=== PATIENT | female | born 1970 | race Caucasian/White ===

== ENCOUNTER 2019-10-09 01:30 | Observation (INO) | payer BC, SELFPAY ==
[2019-10-09] VITALS (13 sets, daily range): BP systolic 126–184; BP diastolic 58–106; PULSE 57–84; RESP 14–22; TEMP 36.3–36.9; O2SAT 93–99; BMI 40.0; BMI 38.0
--- NOTE | 2019-10-09 01:48 | RAD_ITS ---
STUDY: X-RAY CHEST REASON FOR EXAM: Female, 48 years old. Left-sided chest pain and shortness of breath TECHNIQUE: Single AP portable view of the chest. COMPARISON: None. FINDINGS: The lungs are clear and expanded. There is no demonstrated pleural abnormality. Normal size heart. Normal mediastinum and andres. Normal visualized pulmonary arteries. Normal visualized aortic arch and descending thoracic aorta. Normal visualized thoracic spine. Normal visualized ribs, clavicles, and shoulders. There is no demonstrated abnormality of the visualized soft tissue structures of the upper abdomen. RAD/Chest 1 View (Portable) IMPRESSION: Normal x-ray examination of the chest. Electronically Signed: Bryant Bowman MD at 2:13 EST Tel , Service support ,
--- NOTE | 2019-10-09 01:48 | EKG12_ITS ---
Test Reason : CP Blood Pressure : / mmHG Vent. Rate : 069 BPM Atrial Rate : 069 BPM P-R Int : 160 ms QRS Dur : 072 ms QT Int : 434 ms P-R-T Axes : 048 048 066 degrees QTc Int : 465 ms Normal sinus rhythm Normal ECG Confirmed by MICHAEL KEVIN, ARLEEN ([id number]), metropolitan editor VIVIENNE MACKEY ([id number]) on 10/10/2019 2:08:55 PM Referred By: Arleen Dickinson Confirmed By:ARLEEN RODRIGUEZ MD
[2019-10-09 01:55] LABS: Absolute Lymphocyte Count 2.53 X10^3/uL (0.83-4.51); Absolute Neutrophil Count 5.9 X10^3/uL (2.0-7.7); Basophil# 0.05 X10^3/uL; Basophil% 0.5 % (0-1); Eosinophil# 0.29 X10^3/uL; Eosinophils% 3.1 % (0-5); Hematocrit 34.3 % (37-47); Hemoglobin 11.6 g/dL (12.0-15.0); Lymphocyte # 2.53 X10^3/ul (4.0); Lymphocyte % 27.2 % (19-41); Mean Corp Hgb Conc 33.8 g/dL (32-36); Mean Corpuscular Hgb 29.8 pg (27.0-32.0); Mean Corpuscular Volume 88.2 fL (81-99); Mean Platelet Vol. 9.1 fl (6.2-12.0); Monocyte# 0.42 X10^3/uL; Monocyte% 4.5 % (0-10); NRBC Flagged by Analyzer 0 % (0-5); Neutrophil # 5.94 X10^3/uL (2.7-7.7); Neutrophil % 64.1 % (47-70); Platelet Count 227 K/mm3 (150-450); RBC Distribution Width CV 12.2 % (11.6-14.6); Red Blood Count 3.89 M/mm3 (4.2-5.4); White Blood Count 9.3 K/mm3 (4.4-11.0)
[2019-10-09 02:06] LABS: D-Dimer Quantitative (DVT/PE) 0.32 FEU/ug/m (0.27-0.49)
[2019-10-09] MEDS: Mag Hydrox/Al Hydrox/Simeth 30 ML UDC PO (02:18)
--- NOTE | 2019-10-09 02:26 | ED.VISSUMM ---
- ER Visit Summary Date of Service: 10/09/19 Chief Complaint: Chest pain History of Present Illness: The patient is a 48 F who notes a history of hypertension, high cholesterol, and smoking he tells me that at 2330 hrs. tonight she was sleeping was awoken out of her sleep with a left breast chest pressure shortness of breath. She noted some discomfort in the back as well. States for the past couple days she has just felt off. States that she has had some shooting pains in her chest and back and her shoulder. She quit smoking in July but restarted in August. Physical Examination: Afebrile noted hypertension otherwise vital signs are stable Gen: Well-nourished well-developed obese Head: Normocephalic atraumatic Eyes: Perrl EOMI ENT: TMs clear no rhinorrhea moist mucous membranes Neck: Supple no lymphadenopathy no JVD nontender CVS: Regular rate rhythm no murmurs normal S1-S2 Respiratory: No distress clear to auscultation bilaterally chest nontender Abdomen: Soft nontender nondistended normal bowel sounds no masses Back: Nontender Extremity: Nontender no edema Skin: Normal color no rash Neuro: alert orientated ?3 CN II-XII intact normal strength sensation reflexes gait cerebellar Psych: Normal affect normal mood Test Results: EKG demonstrates a normal sinus rhythm rate of 69 d-dimer 0.32. CBC with a hemoglobin 11.6. Initial troponin is negative. This represents about a 3-hour troponin. D-dimer 0.32. Emergency Department Course and Treatment: GI cocktail she states that maybe it did something that is difficult for her to tell me. 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 As far as the chest pressure that is better but she is not sure if there was a GI cocktail that made it better or not. Her REGINA score is 1. Heart score places her is her in a moderate risk. We will plan on observation with cycling troponin and further care. Impression: 1. Chest pain This note was generated with [employer] dictation software. It may contain incorrect words, spelling, and punctuation that were not noted in review of the chart prior to signing ED Disposition - Plan for ED Patient: Referrals: Kim Oliov MD [Primary Care Provider] -
[2019-10-09 02:59] LABS: Anion Gap 6 (5-15); BUN 14 mg/dL (7-18); BUN/Creat Ratio 10.1 RATIO (10-20); Calcium,Total 8.7 mg/dL (8.5-10.1); Chloride 110 mmol/L (98-107); Creatinine, Serum 1.38 mg/dL (0.55-1.02); EST Glomerular Filtration Rate 43 mL/min (>60); Est Glom Filt Rate - Afr Amer 52 mL/min (>60); Estimated Creatinine Clearance 42.58 ml/min; Glucose 117 mg/dL (74-106); Potassium 3.7 mmol/L (3.5-5.1); Sodium Level 143 mmol/L (136-145)
--- NOTE | 2019-10-09 03:25 | PCM.HP.STD ---
Problem List (1) Hypertension Status: Chronic (2) Hyperlipidemia Status: Chronic (3) Obesity Status: Chronic (4) Smoking Status: Chronic (5) Chest pain Status: Acute History of Present Illness Date of Admission: 10/09/19 Chief Complaint: chest pain The patient is a 48 year old female patient with a past medical history of hypertension, hyperlipidemia, obesity and recently restarted smoker who presents the emergency room for chest pain. The chest pain began at 1130 this evening and awoke her from sleep, she describes the pain is emanating from the deep beneath her left breast radiating into the left upper extremity and is a sharp pain in nature. The most part the character of the pain has diminished since arrival and treatment in the emergency room. Patient last had a stress test 6 years ago that was done chemically and was negative. Initial troponin level is less than 0.015. Other laboratory studies are unremarkable. The patient will be admitted to the progressive care unit for further work-up of her potential cardiac disease. Past Medical History Past Medical History (Chronic Problems): Chronic Problems Hypertension (Chronic) Hyperlipidemia (Chronic) Obesity (Chronic) Smoking (Chronic) Allergies butorphanol tartrate [From Stadol] Allergy (Verified 10/09/19 01:33) Shortness of breath ondansetron HCl [From Zofran (as hydrochloride)] Allergy (Verified 10/09/19 01:33) Other PALPITATIONS Home Medications: Ambulatory Orders Medication Instructions Recorded Lisinopril [Zestril] 20 mg PO DAILY 10/15/15 Pantoprazole Sodium [Protonix] 40 mg PO DAILY 10/15/15 busPIRone [Buspar] 15 mg PO BID 10/15/15 Atorvastatin Calcium [Lipitor] 20 mg PO QHS 10/09/19 Citalopram [Celexa] 40 mg PO DAILY 10/09/19 traZODone [Desyrel] 150 mg PO QHS 10/09/19 Smoking Status: Current every day smoker Tobacco Use: Cigarettes - *Family History Maternal History Items: No pertinent history Review of Systems Constitutional: Denies: Chills, Fever, Weight Change HEENT: Denies: Head Aches, Sinus Congestion, Sinus Drainage Cardiovascular: Reports: Chest Pain. Denies: Palpitations Respiratory: Denies: Cough, Shortness of breath at rest, Sputum production Gastrointestinal: Denies: Abdominal Pain, Nausea, Vomiting Genitourinary: Denies: Dysuria Musculoskeletal: Denies: Joint Pain, Joint Tenderness Skin: Denies: Rash, Wounds Neurological: Denies: Numbness, Tingling, Focal weakness Psychiatric: Denies: Anxiety, Depression, Homicidal Ideations, Suicidal Ideations Hematologic/ Lymphatic: Denies: Easy Bruising, Easy Bleeding VTE Information - Inpt Only VTE Present on Admission: No VTE Mechan Device Prophylaxis: None VTE Pharm Prophylaxis ordered?: Yes Patient Problems: Active and Suspected Problems Chest pain (Acute) - Physical Exam Vitals/I&O's: Vital Signs Temp Pulse Resp BP Pulse Ox 97.7 F L 63 19 H 154/78 H 97 10/09/19 01:30 10/09/19 02:52 10/09/19 02:52 10/09/19 02:52 10/09/19 02:52 Oxygen Delivery Method Room Air Weight: 233 lb 7.512 oz Body Mass Index (BMI) 40.0 General: Alert, Oriented x3, Cooperative HEENT: Atraumatic, Normocephalic Neck: Supple Lungs: Clear to auscultation, Normal air movement Cardiovascular: Regular rate, Normal S1, Normal S2, No murmurs Abdomen: Bowel Sounds Present, Soft, Non Tender, Obese Extremities: No edema Skin: No rashes Musculoskeletal: No Tenderness to Palpation of Joints or Extremities Neurological: Neuro grossly intact Psych/Mental Status: Normal Affect, Appropriate Laboratory Results 10/09/19 01:42: WBC 9.3, RBC 3.89 L, Hgb 11.6 L, Hct 34.3 L, MCV 88.2, MCH 29.8, MCHC 33.8, RDW Std Deviation 39.0, RDW Coeff of Erica 12.2, Plt Count 227, MPV 9.1, Immature Gran % (Auto) 0.600, Neut % (Auto) 64.1, Lymph % (Auto) 27.2, [place] % (Auto) 4.5, Eos % (Auto) 3.1, Baso % (Auto) 0.5, Absolute Neuts (auto) 5.9, Absolute Lymphs (auto) 2.53, Nucleated RBC % 0 10/09/19 01:42: D-Dimer Quant (PE/DVT) 0.32 10/09/19 01:42: Sodium 143, Potassium 3.7, Chloride 110 H, Carbon Dioxide 27.0, Anion Gap 6, BUN 14, Creatinine 1.38 H, Estim Creat Clear Calc 42.58, Est GFR (MDRD) Af Amer 52 L, Est GFR (MDRD) Non-Af 43 L, BUN/Creatinine Ratio 10.1, Glucose 117 H, Calcium 8.7, Troponin I < 0.015 Assessment/Plan All Active Problems Chest pain (Acute) Chronic conditions 1. hypertension 2. Obesity 3. Hyperlipidemia 4. Smoking Plan 1. Chest pain rule out myocardial infarction?admit to observation to the progressive care unit for stress test, cycle cardiac enzymes, oxygen,nitroglycerin as needed and aspirin per routine protocol 2. Smoking?patient refused nicotine patch 3. Hypertension?continue routine home medication 4. Hyperlipidemia?repeat fasting lipid panel in the morning 5. DVT prophylaxis?low molecular weight heparin Code Visit OBSV E&M: 97381 Initial observation care L2
[2019-10-09] MEDS: Aspirin 81 MG TAB.CHEW 243 MG PO (03:58)
[2019-10-09] MEDS: Lisinopril 20 MG Tablet PO ×2 (05:05→15:51)
[2019-10-09 05:41] LABS: Absolute Lymphocyte Count 2.06 X10^3/uL (0.83-4.51); Absolute Neutrophil Count 5.6 X10^3/uL (2.0-7.7); Basophil# 0.03 X10^3/uL; Basophil% 0.4 % (0-1); Eosinophil# 0.29 X10^3/uL; Eosinophils% 3.4 % (0-5); Hematocrit 31.8 % (37-47); Hemoglobin 10.4 g/dL (12.0-15.0); Lymphocyte # 2.06 X10^3/ul (4.0); Lymphocyte % 24.3 % (19-41); Mean Corp Hgb Conc 32.7 g/dL (32-36); Mean Corpuscular Hgb 29.1 pg (27.0-32.0); Mean Corpuscular Volume 89.1 fL (81-99); Mean Platelet Vol. 9.4 fl (6.2-12.0); Monocyte# 0.36 X10^3/uL; Monocyte% 4.2 % (0-10); NRBC Flagged by Analyzer 0 % (0-5); Neutrophil # 5.62 X10^3/uL (2.7-7.7); Neutrophil % 66.2 % (47-70); Platelet Count 222 K/mm3 (150-450); RBC Distribution Width CV 12.2 % (11.6-14.6); RBC Distribution Width SD 39.2 fl (35.1-43.9); Red Blood Count 3.57 M/mm3 (4.2-5.4); White Blood Count 8.5 K/mm3 (4.4-11.0)
[2019-10-09 07:12] LABS: Anion Gap 8 (5-15); BUN 17 mg/dL (7-18); BUN/Creat Ratio 14.3 RATIO (10-20); Calcium,Total 8.3 mg/dL (8.5-10.1); Chloride 107 mmol/L (98-107); Cholesterol 163 mg/dL (200); Creatinine, Serum 1.19 mg/dL (0.55-1.02); EST Glomerular Filtration Rate 51 mL/min (>60); Est Glom Filt Rate - Afr Amer 62 mL/min (>60); Estimated Creatinine Clearance 51.46 ml/min; Glucose 98 mg/dL (74-106); High Density Lipoprotein 42 mg/dL; Potassium 3.9 mmol/L (3.5-5.1); Sodium Level 141 mmol/L (136-145); Triglycerides 285 mg/dL; Very Low Density Lipoprotein 57 mg/dL (5-40)
--- NOTE | 2019-10-09 11:21 | NURSING ---
Pt taken to stress lab by PCA. Radha
--- NOTE | 2019-10-09 13:26 | NURSING ---
Pt returned from stress test by EMILY Triplett.
[2019-10-09] MEDS: hydrALAZINE 20 MG/ML Vial 10 MG IV (13:55)
--- NOTE | 2019-10-09 14:09 | STRESSREP_ITS ---
Stress Test Report Date: 06-08-19 Procedure: Pharmacologic stress nuclear imaging study Indications: Chest pain Consent: Per the patient Procedure: The patient underwent pharmacologic (Regadenoson) evaluation with a peak heart rate of 94 beats per minute (54 %predicted maximal heart rate) and a peak blood pressure of 172/94 mmHg. The baseline ECG demonstrated normal sinus rhythm. The peak pharmacologic ECG demonstrated no obvious ECG changes. There were no cardiac dysrhythmias pretest, during pharmacologic infusion, or recovery. The patient noted of chronic chest discomfort. The examination was discontinued secondary to completion of protocol. Impression: 1. Pharmacologic (Regadenoson) evaluation 2. Peak pharmacologic ECG with no obvious ECG changes. 3. There were no cardiac dysrhythmias pretest, during pharmacologic infusion, or recovery. 4. Nuclear images pending Myocardial perfusion imaging study: Technique: The patient was injected with 14.3 millicuries of technetium 99m Cardiolite and subsequently rest SPECT Cardiolite nuclear imaging was obtained in the horizontal long, vertical long, and short axis views. The patient underwent pharmacologic (Regadenoson) evaluation with a peak heart rate of 94 beats per minute (54 % percent predicted maximal heart rate) and a peak blood pressure of 172/94 mmHg. The patient was injected with 45.0 millicuries of technetium 99m Cardiolite and subsequently stress SPECT Cardiolite nuclear imaging was obtained in the horizontal long, vertical long, and short axis views. A gated Cardiolite study at peak stress was obtained. Interpretation: Rest and stress SPECT Cardiolite nuclear imaging status post realignment, normalization, and attenuation correction demonstrate a small area of subtle diminished tracer uptake near the apical segments without significant change between rest and stress. There is end systolic thickening and brightening. The gated Cardiolite study demonstrates myocardial thickening and inward wall motion. The reported LVEF is 64 %. Impression: 1. Rest and stress SPECT Cardiolite nuclear imaging demonstrate myocardial perfusion changes appearing compatible with physiologic apical thinning with no myocardial perfusion changes considered diagnostic for associated stress-induced myocardial ischemia. 2. The gated Cardiolite study reports an LVEF of 64 %. This note was generated with [employer] software. It may contain incorrect words, spelling, and punctuation that were not noted in checking the note before signing.
--- NOTE | 2019-10-09 14:34 | DCINST_ITS ---
- Discharge Diagnoses Current Active Problems: Current Active and Chronic Problems Hypertension (Chronic) Hyperlipidemia (Chronic) Obesity (Chronic) Smoking (Chronic) Chest pain (Acute) You will use the following diet at home:: No restrictions Instructions: CHEST PAIN, NonCardiac Allergies/Adverse Reactions: Allergies butorphanol tartrate [From Stadol] Allergy (Verified 10/09/19 01:33) Shortness of breath Medications to take at Discharge Lisinopril [Zestril] 20 mg PO DAILY 10/15/15 Pantoprazole Sodium [Protonix] 40 mg PO DAILY 10/15/15 busPIRone [Buspar] 15 mg PO BID 10/15/15 Atorvastatin Calcium [Lipitor] 20 mg PO QHS 10/09/19 Citalopram [Celexa] 40 mg PO DAILY 10/09/19 Ropinirole HCl [Requip] 0.25 mg PO QHS 10/09/19 traZODone [Desyrel] 150 mg PO QHS 10/09/19 Primary Care Physician: Kim Olivo MD [Primary Care Provider] - Please follow up with your Primary Care Physician in: in 1 week Test Results: Test results from this visit will be discussed in further detail at your follow- up appointment, if applicable. Proposed Discharge Date: 10/09/19
--- NOTE | 2019-10-09 14:35 | NURSING ---
Pt c/o Sob and right side chest pain sudden onset. Crushing, 9/10 over right side. Pain reproducible with palpation of right 4th intercostal. BP 183/81, Pulse 75. 2L N/C O2 placed on patient for comfort. SpO2 99%. EKG obtained by [facility], shows NSR. Dr. Ambrosio notified.
--- NOTE | 2019-10-09 14:36 | DS.PCM_ITS ---
Discharge Date and Diagnosis - Problem List Patient Problems: Active and Suspected Problems Chest pain (Acute) Date of Admission: 10/09/19 - Primary Discharge Diagnosis Active and Suspected Problems Chest pain (Acute) - Secondary Discharge Diagnosis Chronic Problems Hypertension (Chronic) Hyperlipidemia (Chronic) Obesity (Chronic) Smoking (Chronic) Hospital Course and Treatment Imaging Results: 10/09/19 05:55 Nuclear Stress Test - Chemical [NM] Routine Summary of Care Provided: The patient is a 48 year old F [] Patient Problems: Active and Suspected Problems Chest pain (Acute) - Physical Exam Vitals/I&O's: Vital Signs Temp Pulse Resp BP Pulse Ox 98.0 F 67 16 175/69 H 96 10/09/19 13:31 10/09/19 13:55 10/09/19 13:31 10/09/19 13:31 10/09/19 13:31 Oxygen Delivery Method Room Air Weight: 103.6 kg Body Mass Index (BMI) 38.0 Laboratory Results 10/09/19 01:42: WBC 9.3, RBC 3.89 L, Hgb 11.6 L, Hct 34.3 L, MCV 88.2, MCH 29.8, MCHC 33.8, RDW Std Deviation 39.0, RDW Coeff of Erica 12.2, Plt Count 227, MPV 9.1, Immature Gran % (Auto) 0.600, Neut % (Auto) 64.1, Lymph % (Auto) 27.2, [place] % (Auto) 4.5, Eos % (Auto) 3.1, Baso % (Auto) 0.5, Absolute Neuts (auto) 5.9, Absolute Lymphs (auto) 2.53, Nucleated RBC % 0 10/09/19 01:42: D-Dimer Quant (PE/DVT) 0.32 10/09/19 01:42: Sodium 143, Potassium 3.7, Chloride 110 H, Carbon Dioxide 27.0, Anion Gap 6, BUN 14, Creatinine 1.38 H, Estim Creat Clear Calc 42.58, Est GFR (MDRD) Af Amer 52 L, Est GFR (MDRD) Non-Af 43 L, BUN/Creatinine Ratio 10.1, Glucose 117 H, Calcium 8.7, Troponin I < 0.015 10/09/19 04:56: WBC 8.5, RBC 3.57 L, Hgb 10.4 L, Hct 31.8 L, MCV 89.1, MCH 29.1, MCHC 32.7, RDW Std Deviation 39.2, RDW Coeff of Erica 12.2, Plt Count 222, MPV 9.4, Immature Gran % (Auto) 1.500 H, Neut % (Auto) 66.2, Lymph % (Auto) 24.3, [place] % (Auto) 4.2, Eos % (Auto) 3.4, Baso % (Auto) 0.4, Absolute Neuts (auto) 5.6, Absolute Lymphs (auto) 2.06, Nucleated RBC % 0 10/09/19 04:56: Sodium 141, Potassium 3.9, Chloride 107, Carbon Dioxide 26.0, Anion Gap 8, BUN 17, Creatinine 1.19 H, Estim Creat Clear Calc 51.46, Est GFR (MDRD) Af Amer 62, Est GFR (MDRD) Non-Af 51 L, BUN/Creatinine Ratio 14.3, Glucose 98, Calcium 8.3 L, Triglycerides 285 H, Cholesterol 163, LDL Cholesterol 64, VLDL Cholesterol 57 H, HDL Cholesterol 42 10/09/19 04:56: Troponin I < 0.015 10/09/19 07:45: Troponin I < 0.015 Current Medications Aspirin (Ecotrin) 325 mg PO DAILY@0800 [facility] Atorvastatin Calcium (Lipitor) 20 mg PO QHS [facility] Buspirone HCl (Buspar) 15 mg PO BID [facility] Citalopram Hydrobromide (Celexa) 40 mg PO DAILY [facility] Enoxaparin Sodium (Lovenox) 40 mg SC DAILY@1000 [facility] Sodium Chloride () 250 mls @ 15 mls/hr IV .[id number] PRN PRN Reason: Saline Flush Lisinopril (Zestril) 20 mg PO DAILY [facility] Last Admin: 10/09/19 05:05 Dose: 20 mg Documented by: Nitroglycerin (Nitrostat) 0.4 mg SUBLINGUAL Q5M PRN PRN Reason: CARDIAC/CHEST PAIN Pantoprazole Sodium (Protonix) 40 mg PO DAILY [facility] Pramipexole Dihydrochloride (Mirapex) 0.125 mg PO QHS [facility] Sodium Chloride () 10 - 40 ml IV UD PRN PRN Reason: SALINE FLUSH Trazodone HCl (Desyrel) 150 mg PO QHS [facility] Medications: Medications to take at Discharge Lisinopril [Zestril] 20 mg PO DAILY 10/15/15 Pantoprazole Sodium [Protonix] 40 mg PO DAILY 10/15/15 busPIRone [Buspar] 15 mg PO BID 10/15/15 Atorvastatin Calcium [Lipitor] 20 mg PO QHS 10/09/19 Citalopram [Celexa] 40 mg PO DAILY 10/09/19 Ropinirole HCl [Requip] 0.25 mg PO QHS 10/09/19 traZODone [Desyrel] 150 mg PO QHS 10/09/19 Primary Care Physician: Kim Olivo MD [Primary Care Provider] - Please follow up with your Primary Care Physician in: in 1 week Patient Instructions: CHEST PAIN, NonCardiac Medical Necessity - Tobacco Use Smoking Status: Current every day smoker Tobacco Use: Cigarettes
--- NOTE | 2019-10-09 14:42 | CT_ITS ---
STUDY: CTA CHEST REASON FOR EXAM: Female, 48 years old. Chest pain. Shortness of breath. RADIATION DOSAGE (If Supplied By Facility): CTDIvol = ( 12.66 ) mGy, DLP = ( 529.46 ) mGycm TECHNIQUE: The examination was performed with the intravenous administration of IV Isovue 370 100. Post-processing of the angiographic images was performed, with multiplanar reformation and 3D reconstruction. Individualized dose optimization techniques were used for this CT. COMPARISON: None. FINDINGS: Normal enhancement of the main pulmonary artery and right and left pulmonary arteries. Normal enhancement of the bilateral peripheral pulmonary arteries. There is no demonstrated pulmonary embolism. Normal thoracic aorta and visualized great vessels. There is no demonstrated aortic dissection. Normal heart and pericardium. Normal mediastinum. Normal hilar regions. Normal visualized trachea and bronchi. The lungs are well expanded. Minimal increased markings at the left lung base suggests resolving atelectasis and/or scarring. Normal pleura. Normal chest wall structures. There are degenerative changes of thoracic spine. Normal visualized upper abdomen. CT/CTA Chest W/WO Contrast IMPRESSION: Normal CTA chest examination, without a demonstrated pulmonary embolism or arterial dissection. Electronically Signed: David Gates, at 15:40 EST , Service support ,
--- NOTE | 2019-10-09 15:30 | PCM.DC ---
- Discharge Diagnoses Current Active Problems: Current Active and Chronic Problems Hypertension (Chronic) Hyperlipidemia (Chronic) Obesity (Chronic) Smoking (Chronic) Chest pain (Acute) Discharge Activity: Return to Normal Activity Instructions: CHEST PAIN, NonCardiac Allergies/Adverse Reactions: Allergies butorphanol tartrate [From Stadol] Allergy (Verified 10/09/19 01:33) Shortness of breath Medications to take at Discharge Lisinopril [Zestril] 20 mg PO DAILY 10/15/15 Pantoprazole Sodium [Protonix] 40 mg PO DAILY 10/15/15 busPIRone [Buspar] 15 mg PO BID 10/15/15 Amlodipine [Norvasc] 10 mg PO DAILY #60 tab 10/09/19 Atorvastatin Calcium [Lipitor] 20 mg PO QHS 10/09/19 Citalopram [Celexa] 40 mg PO DAILY 10/09/19 Lisinopril [Zestril] 20 mg PO BID #120 tab 10/09/19 Ropinirole HCl [Requip] 0.25 mg PO QHS 10/09/19 traZODone [Desyrel] 150 mg PO QHS 10/09/19 The following prescriptions were given: Amlodipine [Norvasc] 10 mg PO DAILY #60 tab Transmission Status: Received by [id number] Lisinopril [Zestril] 20 mg PO BID #120 tab Transmission Status: Received by [facility] Primary Care Physician: Kim Olivo MD [Primary Care Provider] - Please follow up with your Primary Care Physician in: in 1 week Test Results: Test results from this visit will be discussed in further detail at your follow-up appointment, if applicable. Proposed Discharge Date: 10/10/19
--- NOTE | 2019-10-09 15:37 | PCM.PN.BLA ---
Progress Note Patient is a 48-year-old lady admitted with chest pain. Placed on a monitored bed MT has been ruled out with serial cardiac enzymes. Underwent a nuclear stress test which is negative for stress-induced ischemia Patient did complain of significant chest discomfort as well as diaphoresis following the procedure CTA of the chest subsequently ordered to rule out PE Patient also has markedly elevated blood pressure with systolic greater than 180. Patient is on lisinopril dose was doubled. Was also started on amlodipine 10 mg p.o. daily as well as IV hydralazine. Plan will be to monitor patient overnight for her blood pressure to stabilize prior to discharge. STROKE Vital Signs/Narrative: Vital Signs Temp Pulse Resp BP Pulse Ox 10/09/19 15:00 77 10/09/19 13:55 67 10/09/19 13:31 98.0 F 67 16 175/69 H 96
[2019-10-09] MEDS: amLODIPine 10 MG Tablet PO (15:51)
[2019-10-09] MEDS: Pantoprazole Sodium 40 MG Tablet PO (15:53)
[2019-10-09] MEDS: Citalopram 40 MG TABLET PO (15:54)
[2019-10-09] MEDS: busPIRone 15 MG TABLET PO ×2 (15:54→20:53)
[2019-10-09] MEDS: Enoxaparin 40 MG/0.4 ML Syringe SC (15:54)
--- NOTE | 2019-10-09 16:17 | PCM.PN.HOSP ---
Patient Problems: Active and Suspected Problems Chest pain (Acute) Vitals/I&O's: Vital Signs Temp Pulse Resp BP Pulse Ox 98.0 F 77 16 175/69 H 96 10/09/19 13:31 10/09/19 15:00 10/09/19 13:31 10/09/19 13:31 10/09/19 13:31 Oxygen Flow Rate (L/min) 2 Oxygen Delivery Method Nasal Cannula Weight: 103.6 kg Body Mass Index (BMI) 38.0 Laboratory Results 10/09/19 01:42: WBC 9.3, RBC 3.89 L, Hgb 11.6 L, Hct 34.3 L, MCV 88.2, MCH 29.8, MCHC 33.8, RDW Std Deviation 39.0, RDW Coeff of Erica 12.2, Plt Count 227, MPV 9.1, Immature Gran % (Auto) 0.600, Neut % (Auto) 64.1, Lymph % (Auto) 27.2, [place] % (Auto) 4.5, Eos % (Auto) 3.1, Baso % (Auto) 0.5, Absolute Neuts (auto) 5.9, Absolute Lymphs (auto) 2.53, Nucleated RBC % 0 10/09/19 01:42: D-Dimer Quant (PE/DVT) 0.32 10/09/19 01:42: Sodium 143, Potassium 3.7, Chloride 110 H, Carbon Dioxide 27.0, Anion Gap 6, BUN 14, Creatinine 1.38 H, Estim Creat Clear Calc 42.58, Est GFR (MDRD) Af Amer 52 L, Est GFR (MDRD) Non-Af 43 L, BUN/Creatinine Ratio 10.1, Glucose 117 H, Calcium 8.7, Troponin I < 0.015 10/09/19 04:56: WBC 8.5, RBC 3.57 L, Hgb 10.4 L, Hct 31.8 L, MCV 89.1, MCH 29.1, MCHC 32.7, RDW Std Deviation 39.2, RDW Coeff of Erica 12.2, Plt Count 222, MPV 9.4, Immature Gran % (Auto) 1.500 H, Neut % (Auto) 66.2, Lymph % (Auto) 24.3, Prairie % (Auto) 4.2, Eos % (Auto) 3.4, Baso % (Auto) 0.4, Absolute Neuts (auto) 5.6, Absolute Lymphs (auto) 2.06, Nucleated RBC % 0 10/09/19 04:56: Sodium 141, Potassium 3.9, Chloride 107, Carbon Dioxide 26.0, Anion Gap 8, BUN 17, Creatinine 1.19 H, Estim Creat Clear Calc 51.46, Est GFR (MDRD) Af Amer 62, Est GFR (MDRD) Non-Af 51 L, BUN/Creatinine Ratio 14.3, Glucose 98, Calcium 8.3 L, Triglycerides 285 H, Cholesterol 163, LDL Cholesterol 64, VLDL Cholesterol 57 H, HDL Cholesterol 42 10/09/19 04:56: Troponin I < 0.015 10/09/19 07:45: Troponin I < 0.015 Current Medications Amlodipine Besylate (Norvasc) 10 mg PO DAILY [facility] Aspirin (Ecotrin) 325 mg PO DAILY@0800 [facility] Atorvastatin Calcium (Lipitor) 20 mg PO QHS [facility] Buspirone HCl (Buspar) 15 mg PO BID [facility] Last Admin: 10/09/19 15:54 Dose: 15 mg Documented by: Citalopram Hydrobromide (Celexa) 40 mg PO DAILY [facility] Last Admin: 10/09/19 15:54 Dose: 40 mg Documented by: Enoxaparin Sodium (Lovenox) 40 mg SC DAILY@1000 [facility] Last Admin: 10/09/19 15:54 Dose: 40 mg Documented by: Hydralazine HCl (Apresoline Iv) 10 mg IV Q4H PRN PRN PRN Reason: for SBP > 150 Sodium Chloride () 250 mls @ 15 mls/hr IV .[id number] PRN PRN Reason: Saline Flush Lisinopril (Zestril) 20 mg PO BID [facility] Last Admin: 10/09/19 15:51 Dose: 20 mg Documented by: Nitroglycerin (Nitrostat) 0.4 mg SUBLINGUAL Q5M PRN PRN Reason: CARDIAC/CHEST PAIN Pantoprazole Sodium (Protonix) 40 mg PO DAILY [facility] Last Admin: 10/09/19 15:53 Dose: 40 mg Documented by: Pramipexole Dihydrochloride (Mirapex) 0.125 mg PO QHS [facility] Sodium Chloride () 10 - 40 ml IV UD PRN PRN Reason: SALINE FLUSH Trazodone HCl (Desyrel) 150 mg PO QHS [facility] STROKE Vital Signs/Narrative: Vital Signs Temp Pulse Resp BP Pulse Ox 10/09/19 15:00 77 10/09/19 13:55 67 10/09/19 13:31 98.0 F 67 16 175/69 H 96 Medical Necessity - Tobacco Use Smoking Status: Current every day smoker Tobacco Use: Cigarettes Assessment/Plan All Active Problems Chest pain (Acute)
[2019-10-09] MEDS: Atorvastatin Calcium 20 MG Tablet PO (20:52)
[2019-10-09] MEDS: traZODone 50 MG Tablet 150 MG PO (20:53)
[2019-10-09] MEDS: Pramipexole Di-HCl 0.125 MG Tablet PO (20:53)
[2019-10-09] MEDS: MELATONIN 3 MG TABLET PO (20:56)
[2019-10-09] MEDS: Acetaminophen 325 MG Tablet 650 MG PO (20:56)
[2019-10-10 02:30] VITALS: BP 113/49; PULSE 70; RESP 16; TEMP 36.8; O2SAT 93
[2019-10-10 03:00] VITALS: PULSE 60
[2019-10-10 07:02] VITALS: PULSE 67
--- NOTE | 2019-10-10 08:24 | PCM.DC.SUM ---
Discharge Date and Diagnosis - Problem List Patient Problems: Active and Suspected Problems Chest pain (Acute) Date of Admission: 10/09/19 Date of Discharge: 10/10/19 - Primary Discharge Diagnosis Active and Suspected Problems Chest pain (Acute) - Secondary Discharge Diagnosis Chronic Problems Hypertension (Chronic) Hyperlipidemia (Chronic) Obesity (Chronic) Smoking (Chronic) Hospital Course and Treatment Imaging Results: Clinical Impression(s) from Imaging Studies Chest X-Ray 10/09/19 01:48 IMPRESSION: Normal x-ray examination of the chest. Electronically Signed: Brynat Bowman MD at 2:13 EST Tel , Service support , Chest CTA 10/09/19 14:42 IMPRESSION: Normal CTA chest examination, without a demonstrated pulmonary embolism or arterial dissection. Electronically Signed: David Kody, at 15:40 EST , Service support , Summary of Care Provided: Patient is a 48-year-old lady admitted with chest pain. Placed on a monitored bed NM has been ruled out with serial cardiac enzymes. Underwent a nuclear stress test which is negative for stress-induced ischemia 1. Atypical chest pain. Placed on a monitored bed NM has been ruled out with serial cardiac enzymes. Underwent a nuclear stress test which is negative for stress-induced ischemia Patient did complain of significant chest discomfort as well as diaphoresis following the procedure CTA of the chest subsequently ordered to rule out PE 2. Accelerated hypertension patient also has markedly elevated blood pressure with systolic greater than 180. Patient is on lisinopril dose was doubled. Was also started on amlodipine 10 mg p.o. daily as well as IV hydralazine. 3. Morbid obesity with BMI of 38.0 weight loss advised Patient Problems: Active and Suspected Problems Chest pain (Acute) Objective: GENERAL: cooperative HEENT: Atraumatic; EYES; Anicteric, Normal Conjunctiva NECK; supple, normal thyroid, RESPIRATORY: Diminished to auscultation CARDIOVASCULAR: Regular S1 S2, GI: soft, normoactive bowel sounds, NEURO: Awake; no lateralizing signs. SKIN: No Rash PSYCH; Flat affect - Physical Exam Vitals/I&O's: Vital Signs Temp Pulse Resp BP Pulse Ox 98.2 F 67 16 113/49 L 93 10/10/19 02:30 10/10/19 07:02 10/10/19 02:30 10/10/19 02:30 10/10/19 02:30 Oxygen Flow Rate (L/min) 2 Oxygen Delivery Method Room Air Weight: 103.6 kg Body Mass Index (BMI) 38.0 Intake and Output for Last 24 Hours 10/08/19 10/09/19 10/10/19 23:59 23:59 23:59 Intake Total 350 / 350 Balance 350 / 350 Current Medications Acetaminophen (Tylenol) 650 mg PO Q6H PRN PRN PRN Reason: Non-cardiac pain Last Admin: 10/09/19 20:56 Dose: 650 mg Documented by: Amlodipine Besylate (Norvasc) 10 mg PO DAILY [facility] Aspirin (Ecotrin) 325 mg PO DAILY@0800 [facility] Atorvastatin Calcium (Lipitor) 20 mg PO QHS [facility] Last Admin: 10/09/19 20:52 Dose: 20 mg Documented by: Buspirone HCl (Buspar) 15 mg PO BID [facility] Last Admin: 10/09/19 20:53 Dose: 15 mg Documented by: Citalopram Hydrobromide (Celexa) 40 mg PO DAILY [facility] Last Admin: 10/09/19 15:54 Dose: 40 mg Documented by: Enoxaparin Sodium (Lovenox) 40 mg SC DAILY@1000 [facility] Last Admin: 10/09/19 15:54 Dose: 40 mg Documented by: Hydralazine HCl (Apresoline Iv) 10 mg IV Q4H PRN PRN PRN Reason: for SBP > 150 Lisinopril (Zestril) 20 mg PO BID [facility] Last Admin: 10/09/19 15:51 Dose: 20 mg Documented by: Melatonin (Melatonin) 3 mg PO QHS [facility] Last Admin: 10/09/19 20:56 Dose: 3 mg Documented by: Nitroglycerin (Nitrostat) 0.4 mg SUBLINGUAL Q5M PRN PRN Reason: CARDIAC/CHEST PAIN Pantoprazole Sodium (Protonix) 40 mg PO DAILY [facility] Last Admin: 10/09/19 15:53 Dose: 40 mg Documented by: Pramipexole Dihydrochloride (Mirapex) 0.125 mg PO QHS [facility] Last Admin: 10/09/19 20:53 Dose: 0.125 mg Documented by: Trazodone HCl (Desyrel) 150 mg PO QHS [facility] Last Admin: 10/09/19 20:53 Dose: 150 mg Documented by: Discharge Diet: Low fat/ Low Cholesterol Discharge Activity: Return to Normal Activity Home Medications: Medications to take at Discharge Lisinopril [Zestril] 20 mg PO DAILY 10/15/15 Pantoprazole Sodium [Protonix] 40 mg PO DAILY 10/15/15 busPIRone [Buspar] 15 mg PO BID 10/15/15 Amlodipine [Norvasc] 10 mg PO DAILY #60 tab 10/09/19 Atorvastatin Calcium [Lipitor] 20 mg PO QHS 10/09/19 Citalopram [Celexa] 40 mg PO DAILY 10/09/19 Lisinopril [Zestril] 20 mg PO BID #120 tab 10/09/19 Ropinirole HCl [Requip] 0.25 mg PO QHS 10/09/19 traZODone [Desyrel] 150 mg PO QHS 10/09/19 Following Prescrptions Were Given to Patient: Amlodipine [Norvasc] 10 mg PO DAILY #60 tab Transmission Status: Received by [facility] Lisinopril [Zestril] 20 mg PO BID #120 tab Transmission Status: Received by [id number] Primary Care Physician: Kim Olivo MD [Primary Care Provider] - Please follow up with your Primary Care Physician in: in 1 week Patient Instructions: CHEST PAIN, NonCardiac Disposition: Home Minutes spent on discharge:: 25 Patient Condition:: Stable Medical Necessity - Tobacco Use Smoking Status: Current every day smoker Tobacco Use: Cigarettes Meaningful Use Info Meaningful Use Diagnoses (Choose all that apply): None applicable Code Visit OBSV E&M: 97454 Observation care discharge
[2019-10-10 08:30] VITALS: BP 137/62; PULSE 63; RESP 16; TEMP 36.9; O2SAT 94
[2019-10-10] MEDS: Aspirin E.C. 325 MG Tablet PO (08:30)
[2019-10-10] MEDS: Citalopram 40 MG TABLET PO (08:30)
[2019-10-10] MEDS: busPIRone 15 MG TABLET PO (08:30)
[2019-10-10] MEDS: amLODIPine 10 MG Tablet PO (08:30)
[2019-10-10] MEDS: Lisinopril 20 MG Tablet PO (08:30)
[2019-10-10] MEDS: Pantoprazole Sodium 40 MG Tablet PO (08:30)
== END 2019-10-10 08:23 | disposition home or self-care (01) ==
LOC: ED 02:10 → PCU 03:45
PROVIDERS: Admitting Provider Family Medicine; Emergency Provider Emergency Medicine; Family Provider Internal Medicine; PCP Internal Medicine; Referring Provider Family Medicine; Visit Provider Internal Medicine
DX: R07.89 Other chest pain (principal); I10 Essential (primary) hypertension; F17.210 Nicotine dependence, cigarettes, uncomplicated; E78.5 Hyperlipidemia, unspecified; E66.01 Morbid (severe) obesity due to excess calories; Z79.899 Other long term (current) drug therapy; Z71.3 Dietary counseling and surveillance; Z68.41 Body mass index [BMI] 40.0-44.9, adult; K21.9 Gastro-esophageal reflux disease without esophagitis; F32.9 Major depressive disorder, single episode, unspecified
CPT/HCPCS: 36415; 71045; 71275; 78452; 80048; 80061; 84484; 85025; 85379; 93005; 93017; 96372; 96374; 99218; 99285; A9500; Q9967; A4216; G0378; J2785

== ENCOUNTER 2019-10-11 11:33 | Emergency (ER) | payer BC, SELFPAY ==
[2019-10-09 04:19] VITALS: BMI 38.0
[2019-10-11 11:35] VITALS: BP 161/85; PULSE 81; RESP 18; TEMP 36.2; O2SAT 100; BMI 37.7
--- NOTE | 2019-10-11 12:11 | ED.VISSUMM ---
- ER Visit Summary Date of Service: 10/11/19 Chief Complaint: Chronic hypertension and anxiety. History of Present Illness: The patient is a 48 F admission for hypertension. Patient also has a history of anxiety and depression. She recently was in the hospital discharge he readjusted her blood pressure meds to lisinopril twice a day and Norvasc. She states her blood pressure is elevated again. She had extensive work-up when she was in the hospital including a cardiac work-up that was negative and a CTA of her chest. Physical Examination: Middle-aged female no acute distress vital signs are stable afebrile. Currently her blood pressure is 161/85. Her pulse ox 9% on room air. HEENT exam unremarkable. Neck nontender no lymphadenopathy. Lungs clear to auscultation bilaterally. Heart regular rhythm no murmur. Rate about 80. Abdomen soft obese and nontender. Normal bowel sounds no peritoneal signs. Moving all 4 extremities. Calves nontender. Neurologically she is awake and alert with no focal motor deficits NIH is 0. Test Results: She and her are basically demanding a TSH. I told him as happy to get bad but that I did not not feel that was secondary to a problem. Decided that she was going to follow-up with her primary care physician and is not going to have the lab draw. Emergency Department Course and Treatment: Splane to both patient and her her pressure was only 161/85. She needs a log blood pressures follow-up with her primary care physician and they can regulate her meds as needed if needed. Treatment Plan: Continue her current medications. Follow-up with primary care physician. Disposition: Discharge Impression: Acute on chronic hypertension Anxiety This note was generated with [email or web address] dictation software. It may contain incorrect words, spelling, and punctuation that were not noted in review of the chart prior to signing ED Disposition - Plan for ED Patient: Disposition: Home or Assisted Living Instructions: HYPERTENSION, Established, Out of Control, Panic Attack Referrals: Kim Olivo MD [Primary Care Provider] - 1 Week Additional Instructions: Continue your current blood pressure and anxiety medications. Log your blood pressures twice daily when you are calm and relaxed in the morning in the evening. Follow-up with Dr. Kingston over these readings and you on her can decide if you need your medications adjusted or changed.
--- NOTE | 2019-10-11 12:14 | ED.DEP ---
ED Disposition - Plan for ED Patient: Disposition: Home or Assisted Living Instructions: HYPERTENSION, Established, Out of Control, Panic Attack Referrals: Kim Olivo MD [Primary Care Provider] - 1 Week Additional Instructions: Continue your current blood pressure and anxiety medications. Log your blood pressures twice daily when you are calm and relaxed in the morning in the evening. Follow-up with Dr. Kingston over these readings and you on her can decide if you need your medications adjusted or changed.
[2019-10-11] MEDS: LORazepam 1 MG Tablet PO (12:43)
[2019-10-11 12:46] VITALS: BP 133/71; PULSE 71; RESP 16; O2SAT 95
== END 2019-10-11 12:47 | disposition home or self-care (01) ==
PROVIDERS: Emergency Provider Emergency Medicine; Family Provider Internal Medicine; PCP Internal Medicine
DX: I10 Essential (primary) hypertension (principal); F41.9 Anxiety disorder, unspecified; Z79.899 Other long term (current) drug therapy; F32.9 Major depressive disorder, single episode, unspecified
CPT/HCPCS: 99283

== ENCOUNTER 2021-03-06 11:11 | Emergency (ER) | payer BC, SELFPAY ==
[2021-03-06 11:12] VITALS: BP 129/93; PULSE 69; RESP 18; TEMP 36.7; O2SAT 96; BMI 33.3
[2021-03-06] MEDS: MethylPREDNISolone 125 MG/2 ML Vial IV (11:26)
[2021-03-06] MEDS: DiphenhydrAMINE 50 MG/ML Syringe IV (11:26)
[2021-03-06] MEDS: 0.9% Normal Saline 1,000 ML 1000 ML IV (11:26)
--- NOTE | 2021-03-06 11:28 | ED.DCSUM_ITS ---
History of Present Illness Chief Complaint: Allergic Reaction Informant: Patient Onset: Today Context: Gradual Onset Timing: Continuous Current Severity: Moderate Maximum Severity: Moderate Narrative: Patient is a 50-year-old female medical history significant for hypertension who presents to the emergency department with allergic reaction. Patient had her second dose of the Covid vaccination today. She states about an hour later, she noticed that both of her arms were itchy. She states that she also noticed that her eyes were very puffy. She states she felt like her throat was itchy. She denies trouble breathing. She denies any cough. She has no history of anaphylaxis. She is otherwise been in her normal state of health. Prior similar symptoms: No Recent Illness/Hospitalization: No Past Medical History - Allergies and Home Meds Allergies/Adverse Reactions: Allergies butorphanol tartrate [From Stadol] Allergy (Verified 03/06/21 11:14) Shortness of breath Primary Care Physician: Kim Olivo MD [Primary Care Provider] - Prior records reviewed: Yes Past Medical History: - - Depression, anxiety, hypertension Surgical History: noncontributory Smoking Status: Current every day smoker - Family History Maternal Family History: Reports: No pertinent history Review of Systems General: Denies: Chills, Fever, Sweats Eyes: Denies: Visual changes - bilaterally, Diplopia ENT: Denies: Rhinorrhea, Sore throat Cardiovascular: Denies: Chest pain, Palpitations Respiratory: Denies: Dyspnea, Cough, Dyspnea on exertion Gastrointestinal: Denies: Abdominal pain, Nausea, Vomiting, Diarrhea, Melena, Hematochezia Genitourinary: Denies: Dysuria, Hematuria, Frequency Musculoskeletal: Denies: Back pain, Extremity Pain Skin: Reports: Rash. Denies: Wounds Neurological: Denies: Headache, Weakness, Numbness Physical Exam Vital Signs/Narrative: Vital Signs Temp Pulse Resp BP Pulse Ox 03/06/21 11:12 98.0 F 69 18 129/93 H 96 Inital Vital Signs reviewed: Yes General: Well nourished, Well developed, No Acute Distress Head: Normocephalic, Atraumatic Eyes: Perrl, EOMI ENT: Moist mucous membranes, No rhinorrhea Neck: Supple, Nontender Cardiovascular: Regular rate, Regular rhythm, No murmurs Respiratory: No distress, CTA bilaterally, Chest nontender Abdomen: Soft, Nontender, Nondistended, Normal bowel sounds Back: Nontender, Normal Inspection Extremities: Nontender, No edema Skin: Normal color, - - Urticaria on bilateral arms and anterior chest Neurological: Alert, Oriented x3, Cranial nerves II-XII grossly intact, Normal Strength, Normal Sensation Psychological: Normal affect, Normal Mood Diagnostic/Tx/Re-eval - Medical Decision Making Patient presents with allergic reaction to drug injection. She has no paulette oedema. There is no bronchospasm. She has no abdominal pain. Vitals were unremarkable. She has no evidence of anaphylaxis. IV was established. Patient was given Solu-Medrol, Pepcid, and Benadryl. She was observed. She did have improvement of her symptoms. Patient did not require epi. At this point, I do for the patient is safe for discharge. I will keep her on a prednisone burst. Impression 1. Allergic reaction to injection ED Disposition - Plan for ED Patient: Instructions: ED ADVERSE DRUG REACTION Allergic Prescriptions: Prednisone [Deltasone] 40 mg PO DAILY #10 tablet Prescription Printed Referrals: Kim Olivo MD [Primary Care Provider] -
[2021-03-06] MEDS: Famotidine 200 MG/20 ML MDV 20 MG in 0.9% Normal Saline (Pres. free 8 ML 300 MG IV (11:43)
[2021-03-06 13:02] VITALS: BP 138/57; PULSE 71; RESP 15; O2SAT 96
== END 2021-03-06 13:03 | disposition home or self-care (01) ==
LOC: ED 11:54
PROVIDERS: Emergency Provider Emergency Medicine; PCP Internal Medicine
DX: T78.49XA Other allergy, initial encounter (principal); L50.0 Allergic urticaria; I10 Essential (primary) hypertension; F32.9 Major depressive disorder, single episode, unspecified; F41.9 Anxiety disorder, unspecified; F17.200 Nicotine dependence, unspecified, uncomplicated; Z79.899 Other long term (current) drug therapy
CPT/HCPCS: 96361; 96374; 96375; 99284; J7030; A4216; J3490

== ENCOUNTER 2021-03-20 13:55 | Outpatient (RCR) | payer BC, SELFPAY | END 2021-03-20 23:59 | LOC: EMPH 13:55 | PROVIDERS: PCP Internal Medicine; Referring Provider Family Medicine Geriatric Medicine; Visit Provider Family Medicine Geriatric Medicine | DX: Z03.818 Encounter for observation for suspected exposure to other biological agents ruled out (principal) | CPT/HCPCS: 87426 ==

== ENCOUNTER 2021-04-23 10:43 | Emergency (ER) | payer BC, SELFPAY ==
[2021-04-23 10:44] VITALS: BP 112/64; PULSE 63; RESP 14; TEMP 36.1; O2SAT 97; BMI 34.3
--- NOTE | 2021-04-23 11:01 | EKG12_ITS ---
Test Reason : CP Blood Pressure : / mmHG Vent. Rate : 060 BPM Atrial Rate : 060 BPM P-R Int : 154 ms QRS Dur : 088 ms QT Int : 430 ms P-R-T Axes : 028 026 065 degrees QTc Int : 430 ms Normal sinus rhythm Normal ECG Confirmed by MICHAEL KEVIN, ARLEEN ([id number]), pictures editor CATIE SAINI ([id number]) on 04/27/2021 9:47:23 AM Referred By: FINESSE/MARIA ELENA Confirmed By:ARLEEN RODRIGUEZ MD
--- NOTE | 2021-04-23 11:12 | EX.ED.DYSGE1 ---
HPI History of Present Illness Chief Complaint: Chest Pain Informant: patient Narrative Narrative: 50-year-old female presents to the emergency room for the evaluation of chest pain. She tells me that for about a week now she has had intermittent chest pressure and shortness of breath. She notes pain in her neck to touch along the left side and the SCM distribution. She notes intermittent pains in her shoulders. She notes headache diarrhea. She notes chills. No significant cough. PFSH PFSH Medical History Hyperlipidemia Hypertension Obesity Smoking Home Medications buspirone 15 mg PO BID 10/15/15 [History Last Taken 10/08/19] lisinopril 20 mg PO DAILY 10/15/15 [History Last Taken 10/08/19] pantoprazole 40 mg PO DAILY 10/15/15 [History Last Taken 10/08/19] atorvastatin 20 mg PO QHS 10/09/19 [History Last Taken 10/08/19] citalopram 40 mg PO DAILY 10/09/19 [History Last Taken 10/08/19] ropinirole 0.25 mg PO QHS 10/09/19 [History Last Taken 10/08/19] trazodone 150 mg PO QHS 10/09/19 [History Last Taken 10/08/19] amlodipine 5 mg PO DAILY 03/06/21 [History Last Taken Unknown] Allergy/AdvReac Type Severity Reaction Status Date / Time butorphanol tartrate Allergy Shortness Verified 04/23/21 10:46 [From Stadol] of breath Social History (Updated 04/23/21 @ 11:[address] Bony Davidson, DO) Smoking Status: Current every day smoker tobacco type: cigarettes substance use type: does not use ROS ROS ED Constitutional Constitutional ED: Reports chills; Denies weight loss Eyes Eyes: Denies change in vision or diplopia ENT ENT ED: Reports sore throat; Denies ear pain or rhinorrhea Cardiovascular Cardiovascular: Reports chest pain; Denies orthopnea, palpitations or racing heartbeat Respiratory/Chest Respiratory/Chest: Reports dyspnea; Denies cough or orthopnea Gastrointestinal Gastrointestinal: Reports diarrhea; Denies abdominal pain, nausea or vomiting Genitourinary Genitourinary ED: Denies dysuria, hematuria or urinary frequency Musculoskeletal Musculoskeletal: Reports neck pain; Denies arthralgias or myalgias Integumentary Denies abscess or rash Neurologic Neurologic: Reports headache(s); Denies weakness Psychiatric Psychiatric: Denies anxiety, depression, suicidal ideation or suicidal thoughts Endocrine Endocrinology: Denies polydipsia, polyphagia or polyuria Allergic/Immunologic Allergic/Immunologic ED: Denies mouth swelling, tongue swelling or urticaria EXAM Physical Exam Const Vital Signs: 04/23/21 10:44 04/23/21 11:28 04/23/21 12:19 Temperature 96.9 F L Temperature Source Temporal Pulse Rate 63 59 L Respiratory Rate 14 11 L Respiratory Effort Normal Non-Labored Blood Pressure 112/64 116/69 Blood Pressure Mean 80 84 Pulse Ox 97 98 Oxygen Delivery Method Room Air Room Air Positive well nourished and well developed General Appearance ED: well developed HEENT Reports normocephalic, head/scalp atraumatic and moist mucous membranes Eyes PERRL and EOMs intact bilaterally Neck no lymphadenopathy, supple and no JVD Resp normal respiratory effort and clear to auscultation bilaterally Cardio regular rate, regular rhythm and no murmurs GI normal to inspection, nondistended, normoactive bowel sounds and non-tender Palpation: soft Back/Spine no CVA tenderness and normal ROM Extremity normal to inspection General Extremety ED: Negative for edema General Extremity: Negative for edema Neuro oriented x3 and CN's II-XII intact bilaterally Sensorium / Orientation: alert Motor Exam: strength 5/5 throughout Psych mental status grossly normal Mood & Affect: Negative for depressed or tearful Skin no rashes or lesions noted and no wounds MDM MDM MDM Narrative Medical decision making narrative: My interpretation of the plain film of the chest is no acute process. EKG is a normal sinus rhythm. Troponin is negative. Basic blood work is otherwise negative. Covid test is negative. Patient's heart score is 3. At this point I believe the patient can be discharged home with instructions to follow-up with primary care. We talked about getting a outpatient stress test ordered. Return if worsening or concerns Lab Data Labs: Laboratory Results - last 24 hr 04/23/21 04/23/21 04/23/21 11:25 11:25 11:25 WBC 7.1 RBC 4.22 Hgb 11.8 L Hct 34.8 L MCV 82.5 MCH 28.0 MCHC 33.9 RDW Std Deviation 36.5 RDW Coeff of Erica 12.2 Plt Count 238 MPV 9.9 Immature Gran % (Auto) 0.300 Neut % (Auto) 58.5 Lymph % (Auto) 34.0 Banks % (Auto) 3.9 Eos % (Auto) 2.7 Baso % (Auto) 0.6 Absolute Neuts (auto) 4.2 Absolute Lymphs (auto) 2.41 Nucleated RBC % 0 Sodium 138 Potassium 3.9 Chloride 103 Carbon Dioxide 25.0 Anion Gap 10 BUN 19 H Creatinine 1.13 H Estim Creat Clear Calc 50.86 Est GFR (MDRD) Af Amer 65 Est GFR (MDRD) Non-Af 54 L BUN/Creatinine Ratio 16.8 Glucose 100 Calcium 8.7 Total Bilirubin 0.50 AST 20 ALT 22 Alkaline Phosphatase 85 Troponin I < 0.015 B-Natriuretic Peptide 13.1 Total Protein 7.4 Albumin 3.9 Globulin 3.5 Albumin/Globulin Ratio 1.1 Radiography Diagnostic Testing: Radiology Impression Chest X-Ray 04/23/21 11:34 IMPRESSION: Normal x-ray examination of the chest. Electronically Signed: David Gates MD at 12:08 EDT , Service support , EKG Initial EKG: Attestation: I personally reviewed and interpreted this EKG as follows: Comments: EKG demonstrates a normal sinus rhythm at a rate of 60 bpm. No concerning features of ACS or ectopy noted. Discharge Plan Triage Chief Complaint: Chest Pain ED Provider: Bony Davidson Dx/Rx/DC Orders Clinical Impression: Chest pain Instructions: ED Chest Pain, Uncertain Cause Prescriptions: No Action buspirone 5 MG tablet 15 mg PO BID RF: 0 lisinopril 20 MG tablet 20 mg PO DAILY RF: 0 pantoprazole 40 MG tablet 40 mg PO DAILY RF: 0 atorvastatin 20 MG tablet 20 mg PO QHS RF: 0 citalopram 40 MG tablet 40 mg PO DAILY RF: 0 trazodone 100 MG tablet 150 mg PO QHS RF: 0 ropinirole 0.25 MG tablet 0.25 mg PO QHS RF: 0 amlodipine 10 MG tablet 5 mg PO DAILY RF: 0 Primary Care Provider: Kim Olivo Referrals: Kim Olivo MD [Primary Care Provider] - As soon as possible (Please discuss outpatient stress testing with your doctor.) Activity Restrictions/Additional Instructions: If symptoms worsen please return to emergency Disposition Disposition: Home, self care
--- NOTE | 2021-04-23 11:34 | RAD_ITS ---
STUDY: X-RAY CHEST REASON FOR EXAM: Female, 50 years old. Dyspnea TECHNIQUE: Single AP portable view of the chest. COMPARISON: Comparison is made with prior study dated 10/09/2019. FINDINGS: EKG electrodes are seen. The lungs are clear and expanded. There is no demonstrated pleural abnormality. Normal size heart. Normal mediastinum and andres. Normal visualized pulmonary arteries. There is atherosclerotic tortuosity of the aortic arch and descending thoracic aorta. Normal visualized thoracic spine. Normal visualized ribs, clavicles, and shoulders. There is no demonstrated abnormality of the visualized soft tissue structures of the upper abdomen. RAD/Chest 1 View (Portable) IMPRESSION: Normal x-ray examination of the chest. Electronically Signed: David Gates MD at 12:08 EDT , Service support ,
[2021-04-23 11:54] LABS: Absolute Lymphocyte Count 2.41 X10^3/uL (0.83-4.51); Absolute Neutrophil Count 4.2 X10^3/uL (2.0-7.7); Basophil# 0.04 X10^3/uL; Basophil% 0.6 % (0-1); Eosinophil# 0.19 X10^3/uL; Eosinophils% 2.7 % (0-5); Hematocrit 34.8 % (37-47); Hemoglobin 11.8 g/dL (12.0-15.0); Lymphocyte # 2.41 X10^3/ul (0.83-4.51); Mean Corp Hgb Conc 33.9 g/dL (32-36); Mean Corpuscular Volume 82.5 fL (81-99); Mean Platelet Vol. 9.9 fl (6.2-12.0); Monocyte# 0.28 X10^3/uL; Monocyte% 3.9 % (0-10); NRBC Flagged by Analyzer 0 % (0-5); Neutrophil # 4.15 X10^3/uL (2.7-7.7); Neutrophil % 58.5 % (47-70); Platelet Count 238 K/mm3 (150-450); RBC Distribution Width CV 12.2 % (11.6-14.6); RBC Distribution Width SD 36.5 fl (35.1-43.9); Red Blood Count 4.22 M/mm3 (4.2-5.4); White Blood Count 7.1 K/mm3 (4.4-11.0)
[2021-04-23 11:56] LABS: ALB/GLOB Ratio 1.1 RATIO (0.9-2.4); AST(SGOT) 20 U/L (15-37); Alanine Aminotransfer ALT/SGPT 22 U/L (13-56); Albumin, Serum 3.9 g/dL (3.2-5.0); Alkaline Phosphatase 85 U/L (45-117); Anion Gap 10 (5-15); BUN 19 mg/dL (7-18); BUN/Creat Ratio 16.8 RATIO (10-20); Calcium,Total 8.7 mg/dL (8.5-10.1); Chloride 103 mmol/L (98-107); Creatinine, Serum 1.13 mg/dL (0.55-1.02); EST Glomerular Filtration Rate 54 mL/min (>60); Est Glom Filt Rate - Afr Amer 65 mL/min (>60); Estimated Creatinine Clearance 50.86 ml/min; Globulin 3.5 g/dL (2.2-4.2); Glucose 100 mg/dL (74-106); Potassium 3.9 mmol/L (3.5-5.1); Protein, Total 7.4 g/dL (6.4-8.2); Sodium Level 138 mmol/L (136-145)
[2021-04-23] MEDS: Ondansetron 4 MG/2 ML Vial IV (12:18)
[2021-04-23 12:19] VITALS: BP 116/69; PULSE 59; RESP 11; O2SAT 98
[2021-04-23 12:24] LABS: BNP,B-Type NATRIURETIC PEPTIDE 13.1 pg/mL (0-100)
[2021-04-23 12:40] VITALS: BP 111/62; PULSE 81; RESP 20; O2SAT 99
--- NOTE | 2021-04-23 12:41 | ED.RN ---
THIS NURSE REVIEWED D/C INSTRUCTIONS WITH PT AND . BOTH VERBALIZED UNDERSTANDING OF INSTRUCTIONS. IV D/C. IV CATHETER INTACT. PT TOLERATED WELL. PT DENIES FURTHER NEEDS OR QUESTIONS AT THIS TIME
== END 2021-04-23 12:43 | disposition home or self-care (01) ==
PROVIDERS: Emergency Provider Emergency Medicine; PCP Internal Medicine
DX: R07.9 Chest pain, unspecified (principal); E78.5 Hyperlipidemia, unspecified; E66.9 Obesity, unspecified; I10 Essential (primary) hypertension; F17.210 Nicotine dependence, cigarettes, uncomplicated; Z79.899 Other long term (current) drug therapy
CPT/HCPCS: 71045; 80053; 83880; 84484; 85025; 87426; 93005; 96374; 99284; A4216; J2405

== ENCOUNTER 2021-06-01 09:00 | Outpatient (RCR) | payer BC, SELFPAY ==
--- NOTE | 2021-06-01 09:01 | BH.SGPN.GN ---
Behaviors/Verbalizations/Mental Status: []Client alert and oriented, casual dress, hygiene tended to. Eye contact fair. Motor activity appropriate. Speech within normal limits. Affect constricted, mood depressed and anxious. Thoughts linear, logical, no signs of hallucinations or delusions. Client Response/Progress/Benefit: []Pt responded well to session AEB pt openly sharing thoughts and listening attentively to others. Pt stated she is seeking therapy due to depression, anxiety and PTSD. Pt reported she feels like she has no control over her life. Pt shared she no longer enjoys anything, difficulty sleeping, and racing thoughts. Pt reported she has been struggling more in the last month after finding out her younger son attempted suicide. Pt shared she has years of trauma that she has never dealt with properly. Pt reported difficulty getting out of her house. Pt identified feeling hopeful that she is getting help. Pt seemed to benefit from support from peers. pt to continue IOP to increase healthy coping, improve daily functioning and prevent decompensation. Narrative Note: []
--- NOTE | 2021-06-01 10:15 | BH.SGPN.GN ---
Behaviors/Verbalizations/Mental Status: []Eye contact is good. Motor activity is appropriate. Appearance is casual. Speech is Appropriate. Mood is anxious and dysthymic. Affect is constricted. Thoughts are linear and logical. No evidence of psychosis. Client Response/Progress/Benefit: []Pt was an active participant in group discussion and activity. Attentive during psychoeducation on factors that build resiliency. Worked with peers to define resilience and shared ?it takes resilience and strength every day.? Along with peers also identified what could impact resilience which included: family, internal coping skills, beliefs, hope, and personality type. Pt reports her family makes her resilient. Pt benefited by increasing awareness on the role of resilience in mental health and factors that can help build resiliency. First day of IOP tx. Will continue in IOP to prevent decompensation, increase healthy coping, and stabilize mood. Narrative Note: []
--- NOTE | 2021-06-01 11:20 | BH.SGPN.GN ---
Behaviors/Verbalizations/Mental Status: []Client alert and oriented, casually dressed and groomed. Eye contact good. Motor activity appropriate. Speech within normal limits. Affect congruent, mood depressed and anxious. Thoughts linear, logical, no signs of hallucinations or delusions. Client Response/Progress/Benefit: []Client new to IOP tx and responded well to session, engaged and providing input throughout. Client participated in the discussion of how each resiliency component can help increase personal resiliency. Reports relating to the personal examples, shared benefitting from the shared experience of the group. Client worked with group to identify ways to practice each of the resiliency traits reviewed. Client shared she would like to focus on improving resilience trait of ?maintain a hopeful outlook? as she has struggled with this since her son?s suicide attempt. Client would like to continue working on this resiliency trait by reaching out to supports and practicing use of positive self-talk statements. Appeared to benefit from reflecting on importance of each resilience trait and identifying strategies to strengthen resilience. Will continue IOP tx to improve mood stability, further reduce anxiety and depression, and improve daily functioning. Narrative Note: []
--- NOTE | 2021-06-02 09:08 | BH.SGPN.GN ---
Behaviors/Verbalizations/Mental Status: []Eye contact is good. Motor activity is appropriate. Appearance is casual. Speech is Appropriate. Mood is depressed and anxious. Affect is congruent. Thoughts are linear and logical. No evidence of psychosis. Reviewed daily check in sheet and no reports of suicidal ideations or intent. Client Response/Progress/Benefit: []Pt was active participant in group AEB providing input and supportive feedback throughout. Client did well to more actively engage in discussion which is progress is new to IOP tc. Reports her emotion for the day as ?a range of irritable, angry, and anxious?. Attributes this to her current stressors which include her son wanting to discharge from an inpatient psychiatric hospital earlier than client is comfortable with. Discussed fear he will revert back to prior unhealthy means of coping. Indicates understanding she cannot control her son?s behavior and is trying to focus on supporting him and caring for her own mental health needs. Identified seeking tx for herself as a win, as well as reaching out to supports. Benefited from group support, encouragement, and feedback. Will continue in IOP to improve coping repertoire, reduce current sx, and improve overall mood stability. Narrative Note: []
--- NOTE | 2021-06-02 10:15 | BH.SGPN.GN ---
Behaviors/Verbalizations/Mental Status: []Client alert and oriented, casually dressed and groomed. Eye contact good. Motor activity appropriate. Speech within normal limits. Affect congruent, mood euthymic. Thoughts linear, logical, no signs of hallucinations or delusions. Client Response/Progress/Benefit: []Client engaged during session AEB client contributing thoughts throughout discussion and completing worksheet. Connected with discussion on crisis and how coping with external crises by using unhealthy coping skills could result in a personal crisis. Group reflected on the importance of having awareness of personal warning signs in order to prevent reaching crisis point. Group identified potential warning signs for crisis and client completed the personal warning signs worksheet. Client identified personal crisis warning signs to include: racing thoughts, uncontrollable worries, not taking care of self and increased risk taking. Client benefited by increasing awareness of what leads to crisis and personal warning signs. Pt will continue IOP to challenge distorted thoughts, continue use of healthy coping and prevent decompensation.
--- NOTE | 2021-06-02 11:15 | BH.SGPN.GN ---
Behaviors/Verbalizations/Mental Status: []Client alert and oriented, casually dressed and groomed. Eye contact good. Motor activity appropriate. Speech within normal limits. Affect constricted. Mood dysthymic. Thoughts linear, logical, no signs of hallucinations or delusions. Client Response/Progress/Benefit: []Client responded well to session as evidenced by client listening attentively to others and providing strategies during discussion. Client identified warning signs for crisis and gained further awareness of earliest warning signs. Client created a crisis action plan to help client better manage warning signs for crisis. Client?s action plan for racing thoughts, isolation, and apathy/lack of self-care included coping skills such as: listening to music, meditation, opposite action, thought challenging, walking/exercise, journaling, and creating a daily to-do list. Client appeared to benefit from creating a crisis action plan and increasing self-awareness. Client to continue IOP tx to prevent decompensation, learn healthy coping skills, and improve daily functioning. Narrative Note: []
--- NOTE | 2021-06-02 13:47 | BH.MDN_ITS ---
Multi-Disciplinary Note - Note 30-min Individual Time Started:: 12:10 Date: 06/02/21 Purpose of session/treatment goals addressed:: The purpose of this session was to gather information on client's current stressors, symptoms, and treatment goals. Another goal was to build rapport and provide information on different area resources. Eye Contact:: Good Motor Activity:: Appropriate Appearance:: Casual Speech:: Appropriate Mood:: Dysthymic Affect:: Constricted Thoughts:: Linear, Logical, No evidence of hallucinations/delusions noted Staff Interventions:: Therapist used active listening and open-ended questions to explore client's current stressors, symptoms, history, and treatment goals. Therapist used strengths perspective to build rapport and provided information on area resources such as AA, PALs, AL-Anon, and Eloy-Anon. Client Response:: Client responded well to session, open to meeting with therapist. Client stated she is enjoying IOP so far and she feels she is getting valuable coping skills from group. Client shared she wants to learn coping skills to better manage her depression, racing thoughts, and trauma from the past year. Client's son attempted suicide a month ago and he had called client saying I just wanted to tell you I love you and goodbye. Client immediately called the police after and her son was admitted. Client states since getting this call, client has been fearful of getting future calls. Client has nightmares and is hypervigilant. Client is even more worried now that he will be getting out of the psychiatric hospital this Tuesday. Client admits that for the past year (or more) she has used drinking to cope. Client's has been as well and they both want to quit. Client shared she and her talked about going to AA meetings together. Client receptive to getting information on AL- Anon and Eloy-Anon meetings as well. Discussed how these support meetings for family members might help client set healthy boundaries with her son. Client currently endorses a depressed mood, isolation, lack of self-care, hopelessness, apathy, lack of energy, and anxiety. Client does not currently have outpatient mental health providers and was receptive to establishing these services earlier rather than later. Risks/Concerns:: Client denies any suicidal ideations, plan, or intent as of 06/02/21. Denies any thoughts of . Is actively trying to stop alcohol use, but drank last night. Open to AA meetings. Progress Toward Goals/Plan:: Client's second day of IOP tx and reporting being here is already making her feel a little bit better. Client identified her treatment goals as learning healthy coping skills, reducing irrational thinking, reducing isolation, and better managing depression. Client also wants to learn about her trauma and gain skills to help client deal with her adult son who also struggles with addiction and mental health issues. Client was given resources for local support groups. Will continue IOP tx to prevent decompensation, improve daily functioning, and learn healthy coping skills to replace drinking. Time Stopped:: 12:26
--- NOTE | 2021-06-02 13:47 | BH.MTP ---
[facility] - Patient Information Program Physician:: Dr. Christelle Petit Primary Therapist:: Nichol BABB - Psychiatric Diagnoses Psychiatric Diagnoses:: Major depressive disorder, recurrent, severe without psychosis F33.2; Generalized anxiety disorder; PTSD; Alcohol use disorder, Diagnosis Code(s):: F 33.2 - Estimated LOS Estimated LOS (in weeks):: 6 Problem/Goal #1 - Problem/Goal #1 Stated Goal:: Client will reduce depressive symptoms, improve motivation, and decrease hopelessness due to major depressive disorder. Description of Barriers: Client is currently taking medication, but has not found it helpful. Client does not have any mental health providers. Client has complex trauma and has suffered many losses in her life. Client is currently self-medicating with alcohol, but has awareness that this is a problem. Functional Impact: Client is a 50-year-old female with a history of MDD, DACIA, and PTSD. Client was referred to [facility] by a family friend who previously completed IOP. Client presents with worsening depressive and anxiety symptoms over the past year, but this past month was even worse. Client reports in the past month her son and her stepdaughter both attempted suicide. Client shared her son called her after the attempt saying, mom I just wanted to tell you I love you and goodbye. Client endorses nightmares, flashbacks, and replaying memories over and over again. Client shared she has been having panic attacks as well. Client currently endorses a depressed mood with loss of appetite (down 12 lbs in a month), lack of concentration, lack of energy and motivation, crying spells, anhedonia, poor sleep, and hopelessness. Client denies any thoughts of or SI. Client admits to drinking to cope with her mental health symptoms. Client reports drinking 2-3 rum and cokes every night and client acknowledged this is a problem. Client has not been able to complete her ADLs, is borderline agoraphobic, and is struggling at work. Goal Relevant Strengths/Supports: Client is motivated to improve her mental health and stop drinking, receptive to AA and Eloy-Anon resources, and has support from her . - Objectives Objective #1 Stated Objective: Client will learn and utilize 2-3 healthy coping strategies to better manage depressive symptoms and replace drinking to cope as shown by a reduced DSM-5 scores for depression. Interventions: Through group and individual sessions, therapist will help client identify triggers and warning signs of depression and emotional dysregulation including emotional, physical, and behavioral changes. Therapist will teach client various coping skills to manage her symptoms and give client tangible resources to use to regulate emotions. Therapist will use cognitive restructuring techniques and help client gain awareness of negative thoughts that reinforce guilt and depression. Therapist will provide psychoeducation on maintenance cycles and help client learn ways to break unhealthy maintenance cycles. Therapist will help client incorporate behavioral activation and assist client in setting SMART goals. Discharge Criteria: Client will have met this goal when he can report learning and using at least 2 coping skills to manage depressive symptoms. Additionally, client will have met this goal when his depressive symptoms have reduced on the DSM-5 scale. Target Date: 07/20/21 Review Date: 07/06/21 Status: open Objective #2 Stated Objective: Client will identify at least 2-3 negative self-talk messages used to reinforce guilt and negative self-talk and replace thoughts with positive, realistic messages. Interventions: Therapist will help client identify distorted, negative thoughts about self and replace with more realistic, affirmative messages. Therapist will use CBT to help client increase insight to the connection between thoughts, emotions, and behaviors. Therapist will encourage client to practice thought challenging. Discharge Criteria: Client will have achieved this goal when can verbalize at least 2 negative self-talk messages and effectively replace those thoughts with affirmative messages. Target Date: 07/20/21 Review Date: 07/06/21 Status: open Problem/Goal #2 - Problem/Goal #2 Stated Goal:: Client will reduce anxiety and panic symptoms while increasing ability to function on daily basis. Description of Barriers: Client is currently taking medication, but has not found it helpful. Client does not have any mental health providers. Client has complex trauma and has suffered many losses in her life. Client is currently self-medicating with alcohol, but has awareness that this is a problem. Functional Impact: Client is a 50-year-old female with a history of MDD, DACIA, and PTSD. Client was referred to [facility] by a family friend who previously completed IOP. Client presents with worsening depressive and anxiety symptoms over the past year, but this past month was even worse. Client reports in the past month her son and her stepdaughter both attempted suicide. Client shared her son called her after the attempt saying, mom I just wanted to tell you I love you and goodbye. Client endorses nightmares, flashbacks, and replaying memories over and over again. Client shared she has been having panic attacks as well. Client currently endorses a depressed mood with loss of appetite (down 12 lbs in a month), lack of concentration, lack of energy and motivation, crying spells, anhedonia, poor sleep, and hopelessness. Client denies any thoughts of or SI. Client admits to drinking to cope with her mental health symptoms. Client reports drinking 2-3 rum and cokes every night and client acknowledged this is a problem. Client has not been able to complete her ADLs, is borderline agoraphobic, and is struggling at work. Goal Relevant Strengths/Supports: Client is motivated to improve her mental health and stop drinking, receptive to AA and Eloy-Anon resources, and has support from her . - Objectives Objective #1 Stated Objective: Client will identify 2-3 anxiety/panic triggers and 2 coping skills to use when feeling anxious to manage anxiety as shown by decreasing her DSM-5 scores for anxiety. Interventions: Therapist will provide education on anxiety, avoidance behaviors, and maintenance cycles. Therapist will help client explore personal symptoms and warning signs of anxiety. Therapist will teach client coping skills to improve emotional regulation, mindfulness, and distress tolerance to help client cope with anxiety in the moment. Discharge Criteria: Client will have accomplished this goal when she can identify at least 2 triggers and report using 2 coping skills to manage anxiety. Additionally, client will have accomplished this goal when her DSM-5 scores show a reduction for anxiety. Target Date: 07/20/21 Review Date: 07/06/21 Status: open Objective #2 Stated Objective: Client will be able to explain common stress reactions and symptoms related to trauma and learn 2-3 coping skills to manage symptoms. Interventions: Therapist will provide education on trauma and explain impact trauma can have on development. Will help client explore personal symptoms and warning signs of stress and trauma. Therapist will teach client coping skills to improve emotional regulation, mindfulness, and distress tolerance. Therapist will help client get connected with additional trauma-focused services, should client agree. Discharge Criteria: Client will have met this objective when can identify common stress reactions to trauma and report using at least 2 coping skills to manage symptoms. Target Date: 07/20/21 Review Date: 07/06/21 Status: open
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
--- NOTE | 2021-06-03 10:10 | BH.SGPN.GN ---
Behaviors/Verbalizations/Mental Status: [] Client alert and oriented, neat and casually dressed and groomed. Eye contact good. Motor activity appropriate. Speech within normal limits. Affect congruent, mood anxious and depressed. Thoughts linear, logical, no signs of hallucinations or delusions. Client Response/Progress/Benefit: []Client receptive to session, actively engaged AEB listening, providing input, and taking notes throughout. Appeared to connect with topic of stress, as client expressed stress has impacted her ability to take care of her own needs or set boundaries in the past. Worked with the group on brainstorming positive and negative impacts of stress on physical and mental health. Client willing to complete stress jar activity in which participants identified current stressors impacting mental health. Shared top 3 stressors as: physical health, mental health, and worries about her son?s mental health. Expressed that apathy and shutting down have impeded her ability to effectively manage stressors and have resulted in increased avoidance, shutting down, or isolation in the past. Appeared to benefit from psychoeducation on stress and increasing awareness on own stressors and common stress responses. Recommended to continue with IOP tx to improve skill application, further reduce symptomology, and prevent decompensation. Narrative Note: []
--- NOTE | 2021-06-03 11:15 | BH.SGPN.GN ---
Behaviors/Verbalizations/Mental Status: []Client alert and oriented, casually dressed and groomed. Eye contact good. Motor activity appropriate. Speech within normal limits. Affect constricted, mood anxious and dysthymic. Thoughts linear, logical, no signs of hallucinations or delusions. Client Response/Progress/Benefit: []Client engaged in session AEB listening attentively to others and providing input throughout discussions. Client remained attentive during discussion about the 4 A's of managing stress and discussed connecting with the various benefits of each. Client reported she would like to work on the strategy of accepting that she cannot control her son's behavior and mental health. Client stated she can also adapt her perspective by looking at all the positives she has done to help her son. Client seemed to benefit from increased awareness of the impact of stress on mental health and increasing repertoire of stress management strategies. Will continue IOP tx to prevent decompensation, challenge distorted thoughts and continue use of healthy coping skills. Narrative Note: []
[2021-06-03 11:37] VITALS: BP 113/71; PULSE 64
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
--- NOTE | 2021-06-03 13:24 | BH.DR.ITP ---
Initial Treatment Plan Patient Information Visit Information: ADMISSION DATE: EXPECTED LOS: 4-6 weeks Problems/Symptoms Problem #1:: Depression Symptom:: Sadness, crying, hopelessness, guilt, biological disruption of appetite and sleep, low energy, decreased concentration Problem #2:: Anxiety Symptom:: Rumination, worry, panic attacks, avoidance, nightmares, flashbacks
--- NOTE | 2021-06-04 09:01 | BH.SGPN.GN ---
Behaviors/Verbalizations/Mental Status: []Pt eye contact good, casually dressed, motor activity appropriate, speech normal rate and tone, mood euthymic, congruent affect, thoughts linear and intact, no evidence of delusions or hallucinations. Reviewed client?s symptom tracker, no signs of suicidal ideation, plan, or intent as of today. Client Response/Progress/Benefit: []Pt responded well to session AEB pt listening attentively to peers, and openly sharing thoughts and feelings. Pt reported mental health positive as getting up everyday and coming to IOP. pt stated this is a significant win for her because prior to IOP I was on the verge of agoraphobia. Pt identified additional mental health positives as completing errands after IOP yesterday then going home and getting several chores done. Pt stated she hasn't drank alcohol in 3 days. Pt stated having group accountability has been very helpful. Pt stated stressor is alcohol cravings. Progress noted with pt reporting ability to get out of house and complete chores at home. Pt to continue IOP to continue use of healthy coping, challenge distorted thoughts and prevent decompensation. Narrative Note: []
--- NOTE | 2021-06-04 10:02 | BH.SGPN.GN ---
Behaviors/Verbalizations/Mental Status: []Eye contact is good. Motor activity is appropriate. Appearance is casual. Speech is Appropriate. Mood is anxious and depressed. Affect is congruent. Thoughts are linear and logical. No evidence of psychosis. Client Response/Progress/Benefit: [] Pt was an attentive participant and actively engaged throughout group discussion and activity. Did well to share the floor with fellow participants. Attentive during psychoeducation and taking notes. Reflected connecting with topic of personal pitfalls and how they can impede mental health treatment progress. Pt shared that ?being sick and tired? has resulted in pt wanting to make changes and begin working on sobriety. Pt and peers provided examples of personal pitfalls or setbacks that impact mental health which included; isolation, avoidance, procrastination, denial, poor self-care, and ruminating on externals. During experiential activity pt along with peers identified several pitfalls from the activity that are also associated with mental health which included; poor communication, assumptions, lack of awareness, negative self-talk, fear of failure, and personalizing. Did well to take direction and feedback from peers, as well as challenged herself to try and take on more of a leadership role during experiential activity. Benefited from group by increasing awareness of pitfalls which can impact mental health. Pt will continue in [facility] to continue to work on maintaining sobriety, further improve mood stability, and promote healthy skill application. Narrative Note: []
--- NOTE | 2021-06-04 11:00 | BH.SGPN.GN ---
Behaviors/Verbalizations/Mental Status: []Client alert and oriented, neatly dressed and groomed. Eye contact good. Motor activity appropriate. Speech within normal limits. Affect constricted, mood dysthymic. Thoughts linear, logical, no signs of hallucinations or delusions. Client Response/Progress/Benefit: []Client receptive of session, engaged throughout AEB client actively listening and contributing to discussion, as well as taking notes. Client completed worksheet identifying personal pitfalls impacting mental health progress. Client identified the following pitfalls: lack of self-care, avoidance, procrastination, shame, and apathy. Group learned different coping skills to help manage pitfalls. Client will work on overcoming procrastination by setting small goals each day. Appeared to benefit from identifying personal pitfalls and strategies to overcome these pitfalls. Will continue IOP tx to prevent decompensation, learn healthy coping skills, and improve daily functioning. Narrative Note: []
--- NOTE | 2021-06-08 09:00 | BH.SGPN.GN ---
Behaviors/Verbalizations/Mental Status: []Client alert and oriented, neatly dressed and groomed. Eye contact good. Motor activity appropriate. Speech within normal limits. Affect constricted, mood euthymic. Thoughts linear, logical, no signs of hallucinations or delusions. Reviewed client?s symptom tracker, no risk for suicidal ideation, plan, or intent as of 06/08/21 Client Response/Progress/Benefit: []Client responded well to session, attentive and connecting with peers. Client reports feeling hopeful and happy this morning. Client stated she and her are 6 days sober. Client shared there was a significant trigger this weekend and client wanted to drink, but she used healthier skills instead. Client reported she and her went to dinner and the library this weekend as a distraction. Client also used deep breathing over the weekend to cope. Client shared she and her are going to start going to AA meetings as well for extra support. Client did not have any stressors to report today. Appeared to benefit from reflecting on her wins and sobriety. Will continue IOP tx to maintain sobriety, reduce depressive symptoms, and further improve overall functioning. Narrative Note: []
--- NOTE | 2021-06-08 10:15 | BH.SGPN.GN ---
Behaviors/Verbalizations/Mental Status: [] Eye contact is good. Motor activity is appropriate. Appearance is neat and casual. Speech is Appropriate. Mood is anxious and depressed. Affect is congruent. Thoughts are linear and logical. No evidence of psychosis. Client Response/Progress/Benefit: [] Pt was an active participant in group discussion and activity. Attentive during psychoeducation on external coping skills and how coping skills can positively and negatively impact mental health. Reported ?We use unhealthy skills because we are still just trying to cope. To succeed we have to get out of our comfort zone?. Provided insight that this has helped to continue to encourage her and remember she ? might have to break it down into smaller loads?. Pt along with peers provided their thoughts and insights on the definition of coping skills. Pt worked with peers to identify barriers to using healthy coping skills which included; it?s easier, comfortable, habitual, or they don?t know other ways of coping. Worked within small group to complete challenge activity requiring use of several coping skills. Did well to provide and receive supportive feedback. Benefited from increased awareness of coping skills, benefits in using healthy coping skills, and common coping skill barriers. Will continue in IOP to improve continue to maintain sobriety, stabilize mood, and increase heathy coping. Narrative Note: []
--- NOTE | 2021-06-08 11:15 | BH.SGPN.GN ---
Behaviors/Verbalizations/Mental Status: []Client alert and oriented, casual dress, hygiene tended to. Eye contact good. Motor activity appropriate. Speech within normal limits. Affect congruent, mood anxious. Thoughts linear, logical, no signs of hallucinations or delusions. Client Response/Progress/Benefit: []Client responded well to session, actively listening and providing examples. Group discussed the different categories of coping skills which included distraction, emotional release, grounding, self-love, and thought challenging. Client participated in creating a coping skills ?menu? from the five categories of coping skills. Client's coping skill menu included: journal, walk, 5 senses, relaxing, and identifying small wins. Progress noted in client showing increased self-awareness and reporting 6 days of sobriety.. Appeared to benefit from increasing repertoire of healthy coping skills. Will continue tx to continue use of healthy coping, challenge distorted thoughts and prevent decompensation.
--- NOTE | 2021-06-09 09:05 | BH.SGPN.GN ---
Behaviors/Verbalizations/Mental Status: [] Eye contact is good. Motor activity is appropriate. Appearance is casual. Speech is Appropriate. Mood is depressed. Affect is flat. Thoughts are linear and logical. No evidence of psychosis. Reviewed daily check in sheet and no reports of suicidal ideations or intent. Client Response/Progress/Benefit: [] Pt was an active participant in group discussion. Attentive. Provided appropriate feedback to peers. Emotion for today is depressed and anxious. Daily symptom tracker notes 5/5 for depression and anxiety. Shared that she is significantly concerned for a family member who is going through severe depression and fleeting SI. This family member was recently admitted to a psych facility. She feels powerless to help and uncertain if she is doing enough. She spoke with this person for several hours last night. Group was able to empathize and provided supportive feedback which was beneficial. Despite increase in depression and anxiety herself she was proud that she did not drink alcohol to cope last night noting that she is 7 days sober. Remarked that group and IOP has been great and she is proud of her progress. Will continue in IOP to prevent decompensation, increase healthy coping skills, and improve functioning. Narrative Note: []
--- NOTE | 2021-06-09 10:16 | BH.SGPN.GN ---
Behaviors/Verbalizations/Mental Status: [] Client alert and oriented, casually dressed and groomed. Eye contact good. Motor activity appropriate. Speech within normal limits. Affect congruent, mood anxious and depressed. Thoughts linear, logical, no signs of hallucinations or delusions. Client Response/Progress/Benefit: [] Pt actively engaged in group discussion on conflict and the potential benefits of healthy approaches to conflict on mental health as well as barriers in taking a healthy approach to conflict resolution. Pt connected to fellow participants as they reflected on quote. Shared ?Fear of pain is a barrier. I care too much about what people think?. Pt attentive and engaged during psychoeducation about different conflict styles (avoidant, accommodating, cooperative, and competing). Pt identified most often uses avoiding or accommodating styles for conflict which leads to her needs not getting met, feeling taken advantage of, and allowing others to make the decisions. Seemed to benefit from increased awareness of the different conflict styles. Pt to continue IOP to continue use of healthy coping skills, continue improving mood stability, and prevent decompensation. Narrative Note: []
--- NOTE | 2021-06-09 11:15 | BH.SGPN.GN ---
Behaviors/Verbalizations/Mental Status: []Client alert and oriented, neatly dressed and groomed. Eye contact good. Motor activity appropriate. Speech within normal limits. Affect constricted, mood dysthymic. Thoughts linear, logical, no signs of hallucinations or delusions. Client Response/Progress/Benefit: []Client engaged in session AEB contributing to discussion and engaging in activity. Client did well to review current conflict style and its impact on mental health. Attentive and taking notes during discussion on strategies for more effectively managing conflict in personal life. Client identified that accommodation and avoiding are her ?default? conflict resolution types. Client wants to work on changing this by avoiding ?stonewalling? or shutting down during conflict. Client also wants to work on taking breaks from conflict if emotions get too high. Appeared to benefit from gaining strategies to help client better manage conflict. Will continue IOP tx to prevent decompensation, gain healthy coping skills, and reduce guilt. Narrative Note: []
--- NOTE | 2021-06-10 09:00 | BH.SGPN.GN ---
Behaviors/Verbalizations/Mental Status: [] Eye contact is good. Motor activity is appropriate. Appearance is casual. Speech is Appropriate. Mood is depressed and anxious. Affect is congruent. Thoughts are linear and logical. No evidence of psychosis. Reviewed daily check in sheet and no reports of suicidal ideations or intent. Client Response/Progress/Benefit: [] Pt was an attentive participant AEB actively listening, as well as willingness to process with group. Client reports emotion for the day as ?melancholy?. Noted ?I don?t have much to say?, but then went on to identify several positives and areas of progress. Progress includes: continued sobriety, practicing use of calming and relaxation skills, as well as reaching out to her supports regularly. Expressed her has been a major support in her mental health and substance use recovery. Indicates that her son?s mental health is an ongoing stressor and she has a ?sense of impending doom? regarding the situation. Did well to identify areas within her control and what she can do to help herself cope in this situation. Benefited from group support, encouragement, and feedback. Will continue in IOP to maintain gains and sobriety, further promote healthy coping behaviors, and prevent decompensation. Narrative Note: []
--- NOTE | 2021-06-10 10:15 | BH.SGPN.GN ---
Behaviors/Verbalizations/Mental Status: []Eye contact is good. Motor activity is appropriate. Appearance is neat. Speech is Appropriate. Mood is depressed. Affect is flat. Thoughts are linear and logical. No evidence of psychosis. Client Response/Progress/Benefit: []Client responded well to session, alert and attentive. Group reviewed components of healthy relationships as well as traits of unhealthy relationships. Client shared her current marriage is healthy, but she has been in marriages before ?where I saw the redflags and ignored them.? Group discussed benefits of healthy relationships for one?s mental health such as: validation, increased resilience, perspective, and improved mood. Group also discussed factors that may contribute to people being in unhealthy relationships. Client shared wanting to stay in a relationship for the sake of children can be unhealthy. Participated in the activity and appeared to benefit from gaining insight on risk factors for unhealthy relationships. Will continue to IOP tx to reduce negative thoughts, promote sobriety, and improve daily functioning. Narrative Note: []
--- NOTE | 2021-06-10 12:18 | PCM.BH.PN_ITS ---
Progress Note Progress Note: History of Present Illness/Interim History: [] The patient is a 50-year-old female with a history of depression, anxiety and PTSD who is seen in follow-up at the [facility] behavioral health IOP program. I last saw the patient 2 weeks ago. At that time we began weaning her Celexa and changing her over to Effexor XR. The patient states that she began getting headaches every day while taking the 37.5 mg of Effexor XR. For this reason she wishes to discontinue Effexor XR. The patient is stressed as her son who attempted suicide is out of the hospital now but is still depressed and suicidal at times. He post troubling remarks on Facebook and this upsets the patient. The patient has been sober from alcohol for over 1 week and plans to return and start going to soon. She is also try to walk and use her treadmill at home. 150 mg of trazodone is no longer helping her sleep enough and the patient requests to go back on Remeron which she took in the past. She says it helped her sleep and she did not gain any weight on it. Patient denies passive thoughts of , suicidal ideation, homicidal ideation, hallucinations, delusions. Current Psychiatric Medications: [] Celexa 20 mg p.o. daily (decreased 2 weeks ago); Effexor XR 37.5 mg p.o. daily (started 2 weeks ago); trazodone 150 mg p.o. nightly; Vistaril 25 mg up to twice a day; BuSpar 15 mg p.o. twice a day Mental Status Examination: [] The patient is a 50-year-old female who is seen wearing a mask due to the pandemic and appears casually dressed and groomed with good hygiene. She has no psychomotor agitation or retardation. She is cooperative during the interview and has good eye contact. Speech is normal rate and rhythm and fluent with no pressure. Mood is depressed. Affect is constricted. Thought process is goal-directed and organized. Thought content: There is no evidence of thoughts of , suicidal or homicidal ideation, hallucinations or delusions. Reality testing is intact. Judgment is intact. Insight is fair. Impulsivity is moderate. Diagnoses: [] 1. Major depressive disorder, recurrent, severe without psychosis 2. Generalized anxiety disorder 3. PTSD 4. Alcohol use disorder (sober for over 1 week), history of marijuana and nicotine use disorder. 5. Primary support and work issues Plan: [] The patient will continue the IOP program at [facility] as the structure, support, education, group therapy will hopefully prevent worsening of the patient's symptoms. She felt safe during the interview and if it anytime she does not feel safe she will let us know or go to the emergency room. The risks, options, and possible side effects and complications of the medications were again discussed with the patient and she understands and accepts these. She is again encouraged strongly to not use any alcohol or drugs. She agrees to stop the Effexor XR due to the headaches. She will continue the Celexa 20 mg p.o. daily and will discontinue it in 3 weeks if she is tolerating the new medication well. She agrees to try Remeron 15 mg p.o. nig htly as she did not gain weight on it in the past but understands that there is a risk of this. I will see the patient in follow-up in 2 weeks and at that time may increase the Remeron if needed.
--- NOTE | 2021-06-10 14:57 | BH.MDN ---
Multi-Disciplinary Note - Note 45-min Individual Time Started:: 11:43 Date: 06/10/21 Purpose of session/treatment goals addressed:: To work on goal #1 of client's tx plan. Eye Contact:: Good Motor Activity:: Appropriate Appearance:: Casual Speech:: Appropriate Mood:: Anxious, Dysthymic Affect:: Constricted Thoughts:: Linear, Logical, No evidence of hallucinations/delusions noted Staff Interventions:: Therapist used active listen and open-ended questions to explore client's current symptoms, stressors, and triggers. Therapist provided psychoeducation on depression and maintenance cycles. Therapist helped client identify personal examples of negative thought patterns and behaviors that reinforce depression. Therapist taught client A.C.E to help break depressive maintenance cycles and encouraged client to keep track of mental health wins in her journal. Therapist and client also discussed boundaries with adult children. Client Response:: Client responded well to session, open to meeting with therapist. Client met with Dr. Petit today and client's medications were adjusted. Client is one week and a day sober and she is trying to find things to keep busy in the evenings when I used to be drinking. Client shared she started repainting her dining room as a distraction. Client would also like to increase her physical activity. Client shared not having the structure of work has been a bit challenging. Client also continues to struggle with her son's mental health and worrying about his safety. Discussed boundaries, guilt, and negative thoughts client has that are triggered by her son's mental health. Client reported she knows she is doing the absolute best she can but client still worries and feels guilty that she is not doing enough. Client learned about the depressive maintenance cycle and came up with her own personal examples. This helped client gain awareness for herself and also helped client remind herself of what is in her control and out of her control for her son's depression. Client gained insight that she tends to have a lot of I'm not enough negative thoughts when depressed. Client shared she often does not feel like a good enough mother or . Client learned about A.C.E and was receptive to writing down her mental health wins each day. Client wants to keep track of her wins to help combat negative thinking and be more positive. Risks/Concerns:: Client denies any active suicidal ideations, plan, or intent as of 06/10/21. Progress Toward Goals/Plan:: Client is attending sessions consistently and is a week and a day sober. Client has been applying coping skills on a consistent basis since starting last week. Client still endorses a depressed mood, lack of energy, issues with sleep, excessive guilt, ruminations, and constant worry. Client is newly sober and plans to attend her first AA meeting with her this weekend. Client will continue IOP tx to prevent decompensation, improve mood stability, and learn healthy coping skills. Time Stopped:: 12:23
--- NOTE | 2021-06-15 08:57 | BH.SGPN.GN ---
Behaviors/Verbalizations/Mental Status: []Eye contact is good. Motor activity is appropriate. Appearance is casual. Speech is Appropriate. Mood is reported as depressed and hopeless. Affect is incongruent as client is very talkative and providing supportive feedback and making jokes with peers. Thoughts are linear and logical. No evidence of psychosis. Reviewed daily check in sheet and client reports suicidal ideations as a 5/5 with 2/5 for intent. Higher than baseline and will check-in with individual therapist to further assess risk Client Response/Progress/Benefit: []Pt was an attentive participant AEB actively listening, nodding throughout, as well as willingness to process with group. Pt reports emotion for the day as ?ashamed but hopeful? and discussed this is related to struggling with her sobriety over the weekend. Noted several stressors involving her family?s mental health and establishing/maintaining healthy boundaries with various family members. Shared trying to be supportive without taking on other?s problems and attempted to use healthy skills in managing her stressors. Noted making efforts to find healthy distractions and reach out to her when feeling overwhelmed, however felt it was not working and ultimately turned to alcohol to cope. Expressed feeling really guilting and shameful as a result, noting that she had felt as though she was starting over. Did well to work with therapist on identifying a self-compassionate approach to her relapse and pt indicated ?this is just a setback not starting over?. Progress in ability to maintain sobriety following her relapse. Pt benefited from group support, encouragement, and feedback. Will continue in IOP to continue to improve mood stability, maintain sobriety, further promote healthy coping behaviors, and prevent decompensation. Narrative Note: []
--- NOTE | 2021-06-15 10:10 | BH.SGPN.GN ---
Behaviors/Verbalizations/Mental Status: [] Eye contact is good. Motor activity is appropriate. Appearance is casual. Speech is Appropriate. Mood is depressed. Affect is flat. Thoughts are linear and logical. No evidence of psychosis. Client Response/Progress/Benefit: [] Pt participated at times during group discussions. Attentive during psychoeducation. Participated and provided insight along with peers on obstacles or potholes that hinder our ability to communicate in stressful situations. Group identified the following obstacles; impulsivity (reacting to fast to comments and situations), mental health struggles, physical health struggles (headaches, pain, poor sleep), toxic or unhealthy relationship patterns, work/responsibilities (feeling overwhelmed), lack of proper self-care on our part, and negative thinking patterns (mind-reading, catastrophizing). Pt provided insight on how emotion and mood can impact effective communication. Pt did well in her role in the experiential activity and was able to communicate effectively with peers. Benefited from increased awareness on how our emotions impact our communication. Will continue in IOP to maintain safety, increase healthy coping skills, and to prevent decompensation. Narrative Note: []
--- NOTE | 2021-06-15 11:10 | BH.SGPN.GN ---
Behaviors/Verbalizations/Mental Status: []Client alert and oriented, casually dressed and groomed. Eye contact good. Motor activity appropriate. Speech within normal limits. Affect flat, mood depressed Thoughts linear, logical, no signs of hallucinations or delusions. Client Response/Progress/Benefit: []Client engaged in session AEB client listening attentively to peers and providing input. Attentive during psychoeducation on 4 zones of regulation. Client able to identify feelings and behaviors for each zone. Client identified coping skills one can use to support self in each zone which included: opposite action, exercise, journaling, reaching out to support, and grounding skills. Client stated belief that she is in the blue zone today because client feels sad, shame, and negative today. Client stated she plans to reach out to her supports and journal her wins today to improve her mood. Benefited from increased education on zones of regulation or stages of alertness for emotions and healthy coping skills to use for each zone. Will continue IOP tx to prevent decompensation after recent relapse and promote the use of healthy coping skills. Narrative Note: []
--- NOTE | 2021-06-16 09:00 | BH.SGPN.GN ---
Behaviors/Verbalizations/Mental Status: [] Eye contact is good. Motor activity is appropriate. Appearance is casual. Speech is Appropriate. Mood is depressed. Affect is flat. Thoughts are linear and logical. No evidence of psychosis. Reviewed daily check in sheet and no reports of suicidal ideations or intent. Client Response/Progress/Benefit: [] Pt participated when prompted. Attentive. Daily symptom tracker notes 3/5 for depression and anxiety and 2/5 for irritability. Emotion for today is melancholy. Shared that she continues to struggle with guilt associated with relapse over the weekend however is feeling better than yesterday. States it was just a slip and feels that she will focus on herself and moving forward. Utilized some distractions yesterday and started to exercise. Short check-in. Progress noted per pt report. Benefited from group support and encouragement. Will continue in IOP to maintain safety, increase health coping skills, and to improve functioning. Narrative Note: []
--- NOTE | 2021-06-16 10:08 | BH.SGPN.GN ---
Behaviors/Verbalizations/Mental Status: []Client alert and oriented, casually dressed and groomed. Eye contact good. Motor activity appropriate. Speech within normal limits. Affect flat, mood dysthymic. Thoughts linear, logical, no signs of hallucinations or delusions. Client Response/Progress/Benefit: []Client responded well to session, attentive and contributing to discussion. Group discussed potential barriers to communication including: yelling, shutting down, passive-aggressive behaviors, and mind-reading. Client shared that she has used the ?cold shoulder? which then leads to client ?getting pissed? when her supports do not see she is struggling. Helped group identified positives of having effective communication skills. Attentive during psychoeducation on the four communication styles. Client chose not to share her communication style with the group but appeared to nod a lot while discussing passive and aggressive communication. Seemed to benefit from increased awareness of the different communication styles and identify personal communication style. Client to continue in IOP tx to prevent decompensation, improve daily functioning, and reduce negative thinking patterns. Narrative Note: []
--- NOTE | 2021-06-16 13:49 | BH.MDN ---
Multi-Disciplinary Note - Note 45-min Individual Time Started:: 11:25 Date: 06/16/21 Purpose of session/treatment goals addressed:: The purpose of this session was to help client identify triggers for depression and anxiety. Another goal was to discuss self-care and medications. Eye Contact:: Good Motor Activity:: Appropriate Appearance:: Neat Speech:: Appropriate Mood:: Dysthymic Affect:: Constricted Thoughts:: Linear, Logical, No evidence of hallucinations/delusions noted Staff Interventions:: Therapist listened to client's medication concerns and will inform other IOP staff. Therapist provided emotional support and gentle thought challenging as client processed current stressors. Therapist gave client homework to review and start filling out the self-care wheel. Therapist also gave client homework to start writing down her triggers for depression and anxiety. Client Response:: Client responded well to session, open to meeting with therapist. Client shared her medication is still messed up and that she feels dopey in the mornings. Client also believes her anxiety is still higher than it should be. Client will hopefully see psychiatry tomorrow and therapist provided some psychoeducation on different kinds of anxiety medications. Client reports she and her decided they want to reduce drinking and work towards sobriety, but client reports that she has been too focused on being sober which client believes is causing all or nothing thinking. Client recently had a slip and drank over the weekend which led to two days of ruminating and negative self-talk. Discussed the benefit of self-compassion and continuing to focus on replacement. Client wants to learn more about her triggers for depression and client received psychoeducation on maintenance cycles. Client gained insight on some of her triggers such as family stressors and thinking about the past. Client also gained insight to some of her common distortions and realized she often tells herself she is not enough. Client receptive to homework and will also work on identifying areas of self-care client would like to improve before returning to work. Risks/Concerns:: Client denies any active suicidal ideations, plan, or intent as of 06/16/21. Progress Toward Goals/Plan:: Client is making progress towards tx goals as client has good attendance and she reports consistent use of healthy coping skills. Client reports some issues with her medications and would like to see psychiatry this week. Client continues to work on replacing drinking as a coping skill and setting healthy boundaries with herself and others. Will continue IOP tx to promote mood stability, reduce negative thought patterns, and improve functioning. Time Stopped:: 12:10
--- NOTE | 2021-06-17 09:00 | BH.SGPN.GN ---
Behaviors/Verbalizations/Mental Status: []Client alert and oriented, neatly dressed and groomed. Eye contact good. Motor activity appropriate. Speech within normal limits. Affect congruent, mood euthymic. Thoughts linear, logical, no signs of hallucinations or delusions. Reviewed client?s symptom tracker, no risk for suicidal ideation, plan, or intent as of 06/17/21 Client Response/Progress/Benefit: []Client responded well to session, attentive and connecting with peers. Client reports feeling happy and excited this morning. Client reports she and her have planned a weekend getaway and client shared I'm actually looking forward to being out of the house again. Client has also been walking more and making dinner like she used to. Client denies any stressors today and reports a hopeful outlook. Appeared to benefit from reflecting on application of self-care and improved mood. Will continue IOP tx to reduce distorted thought patterns and increase mood stability to help client return to work. Narrative Note: []
--- NOTE | 2021-06-17 10:15 | BH.SGPN.GN ---
Behaviors/Verbalizations/Mental Status: [] Eye contact is good. Motor activity is appropriate. Appearance is casual. Speech is Appropriate. Mood is depressed. Affect is flat. Thoughts are linear and logical. No evidence of psychosis. Client Response/Progress/Benefit: [] Pt participated at times during group discission. Participated in small group activity. Attentive during psychoeducation on fixed mindset. Pt along with her peers provided insight on the aspects of a fixed mindset which included; being rigid, absolute thinking, why bother perspective, no confidence that one can succeed, and thoughts that one will never get better. Pt and peers were presented with a task which was meant to seem impossible. Pt identified common fixed mindset statements that she often uses which are why bother and I'm not strong enough. Benefited from education on fixed mindset and how it impacts mental health. Will continue in IOP to maintain safety, increase health coping skills, and prevent decompensation. Narrative Note: []
--- NOTE | 2021-06-17 11:15 | BH.SGPN.GN ---
Behaviors/Verbalizations/Mental Status: [] Client alert and oriented, casually dressed and groomed. Eye contact good. Motor activity appropriate. Speech within normal limits. Affect congruent. mood anxious and depressed. Thoughts linear, logical, no signs of hallucinations or delusions. Client Response/Progress/Benefit: [] Client engaged during activity and discussion AEB providing some input and taking notes throughout. Client did well to remain attentive as group worked on identifying characteristics and benefits of adopting a growth mindset. Did well to work with fellow participants in reframing the example fixed thoughts into growth mindset thoughts. Client worked in small group to apply skills learned to reframe own personal fixed thoughts. Reframed personal fixed thought of ?My anxiety and depressions will always control me? with growth mindset thought of ?Give yourself credit, you?ve been through tough times before. Your mental health can improve through the use of self-care and opposite action?. Noted that this would aid in improving confidence, reduce depression, and improve willingness to ask for help. Benefitted from discussing benefits of growth mindset and brainstorming strategies for prompting growth-mindset. Will continue IOP tx to continue to promote active thought challenging and skill application, maintain stability, as well as improve healthy coping repertoire. Narrative Note: []
--- NOTE | 2021-06-17 11:44 | PCM.BH.PN ---
Progress Note Progress Note: History of Present Illness/Interim History: [] The patient is a 50-year-old female who is seen in follow-up at the [facility] behavioral health IOP program. Patient is being treated for depression, anxiety and PTSD and I last saw the patient 1 week ago. At that time we continued to wean her Celexa and change her to a different antidepressant. She was unable to tolerate Effexor XR or Remeron in the past month. She had side effects on both. The Remeron was started 1 week ago but the patient says that she felt too lethargic and dopey on the Remeron so she stopped it after about 4 days. The patient states that she is still depressed and has fleeting suicidal thoughts at times. But these are very brief and she denies any active thoughts of suicide. She did relapse on alcohol 1 day last week but is still trying to stay sober off alcohol and plans to start AA soon. The patient agrees to try new medication. She denies active suicidal ideation, passive thoughts of , homicidal ideation, hallucinations or delusions. She feels she is benefiting from the IOP program and is learning valuable skills here. Current Psychiatric Medications: [] Celexa 20 mg p.o. daily (decreased 2 weeks ago and it in an attempt to wean and change to a different antidepressant); Remeron 15 mg p.o. nightly (discontinued last week after 4 days); trazodone 150 mg p.o. nightly; Vistaril 25 mg up to twice a day; BuSpar 15 mg p.o. twice a day. Mental Status Examination: [] Patient is a 50-year-old female who is seen wearing a mask due to the pandemic and is casually dressed and groomed with good hygiene. She has no psychomotor agitation or retardation. She has good eye contact and speech is normal rate and rhythm and fluent with no pressure. Mood is depressed. Affect is constricted. Thought process is goal-directed and organized. Thought content: There is evidence of rare, fleeting suicidal ideation. There is no evidence of thoughts of , active suicidal ideation, homicidal ideation, hallucinations or delusions. Judgment is intact. Insight is fair. Impulsivity is moderate. Diagnoses: [] 1. Major depressive disorder, recurrent, severe without psychosis 2. Generalized anxiety disorder 3. PTSD 4. Alcohol use disorder, history of marijuana and nicotine use disorder 5. Primary support and work issues Plan: [] The patient will continue the IOP program as the structure, support, education, group therapy will hopefully prevent worsening of the patient's symptoms. She felt safe during the interview and if it anytime she does not feel safe she will let us know or go to the emergency room. Long discussion was had about the risks, options and possible side effects and complications of possible medications and the when she is on and the patient understands and accepts these. She is again strongly encouraged to stay sober from alcohol and other drugs. She agrees to try Trental X 5 mg p.o. daily as she did well on this in the past she thinks. Prescription was sent in for #30 with 0 refills. The patient will continue the Celexa 20 mg daily and will discontinue it in 2 weeks if she is tolerating the new medication well. I will see the patient in follow-up in 1 to 2 weeks or as needed. She will continue to follow-up with outpatient providers.
== END 2021-06-20 23:59 ==
LOC: BHIOP 09:00
PROVIDERS: PCP Internal Medicine; Referring Provider Psychiatry & Neurology Psychiatry; Visit Provider Psychiatry & Neurology Psychiatry
DX: F33.2 Major depressive disorder, recurrent severe without psychotic features (principal); F41.1 Generalized anxiety disorder; F43.10 Post-traumatic stress disorder, unspecified; Z72.89 Other problems related to lifestyle; Z79.899 Other long term (current) drug therapy; F17.210 Nicotine dependence, cigarettes, uncomplicated; G25.81 Restless legs syndrome; I10 Essential (primary) hypertension; K21.9 Gastro-esophageal reflux disease without esophagitis; Z81.8 Family history of other mental and behavioral disorders; Z81.1 Family history of alcohol abuse and dependence; Z81.3 Family history of other psychoactive substance abuse and dependence; Z91.410 Personal history of adult physical and sexual abuse
CPT/HCPCS: S9480; 90832; 90834; 90853

== ENCOUNTER 2021-06-22 07:49 | Outpatient (RCR) | payer BC, SELFPAY ==
[2021-06-21 00:38] VITALS: BP 113/71; PULSE 64
--- NOTE | 2021-06-23 09:10 | BH.SGPN.GN ---
Behaviors/Verbalizations/Mental Status: [] Eye contact is good. Motor activity is appropriate. Appearance is casual. Speech is Appropriate. Mood is depressed. Affect is flat. Thoughts are linear and logical. No evidence of psychosis. Reviewed daily check in sheet and no reports of suicidal ideations or intent. Client Response/Progress/Benefit: [] Pt participated at times during the group discussions. Attentive. Daily symptom tracker notes 01/23 for depression,anxiety, and irritability. Emotion for today is content. Shared with the group that she had a positive weekend. Mental health wins include reading a book and completing several tasks. Pt reports that she loves to read however due to ruminations and depression she has not read in several months. She admits that she continues to struggle with overwhelming negative thoughts which impact her functioning however utilized skills such as journaling this weekend to help minimize the impact of negative thoughts. I need to get out of my head. Progress noted since last session per pt. Will continue in IOP to maintain safety, prevent decompensation, and to increase healthy coping skills. Narrative Note: []
--- NOTE | 2021-06-23 10:15 | BH.SGPN.GN ---
Behaviors/Verbalizations/Mental Status: []Client alert and oriented, neatly dressed and groomed. Eye contact good. Motor activity appropriate. Speech within normal limits. Affect constricted, mood calm. Thoughts linear, logical, no signs of hallucinations or delusions. Client Response/Progress/Benefit: []Pt was an active participant in group discussion and activity. Insight during activity that finding positive aspects was more difficult and connected that most people jump to negative aspects first. Pt along with peers were able to identify what could impact one's perspective which included; mood, intuitions, internal bias, stress, and mental health. Group was able to identify how a negative perspective could hinder mental health progress. Pt reported that prior to IOP, her perspective was ?very anxious? and client stated she would catastrophize ?all the time.? Pt also shared now she is challenging her perspective which has helped client be more resilient and improved functioning. Benefited from group by increasing awareness on the role of perspective in mental health wellness. Will continue in IOP to further improve mood, reduce negative thinking, and increase use of healthy coping skills. Narrative Note: []
--- NOTE | 2021-06-23 11:18 | BH.SGPN.GN ---
Behaviors/Verbalizations/Mental Status: []Client alert and oriented, casually dressed and groomed. Eye contact good. Motor activity appropriate. Speech within normal limits. Affect congruent, mood anxious and dysthymic. Thoughts linear, logical, no signs of hallucinations or delusions. Client Response/Progress/Benefit: []Pt responded well to session AEB pt remaining attentive and input to session when prompted, completing worksheet, and listening attentively to peers. Pt identified personal strengths to include: kindness, persistence, forgiveness, and ambition. Pt shared that these personal strengths could continue to assist in managing her mental health by helping to learn to apply each of these traits to how she traits to how she speaks with herself. Noted that she would be able to challenge herself to use more positive self-talk statements. Additionally, expressed that tapping into her strength of forgiveness would help her to move on from the emotional hold past experiences have had on her. Shared wanting to focus on fostering strengths of forgiveness and kindness by giving herself permission to let go of things that have been toxic to her in the past and begin focusing on what she is grateful for in the present. Identified importance of reminding herself of personal strengths and practicing using them daily in order to further promote self-compassion and improve resilience. Pt to continue IOP to maintain gains, continue to maintain improved mood stability and thought challenging, and prevent decompensation. Narrative Note: []
--- NOTE | 2021-06-25 08:13 | BH.COMM_ITS ---
Communication Note - Communication with Client Communication Note: Client had to cancel twice this week so client and ind ividual therapist were unable to meet. Client had a family emergency this week and plans to be in attendance next week.
--- NOTE | 2021-06-29 09:04 | BH.SGPN.GN ---
Behaviors/Verbalizations/Mental Status: []Client alert and oriented, casually dressed and groomed. Eye contact good. Motor activity appropriate. Speech within normal limits. Affect congruent, mood dysthymic. Thoughts linear, logical, no signs of hallucinations or delusions. Reviewed client?s symptom tracker, no risk for suicidal ideation, plan, or intent as of 06/29/21 Client Response/Progress/Benefit: []Client responded well to session, attentive, receptive of group supportive feedback and suggestions, and willing to process with group. Client reports feeling ?hopeful? this morning and expressed this is due to continuing to make strides in using resiliency skills. Discussed recently missing several days of group due to various family issues but was able to set boundaries, use assertive communication, and practice self-care to prevent these stressors from negatively impacting her own mental health. Identified several mental health wins which included: taking breaks as needed, reminding herself she cannot control and is not responsible for other?s behaviors/emotions, as well as practicing spending time out in nature. Client shared consistent skill application has aided in improving her overall ability to maintain stability throughout the continued family stress. Appeared to benefit from group support and encouragement. Will continue IOP tx to prevent decompensation, continue to improve mood stability, and continue to promote healthy change behaviors. Narrative Note: []
--- NOTE | 2021-06-29 10:10 | BH.SGPN.GN ---
Behaviors/Verbalizations/Mental Status: [] Eye contact is good. Motor activity is appropriate. Appearance is casual. Speech is Appropriate. Mood is depressed. Affect is flat. Thoughts are linear and logical. No evidence of psychosis. Client Response/Progress/Benefit: [] Pt participated at times during group discussions however was an active participant in group activity. . Attentive during psychoeducation. Provided feedback and insight. Along with group members pt provided insight on definition and benefits of self-care. Benefits that the group was able to identify included; improves relationships, decreases anger and burnout, gives one a sense of identity, improves communication, increases awareness of values/needs, can rejuvenate oneself, helps one be more engaged, improves physical health, and can improve productivity. Pt participated in activity and was able to make connect between experiential group task and self-care. Group processed the activity and identified consequences of neglecting self-care which can include; hospitalization, suicide attempts, lose supports, and poor overall functioning. Benefited from group by increasing awareness of benefits to self-care and consequences of neglecting self-care. Will continue in IOP to maintain safety, improve functioning, and increase healthy coping skills. Narrative Note: []
--- NOTE | 2021-06-29 11:10 | BH.SGPN.GN ---
Behaviors/Verbalizations/Mental Status: []Client alert and oriented, neatly dressed and groomed. Eye contact good. Motor activity appropriate. Speech within normal limits. Affect constricted, mood euthymic. Thoughts linear, logical, no signs of hallucinations or delusions. Client Response/Progress/Benefit: []Client engaged participant AEB client taking notes during discussion and listened attentively to peers. Participated in group discussion on the various areas of self-care, benefits, and types of self-care activities for each area. Client completed worksheet in which client identified current self-care practices and what self-care activities client wants to start using. Client reported wanting work on emotional self-care by using more self-compassion language with herself. Client plans to do this through journaling. Appeared to benefit from reflecting on the area of self-care client can improve and setting a small goal. Will continue IOP tx to promote mood stability and further improve emotional regulation skills that will help client return to work. Narrative Note: []
--- NOTE | 2021-06-29 13:26 | BH.MDN_ITS ---
Multi-Disciplinary Note - Note 30-min Individual Time Started:: 12:05 Date: 06/29/21 Purpose of session/treatment goals addressed:: To process current stressors and discuss return to work. Another goal was to utilize self-compassion strategies to combat negative self-talk and minimization. Eye Contact:: Fair Motor Activity:: Appropriate Appearance:: Neat Speech:: Appropriate Mood:: Euthymic, Anxious Affect:: Congruent Thoughts:: Linear, Logical, No evidence of hallucinations/delusions noted Staff Interventions:: Therapist used active listening while client shared current stressors. Therapist used self-compassion techniques to help client identify and challenge distortions and acknowledge accomplishments. Therapist explored client's work-related stressors and problem-solved solutions, helping client identify proactive steps she could take. Therapist gave client homework. Client Response:: Client responded well to session, open to meeting with therapist. Client shared even though there have been stressors recently, client believes she is coping well. Client reports she is managing her emotions well when having to interact with her sister and client is setting healthy boundaries with her stepdaughter. Client still has anxiety about her son?s mental health, but shared he is doing better at the moment. Client stated she has been trying to give herself more credit for how resilient she has been over the years. Radha escamilla shared she has also been journaling daily and noticed that her journal entries have been more positive. Client receptive to learning about dialectical thinking and using self-compassion to combat distortions. Client was given a worksheet on the three components of self-compassion and will use these while journaling. Client reports feeling somewhat anxious about returning to work, but much less anxious than before. Client agrees it would be a good idea to develop a self-care plan for when she returns to work to promote gains. Also discussed the benefits of self-advocacy at work and creating a statement of what she will tell people when she returns Risks/Concerns:: Client denies any suicidal or homicidal ideations as of 06/29/21. Progress Toward Goals/Plan:: Client continues to make progress towards tx goals AEB her 67% reduction in DSM-5 scores since intake. Client also self-reports I have more good days than bad days now. Client has been setting boundaries and reports consistently using healthy coping skills. Client will return to work in two weeks which gives client some anxiety. Client can benefit from ongoing IOP tx to reinforce healthy coping skills, establish aftercare, and promote work- related functioning. Time Stopped:: 12:40
--- NOTE | 2021-06-30 13:27 | BH.TPR ---
Treatment Plan Review Date of Admission:: 06/01/01 Date of Treatment Plan Review:: 06/30/21 Admitting Diagnoses:: Major depressive disorder, recurrent, severe without psychosis F33.2; Generalized anxiety disorder; PTSD; Alcohol use disorder Current Diagnoses:: Major depressive disorder, recurrent, severe without psychosis F33.2; Generalized anxiety disorder; PTSD; Alcohol use disorder (in early remission) Patient's Response to Treatment:: Client is responding well to IOP tx AEB her overall symptom reduction. Client?s DSM-5 scores have decreased by 67% since admission. Client?s symptoms for depression decreased by 50%, anxiety has decreased by 55%, anger by 75%, and drinking and smoking by 75%. Client is an active participant in group sessions, takes notes, and connects with peers. Client reports consistently journaling, using opposite action, setting boundaries, and being more social with her . Status of Current Problems and Symptoms: Client's mood is improving and her symptoms are reducing. However, client still endorses some symptoms of depression and anxiety related to family stressors and returning to work. Client is sober from alcohol, although she had a one-day slip a week ago. Client still needs outpatient providers and has yet to start AA. Client is working on using self-compassion and challenging distortions. Problem #1 Problem Name:: Depression, lack of motivation, and hopelessness Status of Goals:: Objective 1- complete with ongoing work encouraged. Client?s DMS-5 scores for depression decreased by 50% since admission. Client reports improved motivation and functioning at home. Client has also been able to stay sober (expect for a one-day slip) since starting IOP tx. Client consistently journals and reviews her IOP binder. Objective 2- in progress. Client has gained awareness of the different distortions that reinforce depression and is practicing using self-compassion. Team Recommendations:: Treatment team recommends client continue working on consistent self-care to help manage daily stressors as this can prevent alcohol use in the future. Client is also encouraged to attend AA or [facility] to support health coping, community, and family boundaries. Problem #2 Problem Name:: Anxiety, panic, and re-experiencing trauma events Status of Goals:: Objective 1- complete with ongoing work encouraged. Client?s DSM-5 scores for anxiety have decreased by 55% since admission. Client reports reduced panic attacks and consistent use of opposite action. Client has also been setting healthy boundaries with her family. Objective 2- complete with ongoing work encouraged. Client?s DSM-5 scores have decreased for unpleasant thoughts and images repeatedly entering her mind. Client also reports feeling less anxiety about her son?s mental health recovery. Client still becomes worried about client?s son?s ability to maintain stability, but client is ruminating about this much less. Team Recommendations:: Client encouraged to continue setting healthy boundaries with family and to advocate for herself at work. Client and therapist will create a return to work plan to help client maintain a self-care balance and manage anxiety.
--- NOTE | 2021-07-01 10:23 | BH.COMM ---
Communication Note - Communication with Client Communication Note: Did not show for IOP this morning. Call placed to patient who stated that she is leaving early to go out of town for a vacation. Pt was scheduled to see psychiatry this AM.
--- NOTE | 2021-07-07 10:34 | BH.MDN ---
Multi-Disciplinary Note - Note 60-min Individual Time Started:: 09:10 Date: 07/07/21 Purpose of session/treatment goals addressed:: The purpose of this session was to review client's progress and review strategies that will promote mood stability and gains made in [facility]. Another goal was to discuss discharge recommendations and create a return to work plan. Eye Contact:: Good Motor Activity:: Appropriate Appearance:: Casual Speech:: Appropriate Mood:: Euthymic Affect:: Congruent Thoughts:: Linear, Logical, No evidence of hallucinations/delusions noted Staff Interventions:: Therapist used open-ended questions to explore client's thoughts on personal progress. Therapist reviewed supports and coping skills with client to promote gains and prevent setbacks. Therapist discussed aftercare plan with client and used strengths-perspective to empower client on the goals client has accomplished. Therapist helped client complete a return to work plan that included coping skills, supports, self-care, and warning signs. Therapist gave client a quote collage for closure. Client Response:: Client responded well to session, open to meeting with therapist. Client stated her vacation went well and she took her IOP binder with her to review coping skills. Client plans to return to work next week and will discharge from [facility] tomorrow. Client self-reports progress as reduced depression, increased energy, reduced negative thinking, improved stress management skills, reduced drinking, and better functioning. Client shared she has been using this is a bad moment, not a bad day which has helped shift client's perspective and be more resilient. Client reports she and her drank two drinks on vacation, but other than that we drink few and far between. Client has significantly decreased her drinking from several drinks each night to rare use within the last six weeks. Client completed a return to work plan that included her coping skills, supports, warning signs, and self-care. Client's warning signs included: increased irritability, lack of energy, not wanting to get out of bed, negative attitude, isolation, and wanting to drink to cope. Client identifying coping skills such as: deep breathing, thought challenging, journaling, taking breaks, listening to music, and setting boundaries. Client plans to follow up with a therapist at [facility] and hopes to attend [facility] aftercare. Client reports feeling much stronger than when I started which has helped client cope with family stress and feel better prepared for work. Risks/Concerns:: Client denies any suicidal or homicidal ideations, plan, or intent as of 07/07/21. Progress Toward Goals/Plan:: Client will discharge from IOP tx this week as she has accomplished her tx goals and no longer meets criteria for IOP level of care. Client self-reports reduced depression, anxiety, and improved functioning. Client feels confident about returning to work and client created a return to work plan. Client will call and schedule an outpatient with Tavia Engel at [facility] and [place] [id number] for medication management. Client can benefit from one more IOP day to reinforce healthy coping skills and gain closure. Time Stopped:: 10:08
--- NOTE | 2021-07-07 15:22 | BH.IGGP_ITS ---
Aftercare Plan - Demographics Treatment End Date:: 07/08/21 Psychiatrist:: Christelle Petit Psychiatrist Office #:: [phone] [facility] Therapist:: Nichol Arroyo Therapist Phone #:: [phone] - Plan Details Progress/Aftercare Plan Details:: Mariangel has made significant strides since starting IOP as shown by her reduced symptoms, increased self-awareness, and overall improved ability to manage emotions and daily stressors. When Mariangel started IOP she was struggling with many different life stressors that were causing depression, anxiety, and irritability. Now, Mariangel is actively using healthy coping skills, being social, using positive self-talk, setting more boundaries, using the awareness she has gained to manage her emotions, and practicing self-reflection on a daily basis. Mariangel contributed to group discussions, offered emotional support to peers, and consistently followed through with her goals. In individual sessions, Mariangel was receptive to feedback, consistent with homework, and willing to push herself. Mariangel showed resilience each day she came to [facility] and was very receptive to learning. Client's DSM-5 symptoms decreased by 89% from admission. Depression decreased by 75%, anxiety decreased by 82%, and use of alcohol/smoking decreased by 88%. Mariangel plans to follow up with Tavia Engel at [email or web address] for individual counseling and will be calling [place] [id number] to establish outpatient psychiatry Strategies for Success:: 1. This is a bad MOMENT not a bad day. Continue to challenge your perspective and see the positives in yourself and in situations. 2. Challenge negative self-talk using self-compassion and affirmations. 3. Continue to journal every day. 4. Remember that it's okay to feel our emotions, but we don't have to LIVE in them. 5. Self-care!! This means boundaries, journaling, music, reaching out to supports, keeping up with counseling, and checking in with yourself. 6. Get into a routine of asking yourself what do I need right now to help regulate emotions and use healthy coping skills. 7. Review your [facility] binder. 8. Opposite action! - Appointments Appointments/Referrals to Other Services:: 1. Follow up with Tavia Engel at [email or web address] 08/03/21 at 4:00pm 2. Follow up with [facility] or [facility] for psychiatry. 3. [facility] aftercare every (or every other ) from 2-3:30pm. 4. AA meetings 5. [facility] in [place] for mental health peer support. - Medications Home Medications: Home Medications buspirone 15 mg PO BID 10/15/15 lisinopril 20 mg PO DAILY 10/15/15 pantoprazole 40 mg PO DAILY 10/15/15 atorvastatin 20 mg PO QHS 10/09/19 ropinirole 0.25 mg PO QHS 10/09/19 amlodipine 5 mg PO DAILY 03/06/21 hydroxyzine HCl [Atarax] 25 mg PO BID PRN PRN 06/03/21 mirtazapine [Remeron] 15 mg PO QHS 30 Days #30 tab 07/08/21 vortioxetine [Trintellix] 5 mg PO DAILY 30 Days #30 tab 07/08/21
--- NOTE | 2021-07-08 09:00 | BH.SGPN.GN ---
Behaviors/Verbalizations/Mental Status: []Client alert and oriented, casually dressed and groomed. Eye contact good. Motor activity appropriate. Speech within normal limits. Affect constricted, mood anxious and hopeful. Thoughts linear, logical, no signs of hallucinations or delusions. Reviewed client?s symptom tracker, no risk for suicidal ideation, plan, or intent as of 07/08/21 Client Response/Progress/Benefit: C[]Client responded well to session, reports feeling hopeful, anxious, and sad this morning as it is client's last day of IOP tx. Client reports I feel completely different than when I started and client also shared that being in IOP has helped her reframe her thinking and better cope with stressors. Client's self-reports on the daily symptom tracker that her mood and functioning have generally been better. Client stated she is anxious about leaving the support of IOP and starting work, but client recognizes she has the tools needed to be successful. Client also has aftercare setup which will further promote gains. Client has made significant progress and will discharge from IOP tx today. Narrative Note: []
--- NOTE | 2021-07-08 10:15 | BH.SGPN.GN ---
Behaviors/Verbalizations/Mental Status: []Eye contact is good. Motor activity is appropriate. Appearance is casual. Speech is Appropriate. Mood is anxious, euthymic. Affect is congruent. Thoughts are linear and logical. No evidence of psychosis. Client Response/Progress/Benefit: []Pt was an active participant in group discussion and activity. Attentive during psychoeducation on factors that build resiliency AEB providing input and taking notes throughout. Worked with peers to define resilience and shared that to her resilience means ?strength. Not letting setbacks break you?. Noting several instances in which she has had to be resilient throughout the treatment process. Pt along with peers also identified what could impact personal resilience, which included: environment, learned behaviors and learned coping skills, beliefs, habits, and past experiences. Pt shared that by cultivating resilience we can develop skills to ?better be able to deal with situations in the future?. Pt benefited by increasing awareness on the role of resilience in mental health and factors that can help build resiliency. Pt has successfully completed all tx goals and no longer meets IOP tx criteria. Will discharge to outpatient tx on this date. Narrative Note: []
--- NOTE | 2021-07-08 11:15 | BH.SGPN.GN ---
Behaviors/Verbalizations/Mental Status: []Client alert and oriented, casual dress, hygiene tended to. Eye contact good. Motor activity appropriate. Speech within normal limits. Affect congruent, mood euthymic. Thoughts linear, logical, no signs of hallucinations or delusions. Client Response/Progress/Benefit: []Client responded well to session AEB contributing to discussion. Client participated in the discussion of how each resiliency component can help increase personal resiliency. Client engaged in activity, working cooperatively with group. Client?s goal to increase resilience is to make connections. Client reported her goal is to respond to supports that have reached out to her and go to AA for additional support. Client seemed to benefit from identifying goal to improve her personal resilience. Client has made significant treatment progress and will discharge from [facility] today. Narrative Note: []
--- NOTE | 2021-07-08 12:39 | PCM.BH.PN_ITS ---
Progress Note Progress Note: History of Present Illness/Interim History: [] Patient is a 50-year-old female who is seen in follow-up at the [facility] behavioral health IOP program. I last saw the patient 3 weeks ago and at that time we started weaning the Celexa and changing her over to Trental X 5 mg p.o. daily. Patient has been taking the Trental X for 3 weeks now and has no side effects on it. She discontinued her Celexa 1 week ago and has tolerated this well. She feels that her mood is much better and much improved. She is much less depressed than she was 3 weeks ago. The patient has been engaged in has had good participation in the IOP program and she feels that she is really benefited from the program. Her last day in the program is today. The patient feels that she is doing well and denies suicidal ideation, thoughts of , homicidal ideation, hallucinations or delusions. She has been not use any alcohol since I last saw her 3 weeks ago. The patient's sleep remains good and she states that she stopped using her trazodone and stayed on the Remeron 15 mg at bedtime and wishes to stay on this. Current Psychiatric Medications: [] Celexa 20 mg daily (discontinued 1 week ago); Remeron 15 mg p.o. nightly; TrintelliX 5 mg p.o. daily (x3 weeks now); Vistaril 25 mg up to twice a day; BuSpar 15 mg p.o. twice a day; trazodone has been discontinued. Mental Status Examination: [] The patient is a 50-year-old female who is seen wearing a mask due to the pandemic and is casually dressed and groomed with good hygiene. She has no psychomotor agitation or retardation. Eye contact is good and speech is normal rate and rhythm and fluent with no pressure. Mood is minimally depressed. Affect is full and normal. Thought process is goal- directed and organized. Thought content: There is no evidence of thoughts of , suicidal ideation, homicidal ideation, hallucinations or delusions. Judgment is intact. Insight is fair to good. Impulsivity is moderate. Diagnoses: [] 1. Major depressive disorder, recurrent, severe without psychosis (resolving) 2. Generalized anxiety disorder 3. PTSD 4. Alcohol use disorder, history of marijuana and nicotine use disorder 5. Primary support and work issues Plan: [] The patient will be discharged from the IOP program as her symptoms have improved greatly. She felt safe during the interview and if it anytime she does not feel safe she will let us know or go to the emergency room. Discussion again was had about the risks, options and possible side effects and complications of the medications. She is again strongly encouraged to stay sober from alcohol and other drugs. He will continue her current medication regimen. Prescription refills were given for Remeron and Trental X, 30 days with 1 refill.
--- NOTE | 2021-07-08 14:41 | BH.DS ---
Discharge Summary - Demographics Date of Admission:: 06/01/21 Discharge Date: 07/08/21 Presenting Problems at Admission:: Client is a 50-year-old female with a history of MDD, DACIA, and PTSD. Client was referred to [facility] by a family friend who previously completed [facility]. Client presented at admission with worsening depressive and anxiety symptoms over the past year, but this past month was even worse. Client had numerous stressors the month leading up to admission including her son and her stepdaughter both attempting suicide. Client shared her son called her after the attempt saying, mom I just wanted to tell you I love you and goodbye. Client endorsed nightmares, flashbacks, and replaying memories over and over again. Client shared she had been having panic attacks as well. Client endorsed a depressed mood with loss of appetite (down 12 lbs in a month), lack of concentration, lack of energy and motivation, crying spells, anhedonia, poor sleep, and hopelessness. Client denied any thoughts of or SI. Client was self-medicating with alcohol to cope with her mental health symptoms. Client was drinking 2-3 rum and cokes every night and client acknowledged this is a problem. Client was not able to complete her ADLs, was borderline agoraphobic, and was struggling at work. Discharge Diagnoses:: Major depressive disorder, recurrent, severe without psychosis F33.2 (resolving); Generalized anxiety disorder; PTSD; Alcohol use disorder (in early remission) Reason for Discharge:: Client has met her tx goals AEB reduced DSM-5 scores and self-report of improved mood and functioning. Client no longer meets criteria for [facility] level of care. - Treatment Progress During Treatment & Response: Client made significant progress while in [facility] tx AEB her reduced DSM-5 symptoms and overall improved functioning. Client was active in both group and individual therapy sessions. Client contributed to group discussions, offered emotional support to peers, and consistently followed through with her goals. In individual sessions, Client was receptive to feedback, consistent with homework, and willing to push herself. Client?s DSM-5 scores decreased overall by 89% from admission. Depression decreased by 75%, anxiety decreased by 82%, and use of alcohol/smoking decreased by 88%. Client also reports reduced isolative behaviors, improved stress management, and increased self-care. Client will follow up with [facility] for individual counseling. Client plans to call [place] [phone] or [facility] for psychiatry. Issues Still to be Addressed:: Client can benefit from ongoing therapy to reinforce healthy coping skills learned in [facility]. Client also recommended to join AA for additional recovery support. Client can benefit from continuing to set healthy boundaries at work and with family, challenging distortions, and practicing self-reflection to identify early warning signs. Client recognizes that consistently attending therapy is crucial to maintain gains. Discharge Recommendations/Instructions:: Client is encouraged to continue outpatient counseling and will see Tavia Engel at [facility] on 08/03/21. Client is encouraged to complete the [facility] aftercare program, but first needs to talk to her boss. Client recommended to call [place] [phone] or [facility] for psychiatry. Client also highly encouraged to remain sober from all substances and join AA in the future. Discharge Handout: Complete Discharge Handout with client on aftercare options and continuity of care.
== END 2021-07-08 13:45 | disposition home or self-care (01) ==
LOC: BHIOP 07:49
PROVIDERS: PCP Internal Medicine; Referring Provider Psychiatry & Neurology Psychiatry; Visit Provider Psychiatry & Neurology Psychiatry
DX: F33.2 Major depressive disorder, recurrent severe without psychotic features (principal); F41.1 Generalized anxiety disorder; F43.10 Post-traumatic stress disorder, unspecified; Z72.89 Other problems related to lifestyle
CPT/HCPCS: S9480; 90832; 90837; 90853

== ENCOUNTER 2022-01-28 09:44 | Observation (INO) | payer BC, SELFPAY ==
[2022-01-28] VITALS (10 sets, daily range): BP systolic 106–172; BP diastolic 63–88; PULSE 52–76; RESP 14–16; TEMP 2.7–36.8; O2SAT 96–100; BMI 36.3; BMI 35.9
--- NOTE | 2022-01-28 10:06 | RAD_ITS ---
STUDY: X-RAY CHEST REASON FOR EXAM: Female, 51 years old. Chest pain TECHNIQUE: Single AP portable view of the chest. COMPARISON: Comparison is made with prior examination of 04/23/2021. FINDINGS: EKG electrodes are seen. Stable mild elevation of the right hemidiaphragm. The lungs are clear. There is no demonstrated pleural abnormality. Normal size heart. Normal mediastinum and andres. Normal visualized pulmonary arteries. Normal visualized aortic arch and descending thoracic aorta. Normal visualized thoracic spine. Normal visualized ribs, clavicles, and shoulders. There is no demonstrated abnormality of the visualized soft tissue structures of the upper abdomen. RAD/Chest 1 View (Portable) IMPRESSION: Normal x-ray examination of the chest. Electronically Signed: David Gates MD at 11:08 [facility] ,
--- NOTE | 2022-01-28 10:06 | EKG12_ITS ---
Test Reason : CP Blood Pressure : / mmHG Vent. Rate : 070 BPM Atrial Rate : 070 BPM P-R Int : 152 ms QRS Dur : 086 ms QT Int : 428 ms P-R-T Axes : 034 036 063 degrees QTc Int : 462 ms Normal sinus rhythm Normal ECG Confirmed by MARNIE KEVIN, RASHAD ([id number]), electronic news gathering editor CATIE SAINI ([id number]) on 01/29/2022 8:39:01 AM Referred By: PC Confirmed By:RASHAD DYE MD
--- NOTE | 2022-01-28 10:09 | EDS_ITS ---
HPI <BALDO King - Last Filed: 01/28/22 10:52> History of Present Illness Chief Complaint: Chest Pain Narrative Narrative: 51-year-old female with PMH of HTN, GERD, tobacco use presents with chest pain. Over the last 2 to 3 months she has had a dull aching pain in her chest and between her shoulder blades. It can radiate into her left arm and jaw. She also has pain and weakness in the left arm. The chest pain mainly occurs with increased activity such as while at work at her job at the [employer] but she has sharp pains at night while lying down as well. She feels mildly short of breath. No nausea or vomiting. She denies cardiac history. She smokes 1 PPD with a 10-year pack history. She had an appointment with her PCP yesterday who ordered a stress test but they did not have an appointment until the next 2 weeks and she had worsening symptoms today and was advised to come to the ED. Currently pain is 5/10. She denies recent fever, chills, cough, abdominal pain, or bladder or bowel changes. PFSH <BALDO King - Last Filed: 01/28/22 10:52> PFSH Medical History Alcohol use disorder Cannabis use disorder, mild, in sustained remission Generalized anxiety disorder Hyperlipidemia Hypertension Major depressive disorder, recurrent severe without psychotic features Obesity PTSD (post-traumatic stress disorder) Smoking Home Medications buspirone 15 mg PO BID 10/15/15 [History Last Taken 10/08/19] lisinopril 20 mg PO DAILY 10/15/15 [History Last Taken 10/08/19] pantoprazole 40 mg PO DAILY 10/15/15 [History Last Taken 10/08/19] atorvastatin 20 mg PO QHS 10/09/19 [History Last Taken 10/08/19] ropinirole 0.25 mg PO QHS 10/09/19 [History Last Taken 10/08/19] amlodipine 5 mg PO DAILY 03/06/21 [History Last Taken Unknown] hydroxyzine HCl [Atarax] 25 mg PO BID PRN PRN 06/03/21 [History Last Taken Unknown] mirtazapine [Remeron] 15 mg PO QHS 30 Days #30 tab 07/08/21 [Rx Last Taken Unknown] vortioxetine [Trintellix] 5 mg PO DAILY 30 Days #30 tab 07/08/21 [Rx Last Taken Unknown] Allergy/AdvReac Type Severity Reaction Status Date / Time butorphanol tartrate Allergy Shortness Verified 01/28/22 09:47 [From Stadol] of breath Social History (Updated 04/23/21 @ 11:[address] Bony Davidson, DO) Smoking Status: Current every day smoker tobacco type: cigarettes substance use type: does not use ROS <BALDO King - Last Filed: 01/28/22 10:52> ROS ED ROS Narrative Constitutional: Negative for fever, chills, malaise. Eyes: Negative for visual change. ENT: Negative for sore throat, ear pain, rhinorrhea. CVS: Positive for chest pain. Negative for palpitations, syncope. Respiratory: Positive for shortness of breath. Negative for cough, orthopnea. GI: Negative for abdominal pain, nausea, vomiting, diarrhea, constipation, melena, hematochezia. : Negative for dysuria, hematuria or frequency. Neuro: Negative for headache, motor/sensory dysfunction. Skin: Negative for rash, abscess, or wound. Musc: Negative for joint pain, swelling, trauma. Heme: Negative for easy bruising, bleeding, lymphadenopathy. EXAM <BALDO King - Last Filed: 01/28/22 10:52> Physical Exam Narrative Exam Narrative: CONST: Patient sitting in no acute distress. EYES: Normal inspection. ENT: Normal inspection, moist mucous membranes. NECK: Normal inspection. RESP: No respiratory distress, CTAB. CVS: Regular rate and rhythm, no murmur, no gallop. ABD: Soft and nontender, no guarding or rebound, nondistended, no hepatosplenomegaly. Back: Normal inspection, no midline spinal tenderness, no step-off or crepitus. SKIN: Color normal, no rash, warm, dry, intact. EXTREMITIES: Normal appearance, no pedal edema. 2+ radial and DP pulses. No calf tenderness. NEURO: Oriented x4. PSYCH: Normal affect. Const Vital Signs: 01/28/22 09:45 01/28/22 10:29 Temperature 97.3 F L Temperature Source Temporal Pulse Rate 76 Respiratory Rate 14 Respiratory Effort Normal Non-Labored Blood Pressure 172/88 H Blood Pressure Mean 116 Pulse Ox 100 Oxygen Delivery Method Room Air <Dr. Luther Costa MD - Last Filed: 01/28/22 10:49> Physical Exam Const Vital Signs: 01/28/22 09:45 01/28/22 10:29 Temperature 97.3 F L Temperature Source Temporal Pulse Rate 76 Respiratory Rate 14 Respiratory Effort Normal Non-Labored Blood Pressure 172/88 H Blood Pressure Mean 116 Pulse Ox 100 Oxygen Delivery Method Room Air <BALDO King - Last Filed: 01/28/22 10:52> Heart Score History: Highly Suspicious ECG: Normal Age: >45 - <65 years Risk Factors: >/= 3 Risk Factors or History of CAD Troponin: </= Normal Limit Score: 5 MDM <BALDO King - Last Filed: 01/28/22 10:52> MDM MDM Narrative Medical decision making narrative: Patient presents with chest pain over the last few months. She has not sounds like typical chest pain with exertion but also some chest pain at night while lying supine. Here she appears well nontoxic and slightly hypertensive in 170/80, otherwise normal vital signs. Medical exam is unremarkable. Basic labs were obtained and are normal. Troponin is 5. Delta troponin is pending. EKG is normal sinus rhythm with no acute ischemic changes and is unchanged from previous. She has a heart score 4?5. We discussed that I agree we need to get a stress test to rule out a cardiac cause but this may be noncardiac in nature. Patient was discussed with the hospitalist and she was brought in for observation. 1. Chest pain Lab Data Labs: Laboratory Results - last 24 hr 01/28/22 01/28/22 10:00 10:00 WBC 6.5 RBC 5.27 Hgb 14.7 Hct 42.3 MCV 80.3 L MCH 27.9 MCHC 34.8 RDW Std Deviation 33.3 L RDW Coeff of Erica 11.5 L Plt Count 262 MPV 9.5 Immature Gran % (Auto) 0.500 Neut % (Auto) 61.4 Lymph % (Auto) 29.3 Bourbon % (Auto) 3.4 Eos % (Auto) 4.9 Baso % (Auto) 0.5 Absolute Neuts (auto) 4.0 Absolute Lymphs (auto) 1.91 Nucleated RBC % 0 Sodium 138 Potassium 3.4 L Chloride 103 Carbon Dioxide 29.0 Anion Gap 6 BUN 9 Creatinine 1.05 H Estim Creat Clear Calc 54.12 Est GFR (MDRD) Af Amer 71 Est GFR (MDRD) Non-Af 59 L BUN/Creatinine Ratio 8.6 L Glucose 118 H Calcium 9.3 Troponin I High Sens 5 EKG Initial EKG: Attestation: I personally reviewed and interpreted this EKG as follows: Interpretation: Sinus Rhythm and No Acute Injury Pattern Comments: Normal sinus rhythm, normal intervals, no acute ischemic changes <Dr. Luther Costa MD - Last Filed: 01/28/22 10:49> MDM MDM Narrative Medical decision making narrative: Seen and evaluated independently and in conjunction with physician outpatient physical therapist assistant. Agree with notes above unless documented otherwise. My exam, regular rate and rhythm without ectopy or audible murmur. Clear to auscultation throughout. No calf tenderness. No splinting on deep inspiration. Equal strength neurologically in her upper extremities. Patient is having 2 different types of chest pain, one of them is atypical, nonpleuritic left-sided inframammary sharp pains, the other she states feels like heartburn and occasionally she feels between her shoulder blades in her back and her left shoulder. She has been having episodes of pain at rest that occur randomly, she also does get discomfort at night sometimes when she is lying supine, and other times the discomfort is exertional and does not always go away when she rests. I agree with admitting her for a stress test, given that she is having discomfort at rest and she has risk factors and heart score 4-5. I discussed with her and her that certainly there are noncardiac possibilities here in the differential, she is already on Protonix. Lab Data Attestation: I reviewed the patient's lab results. Labs: Laboratory Results - last 24 hr 01/28/22 01/28/22 10:00 10:00 WBC 6.5 RBC 5.27 Hgb 14.7 Hct 42.3 MCV 80.3 L MCH 27.9 MCHC 34.8 RDW Std Deviation 33.3 L RDW Coeff of Erica 11.5 L Plt Count 262 MPV 9.5 Immature Gran % (Auto) 0.500 Neut % (Auto) 61.4 Lymph % (Auto) 29.3 Bourbon % (Auto) 3.4 Eos % (Auto) 4.9 Baso % (Auto) 0.5 Absolute Neuts (auto) 4.0 Absolute Lymphs (auto) 1.91 Nucleated RBC % 0 Sodium 138 Potassium 3.4 L Chloride 103 Carbon Dioxide 29.0 Anion Gap 6 BUN 9 Creatinine 1.05 H Estim Creat Clear Calc 54.12 Est GFR (MDRD) Af Amer 71 Est GFR (MDRD) Non-Af 59 L BUN/Creatinine Ratio 8.6 L Glucose 118 H Calcium 9.3 Troponin I High Sens 5 Discharge Plan Dx/Rx/DC Orders Clinical Impression: Chest pain, unspecified Disposition Disposition: Acute Care Hospital [facility]
[2022-01-28 10:27] LABS: Absolute Lymphocyte Count 1.91 X10^3/uL (0.83-4.51); Basophil# 0.03 X10^3/uL; Basophil% 0.5 % (0-1); Eosinophil# 0.32 X10^3/uL; Eosinophils% 4.9 % (0-5); Hematocrit 42.3 % (37-47); Hemoglobin 14.7 g/dL (12.0-15.0); Lymphocyte # 1.91 X10^3/ul (0.83-4.51); Lymphocyte % 29.3 % (19-41); Mean Corp Hgb Conc 34.8 g/dL (32-36); Mean Corpuscular Hgb 27.9 pg (27.0-32.0); Mean Corpuscular Volume 80.3 fL (81-99); Mean Platelet Vol. 9.5 fl (6.2-12.0); Monocyte# 0.22 X10^3/uL; Monocyte% 3.4 % (0-10); NRBC Flagged by Analyzer 0 % (0-5); Neutrophil # 4.01 X10^3/uL (2.7-7.7); Neutrophil % 61.4 % (47-70); Platelet Count 262 K/mm3 (150-450); RBC Distribution Width CV 11.5 % (11.6-14.6); RBC Distribution Width SD 33.3 fl (35.1-43.9); Red Blood Count 5.27 M/mm3 (4.2-5.4); White Blood Count 6.5 K/mm3 (4.4-11.0)
[2022-01-28] MEDS: Aspirin 81 MG TAB.CHEW 324 MG PO (10:31)
[2022-01-28 10:40] LABS: Anion Gap 6 (5-15); BUN 9 mg/dL (7-18); BUN/Creat Ratio 8.6 RATIO (10-20); Calcium,Total 9.3 mg/dL (8.5-10.1); Chloride 103 mmol/L (98-107); Creatinine, Serum 1.05 mg/dL (0.55-1.02); EST Glomerular Filtration Rate 59 mL/min (>60); Est Glom Filt Rate - Afr Amer 71 mL/min (>60); Estimated Creatinine Clearance 54.12 ml/min; Glucose 118 mg/dL (74-106); Potassium 3.4 mmol/L (3.5-5.1); Sodium Level 138 mmol/L (136-145); Troponin-I HS 5 pg/mL (3.0-54.0)
[2022-01-28] MEDS: Nitroglycerin SL (ED/IMG/CATH) 0.4 MG TABLET SL (10:53)
--- NOTE | 2022-01-28 10:57 | NURSING ---
PCU OBS MICHAEL RO
--- NOTE | 2022-01-28 12:11 | EKG12_ITS ---
Test Reason : Blood Pressure : / mmHG Vent. Rate : 056 BPM Atrial Rate : 056 BPM P-R Int : 156 ms QRS Dur : 086 ms QT Int : 446 ms P-R-T Axes : 018 032 065 degrees QTc Int : 430 ms Sinus bradycardia Otherwise normal ECG When compared with ECG of 23-APR-2021 10:58, No significant change was found Confirmed by MARNIE KEVIN, RASHAD ([id number]), editor sound CATIE SAINI ([id number]) on 01/29/2022 9:22:44 AM Referred By: JAYJAY Confirmed By:RASHAD DYE MD
--- NOTE | 2022-01-28 12:21 | CM.ED ---
RN CM Assessment Introduced role of RN CM to patient and Dipesh at bedside. Patient is alert, oriented and able to participate in RN CM Assessment. Care providers, pharmacy, and demographics verified. Admit Dx: CP Re-Admit: No Barriers/Issues: None PCP: Kim Olivo Specialists: None [facility]erred [facility]acy: [facility] Insurance: [employer] Rx Benefit: Yes LNOK: Dipesh Ott LW/HPOA: None. AD information given with social worker palliative care rack card and informed can complete inpatient or outpatient. Living Arrangements: Lives with in a bungalow home. 2 steps to enter home. ADL?s: Ind w/amb and ADLs Transportation: Both patient and drive. will transport upon DC. DME: None HHC: Past during prgnancy SNF: None Goal: Home and NN DC PLAN: Home with no anticipated needs identified at this time. Ang Bartholomew RNCM
[2022-01-28 12:34] LABS: Troponin-I HS 5 pg/mL (3.0-54.0)
[2022-01-28] MEDS: Acetaminophen 325 MG Tablet 650 MG PO (13:15)
[2022-01-28] MEDS: Potassium Chloride Oral Tablet 20 MEQ 40 MEQ PO (13:15)
--- NOTE | 2022-01-28 15:08 | HP.PCM.HOS_ITS ---
HPI - General General Date of Admission: 01/28/22 HPI Narrative RAUL ROBERTSON, is a 51 F who presented to the emergency department was from hospital on 01/28/2022 with a chief complaint of chest pain. The patient reported on admission over the last 2 to 3 months she has had a dull central aching chest pain that radiated intermittently to her neck between her shoulder blades and into her left arm and jaw. She notes that this mainly occurs with exertion however she has gotten symptoms at rest as well. She states that she feels mild associated shortness of breath and feels warm but no marked diaphoresis. She is also complained of some intermittent nausea when this occurs as well. She is a family history in her father for early onset coronary disease. He is now and she did not have a close relationship with him and does not know the immediate details with regards to his heart disease. She evidently had a appointment with her primary care physician who ordered a stress test but they were unable to schedule this for the next 2 weeks and with worsening symptoms she was advised to come to the emergency department today. Her heart score is 5. Upon presentation her her vital signs were overall unremarkable. Her CBC is unremarkable. Her BMP showed mild hypokalemia with a potassium of 3.4 and a slightly elevated serum creatinine of 1.05 but this appears to be her baseline. Her initial high-sensitivity troponin was 5. A chest x-ray was performed and showed no acute abnormalities. An EKG was performed and showed normal sinus rhythm without any ST-T wave changes consistent with ischemia. She was admitted for observation to the PCU with a stress test ordered for tomorrow morning. Unfortunately she drank Coke this morning and we are unable department this today. FORMERLY [facility], [facility]–1983 Medical History (Updated 01/28/22 @ 15:[address] Kyara Peck, ) Alcohol use disorder Cannabis use disorder, mild, in sustained remission Generalized anxiety disorder HTN (hypertension) Hyperlipidemia Major depressive disorder, recurrent severe without psychotic features Obesity (BMI 30-39.9) PTSD (post-traumatic stress disorder) Stage 3a chronic kidney disease Tobacco abuse Home Medications buspirone 15 mg PO TID 10/15/15 [History Last Taken 10/08/19] lisinopril 20 mg PO DAILY 10/15/15 [History Last Taken 10/08/19] pantoprazole 40 mg PO DAILY 10/15/15 [History Last Taken 10/08/19] atorvastatin 20 mg PO QHS 10/09/19 [History Last Taken 10/08/19] ropinirole 0.25 mg PO QHS 10/09/19 [History Last Taken 10/08/19] amlodipine 5 mg PO DAILY 03/06/21 [History Last Taken Unknown] hydroxyzine HCl [Atarax] 25 mg PO TID PRN PRN 06/03/21 [History Last Taken Unknown] citalopram [Celexa] 40 mg PO DAILY 01/28/22 [History Last Taken Unknown] trazodone 150 mg PO QHS 01/28/22 [History Last Taken Unknown] Allergy/AdvReac Type Severity Reaction Status Date / Time butorphanol tartrate Allergy Shortness Verified 01/28/22 09:47 [From Stadol] of breath Family History (Updated 01/28/22 @ 15:[address] Kyara Peck DO) Mother Lung cancer Father Heart disease no surgical history Social History (Updated 01/28/22 @ 15:[address] 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 Smoking Status: Current every day smoker tobacco type: cigarettes Smoking packs per day: 1 Smoking cigarettes per day: 20.0 alcohol intake: former substance use type: former substance user Date of last use: Marijuana well-balanced diet: rarely or never caffeine: Yes what type of physical activity do you participate in: none ROS Constitutional Constitutional: Denies anorexia, change in weight, chills, fatigue, fever(s), malaise, night sweats, weakness or other Eyes Eyes: Denies blurry vision, change in eye color, change in vision, discharge from eye(s), double vision, erythema, eye pain, loss of vision or other ENT HEENT: Denies abnormal hearing, dysphagia, ear pain, epistaxis, headache(s), hearing loss, nasal congestion, nasal discharge, post nasal drip, sinus pressure, sore throat or other Cardiovascular Cardiovascular: Reports chest pain and dyspnea on exertion; Denies claudication, edema, lightheadedness, orthopnea, palpitations, paroxysmal nocturnal dyspnea, rapid heart rate, syncope or other Respiratory/Chest Respiratory/Chest: Reports dyspnea and shortness of breath with exertion; Denies cough, excessive phlegm production, hemoptysis, productive cough, shortness of breath at rest, wheezing or other Gastrointestinal Gastrointestinal: Reports dyspepsia and nausea; Denies abdominal pain, coffee ground emesis, constipation, diarrhea, hematemesis, hematochezia, loose stools, melena, vomiting or other Genitourinary Genitourinary: Denies burning urination, difficulty urinating, dysuria, hematuria, nocturia, urinary frequency, urinary hesitancy, urinary incontinence, urinary urgency or other Musculoskeletal Musculoskeletal: Reports back pain; Denies arthralgias, joint pain, joint stiffness, joint swelling, myalgias, neck pain or other Neurologic Neurologic: Denies abnormal gait, abnormal speech, confusion, disequilibrium, dizziness, focal weakness, headache(s), numbness, paresthesias, seizure-like activity, seizures, syncope, tingling, tremor(s) or other Psychiatric Psychiatric: Denies anxiety, depression, homicidal ideation, suicidal ideation or other Endocrine Endocrinology: Denies change in body appearance, cold intolerance, excessive sweating, heat intolerance, polydipsia, polyuria or other Hematologic/Lymphatic Hematologic/Lymphatic: Denies anemia, easy bleeding, easy bruising, lymphadenopathy or other Allergic/Immunologic Allergic/Immunologic: Denies rhinitis, hives, eczemia, asthma or other Vital Signs Vital Signs Vital Signs: 01/28/22 09:45 01/28/22 10:29 01/28/22 10:53 Temperature 97.3 F L Temperature Source Temporal Pulse Rate 76 65 Respiratory Rate 14 Respiratory Effort Normal Non-Labored Blood Pressure 172/88 H 145/85 H Blood Pressure Mean 116 Blood Pressure Source Blood Pressure Position Blood Pressure Location Pulse Ox 100 Oxygen Delivery Method Room Air 01/28/22 11:13 01/28/22 12:12 Temperature 97.0 F L 98.2 F Temperature Source Temporal Oral Pulse Rate 58 L 56 L Respiratory Rate 16 16 Respiratory Effort Blood Pressure 124/78 H 131/73 H Blood Pressure Mean 93 92 Blood Pressure Source Monitor Blood Pressure Position Semi-Fowlers Blood Pressure Location Left Arm Pulse Ox 96 98 Oxygen Delivery Method Room Air Room Air Weight Weight: 95.1 kg Body Mass Index (BMI) 35.9 Physical Exam Const alert, oriented x3, no apparent distress and well nourished Constitutional Narrative: Obese, middle-aged white female sitting up in bed, with her at bedside, appears comfortable, nontoxic, appears older than stated age General Appearance: cooperative HEENT normocephalic, head/scalp atraumatic, hearing grossly normal bilaterally and moist oral mucous membranes HEENT Narrative: Dentition is good, Mallampati is 2, no thrush Eyes PERRL, EOMs intact bilaterally and conjunctivae normal Eyes Narrative: No scleral icterus Neck no lymphadenopathy, supple, no JVD and no carotid bruits Neck Narrative: Trachea midline, no thyroid enlargement noted Resp normal respiratory effort, no retractions, no use of accessory muscles and clear to auscultation bilaterally Resp Narrative: Diminished but clear Auscultation: Negative for crackles, rales, rhonchi or wheezes Cardio regular rate, regular rhythm, S1 normal heart sound, S2 normal heart sound, no murmurs, no rub, no gallops, no clicks and no JVD GI normal to inspection, nondistended, normoactive bowel sounds, soft to palpation, non-tender and non-distended; Negative for hepatosplenomegaly Extremity no clubbing, cyanosis or edema Peripheral Pulses: Yes pulses 2+ throughout Skin no rashes or lesions noted, no wounds, skin turgor normal, no jaundice, no petechiae and no mottling Neuro oriented x3, CN's II-XII intact bilaterally, moves all extremities and no focal motor deficits Sensorium / Orientation: awake and alert Speech: speech normal Motor Exam: strength 5/5 throughout Psych affect normal Psych Narrative: Very pleasant and appropriately interactive Results Lab / Micro Data Attestation: I reviewed the patient's lab results. Result Diagrams: 01/28/22 10:00 01/28/22 10:00 Labs: Laboratory Results - last 24 hr 01/28/22 10:00: WBC 6.5, RBC 5.27, Hgb 14.7, Hct 42.3, MCV 80.3 L, MCH 27.9, MCHC 34.8, RDW Std Deviation 33.3 L, RDW Coeff of Erica 11.5 L, Plt Count 262, MPV 9.5, Immature Gran % (Auto) 0.500, Neut % (Auto) 61.4, Lymph % (Auto) 29.3, Wetzel % (Auto) 3.4, Eos % (Auto) 4.9, Baso % (Auto) 0.5, Absolute Neuts (auto) 4.0, Absolute Lymphs (auto) 1.91, Nucleated RBC % 0 01/28/22 10:00: Sodium 138, Potassium 3.4 L, Chloride 103, Carbon Dioxide 29.0, Anion Gap 6, BUN 9, Creatinine 1.05 H, Estim Creat Clear Calc 54.12, Est GFR (M DRD) Af Amer 71, Est GFR (MDRD) Non-Af 59 L, BUN/Creatinine Ratio 8.6 L, Glucose 118 H, Calcium 9.3, Troponin I High Sens 5 01/28/22 12:06: Troponin I High Sens 5 Radiology Impression Chest X-Ray 01/28/22 10:06 IMPRESSION: Normal x-ray examination of the chest. Electronically Signed: David Gates MD at 11:08 EST , Assessment & Plan Assessment/Plan (1) Chest pain: (2) Hypokalemia: PLAN: Chest pain -Heart score on presentation is 5 -Cycle cardiac enzymes -EKG shows no signs of acute ischemia -Patient with marked family history as well as obesity, tobacco abuse, hyperlipidemia, and hypertension -Treadmill stress test ordered -Continue atorvastatin been increased to 80 -Continue aspirin -Patient is not on beta-janeth at baseline and unable to initiate due to bradycardia with a pulse of 56 -We will check hemoglobin A1c Hypokalemia -40 mEq p.o. potassium ordered CKD stage IIIa -Appears her serum creatinine is somewhere between 1 and 1.1 which gives her an estimated GFR of 50-60 Hyperlipidemia -Check lipids -Continue statin but increase dose to 80 mg Hypertension -Continue lisinopril 20 mg -Continue amlodipine 5 mg -Monitor blood pressure Restless leg syndrome -Continue Requip GERD -Continue Protonix Depression/anxiety -Continue trazodone/Celexa/BuSpar Tobacco abuse -Recommend cessation -Nicotine patch DVT prophylaxis -Lovenox CODE STATUS -Full code Charges/Coding Visit Charges Inpatient E&M: 55694 Init Hosp L3
[2022-01-28 16:45] LABS: Troponin-I HS 5 pg/mL (3.0-54.0)
[2022-01-28] MEDS: Atorvastatin Calcium 80 MG Tablet PO (22:08)
--- NOTE | 2022-01-28 22:17 | NURSING ---
Pt states she took her night time medications from her own purse, which included Buspar, Atarax, Trazadone and Requip. Pt states she did not take lipitor and only was concerned she would not get her medications that would help her sleep.
[2022-01-29] VITALS (8 sets, daily range): BP systolic 114–120; BP diastolic 64–71; PULSE 47–65; RESP 16; TEMP 36.2–37.1; O2SAT 93–98
--- NOTE | 2022-01-29 05:00 | EKG12_ITS ---
Test Reason : AM EKG Blood Pressure : / mmHG Vent. Rate : 049 BPM Atrial Rate : 049 BPM P-R Int : 150 ms QRS Dur : 084 ms QT Int : 496 ms P-R-T Axes : 033 036 066 degrees QTc Int : 448 ms Sinus bradycardia Otherwise normal ECG When compared with ECG of 28-JAN-2022 15:44, MANUAL COMPARISON REQUIRED, DATA IS UNCONFIRMED Confirmed by MARNIE KEVIN, RASHAD ([id number]), photograph editor CATIE SAINI ([id number]) on 01/29/2022 9:22:20 AM Referred By: DR RO Confirmed By:RASHAD DYE MD
[2022-01-29 05:09] LABS: Absolute Lymphocyte Count 2.27 X10^3/uL (0.83-4.51); Absolute Neutrophil Count 2.8 X10^3/uL (2.0-7.7); Basophil# 0.04 X10^3/uL; Basophil% 0.7 % (0-1); Eosinophil# 0.38 X10^3/uL; Eosinophils% 6.6 % (0-5); Hematocrit 35.7 % (37-47); Lymphocyte # 2.27 X10^3/ul (0.83-4.51); Lymphocyte % 39.7 % (19-41); Mean Corp Hgb Conc 33.6 g/dL (32-36); Mean Corpuscular Volume 80.2 fL (81-99); Monocyte# 0.26 X10^3/uL; Monocyte% 4.5 % (0-10); NRBC Flagged by Analyzer 0 % (0-5); Neutrophil # 2.76 X10^3/uL (2.7-7.7); Neutrophil % 48.3 % (47-70); Platelet Count 222 K/mm3 (150-450); RBC Distribution Width CV 11.6 % (11.6-14.6); RBC Distribution Width SD 33.8 fl (35.1-43.9); Red Blood Count 4.45 M/mm3 (4.2-5.4); White Blood Count 5.7 K/mm3 (4.4-11.0)
[2022-01-29 05:51] LABS: ALB/GLOB Ratio 1.1 RATIO (0.9-2.4); AST(SGOT) 17 U/L (15-37); Alanine Aminotransfer ALT/SGPT 19 U/L (13-56); Albumin, Serum 3.5 g/dL (3.2-5.0); Alkaline Phosphatase 79 U/L (45-117); Anion Gap 4 (5-15); BUN 12 mg/dL (7-18); BUN/Creat Ratio 12.7 RATIO (10-20); Calcium,Total 9.1 mg/dL (8.5-10.1); Chloride 107 mmol/L (98-107); Cholesterol 183 mg/dL (200); Creatinine, Serum 0.95 mg/dL (0.55-1.02); EST Glomerular Filtration Rate 66 mL/min (>60); Est Glom Filt Rate - Afr Amer 80 mL/min (>60); Estimated Creatinine Clearance 59.82 ml/min; Globulin 3.2 g/dL (2.2-4.2); Glucose 98 mg/dL (74-106); High Density Lipoprotein 34 mg/dL; Magnesium 2.2 mg/dL (1.6-2.6); Potassium 3.7 mmol/L (3.5-5.1); Protein, Total 6.7 g/dL (6.4-8.2); Sodium Level 138 mmol/L (136-145); Thyroid Stim Hormone (TSH) 2.78 uIU/mL (0.358-3.74); Triglycerides 237 mg/dL; Very Low Density Lipoprotein 47 mg/dL (5-40)
[2022-01-29] MEDS: Lisinopril 20 MG Tablet PO (06:11)
[2022-01-29] MEDS: Aspirin E.C. 81 MG Tablet PO (06:11)
[2022-01-29] MEDS: busPIRone 15 MG TABLET PO (06:11)
--- NOTE | 2022-01-29 07:40 | NURSING ---
Pt to stress test at this time
[2022-01-29] MEDS: Pantoprazole Sodium 40 MG Tablet PO (09:56)
[2022-01-29] MEDS: Citalopram 40 MG TABLET PO (09:56)
[2022-01-29] MEDS: amLODIPine 5 MG Tablet PO (09:56)
[2022-01-29] MEDS: Enoxaparin 40 MG/0.4 ML Syringe SC (09:56)
--- NOTE | 2022-01-29 12:45 | STRESSREP_ITS ---
Stress Test Report Treadmill myocardial perfusion stress test. Indication; 51-year-old female with risk factor for CAD with hypertension hyperlipidemia Has symptoms of chest pain described as a chronic symptoms 2 to 3 months dull aching with bilateral shoulder blade radiating to the left arm associated with mild shortness of breath she also mentioned that her symptoms relieved with nitroglycerin. Patient smoke half to 1 pack of cigarettes per day as well as a former cannabis use.Stress protocol: Treadmill stress protocol; Patient exercised according to standard Frank protocol for 6 minutes and 30 seconds achieving a work level of METS 8.5 The resting heart rate of 52 bpm rosemarie to a maximum heart rate of 137 bpm this value represented 81% of the maximal age-predicted heart rate. The resting blood pressure of 118/74 mmHg, rosemarie to a maximum blood pressure of 146/64 mmHg. Exercise test was stopped due to dyspnea. Resting electrocardiogram/EKG revealed normal sinus rhythm. Stress EKG showed, no significant ST?T change from the resting EKG, with maximum heart rate of 137 bpm Arrhythmia: No arrhythmia demonstrated Symptoms: Patient had no symptoms of chest pain Patient had symptoms of shortness of breath with maximal stress. Myocardial perfusion protocol. 13 mCi ]of Technetium 99m Sestamibi was injected at rest., Following maximal stress of the heart rate of 137 bpm, intravenous injection of 41.7 mCi of Technetium 99m sestamibi was injected. Stress images were obtained stress and rest images were reconstructed and compared in the short axis vertical and horizontal long axis. Gated images were also obtained Perfusion SPECT analysis: Review of the images demonstrate normal uptake of sestamibi at rest, post stress images demonstrate similar uptake of sestamibi to the resting images, homogeneous tracer uptake With no evidence of reversible myocardial ischemia. Gated SPECT analysis: The gated ejection fraction is 73%. Normal wall motion with normal LV systolic function Conclusion: Negative treadmill sestamibi study at a heart rate of 137 bpm / 81% of the predicted heart rate With normal LV systolic function. Note patient did not reach the maximal heart rate of 85% which is 147 bpm. I nconclusive treadmill sestamibi myocardial perfusion study Salty Pimentel MD,FACC,[facility]
--- NOTE | 2022-01-29 14:27 | CHAPLAIN ---
Type of Pastoral Visit _x__ Initial Visit ___ Follow-up Visit ___ On-call Visit ___ General Patient Visit ___ Spiritual Assessment ___ Family Conference ___ Bereavement ___ Rapid Response ___ Code Blue ___ Other (describe below) Pastoral Care Referral From _x__ Patient ___ Family ___ Nurse ___ Physician ___ Grinding Operator ___ [employer] ___ Other (describe below) Sacrament/Intervention _x__ Active listening ___ Anointing ___ Christian ___ Bereavement ___ Communion ___ Elva exploration ___ ___ Life review ___ Prayer ___ Reconciliation ___ Sacrament of Sick _x__ Supportive presence ___ Wedding ___ Other (describe below) Pastoral Comments patient is lying down in bed and is at the bedside; pt states that she is just waiting to hear results from stress test and would like to eat something soon; encouraged pt to ask RN about results and meal; pt and spouse state no other needs
--- NOTE | 2022-01-29 15:26 | DS.PCM_ITS ---
Providers Date of Admission: 01/28/22 Primary Care Physician: Dr. Kim Olivo MD Reason For Visit: CHEST PAIN Diagnosis Discharge Diagnosis (1) Chest pain: Status: Acute Code(s): R07.9 - Chest pain, unspecified (2) Hypokalemia: Status: Acute Code(s): E87.6 - Hypokalemia Medications at Discharge Home Medications buspirone 15 mg PO TID 10/15/15 lisinopril 20 mg PO DAILY 10/15/15 pantoprazole 40 mg PO DAILY 10/15/15 atorvastatin 20 mg PO QHS 10/09/19 ropinirole 0.25 mg PO QHS 10/09/19 amlodipine 5 mg PO DAILY 03/06/21 hydroxyzine HCl 25 mg PO TID PRN PRN 06/03/21 citalopram [Celexa] 40 mg PO DAILY 01/28/22 trazodone 150 mg PO QHS 01/28/22 Hospital Course Operations None Procedures Nuclear stress test Summary of Care Provided Minutes Spent on Discharge: 25 Hospital Course: Mrs. Ott is a 51-year-old female who presented to emergency department at [facility] on 01/28/2022 with a chief complaint of chest pain. Upon admission she reported that over the last 2 to 3 months she had a dull central aching sensation in her chest intermittently that radiated into her back neck and between her shoulder blades and sometimes into her left arm and jaw. She reported on admission that predominantly occurred with exertion but she states that she could get it at rest as well. She complained of associated mild shortness of breath at times with also associated warm feeling but no marked diaphoresis that occurred at times as well. She did report a family history of early onset coronary disease in her father. She had an appointment with her primary care physician who ordered an outpatient stress test but was unable to be scheduled for the next 2 weeks so she was sent into the emergency department by her primary care physician. Her heart score on admission was 5. Upon presentation her vital signs were unremarkable. Her CBC was unremarkable. Her BMP showed mild hypokalemia with a potassium of 3.4 and a slightly elevated s arturo creatinine at 1.04. Her serum creatinine appears to be mildly elevated at baseline with CKD stage II-IIIb. Her potassium was replaced with oral potassium 40 mEq x 1 dose which resolved her hypokalemia. Her high-sensitivity troponins were cycled and remained normal. Chest x-ray showed no acute abnormalities and her EKG showed normal sinus rhythm without any ST-T wave changes consistent wit h acute ischemia. She was admitted to the PCU for a stress test which was performed on the a.m. of 01/29/2022. She performed a treadmill stress test that was found to be negative. The patient did unfortunately not reach her maximal heart rate of 85% which was 147 bpm and therefore it was read as inconclusive therefore I did discuss the case with cardiology and they felt that overall her wall motion looks normal and her ejection fraction was 73% and that she needed for no further work-up at this time. She was discharged home in stable condition on 01/29/2022. We did obtain lipids while she was here and they appeared to be fairly well-controlled other than her hypertriglyceridemia. She was maintained on her home medications with no changes made. Of note the patient had no significant symptoms other than shortness of breath with her stress test. We did recommend during her hospitalization that she cease tobacco use. Discharge diagnoses Chest pain Hypokalemia-resolved CKD stage IIIa Hyperlipidemia Hypertension Restless leg syndrome GERD Depression Anxiety Tobacco abuse Physical Exam Const alert, oriented x3, no apparent distress and well nourished Constitutional Narrative: Obese, middle-aged white female sitting up in bed, with her at bedside, appears comfortable, nontoxic, appears older than stated age General Appearance: cooperative, comfortable, well kempt and well developed Orientation / Consciousness: awake Nutritional Appearance: obese HEENT normocephalic, head/scalp atraumatic, hearing grossly normal bilaterally and moist oral mucous membranes Resp normal respiratory effort, no retractions, no use of accessory muscles and clear to auscultation bilaterally Resp Narrative: Diminished but clear Auscultation: Negative for crackles, rales, rhonchi or wheezes Cardio regular rate, regular rhythm, S1 normal heart sound, S2 normal heart sound, no murmurs, no rub, no gallops, no clicks and no JVD GI normal to inspection, nondistended, normoactive bowel sounds, soft to palpation, non-tender and non-distended; Negative for hepatosplenomegaly Extremity no clubbing, cyanosis or edema Extremity Narrative: 2+ pedal pulses Skin no rashes or lesions noted, no wounds, skin turgor normal, no jaundice, no petechiae and no mottling Neuro oriented x3, moves all extremities and no focal motor deficits Sensorium / Orientation: awake and alert Speech: speech normal Weight / BMI Weight Weight: 95.1 kg Body Mass Index (BMI) 35.9 ABG / Lab / Microbiology Data Result Diagrams: 01/29/22 05:00 01/29/22 05:00 Laboratory: Laboratory Results - last 24 hr 01/28/22 16:00: Troponin I High Sens 5 01/29/22 05:00: WBC 5.7, RBC 4.45, Hgb 12.0, Hct 35.7 L, MCV 80.2 L, MCH 27.0, MCHC 33.6, RDW Std Deviation 33.8 L, RDW Coeff of Erica 11.6, Plt Count 222, MPV 9.0, Immature Gran % (Auto) 0.200, Neut % (Auto) 48.3, Lymph % (Auto) 39.7, [place] % (Auto) 4.5, Eos % (Auto) 6.6 H, Baso % (Auto) 0.7, Absolute Neuts (auto) 2.8, Absolute Lymphs (auto) 2.27, Nucleated RBC % 0 01/29/22 05:00: Sodium 138, Potassium 3.7, Chloride 107, Carbon Dioxide 27.0, Anion Gap 4 L, BUN 12, Creatinine 0.95, Estim Creat Clear Calc 59.82, Est GFR (MDRD) Af Amer 80, Est GFR (MDRD) Non-Af 66, BUN/Creatinine Ratio 12.7, Glucose 98, Calcium 9.1, Phosphorus 4.0, Magnesium 2.2, Total Bilirubin 0.50, AST 17, ALT 19, Alkaline Phosphatase 79, Total Protein 6.7, Albumin 3.5, Globulin 3.2, Albumin/Globulin Ratio 1.1, Triglycerides 237 H, Cholesterol 183, LDL Cholesterol 102, VLDL Cholesterol 47 H, HDL Cholesterol 34 L, TSH 2.78 D/C Instructions Discharge Diet: Low fat / Low cholesterol Discharge Activity: Return to Normal Activity Return to work on: 01/30/22 Meaningful Use Info Meaningful Use Diagnoses (Choose all that apply): None applicable Discharge Plan Admission Admit Date/Time: 01/28/22 10:50 Primary Reason for Your Visit: chest pain Attending Provider: Kyara Peck Primary Care Provider: Kim Olivo Discharge Orders/Prescriptions Prescriptions: Continued buspirone 5 MG tablet 15 mg PO TID RF: 0 lisinopril 20 MG tablet 20 mg PO DAILY RF: 0 pantoprazole 40 MG tablet 40 mg PO DAILY RF: 0 atorvastatin 20 MG tablet 20 mg PO QHS RF: 0 ropinirole 0.25 MG tablet 0.25 mg PO QHS RF: 0 amlodipine 10 MG tablet 5 mg PO DAILY RF: 0 hydroxyzine HCl 25 mg Tablet 25 mg PO TID PRN PRN (Reason: Anxiety) RF: 0 citalopram [Celexa] 40 mg Tablet 40 mg PO DAILY RF: 0 trazodone 50 mg Tablet 150 mg PO QHS RF: 0 Referrals / Follow Up: Kim Olivo MD [Primary Care Provider] - Within 2 Weeks Disposition Disposition (needs filled in before D/C Order can be placed): Home, Self Care Charges/Coding Visit Charges Inpatient E&M: 69030 Disch Hosp
== END 2022-01-29 15:27 | disposition home or self-care (01) ==
LOC: ED 10:49 → PCU 11:02
PROVIDERS: Admitting Provider Internal Medicine; Emergency Provider Physician Assistant; PCP Internal Medicine; Visit Provider Internal Medicine
DX: R07.89 Other chest pain (principal); F33.2 Major depressive disorder, recurrent severe without psychotic features; N18.31 Chronic kidney disease, stage 3a; K21.9 Gastro-esophageal reflux disease without esophagitis; M25.512 Pain in left shoulder; I12.9 Hypertensive chronic kidney disease with stage 1 through stage 4 chronic kidney disease, or unspecified chronic kidney disease; M79.602 Pain in left arm; M25.511 Pain in right shoulder; E78.5 Hyperlipidemia, unspecified; I25.10 Atherosclerotic heart disease of native coronary artery without angina pectoris; F17.210 Nicotine dependence, cigarettes, uncomplicated; E87.6 Hypokalemia; G25.81 Restless legs syndrome; R06.02 Shortness of breath; E66.9 Obesity, unspecified; Z68.35 Body mass index [BMI] 35.0-35.9, adult; F43.10 Post-traumatic stress disorder, unspecified; F41.1 Generalized anxiety disorder; Z79.899 Other long term (current) drug therapy
CPT/HCPCS: 36415; 71045; 78452; 80048; 80053; 80061; 83735; 84100; 84443; 84484; 85025; 93005; 93017; 96372; 99218; 99284; 99406; A9500; A4216; G0378

== ENCOUNTER → 2023-05-04 | Outpatient (CLI) | payer OTHER, SELFPAY ==
[2023-05-04 14:03] LABS: Amphetamine Urine VISTA NEGATIVE (<1000 ng/mL); Barbiturate Urine VISTA NEGATIVE (< 200 ng/mL); Benzodiazepine Urine VISTA NEGATIVE (< 200 ng/mL); Cocaine Urine VISTA NEGATIVE (< 300 ng/mL); Ecstacy Urine VISTA NEGATIVE (< 500 ng/mL); Methadone Urine VISTA NEGATIVE (< 300 ng/mL); PCP Urine VISTA NEGATIVE (< 25 ng/mL); THC Urine VISTA NEGATIVE (< 50 ng/mL); Vista UDS pH Range 6
== END | disposition home or self-care (01) ==
PROVIDERS: PCP Internal Medicine; Referring Provider Anesthesiology Pain Medicine; Visit Provider Anesthesiology Pain Medicine
DX: F11.20 Opioid dependence, uncomplicated (principal)
CPT/HCPCS: 80307

== ENCOUNTER 2023-05-18 09:44 | Emergency (ER) | payer OTHER, SELFPAY ==
[2023-05-18 09:45] VITALS: BP 148/73; PULSE 83; RESP 18; TEMP 36.6; O2SAT 96; BMI 36.7
[2023-05-18 10:02] VITALS: BP 125/71; PULSE 67; RESP 14; O2SAT 96
--- NOTE | 2023-05-18 10:02 | EDS_ITS ---
HPI History of Present Illness Chief Complaint: Edema Informant: patient Narrative Narrative: Patient presenting multiple complaints. Reports increasing intermittent swelling ankle and foot over the last month. 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 She sees Dr. Hardy. States intermittent chest pains previously stress test scheduled June 13. No current chest pains. Reports increasing shortness of breath orthopnea symptoms no heart failure history had a previous echocardiogram [facility]. Reports increasing cough with intermittent sputum past week. Occasional wheezing. History of asthma. Has been on steroids for 2 days for pain managed for her back. Denies leg pain. States intermittent headaches myalgias for the past month. COVID-vaccine had COVID this past November. Reports last few months also has new chronic kidney disease. This currently being managed by her PCP has not seen nephrology. Denies urinary symptoms any decreased urine output. Records note she is on amlodipine 5 mg previously was on 10 mg for hypertension however decreased due to low blood pressure. Swelling the legs worsened throughout the day improved when she wakes up. [facility] Medical History Alcohol use disorder Cannabis use disorder, mild, in sustained remission Generalized anxiety disorder HTN (hypertension) Hyperlipidemia Major depressive disorder, recurrent severe without psychotic features Obesity (BMI 30-39.9) PTSD (post-traumatic stress disorder) Stage 3a chronic kidney disease Tobacco abuse Home Medications buspirone 5 mg tablet 15 mg PO TID mental health 10/15/15 [History Last Taken 05/18/23] lisinopril 20 mg tablet 20 mg PO DAILY blood pressure 10/15/15 [History Last Taken 05/18/23] pantoprazole 40 mg tablet,delayed release 40 mg PO DAILY reflux 10/15/15 [History Last Taken 10/08/19] atorvastatin 20 mg tablet 40 mg PO QHS cholesterol 10/09/19 [History Last Taken 05/17/23] ropinirole 0.25 mg tablet 0.25 mg PO QHS restless legs 10/09/19 [History Last Taken 05/17/23] amlodipine 10 mg tablet 5 mg PO DAILY blood pressure 03/06/21 [History Last Taken 05/18/23] hydroxyzine HCl 25 mg tablet 25 mg PO TID PRN PRN Anxiety 06/03/21 [History Last Taken Unknown] citalopram 40 mg tablet (Celexa) 40 mg PO DAILY mental health 01/28/22 [History Last Taken 05/18/23] trazodone 50 mg tablet 250 mg PO QHS sleep 01/28/22 [History Last Taken 05/17/23] albuterol sulfate 90 mcg/actuation aerosol inhaler 2 puff inhalation Q4H PRN shortness of breath or wheezing 05/18/23 [History Last Taken Unknown] famotidine 20 mg tablet 20 mg PO Q12H 05/18/23 [History Last Taken 05/18/23] furosemide 20 mg tablet (Lasix) 20 mg PO DAILY #7 tabs 05/18/23 [Rx Last Taken Unknown] methylprednisolone 4 mg tablets in a dose pack 4 mg PO DAILY 05/18/23 [History Last Taken 05/17/23] tizanidine 4 mg tablet 4 mg PO DAILY 05/18/23 [History Last Taken 05/17/23] tramadol 50 mg tablet 50 mg PO Q8H PRN pain 05/18/23 [History Last Taken 05/17/23] Allergy/AdvReac Type Severity Reaction Status Date / Time butorphanol tartrate Allergy Shortness Verified 05/18/23 09:48 [From Stadol] of breath Family History Mother Lung cancer Father Heart disease Social History household members: significant other 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 Smoking Status: Current every day smoker tobacco type: cigarettes alcohol intake: former substance use type: former substance user Date of last use: Marijuana well-balanced diet: rarely or never caffeine: Yes what type of physical activity do you participate in: none ROS ROS ED Constitutional Constitutional ED: Denies chills, fever(s) or sweats Eyes Eyes: Denies change in vision ENT ENT ED: Denies dysphagia or sore throat Cardiovascular Cardiovascular: Reports leg edema and orthopnea; Denies chest pain, palpitations or racing heartbeat Respiratory/Chest Respiratory/Chest: Reports cough, dyspnea and orthopnea; Denies dyspnea on exertion Gastrointestinal Gastrointestinal: Denies abdominal pain, diarrhea, nausea or vomiting Genitourinary Genitourinary ED: Denies dysuria, hematuria or urinary frequency Musculoskeletal Musculoskeletal: Reports myalgias; Denies back pain, extremity pain or neck pain Integumentary Denies rash or wounds Neurologic Neurologic: Reports headache(s); Denies paresthesias or weakness EXAM Physical Exam Const Vital Signs: 05/18/23 09:45 05/18/23 10:02 05/18/23 10:03 Temperature 97.9 F Temperature Source Temporal Pulse Rate 83 67 Respiratory Rate 18 14 Respiratory Effort Normal Respiratory Pattern Normal Blood Pressure 148/73 H 125/71 H Blood Pressure Mean 98 89 Pulse Ox 96 96 Oxygen Delivery Method Room Air Positive well nourished and well developed Constitutional Narrative: Nontoxic no acute distress. General Appearance ED: well developed and NAD HEENT Reports moist mucous membranes normocephalic and atraumatic Eyes PERRL, EOMs intact bilaterally and conjunctivae normal General Eye ED: Yes normal appearance of both eyes Neck no lymphadenopathy and supple General: Negative for tenderness Chest Wall Chest: Negative for tenderness Resp normal respiratory effort and normal air movement Effort and Inspection: symmetric chest movement; Negative for respiratory distress Cardio regular rate, regular rhythm and no murmurs Peripheral Pulses: pulses 2+ throughout GI normal to inspection, nondistended, normoactive bowel sounds and non-tender Palpation: Negative for guarding or rebound tenderness present Back/Spine no CVA tenderness and no thoracic nor lumbar tenderness Extremity normal to inspection Extremity Narrative: Bilateral pedal edema, nontender. No erythema. Neuro vas intact distally. General Extremety ED: Yes edema; Negative for tenderness General Extremity: edema Neuro oriented x3 and no sensory deficits noted Sensorium / Orientation: awake and alert Skin no rashes or lesions noted and no wounds MDM MDM MDM Narrative Medical decision making narrative: Interventions / MDM: Differential diagnosis: CHF, peripheral edema, viral syndrome, pneumonia Diagnosis considered but do not suspect: DVTs, pedal edema bilaterally no calf pain. My EKG interpretation: N/A Imaging independently reviewed and interpreted by myself: 2 view chest x-ray: No acute process no pleural effusions. External documents reviewed: N/A Test considered but not ordered:N/A ED course: Patient will complaints vitals are stable minimal pedal edema bilaterally. Chest x-ray no pleural effusions negative BNP creatinine 0.96 today. COVID influenza negative. Waxing waning edema no calf pain lower suspicion for DVT. Discussed with patient use diuretics as needed for swelling she would like to try this. She will use it for 2 days then as needed. She discussed with her PCP for plan of care for recurrent symptoms. She is currently on steroids for back they will help with her asthma she has inhaler at home. Discussed viral syndrome. Outpatient follow-up. All questions were answered. Re-evaluation: stable Disposition discussed with patient/family/significant other: Patient Case discussed with consulting clinician: N/A This note was generated with [employer] dictation software. It may contain incorrect words, spelling, and punctuation that were not noted in checking the note before signing. Lab Data Attestation: I reviewed the patient's lab results. Labs: Laboratory Results - last 24 hr 05/18/23 10:22 WBC 9.5 RBC 3.99 L Hgb 12.1 Hct 34.7 L MCV 87.0 MCH 30.3 MCHC 34.9 RDW Std Deviation 38.3 RDW Coeff of Erica 12.0 Plt Count 242 MPV 9.7 Immature Gran % (Auto) 0.900 Neut % (Auto) 65.9 Lymph % (Auto) 26.5 [place] % (Auto) 5.0 Eos % (Auto) 1.3 Baso % (Auto) 0.4 Absolute Neuts (auto) 6.3 Absolute Lymphs (auto) 2.52 Nucleated RBC % 0 Sodium 142 Potassium 3.5 Chloride 108 H Carbon Dioxide 28.0 Anion Gap 6 BUN 12 Creatinine 0.96 Estim Creat Clear Calc 58.52 Est GFR (MDRD) Af Amer 78 Est GFR (MDRD) Non-Af 65 BUN/Creatinine Ratio 12.6 Glucose 83 Calcium 9.3 Total Bilirubin 0.30 AST 13 L ALT 15 Alkaline Phosphatase 77 B-Natriuretic Peptide 61.2 Total Protein 7.2 Albumin 3.8 Globulin 3.4 Albumin/Globulin Ratio 1.1 Radiography Diagnostic Testing: Clinical Impression(s) from Imaging Studies Chest X-Ray 05/18/23 10:35 IMPRESSION: No acute abnormality is seen. Electronically Signed: David Gates MD at 10:49 EDT , Discharge Plan Triage Chief Complaint: Edema ED Provider: Justin Peres Dx/Rx/DC Orders Clinical Impression: Acute viral syndrome, Edema, peripheral, Asthma Instructions: ED Peripheral Edema, Bilateral, ED Viral Syndrome (Adult) Prescriptions: New furosemide [Lasix] 20 mg tablet 20 mg PO DAILY Qty: 7 0RF No Action buspirone 5 MG tablet 15 mg PO TID lisinopril 20 MG tablet 20 mg PO DAILY pantoprazole 40 MG tablet 40 mg PO DAILY atorvastatin 20 MG tablet 40 mg PO QHS ropinirole 0.25 MG tablet 0.25 mg PO QHS amlodipine 10 MG tablet 5 mg PO DAILY hydroxyzine HCl 25 mg Tablet 25 mg PO TID PRN PRN (Reason: Anxiety) citalopram [Celexa] 40 mg Tablet 40 mg PO DAILY trazodone 50 mg Tablet 250 mg PO QHS tizanidine 4 mg tablet 4 mg PO DAILY Patient Comments: TAKE 1 TABLET BY MOUTH EVERY DAY tramadol 50 mg tablet 50 mg PO Q8H PRN (Reason: pain) Patient Comments: TAKE 1 TABLET BY MOUTH THREE TIMES DAILY prp famotidine 20 mg tablet 20 mg PO Q12H Patient Comments: TAKE 1 TABLET BY MOUTH TWICE DAILY methylprednisolone 4 mg tablets,dose pack 4 mg PO DAILY Patient Comments: TAKE BY MOUTH DIRECTED ON PACKAGE albuterol sulfate 90 mcg/actuation HFA aerosol inhaler 2 puff INHALATION Q4H PRN (Reason: shortness of breath or wheezing) Patient Comments: Inhale 2 Puffs as instructed every 4 hours as needed. Primary Care Provider: Kim Olivo Referrals: Kim Olivo MD [Primary Care Provider] - 3-5 Days Activity Restrictions/Additional Instructions: Your work-up was negative today. Creatinine 0.96. BNP normal chest x-ray normal COVID and influenza-negative. White count normal. May use Lasix for the next 2 days then as needed for leg swelling. Discussed with her doctor plan of care for recurrent peripheral edema. Disposition Disposition: Home, Self Care
[2023-05-18 10:32] LABS: Absolute Lymphocyte Count 2.52 X10^3/uL (0.83-4.51); Absolute Neutrophil Count 6.3 X10^3/uL (2.0-7.7); Basophil# 0.04 X10^3/uL; Basophil% 0.4 % (0-1); Eosinophil# 0.12 X10^3/uL; Eosinophils% 1.3 % (0-5); Hematocrit 34.7 % (37-47); Hemoglobin 12.1 g/dL (12.0-15.0); Lymphocyte # 2.52 X10^3/ul (0.83-4.51); Lymphocyte % 26.5 % (19-41); Mean Corp Hgb Conc 34.9 g/dL (32-36); Mean Corpuscular Hgb 30.3 pg (27.0-32.0); Mean Platelet Vol. 9.7 fl (6.2-12.0); Monocyte# 0.48 X10^3/uL; NRBC Flagged by Analyzer 0 % (0-5); Neutrophil # 6.26 X10^3/uL (2.7-7.7); Neutrophil % 65.9 % (47-70); Platelet Count 242 K/mm3 (150-450); RBC Distribution Width SD 38.3 fl (35.1-43.9); Red Blood Count 3.99 M/mm3 (4.2-5.4); White Blood Count 9.5 K/mm3 (4.4-11.0)
--- NOTE | 2023-05-18 10:35 | RAD_ITS ---
STUDY: X-RAY CHEST REASON FOR EXAM: Female, 52 years old. Cough TECHNIQUE: PA and lateral views of the chest. COMPARISON: Comparison is made with prior study of January 28, 2022. FINDINGS: EKG electrodes are seen. The lungs are clear and expanded. There is no demonstrated pleural abnormality. Normal size heart. Normal mediastinum and andres. Normal visualized pulmonary arteries. There is atherosclerotic tortuosity of the aortic arch and descending thoracic aorta. There is demineralization of the osseous structures. Normal visualized ribs, clavicles, and shoulders. There is no demonstrated abnormality of the visualized soft tissue structures of the upper abdomen. RAD/Chest PA and Lateral IMPRESSION: No acute abnormality is seen. Electronically Signed: David Gates MD at 10:49 EDT ,
[2023-05-18 10:51] LABS: BNP,B-Type NATRIURETIC PEPTIDE 61.2 pg/mL (0-100)
[2023-05-18 10:55] LABS: ALB/GLOB Ratio 1.1 RATIO (0.9-2.4); AST(SGOT) 13 U/L (15-37); Alanine Aminotransfer ALT/SGPT 15 U/L (13-56); Albumin, Serum 3.8 g/dL (3.2-5.0); Alkaline Phosphatase 77 U/L (45-117); Anion Gap 6 (5-15); BUN 12 mg/dL (7-18); BUN/Creat Ratio 12.6 RATIO (10-20); Calcium,Total 9.3 mg/dL (8.5-10.1); Chloride 108 mmol/L (98-107); Creatinine, Serum 0.96 mg/dL (0.55-1.02); EST Glomerular Filtration Rate 65 mL/min (>60); Est Glom Filt Rate - Afr Amer 78 mL/min (>60); Estimated Creatinine Clearance 58.52 ml/min; Globulin 3.4 g/dL (2.2-4.2); Glucose 83 mg/dL (74-106); Potassium 3.5 mmol/L (3.5-5.1); Protein, Total 7.2 g/dL (6.4-8.2); Sodium Level 142 mmol/L (136-145)
[2023-05-18 12:30] VITALS: BP 128/70; PULSE 67; RESP 14; O2SAT 96
[2023-05-18 12:33] VITALS: BP 128/70; PULSE 67; RESP 18; O2SAT 98
== END 2023-05-18 12:35 | disposition home or self-care (01) ==
PROVIDERS: Emergency Provider Emergency Medicine; PCP Internal Medicine; Referring Provider Emergency Medicine; Visit Provider Emergency Medicine
DX: B34.9 Viral infection, unspecified (principal); N18.31 Chronic kidney disease, stage 3a; F17.210 Nicotine dependence, cigarettes, uncomplicated; E78.5 Hyperlipidemia, unspecified; J45.909 Unspecified asthma, uncomplicated; I12.9 Hypertensive chronic kidney disease with stage 1 through stage 4 chronic kidney disease, or unspecified chronic kidney disease; M54.9 Dorsalgia, unspecified; R06.02 Shortness of breath; Z79.899 Other long term (current) drug therapy; R60.0 Localized edema; R51.9 Headache, unspecified
CPT/HCPCS: 71046; 80053; 83880; 85025; 87428; 99283

== ENCOUNTER → 2023-08-16 | Outpatient (CLI) | payer OTHER, SELFPAY ==
--- NOTE | 2023-08-16 12:50 | RAD_ITS ---
EXAM: XR CERVICAL SPINE, 4 OR 5 VIEWS CLINICAL INDICATION: Radiculopathy, cervical region TECHNIQUE: Frontal, lateral and bilateral oblique views of the cervical spine. COMPARISON: No relevant prior studies available. FINDINGS: VERTEBRAE: Loss of lordosis probably due to muscle spasm and/or positioning. Preserved vertebral body height. No acute fracture. No spondylolisthesis. No significant facet arthropathy. DISC SPACES: Unremarkable. Disc spaces are maintained. SOFT TISSUES: Unremarkable. No prevertebral soft tissue widening. LUNG APICES: Clear. RAD/Cerv Spine 2 or 3 Views IMPRESSION: No acute or healing fracture or spondylolisthesis. Electronically Signed: Laurent Evans MD at 20:39 EDT ,
== END | disposition home or self-care (01) ==
LOC: RAD 12:37
PROVIDERS: PCP Internal Medicine; Referring Provider Anesthesiology Pain Medicine; Visit Provider Anesthesiology Pain Medicine
DX: M54.12 Radiculopathy, cervical region (principal)
CPT/HCPCS: 72040

== ENCOUNTER → 2023-10-06 | Outpatient (CLI) | payer OTHER, SELFPAY ==
--- NOTE | 2023-10-06 10:23 | MRI_ITS ---
STUDY: MRI LUMBAR SPINE WITHOUT CONTRAST REASON FOR EXAM: Female, 52 years old. Pain TECHNIQUE: Standardized fat and water weighted pulse sequences were obtained in the sagittal and axial planes. COMPARISON: None FINDINGS: T12-L1: Normal endplates. Normal disc height, hydration and morphology. Normal bilateral facet joints. Normal central canal and bilateral lateral recesses. Normal bilateral intervertebral neural foramina. Normal lumbar lordosis. There is grade 1 anterolisthesis at L5-S1. There is no substantial scoliosis. Normal conus medullaris that terminates at the L1 level. L1-2: Normal endplates. Normal disc height, hydration and morphology. Normal bilateral facet joints. Normal central canal and bilateral lateral recesses. Normal bilateral intervertebral neural foramina. L2-3: Normal endplates. Normal disc height, hydration and morphology. Normal bilateral facet joints. Normal central canal and bilateral lateral recesses. Normal bilateral intervertebral neural foramina. L3-4: Normal endplates. Normal disc height, hydration and morphology. Mild spurring of the bilateral facet joints. Normal central canal and bilateral lateral recesses. Normal bilateral intervertebral neural foramina. L4-5: Normal endplates. Normal disc height, hydration and morphology. Mild spurring of the bilateral facet joints. Normal central canal and bilateral lateral recesses. Normal bilateral intervertebral neural foramina. L5-S1: Normal endplates. Normal disc height, hydration and morphology. Spurring of bilateral facet joints. Normal central canal and bilateral lateral recesses. Normal bilateral intervertebral neural foramina. Normal visualized sacral ala. Normal visualized paraspinous soft tissue structures. MRI/Spine Lumbar (Routine) IMPRESSION: Degenerative change with facet spurring. Grade 1 spondylolisthesis at L5-S1. No disc herniation. No canal stenosis or foraminal narrowing. Electronically Signed: Luther Maldonado MD at 9:44 EST ,
== END | disposition home or self-care (01) ==
LOC: MRI 10:01
PROVIDERS: PCP Internal Medicine; Referring Provider Orthopaedic Surgery; Visit Provider Orthopaedic Surgery
DX: M43.17 Spondylolisthesis, lumbosacral region (principal)
CPT/HCPCS: 72148

== ENCOUNTER → 2023-12-12 | Outpatient (CLI) | payer OTHER, SELFPAY ==
--- NOTE | 2023-12-12 06:46 | CT_ITS ---
INDICATION: lumbar spine diaz -- ATTN L5 PARS, WANTS MULTIPLE CUTS ON THE PARS EXAMINATION: CT Spine Lumbar W/ Contrast Injection TECHNIQUE: Helically acquired images were obtained of the lumbar spine with IV contrast. 2D reformats were reviewed. A radiation dose optimization technique was used for this scan. IV Contrast: IV 75mL [id number] RADIATION DOSAGE (If Supplied By Facility): CTDIvol = ( 43.75 ) mGy, DLP = ( 1304.12 ) mGycm COMPARISON: MRI lumbar spine 10/06/2023 FINDINGS: ALIGNMENT: 3 mm anterior subluxation L5 on S1. Stable compared to prior MRI. MINERALIZATION: Normal. VERTEBRAL BODIES: No fracture or acute abnormality. DISC SPACES: Unremarkable. POSTERIOR ELEMENTS: Bilateral facet hypertrophy and sclerosis at L5-S1, and mild changes at L4-5. No pars defect. SPINAL CANAL: Maintained. PARASPINAL SOFT TISSUES: Unremarkable. OTHER: No abnormal contrast enhancement or enhancing collection identified. 2 cm fat attenuation structure in the right adnexal region on the lowermost image likely ovarian dermoid. CT/Spine Lumbar WITH Contrast IMPRESSION: Bilateral facet arthropathy at L5-S1 with grade 1 spondylolisthesis. Mild facet arthropathy at L4-5. Probable right ovarian dermoid. Electronically Signed: Poornima Santiago MD at 8:10 EST ,
--- OUTSIDE RECORDS SUMMARY | 2023-12-12 06:50 | XMS RPT_ITS | CCD ---
Author Name Unknown Address [address] [place] [address] Organization [facility] Care Team Providers Care Forest Resource Specialist Name Role Phone Geovani KEVIN, Uche Primary Care Provider GANTA, UCHE Primary Care Unavailable EDDA DANIEL Attending Unavailable LEANNE TOVAR Referring Unavailable GARDUNO, GINNA Referring Unavailable DEBBIE MONTANA Attending Unavailable GANTA, UCHE Primary Care Unavailable GANTA, UCHE Primary Care Unavailable SAMMI CHASE Referring Unavailable LEANNE TOVAR Attending Unavailable GANTA, UCHE Primary Care Unavailable GANTA, UCHE Referring Unavailable GANTA, UCHE Primary Care Unavailable GARDUNO, GINNA Attending Unavailable LEANNE TOVAR Referring Unavailable Ganta Uche KEVIN Primary Care Provider [phone] Uche Bryan MD Primary Care Provider MISTY RITCHIE Attending Unavailable GANTA, UCHE Primary Care Unavailable GANTA, UCHE Primary Care Unavailable GANTA, UCHE Referring Unavailable MISTY RITCHIE Referring Unavailable GANTA, UCHE Primary Care Unavailable STEFANIE SOLIS Referring Unavailable GANTA, UCHE Primary Care Unavailable STEFANIE SOLIS Referring Unavailable GANTA, UCHE Primary Care Unavailable LURDES HANKINS Referring Unavailable GANTA, UCHE Primary Care Unavailable GARDUNO, GINNA Referring Unavailable GANTA, UCHE Primary Care Unavailable GANTA, UCHE Primary Care Unavailable STEFANIE SOLIS Referring Unavailable GANTA, UCHE Primary Care Unavailable STEFANIE SOLIS Referring Unavailable GANTA, UCHE Primary Care Unavailable STEFANIE SOLIS Referring Unavailable GANTA, UCHE Primary Care Unavailable GANTA, UCHE Primary Care Unavailable GANTA, UCHE Referring Unavailable GANTA, UCHE Primary Care Unavailable GANTA, UCHE Referring Unavailable STEFANIE SOLIS Referring Unavailable GANTA, UCHE Primary Care Unavailable GANTA, UCHE Primary Care Unavailable GANTA, UCHE Referring Unavailable CHRIS WEBSTER Attending Unavailable LEANNE TOVAR Referring Unavailable GANTA, UCHE Primary Care Unavailable GANTA, UCHE Primary Care Unavailable GANTA, UCHE Attending Unavailable OLDER, LURDES Referring Unavailable GANTA, UCHE Primary Care Unavailable OLDER, LURDES Attending Unavailable GANTA, UCHE Primary Care Unavailable OLDER, LURDES Attending Unavailable GANTA, UCHE Primary Care Unavailable OLDER, LURDES Attending Unavailable GANTA, UCHE Primary Care Unavailable GANTA, UCHE Primary Care Unavailable GANTA, UCHE Attending Unavailable STEFANIE SOLIS Attending Unavailable GANTA, UCHE Primary Care Unavailable GANTA, UCHE Referring Unavailable OLDER, LURDES Referring Unavailable GANTA, UCHE Primary Care Unavailable Allergies Allergy Classification Reported Allergen(s) Allergy Type Date of Onset Reaction(s) Facility (20 sources) Butorphanol; Translations: [BUTORPHANOL TARTRATE] Drug Allergy 09-08-2015 Intolerance [facility] Medications Current Medications Medication Drug Class(es) Dates Sig (Normalized) Sig (Original) molnupiravir 200 mg capsule (1 source) Start: 2022 End: 12-06-2022 take 4 capsules by mouth twice daily molnupiravir 200 mg capsule Indications: COVID-19 Take 4 capsules by mouth twice daily for 5 days. 40 capsule 0 2022 12/06/2022 Active Completed/Discontinued Medications Medication Drug Class(es) Dates Sig (Normalized) Sig (Original) [id number] 200 actuat albuterol 0.09 mg/actuat metered dose inhaler (20 sources) beta2-Adrenergic Agonist Start: 10-04-2023 End: 11-25-2023 take 2 puff(s) by inhalation every four hours as needed albuterol HFA (PROVENTIL HFA, VENTOLIN HFA) 90 mcg/actuation inhaler Inhale 2 Puffs as instructed every 4 hours as needed. 8.5 g 3 11/25/2023 Active Problems Active Problems Problem Classification Problem Date Documented Da te Episodic/Chronic Alcohol-related disorders (20 sources) Alcohol abuse; Translations: [Alcohol abuse, uncomplicated] Onset: 1 06-11-2021 Chronic Anxiety disorders (20 sources) Anxiety; Translations: [Anxiety disorder, unspecified] Onset: 5 11-06-2015 Chronic Asthma (2 sources) Moderate persistent asthma; Translations: [Moderate persistent asthma, uncomplicated] 09-19-2023 Chronic Diabetes mellitus without complication (2 sources) Increased glucose level; Translations: [Other abnormal glucose] Onset: 4 11-25-2023 Episodic Disorders of lipid metabolism (20 sources) Mixed hyperlipidemia; Translations: [Mixed hyperlipidemia] Onset: 3 Chronic Esophageal disorders (20 sources) Gastroesophageal reflux disease without esophagitis; Translations: [Gastro-esophageal reflux disease without esophagitis] Onset: 5 11-06-2015 Chronic Essential hypertension (20 sources) Essential hypertension; Translations: [Essential (primary) hypertension] Onset: 5 Chronic Fluid and electrolyte disorders (1 source) Hypokalemia; Translations: [Hypokalemia] Episodic Headache; including migraine (20 sources) Migraine; Translations: [Periodic headache syndromes in child or adult, not intractable] Onset: 5 11-06-2015 Chronic Immunizations and screening for infectious disease (2 sources) Contact with or exposure to other viral diseases; Translations: [Exposure to COVID-19 virus] Episodic Malaise and fatigue (4 sources) Fatigue; Translations: [Other fatigue] Onset: 3 Episodic Mood disorders (20 sources) Recurrent major depression in remission; Translations: [Major depressive disorder, recurrent, in remission, unspecified] Onset: 5 06-11-2021 Chronic Nutritional deficiencies (6 sources) Vitamin D deficiency; Translations: [Vitamin D deficiency, unspecified] Onset: 3 Chronic Other acquired deformities (2 sources) Lumbar spondylolisthesis; Translations: [Spondylolisthesis, lumbar region] Episodic Other and unspecified benign neoplasm (1 source) Adenomatous polyp of colon ; Translations: [Benign neoplasm of colon, unspecified] Episodic Other connective tissue disease (2 sources) Cramp in lower limb; Translations: [Cramp and spasm] Episodic Other connective tissue disease (2 sources) Muscle pain; Translations: [Myalgia, unspecified site] Episodic Other connective tissue disease (1 source) Cramp and spasm; Translations: [Leg cramping] Onset: 4 Episodic Other diseases of kidney and ureters (2 sources) Acute renal insufficiency; Translations: [Disorder of kidney and ureter, unspecified] 06-23-2023 Episodic Other gastrointestinal disorders (20 sources) Irritable bowel syndrome; Translations: [Mixed irritable bowel syndrome] Onset: 7 07-19-2017 Chronic Other hematologic conditions (1 source) Elevated erythrocyte sedimentation rate; Translations: [Elevated sed rate] Onset: 4 Episodic Other hereditary and degenerative nervous system conditions (1 source) Restless legs; Translations: [Restless legs syndrome] 09-19-2023 Chronic Other lower respiratory disease (1 source) Dyspnea on exertion; Translations: [Other forms of dyspnea] 06-20-2023 Episodic Other nervous system disorders (20 sources) Chronic pain; Translations: [Chronic pain syndrome] Onset: 5 09-15-2015 Chronic Other nervous system disorders (1 source) Carpal tunnel syndrome; Translations: [Carpal tunnel syndrome, unspecified upper limb] Chronic Other nervous system disorders (2 sources) Skin sensation disturbance; Translations: [Unspecified disturbances of skin sensation] Episodic Other non-traumatic joint disorders (2 sources) Pain in elbow; Translations: [Pain in left elbow] Episodic Other nutritional; endocrine; and metabolic disorders (20 sources) Obese class I; Translations: [Obesity, unspecified] Onset: 3 2022 Chronic Other nutritional; endocrine; and metabolic disorders (18 sources) Obese class II; Translations: [Obesity, unspecified] Onset: 3 04-11-2023 Chronic Other nutritional; endocrine; and metabolic disorders (1 source) Obesity, unspecified; Translations: [Obesity, Class I, BMI 30-34.9] Onset: 3 Chronic Other nutritional; endocrine; and metabolic disorders (1 source) History of iron deficiency; Translations: [Personal history of other endocrine, nutritional and metabolic disease] 11-25-2023 Episodic Other nutritional; endocrine; and metabolic disorders (1 source) Personal history of other endocrine, nutritional and metabolic disease; Translations: [History of iron deficiency] Onset: 4 Episodic Other screening for suspected conditions (not mental disorders or infectious disease) (8 sources) Patient encounter status; Translations: [Encounter for screening mammogram for malignant neoplasm of breast] Onset: 3 Episodic Other skin disorders (2 sources) Rash and other nonspecific skin eruption; Translations: [Rash and other nonspecific skin eruption] Onset: 4 11-25-2023 Episodic Other upper respiratory infections (4 sources) Chronic sinusitis; Translations: [Chronic sinusitis, unspecified] Chronic Residual codes; unclassified (2 sources) Insomnia; Translations: [Insomnia, unspecified] Episodic Residual codes; unclassified (1 source) Procedure not done; Translations: [Procedure and treatment not carried out, unspecified reason] Episodic Residual codes; unclassified (1 source) Edema of lower extremity; Translations: [Localized edema] Episodic Residual codes; unclassified (1 source) Edema of face ; Translations: [Localized edema] 11-25-2023 Episodic Residual codes; unclassified (1 source) Intolerant of cold; Translations: [Other general symptoms and signs] 11-27-2023 Episodic Residual codes; unclassified (2 sources) Localized edema; Translations: [Facial edema] Onset: 3 Episodic Spondylosis; intervertebral disc disorders; other back problems (20 sources) Arthropathy of spinal facet joint; Translations: [Spondylosis without myelopathy or radiculopathy, site unspecified] Onset: 5 09-15-2015 Chronic Thyroid disorders (1 source) Hypothyroidism; Translations: [Hypothyroidism, unspecified] Chronic Unclassified (20 sources) Transformed migraine; Translations: [Chronic migraine] Onset: 5 09-15-2015 Unclassified (1 source) NO SHOW Viral infection (1 source) Disease caused by 2019-nCoV; Translations: [COVID-19] Episodic Past or Other Problems Problem Classification Problem Date Documented Da te Episodic/Chronic Acute and unspecified renal failure (1 source) Acute kidney failure, unspecified; Translations: [TARAH (acute kidney injury) (HCC)] Onset: 05-05-2023 Episodic Nonspecific chest pain (20 sources) Chest pain; Translations: [Chest pain, unspecified] Onset: 04-11-2023 Episodic Nutritional deficiencies (6 sources) Cobalamin deficiency; Translations: [Deficiency of other specified B group vitamins] Onset: 03-29-2023 Episodic Other acquired deformities (1 source) Spondylolisthesis, lumbar region; Translations: [Spondylolisthesis of lumbar region] Onset: 12-30-2022 Episodic Other connective tissue disease (20 sources) Myofascial pain; Translations: [Myalgia, other site] Onset: 09-15-2015 09-15-2015 Episodic Other connective tissue disease (20 sources) Fibromyalgia; Translations: [Fibromyalgia] Onset: 09-15-2015 09-15-2015 Episodic Other connective tissue disease (1 source) Myalgia, other site; Translations: [Myofascial pain] Onset: 09-16-2015 Episodic Other connective tissue disease (1 source) Fibromyalgia; Translations: [Fibromyalgia] Onset: 09-16-2015 Episodic Other connective tissue disease (1 source) Myalgia, unspecified site; Translations: [Myalgias] Onset: 03-29-2023 Episodic Other diseases of kidney and ureters (1 source) Disorder of kidney and ureter, unspecified; Translations: [Acute renal insufficiency] Onset: 03-31-2023 Episodic Other lower respiratory disease (1 source) Other forms of dyspnea; Translations: [Dyspnea on exertion] Onset: 06-20-2023 Episodic Other nervous system disorders (1 source) Unspecified disturbances of skin sensation; Translations: [Disturbance of skin sensation] Onset: 01-04-2023 Episodic Residual codes; unclassified (20 sources) Tobacco user; Translations: [Tobacco use] Onset: 11-06-2015 11-16-2021 Episodic Spondylosis; intervertebral disc disorders; other back problems (20 sources) Sciatica; Translations: [Sciatica, left side] Onset: 11-09-2022 Episodic Results Test Name Value Interpretation Reference Range Facil ity Vital Signs Date Time Vital Sign Value Performing Clinician Safiai manjit 11-25-2023 10:20-0500 Body weight 99.79 kg ETHANOL OPERATIONS MANAGER.EXECUTIVE KITCHEN MANAGER Work Phone: [facility] 11-25-2023 10:20-0500 Diastolic blood pressure 78 mm[Hg] ETHANOL OPERATIONS MANAGER.EXECUTIVE KITCHEN MANAGER Work Phone: [facility] 11-25-2023 10:20-0500 Heart rate 82 /min Lurdes Older ETHANOL OPERATIONS MANAGER.EXECUTIVE KITCHEN MANAGER Work Phone: [facility] 11-25-2023 10:20-0500 Respiratory rate 16 /min Lurdes Older ETHANOL OPERATIONS MANAGER.EXECUTIVE KITCHEN MANAGER Work Phone: [facility] 11-25-2023 10:20-0500 SaO2% (BldA) [Mass fraction] 93 % Lurdes Older ETHANOL OPERATIONS MANAGER.EXECUTIVE KITCHEN MANAGER Work Phone: [facility] 11-25-2023 10:20-0500 Systolic blood pressure 120 mm[Hg] Lurdes Older ETHANOL OPERATIONS MANAGER.EXECUTIVE KITCHEN MANAGER Work Phone: [facility] 09-19-2023 11:16-0400 Body weight 100.25 kg Lurdes Older ETHANOL OPERATIONS MANAGER.EXECUTIVE KITCHEN MANAGER Work Phone: [facility] 09-19-2023 11:16-0400 Diastolic blood pressure 90 mm[Hg] Lurdes Older ETHANOL OPERATIONS MANAGER.EXECUTIVE KITCHEN MANAGER Work Phone: [facility] 09-19-2023 11:16-0400 Heart rate 68 /min Lurdes Older ETHANOL OPERATIONS MANAGER.EXECUTIVE KITCHEN MANAGER Work Phone: [facility] 09-19-2023 11:16-0400 Respiratory rate 16 /min Lurdes Older ETHANOL OPERATIONS MANAGER.EXECUTIVE KITCHEN MANAGER Work Phone: [facility] 09-19-2023 11:16-0400 SaO2% (BldA) [Mass fraction] 97 % Lurdes Older ETHANOL OPERATIONS MANAGER.EXECUTIVE KITCHEN MANAGER Work Phone: [facility] 09-19-2023 11:16-0400 Systolic blood pressure 140 mm[Hg] Lurdes Older ETHANOL OPERATIONS MANAGER.EXECUTIVE KITCHEN MANAGER Work Phone: [facility] 06-20-2023 09:29-0400 Body temperature 98.01 [degF] Lurdes Older ETHANOL OPERATIONS MANAGER.EXECUTIVE KITCHEN MANAGER Work Phone: [facility] 06-20-2023 09:29-0400 Body weight 97.98 kg Lurdes Older ETHANOL OPERATIONS MANAGER.EXECUTIVE KITCHEN MANAGER Work Phone: [facility] 06-20-2023 09:29-0400 Diastolic blood pressure 78 mm[Hg] Lurdes Older ETHANOL OPERATIONS MANAGER.EXECUTIVE KITCHEN MANAGER Work Phone: [facility] 06-20-2023 09:29-0400 Heart rate 80 /min Lurdes Older ETHANOL OPERATIONS MANAGER.EXECUTIVE KITCHEN MANAGER Work Phone: [facility] 06-20-2023 09:29-0400 Respiratory rate 16 /min Lurdes Older ETHANOL OPERATIONS MANAGER.EXECUTIVE KITCHEN MANAGER Work Phone: [facility] 06-20-2023 09:29-0400 SaO2% (BldA) [Mass fraction] 94 % Lurdes Older ETHANOL OPERATIONS MANAGER.EXECUTIVE KITCHEN MANAGER Work Phone: [facility] 06-20-2023 09:29-0400 Systolic blood pressure 118 mm[Hg] Lurdes Older ETHANOL OPERATIONS MANAGER.EXECUTIVE KITCHEN MANAGER Work Phone: [facility] 03-29-2023 10:42-0400 Body weight 94.8 kg Misty Older ETHANOL OPERATIONS MANAGER.EXECUTIVE KITCHEN MANAGER Work Phone: [facility] 03-29-2023 10:42-0400 Diastolic blood pressure 76 mm[Hg] Misty Older ETHANOL OPERATIONS MANAGER.EXECUTIVE KITCHEN MANAGER Work Phone: [facility] 03-29-2023 10:42-0400 Heart rate 84 /min Misty Older ETHANOL OPERATIONS MANAGER.EXECUTIVE KITCHEN MANAGER Work Phone: [facility] 03-29-2023 10:42-0400 Respiratory rate 16 /min Misty Older ETHANOL OPERATIONS MANAGER.EXECUTIVE KITCHEN MANAGER Work Phone: [facility] 03-29-2023 10:42-0400 Systolic blood pressure 108 mm[Hg] Misty Older ETHANOL OPERATIONS MANAGER.EXECUTIVE KITCHEN MANAGER Work Phone: [facility] 03-16-2023 09:32-0400 Body temperature 98.2 [degF] Chacorta [facility] ETHANOL OPERATIONS MANAGER.EXECUTIVE KITCHEN MANAGER Work Phone: [facility] 03-16-2023 09:32-0400 Body weight 98.25 kg Chacorta [facility] ETHANOL OPERATIONS MANAGER.EXECUTIVE KITCHEN MANAGER Work Phone: [facility] 03-16-2023 09:32-0400 Diastolic blood pressure 72 mm[Hg] Chacorta [facility] ETHANOL OPERATIONS MANAGER.EXECUTIVE KITCHEN MANAGER Work Phone: [facility] 03-16-2023 09:32-0400 Heart rate 84 /min Chacorta [facility] ETHANOL OPERATIONS MANAGER.EXECUTIVE KITCHEN MANAGER Work Phone: [facility] 03-16-2023 09:32-0400 Respiratory rate 18 /min Chacorta Trujilloalex ETHANOL OPERATIONS MANAGER.EXECUTIVE KITCHEN MANAGER Work Phone: [facility] 03-16-2023 09:32-0400 SaO2% (BldA) [Mass fraction] 99 % Chacorta Crain ETHANOL OPERATIONS MANAGER.EXECUTIVE KITCHEN MANAGER Work Phone: [facility] 03-16-2023 09:32-0400 Systolic blood pressure 110 mm[Hg] Chacorta Trujilloalex ETHANOL OPERATIONS MANAGER.EXECUTIVE KITCHEN MANAGER Work Phone: [facility] 02-27-2023 10:20-0400 Body height 165.1 cm Debbie [place] ETHANOL OPERATIONS MANAGER.EXECUTIVE KITCHEN MANAGER Work Phone: [facility] 02-27-2023 10:20-0400 Body weight 94.35 kg Debbie [place] ETHANOL OPERATIONS MANAGER.EXECUTIVE KITCHEN MANAGER Work Phone: [facility] 12-30-2022 08:38-0500 Heart rate 97 /min Ginna Garduno MD Work Phone: [facility] 12-30-2022 08:38-0500 Respiratory rate 16 /min Ginna Garduno MD Work Phone: [facility] 12-30-2022 08:38-0500 SaO2% (BldA) [Mass fraction] 98 % Ginna Garduno MD Work Phone: [facility] 12-20-2022 09:42-0500 Body height 165.1 cm Uche Bryan MD Work Phone: [facility] 12-20-2022 09:42-0500 Body temperature 98.91 [degF] Uche Bryan MD Work Phone: [facility] 12-20-2022 09:42-0500 Body weight 94.35 kg Uche Bryan MD Work Phone: [facility] 12-20-2022 09:42-0500 Diastolic blood pressure 78 mm[Hg] Uche Bryan MD Work Phone: [facility] 12-20-2022 09:42-0500 Heart rate 94 /min Uche Bryan MD Work Phone: [facility] 12-20-2022 09:42-0500 Respiratory rate 14 /min Uche Bryan MD Work Phone: [facility] 12-20-2022 09:42-0500 SaO2% (BldA) [Mass fraction] 96 % Uche Bryan MD Work Phone: [facility] 12-20-2022 09:42-0500 Systolic blood pressure 128 mm[Hg] Uche Bryan MD Work Phone: [facility] 2022 12:49-0500 Body temperature 99 [degF] Krislyn Aberegg PA Work Phone: [facility] 2022 12:49-0500 Body weight 93.89 kg Krislyn Aberegg PA Work Phone: [facility] 2022 12:49-0500 Diastolic blood pressure 70 mm[Hg] Krislyn Aberegg PA Work Phone: [facility] 2022 12:49-0500 Heart rate 84 /min Krislyn Aberegg PA Work Phone: [facility] 2022 12:49-0500 Respiratory rate 16 /min Krislyn Aberegg PA Work Phone: [facility] 2022 12:49-0500 SaO2% (BldA) [Mass fraction] 96 % Krislyn Aberegg PA Work Phone: [facility] 2022 12:49-0500 Systolic blood pressure 122 mm[Hg] Krislyn Aberegg PA Work Phone: [facility] 11-04-2022 08:55-0500 Heart rate 87 /min Leanne Tovar APRN.EXECUTIVE KITCHEN MANAGER Work Phone: [facility] 11-04-2022 08:55-0500 Respiratory rate 18 /min Leanne Tovar ETHANOL OPERATIONS MANAGER.EXECUTIVE KITCHEN MANAGER Work Phone: [facility] 11-04-2022 08:55-0500 SaO2% (BldA) [Mass fraction] 97 % Leanne Tovar ETHANOL OPERATIONS MANAGER.EXECUTIVE KITCHEN MANAGER Work Phone: [facility] 10-18-2022 12:38-0500 Diastolic blood pressure 80 mm[Hg] Uche Bryan MD Work Phone: [facility] 10-18-2022 12:38-0500 Systolic blood pressure 130 mm[Hg] Uche Bryan MD Work Phone: [facility] 10-18-2022 11:55-0500 Body height 165.1 cm Uche Bryan MD Work Phone: [facility] 10-18-2022 11:55-0500 Body temperature 99.1 [degF] Uche Bryan MD Work Phone: [facility] 10-18-2022 11:55-0500 Body weight 93.44 kg Uche Bryan MD Work Phone: [facility] 10-18-2022 11:55-0500 Heart rate 83 /min Uche Bryan MD Work Phone: [facility] 10-18-2022 11:55-0500 Respiratory rate 12 /min Uche Bryan MD Work Phone: [facility] 10-18-2022 11:55-0500 SaO2% (BldA) [Mass fraction] 98 % Uche Bryan MD Work Phone: [facility] 10-01-2022 13:25-0500 Body temperature 97.39 [degF] Korin Molina ETHANOL OPERATIONS MANAGER.EXECUTIVE KITCHEN MANAGER Work Phone: [facility] 10-01-2022 13:25-0500 Body weight 92.72 kg Korin Myles-Jake ETHANOL OPERATIONS MANAGER.EXECUTIVE KITCHEN MANAGER Work Phone: [facility] 10-01-2022 13:25-0500 Diastolic blood pressure 80 mm[Hg] Korin Floresler-Jake ETHANOL OPERATIONS MANAGER.EXECUTIVE KITCHEN MANAGER Work Phone: [facility] 10-01-2022 13:25-0500 Heart rate 70 /min Korin Praisler-Wood ETHANOL OPERATIONS MANAGER.EXECUTIVE KITCHEN MANAGER Work Phone: [facility] 10-01-2022 13:25-0500 Respiratory rate 21 /min Korin Praisler-Wood ETHANOL OPERATIONS MANAGER.EXECUTIVE KITCHEN MANAGER Work Phone: [facility] 10-01-2022 13:25-0500 SaO2% (BldA) [Mass fraction] 99 % Korin Praisler-Wood ETHANOL OPERATIONS MANAGER.EXECUTIVE KITCHEN MANAGER Work Phone: [facility] 10-01-2022 13:25-0500 Systolic blood pressure 126 mm[Hg] Korin Praisler-Wood ETHANOL OPERATIONS MANAGER.[facility] Work Phone: [facility] 08-24-2022 12:42-0400 Body temperature 98.01 [degF] Korin Praisler-Wood ETHANOL OPERATIONS MANAGER.[facility] Work Phone: [facility] 08-24-2022 12:42-0400 Body weight 91.54 kg Korin Praisler-Wood ETHANOL OPERATIONS MANAGER.[facility] Work Phone: [facility] 08-24-2022 12:42-0400 Diastolic blood pressure 80 mm[Hg] Korin Praisler-Wood ETHANOL OPERATIONS MANAGER.[facility] Work Phone: [facility] 08-24-2022 12:42-0400 Heart rate 58 /min Korin Praisler-Wood ETHANOL OPERATIONS MANAGER.[facility] Work Phone: [facility] 08-24-2022 12:42-0400 Respiratory rate 16 /min Korin Praisler-Wood ETHANOL OPERATIONS MANAGER.EXECUTIVE KITCHEN MANAGER Work Phone: [facility] 08-24-2022 12:42-0400 SaO2% (BldA) [Mass fraction] 97 % Korin Praisler-Wood ETHANOL OPERATIONS MANAGER.EXECUTIVE KITCHEN MANAGER Work Phone: [facility] 08-24-2022 12:42-0400 Systolic blood pressure 118 mm[Hg] Korin Praisler-Wood ETHANOL OPERATIONS MANAGER.[facility] Work Phone: [facility] 07-16-2022 10:33-0400 Body height 165.1 cm Uche Bryan MD Work Phone: [facility] 07-16-2022 10:33-0400 Body temperature 98.2 [degF] Uche Bryan MD Work Phone: [facility] 07-16-2022 10:33-0400 Body weight 89.81 kg Uche Bryan MD Work Phone: [facility] 07-16-2022 10:33-0400 Diastolic blood pressure 60 mm[Hg] Uche Bryan MD Work Phone: [facility] 07-16-2022 10:33-0400 Heart rate 68 /min Uche Bryan MD Work Phone: [facility] 07-16-2022 10:33-0400 Respiratory rate 12 /min Uche Bryan MD Work Phone: [facility] 07-16-2022 10:33-0400 SaO2% (BldA) [Mass fraction] 97 % Uche Bryan MD Work Phone: [facility] 07-16-2022 10:33-0400 Systolic blood pressure 104 mm[Hg] Uche Bryan MD Work Phone: [facility] 06-11-2022 07:15-0400 Body temperature 97.81 [degF] Katlin Og APRN.EXECUTIVE KITCHEN MANAGER Work Phone: [facility] 06-11-2022 07:15-0400 Body weight 92.44 kg Katlin Og APRN.EXECUTIVE KITCHEN MANAGER Work Phone: [facility] 06-11-2022 07:15-0400 Diastolic blood pressure 82 mm[Hg] Katlin Og APRN.EXECUTIVE KITCHEN MANAGER Work Phone: [facility] 06-11-2022 07:15-0400 Heart rate 61 /min Katlin Og APRN.EXECUTIVE KITCHEN MANAGER Work Phone: [facility] 06-11-2022 07:15-0400 Respiratory rate 16 /min Katlin Og APRN.EXECUTIVE KITCHEN MANAGER Work Phone: [facility] 06-11-2022 07:15-0400 SaO2% (BldA) [Mass fraction] 97 % Katlin Og ALIX.EXECUTIVE KITCHEN MANAGER Work Phone: [facility] 06-11-2022 07:15-0400 Systolic blood pressure 140 mm[Hg] Katlin Og ALIX.EXECUTIVE KITCHEN MANAGER Work Phone: [facility] Encounters Encounter Date Encounter Type Care Provider Facility Start: 2023 End: 12-02-2023 ambulatory [facility] Facility:[facility] Start: 11-25-2023 End: 11-26-2023 ambulatory [facility] Facility:[facility] Start: 11-25-2023 End: 11-25-2023 Patient encounter procedure Lurdes Hankins APRN.EXECUTIVE KITCHEN MANAGER Work Phone: [facility] Procedures Date Procedure Procedure Detail Performing Clinician Start: 11-25-2023 Lipid 1996 panel - S arturo or Plasma Lurdes Hankins ETHANOL OPERATIONS MANAGER.EXECUTIVE KITCHEN MANAGER Work Phone: Start: 06-13-2023 Myocardial spect mul tiple studies Stefanie Solis MD Work Phone: Start: 04-11-2023 Lipid 1996 panel - S arturo or Plasma Lurdes Hankins ETHANOL OPERATIONS MANAGER.EXECUTIVE KITCHEN MANAGER Work Phone: Start: 03-31-2023 Us retroperitoneal r eal time w/image complete Misty Nhi ETHANOL OPERATIONS MANAGER.EXECUTIVE KITCHEN MANAGER Work Phone: Start: 02-25-2023 Mri spinal canal cer vical w/o contrast matrl Ginna Garduno MD Work Phone: Start: 12-21-2022 MAME ROGERG W TONY LT Law Bryan MD Work Phone: Start: 12-16-2022 End: 12-16-2022 Mammography Bulk Order Provider Start: 05-27-2021 Mammography cUhe olguin MD Work Phone: Plan of Treatment Date Care Activity Detail Author Start: 06-11-2029 Urine microalbumin profile [facility] Start: 11-25-2028 Lipid panel Lipid Screening [facility] Start: 04-11-2028 Lipid 1996 panel - S arturo or Plasma Lipid Screening [facility] Start: 04-11-2028 LIPID SCREEN LIPID SCREEN [facility] Start: 12-16-2027 LIPID SCREEN LIPID SCREEN [facility] Start: 05-22-2027 LIPID SCREEN LIPID SCREEN [facility] Start: 01-06-2027 LIPID SCREEN LIPID SCREEN [facility] Start: 11-25-2026 Diabetes Screening Diabetes Screenin g [facility] Start: 06-03-2026 DIABETES SCREEN DIABETES SCREEN [facility] Start: 06-03-2026 Diabetes Screening Diabetes Screenin g [facility] Start: 05-05-2026 DIABETES SCREEN DIABETES SCREEN [facility] Start: 03-29-2026 DIABETES SCREEN DIABETES SCREEN [facility] Start: 12-16-2025 DIABETES SCREEN DIABETES SCREEN [facility] Start: 05-22-2025 DIABETES SCREEN DIABETES SCREEN [facility] Start: 01-06-2025 DIABETES SCREEN DIABETES SCREEN [facility] Start: 11-25-2024 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 Visit Annual PCP Team Chronic Disease Visit [facility] Start: 11-25-2024 BP Controlled (<130/80) BP Controlle d (<130/80) [facility] Start: 09-19-2024 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 Visit Annual PCP Team Chronic Disease Visit [facility] Start: 09-19-2024 Covid-19 Vaccine ( season) Covid-19 Vaccine ( season) [facility] Immunizations Immunization Date Immunization Notes Care Provider Gosia guerrero 10-01-2022 influenza virus vacc ine, unspecified formulation Lurdes Hankins APRN.CNP Work Phone: [facility] 10-03-2020 influenza, injectabl e, quadrivalent, contains preservative Uche Bryan MD Work Phone: [facility] 06-11-2019 tetanus toxoid, redu ayad diphtheria toxoid, and acellular pertussis vaccine, adsorbed Uche Bryan MD Work Phone: [facility] 01-23-2016 pneumococcal polysaccharide vaccine, 23 valent Uche Bryan MD Work Phone: [facility] Payers Date Payer Category Payer Private Health Insurance SHAE CABRERA OAP [id number] 2021-Present [phone] [address] [place] [address] Open Access [id number] 2021 Private Health Insurance [id number] 2016 Unknown JOSE HERNANDEZ SS PPO [id number] 2016-Present [phone] [address] [place] [id number] PPO [id number] 2016 Unknown JOSE FLORESE SS PPO [id number] 2016-Present [phone] [address] [place] [address] PPO [id number] Social History Date Type Detail Facility Start: 10-06-2015 End: 12-30-2022 Tobacco smoking status NHIS Smokes tobacco daily [facility] History of tobacco use Cigarette Smoker C [facility] Start: 10-06-2015 End: 04-04-2023 Cigarettes smoked current (pack per day) - Reported 1 [facility] Start: 10-06-2015 End: 12-30-2022 Tobacco use and exposure Smokeless tobacco non-user [facility] Start: 09-23-2021 End: 05-19-2023 Alcohol intake Current drinker of alcohol (finding) [facility] Start: 05-27-2021 History SDOH Alcohol Comment Occasionally [facility] Start: 1970 Sex Assigned At Not on file C [facility] Start: 05-09-2022 End: 10-18-2022 Exposure to SARS-CoV-2 (event) Not sure [facility] Start: 07-15-2022 End: 10-17-2022 History SDOH Alcohol Std Drinks 0 [facility] Start: 07-15-2022 End: 10-17-2022 History SDOH Alcohol Binge 1 [facility] Start: 07-15-2022 End: 10-17-2022 History SDOH Social Connections Phone 2 [facility] Start: 07-15-2022 End: 10-17-2022 History SDOH Social Connections Living 3 [facility] Start: 07-15-2022 End: 10-17-2022 History SDOH Physical Activity MPS 98 [facility] Start: 07-15-2022 End: 10-17-2022 History SDOH Stress 5 [facility] Start: 1970 Sex Assigned At Female C [facility] Start: 10-17-2022 End: 04-04-2023 Social connection and isolation panel [facility] Do you belong to any clubs or organizations such as adventism groups, unions, fraternal or athletic groups, or school groups? No [facility] How often do you att end meetings of the clubs or organizations you belong to? Patient refused [facility] Are you now , , , , never or living with a partner? [facility] How often to you hav e a drink containing alcohol? Never [facility] How hard is it for y ou to pay for the very basics like food, housing, medical care, and heating Somewhat hard [facility] Do you feel stress - tense, restless, nervous, or anxious, or unable to sleep at night because your mind is troubled all the time - these days [OSQ] Very much [facility] (I/We) worried wheleslie er (my/our) food would run out before (I/we) got money to buy more. Sometimes true [facility] Start: 11-28-2022 Gender identity Identifies as female gender (finding) [facility] Has the [employer], or [employer] threatened to shut off services in your home in past 12Mo Yes [facility] How hard is it for y ou to pay for the very basics like food, housing, medical care, and heating Very hard [facility] Clinical Notes 05-19-2022 to 12-02-2023 Lurdes Hankins APRN.EXECUTIVE KITCHEN MANAGER - 11/25/2023 10:22 AM ESTTelephone Encounter - Renea Delgado E - 10/04/2023 2:53 PM Lurdes Soliman APRN.CNP - 09/19/2023 11:23 AM EDTPatient InstructionsPatient Instructions Note Date & Type Note Facility 12-02-2023 Note HNO ID: [id number] Author: ANDRESSA MAGAÑA LPCC Service: ? Author Type: Therapist Type: Progress Notes Filed: 12/02/2023 08:27 Note Text: Behavioral Health Social Work Progress Note Patient identified for [facility] from: PCP Reason for referral: Resources Behavioral Health Resources: Psychiatry med management, Psychology - talk therapy [facility] encounter type: MyChart Message Attempts to Outreach: 3 attempts Referral made: Psychiatry - Internal, Psychology - Internal, Psychiatry - External, Psychology - External Psychiatry-Internal referral type: Medication Management Psychology-Internal referral type: Therapy Psychology-External referral type: Therapy Psychiatry-External referral type: Medication Management Reason for external referral: Patient choice, Wait times at [facility] too long Final Disposition: Resources given Patient Discharged?: Yes Patient reported that caregiver was able to meet their needs today?: N/A therapist sent patient Suda follow up message offering assistance with linkage to behavioral health services. Andressa Magaña LPC-S December 02, 2023 [facility] 11-25-2023 Note HNO ID: [id number] Author: LURDES HANKINS APRN.EXECUTIVE KITCHEN MANAGER Service: ? Author Type: Nurse Practitioner Type: Progress Notes Filed: 11/27/2023 12:45 Note Text: CC: Patient presents with: Recheck: Follow up HPI Mariangel Robertson is a 52 year old female who presents today for follow up on depression but has multiple complaints. Over 4 weeks ago had Abilify increased. Depression uncontrolled. Has no energy or motivation to even shower. History of alcohol abuse but has not drank in months. Denies suicidal or homicidal ideations. Has had puffiness to eyes every day for the past month or so. Small amount of intermittent ankle and finger swelling. Is awaiting back surgery with Dr. Rodriguez. Sees Dr Agarwal for pain management. Increased pain so has been taking her lyrica twice a day. Always with increase in muscle cramping to her legs especially at night. Also with increased muscle aches she has chronically. Always feels cold and has cold hands and continues to gain weight. Also has a chronic facial rash that appears like a butterfly rash. Is covered in makeup in this appointment but has been tested for lupus in the past and been negative. Asthma: Uses albuterol twice a day but has only been taking her advair once a day. Smokes a pack a day. Denies cough, wheezing, or shortness of breath not relieved with albuterol. HLD and HTN: Ms. Robertson indicates that she is feeling well and denies any symptoms referable to elevated blood pressure. Specifically denies headache, chest pain, palpitations, dyspnea, and peripheral edema. Patient denies any side effects of her medication(s) and is compliant with their regimen. She does check BP's away from this office with average BP's in the 120s/80 range. Mariangel denies regular aerobic exercise. She watches her diet for sodium, low fat and low cholesterol some of the time. Last 3 Encounter BP Readings: Date: BP: 11/25/2023 120/78 09/19/2023 140/90 06/20/2023 118/78 REVIEW OF SYSTEMS See HPI PAST MEDICAL HISTORY Diagnosis Date Anxiety Depressive disorder Dermoid cyst of right ovary 10/15/2015 probable- [facility] Essential hypertension Insomnia Migraines Umbilical hernia 10/15/2015 minimal PAST SURGICAL HISTORY Procedure Laterality Date CT ABDOMEN AND PELVIS W/CONT 10/15/15 [facility] HYSTERECTOMY HX still has ovaries TUBAL LIGATION HX ALLERGIES Stadol [Butorphanol Tartrate] MEDICATIONS ARIPiprazole (ABILIFY) 5 mg tablet take 1 tablet by mouth once daily albuterol HFA (PROVENTIL HFA, VENTOLIN HFA) 90 mcg/actuation inhaler Inhale 2 Puffs as instructed every 4 hours as needed. rOPINIRole (REQUIP) 0.25 mg tablet TAKE 1 TO 2 TABLETS BY MOUTH 30 MINUTES BEFORE BED. famotidine (PEPCID) 20 mg tablet Take 1 tablet by mouth two times a day. fluticasone-salmeterol (ADVAIR DISKUS) 500-50 mcg/dose dsdv Inhale 1 Puff as instructed two times a day. Rinse and gargle mouth with water after use. benzonatate (TESSALON PERLES) 100 mg capsule Take 1 capsule by mouth three times a day as needed for cough. montelukast (SINGULAIR) 10 mg tablet Take 1 tablet by mouth daily at bedtime. amLODIPine (NORVASC) 10 mg tablet Take 0.5 tablets by mouth once daily. busPIRone (BUSPAR) 15 mg tablet Take 1 tablet by mouth three times daily. potassium chloride (K-TAB) 10 mEq tablet Take 1 tablet by mouth daily with breakfast. pregabalin (LYRICA) 150 mg capsule Take 1 pill 2 times per day. atorvastatin (LIPITOR) 40 mg tablet Take 1 tablet by mouth daily at bedtime. For cholesterol. traZODone (DESYREL) 100 mg tablet Take 3 tablets by mouth daily at bedtime. lisinopril (ZESTRIL) 20 mg tablet Take 1 tablet by mouth once daily. citalopram (CELEXA) 40 mg tablet Take 1 tablet by mouth once daily. ergocalciferol 50,000 unit capsule (VITAMIN D2, DRISDOL) Take 1 capsule by mouth one time a week. hydrOXYzine HCl (ATARAX) 25 mg tablet Take 1 tablet by mouth three times daily as needed. MELATONIN ORAL Take by mouth. fluticasone (FLONASE) 50 mcg/actuation nasal spray Use 2 Sprays in each nostril once daily. (Patient taking differently: Use 2 Sprays in each nostril as needed.) FAMILY HISTORY Problem Relation Age of Onset Cancer Mother lung other (depression [Other]) Mother Diabetes Father Hypertension Father Cancer Father prostate Heart Father Hypertension Sister Depression Daughter other (epilpsy [Other]) Son Depression Son Attempted Suicide Social History Tobacco Use Smoking status: Every Day Packs/day: 0.50 Years: 6.00 Additional pack years: 0.00 Total pack years: 3.00 Types: Cigarettes Smokeless tobacco: Never Vaping Use Vaping Use: Never used Substance Use Topics Alcohol use: Yes Comment: Occasionally Drug use: No PHYSICAL EXAM BP 120/78 Pulse 82 Resp 16 Wt 99.8 kg (220 lb) SpO2 93% BMI 36.61 kg/m? General Appearance: well appearing, in no acute distress, alert Pysch: very tearful throughout visit Eyes: c (more content not included)... [facility] 11-25-2023 History of Present illness Narrative CC: Patient presents with: Recheck: Follow up HPI Mariangel Robertson is a 52 year old female who presents today for follow up on depression but has multiple complaints. Over 4 weeks ago had Abilify increased. Depression uncontrolled. Has no energy or motivation to even shower. History of alcohol abuse but has not drank in months. Denies suicidal or homicidal ideations. Has had puffiness to eyes every day for the past month or so. Small amount of intermittent ankle and finger swelling. Is awaiting back surgery with Dr. Rodriguez. Sees Dr Agarwal for pain management. Increased pain so has been taking her lyrica twice a day. Always with increase in muscle cramping to her legs especially at night. Also with increased muscle aches she has chronically. Always feels cold and has cold hands and continues to gain weight. Also has a chronic facial rash that appears like a butterfly rash. Is covered in makeup in this appointment but has been tested for lupus in the past and been negative. Asthma: Uses albuterol twice a day but has only been taking her advair once a day. Smokes a pack a day. Denies cough, wheezing, or shortness of breath not relieved with albuterol. HLD and HTN: Ms. Robertson indicates that she is feeling well and denies any symptoms referable to elevated blood pressure. Specifically denies headache, chest pain, palpitations, dyspnea, and peripheral edema. Patient denies any side effects of her medication(s) and is compliant with their regimen. She does check BP's away from this office with average BP's in the 120s/80 range. Mariangel denies regular aerobic exercise. She watches her diet for sodium, low fat and low cholesterol some of the time. Last 3 Encounter BP Readings: Date: BP: 11/25/2023 120/78 09/19/2023 140/90 06/20/2023 118/78 REVIEW OF SYSTEMS See HPI PAST MEDICAL HISTORY Diagnosis Date Anxiety Depressive disorder Dermoid cyst of right ovary 10/15/2015 probable- [facility] Essential hypertension Insomnia Migraines Umbilical hernia 10/15/2015 minimal PAST SURGICAL HISTORY Procedure Laterality Date CT ABDOMEN & PELVIS W/CONT 10/15/15 [facility] HYSTERECTOMY HX still has ovaries TUBAL LIGATION HX ALLERGIES Stadol [Butorphanol Tartrate] MEDICATIONS ARIPiprazole (ABILIFY) 5 mg tablet take 1 tablet by mouth once daily albuterol HFA (PROVENTIL HFA, VENTOLIN HFA) 90 mcg/actuation inhaler Inhale 2 Puffs as instructed every 4 hours as needed. rOPINIRole (REQUIP) 0.25 mg tablet TAKE 1 TO 2 TABLETS BY MOUTH 30 MINUTES BEFORE BED. famotidine (PEPCID) 20 mg tablet Take 1 tablet by mouth two times a day. fluticasone-salmeterol (ADVAIR DISKUS) 500-50 mcg/dose dsdv Inhale 1 Puff as instructed two times a day. Rinse and gargle mouth with water after use. benzonatate (TESSALON PERLES) 100 mg capsule Take 1 capsule by mouth three times a day as needed for cough. montelukast (SINGULAIR) 10 mg tablet Take 1 tablet by mouth daily at bedtime. amLODIPine (NORVASC) 10 mg tablet Take 0.5 tablets by mouth once daily. busPIRone (BUSPAR) 15 mg tablet Take 1 tablet by mouth three times daily. potassium chloride (K-TAB) 10 mEq tablet Take 1 tablet by mouth daily with breakfast. pregabalin (LYRICA) 150 mg capsule Take 1 pill 2 times per day. atorvastatin (LIPITOR) 40 mg tablet Take 1 tablet by mouth daily at bedtime. For cholesterol. traZODone (DESYREL) 100 mg tablet Take 3 tablets by mouth daily at bedtime. lisinopril (ZESTRIL) 20 mg tablet Take 1 tablet by mouth once daily. citalopram (CELEXA) 40 mg tablet Take 1 tablet by mouth once daily. ergocalciferol 50,000 unit capsule (VITAMIN D2, DRISDOL) Take 1 capsule by mouth one time a week. hydrOXYzine HCl (ATARAX) 25 mg tablet Take 1 tablet by mouth three times daily as needed. MELATONIN ORAL Take by mouth. fluticasone (FLONASE) 50 mcg/actuation nasal spray Use 2 Sprays in each nostril once daily. (Patient taking differently: Use 2 Sprays in each nostril as needed.) FAMILY HISTORY Problem Relation Age of Onset Cancer Mother lung other (depression [Other]) Mother Diabetes Father Hypertension Father Cancer Father prostate Heart Father Hypertension Sister Depression Daughter other (epilpsy [Other]) Son Depression Son Attempted Suicide Social History Tobacco Use Smoking status: Every Day Packs/day: 0.50 Years: 6.00 Additional pack years: 0.00 Total pack years: 3.00 Types: Cigarettes Smokeless tobacco: Never Vaping Use Vaping Use: Never used Substance Use Topics Alcohol use: Yes Comment: Occasionally Drug use: No PHYSICAL EXAM BP 120/78 Pulse 82 Resp 16 Wt 99.8 kg (220 lb) SpO2 93% BMI 36.61 kg/m General Appearance: well appearing, in no acute distress, alert Pysch: very tearful throughout visit Eyes: conjunctiva pink and moist, no icterus, sclera white, non-injected Neck: Thyroid normal size and symmetric without palpable nodules, No adenopathy Lymph nodes: No cervical lymphadenopathy and No supraclavicular lymphadenopathy Lungs: Lungs clear to auscultation. No wheezing, rhonchi, rales. Heart: RRR without murmur, gallop, or rubs. No ectopy Skin unable to assess on face. Patient with heavy foundation in place. Health maintenance reviewed with patient: BP Controlled (<130/80) Never done Pap Testing Never done HPV Testing Never done Colorectal Cancer Screening Never done Pneumococcal Vaccine(2 of 2 - PCV) due on 01/22/2017 Shingrix Vaccine(1 of 2) Never done Hepatitis B Vaccine(2 of 3 - 19+ 3-dose series) due on 02/23/2021 Mammogram Screening due on 12/16/2023 Influenza Vaccine(1) due on 05/20/2024 Covid-19 Vaccine(3 - 2022-24 season) due on 09/19/2024 Annual PCP Team Chronic Disease Visit due on 09/19/2024 Diabetes Screening due on 06/03/2026 Lipid Screening due on 04/11/2028 DTaP,Tdap,Td Vaccine(2 - Td or Tdap) due on 06/11/2029 Hepatitis C Screening Discontinued HIV Screening Discontinued DATA REVIEWED: No new labs ASSESSMENT/PLAN: 1. Episode of recurrent major depressive disorder, unspecified depression episode severity (HCC) - ICD9: 296.30, ICD10: F33.9 (primary diagnosis) Uncontrolled - increasing abilify - recommend psychiatric med management and counseling - Reviewed concept of neurochemical imbalance wth depression/anxiety, treatment options and benefits of counseling in combination with medication. Also reviewed benefits of sleep hygeine, diet and exercise - Follow-up in 4 weeks or sooner as needed - Instructed patient to contact office or [id number] after-hours promptly should condition worsen or any new symptoms appear. - [facility] and after hours crisis line - CONSULT TO [facility] ADULT 2. Anxiety - ICD9: 300.00, ICD10: F41.9 As above - BUSPIRONE 15 MG TABLET - CONSULT TO [facility] ADULT 3. Facial edema - ICD9: 782.3, ICD10: R60.0 Needs further evalute - C-REACTIVE PROTEIN (CRP) - SED RATE WESTERGREN - TSH BLD - T4 FREE/FREE THYROX - COMP METABOLIC PANEL - CBC + DIFF 4. Other fatigue - ICD9: 780.79, ICD10: R53.83 Unknown cause Follow up in 4 weeks or earlier if needed - C-REACTIVE PROTEIN (CRP) - SED RATE WESTERGREN - TSH BLD - T4 FREE/FREE THYROX - COMP METABOLIC PANEL - CBC + DIFF - VITAMIN D 25 HYDROXY - IRON + TIBC - FERRITIN BLD - MAGNESIUM BLD - HGB A1C 5. Leg cramping - ICD9: 729.82, ICD10: R25.2 - MAGNESIUM BLD 6. Moderate persistent asthma, unspecified whether complicated - ICD9: 493.90, ICD10: J45.40 - Moderate persistent asthma - needs to take advair as recommended, if no improvement will need to see pulmonology - Avoidance of triggers recommended 7. Myalgias - ICD9: 729.1, ICD10: M79.10 - C-REACTIVE PROTEIN (CRP) - SED RATE WESTERGREN - COMP METABOLIC PANEL - CBC + DIFF - MAGNESIUM BLD 8. Essential hypertension - ICD9: 401.9, ICD10: I10 - Controlled - Continue current medications - Recommend home blood pressure monitoring, to bring results to next visit - Encouraged sodium restriction, DASH or Mediterranean diet - Recommend regular aerobic exercise 9. Familial hypercholesterolemia - ICD9: 272.0, ICD10: E78.01 - Encouraged sodium restriction, DASH or Mediterranean diet - Recommend regular aerobic exercise - LIPID PANEL BASIC - COMP METABOLIC PANEL 10. Vitamin B12 deficiency - ICD9: 266.2, ICD10: E53.8 - VITAMIN B12 BLOOD 11. Vitamin D deficiency - ICD9: 268.9, ICD10: E55.9 - VITAMIN D 25 HYDROXY 12. History of iron deficiency - ICD9: V12.3, ICD10: Z86.39 - CBC + DIFF - IRON + TIBC - FERRITIN BLD 13. Facial rash - ICD9: 782.1, ICD10: R21 Heavy foundation in place, not evaluated in this visit. With her other symptoms of fatigue, edema, chronic pain to multiple muscles and joints and reported history of facial rash, will check further for inflammatory/autoimmune component. - C-REACTIVE PROTEIN (CRP) - SED RATE WESTERGREN 14. Elevated glucose - ICD9: 790.29, ICD10: R73.09 In the past - HGB A1C 15. Cold intolerance - ICD9: 780.99, ICD10: R68.89 Thyroid levels as ordered Prescription instructions reviewed with patient as applicable. Potential red flag symptoms discussed with the patient. Reviewed appropriate action plan to take if red flag symptoms occur. Patient agreeable to treatment plan. Lurdes Hankins APRN.CNP documented in this encounter [facility] 10-04-2023 Miscellaneous Notes Patient has been identified by name and date of : No Patient phones for refill(s): Requested Prescriptions Pending Prescriptions Disp Refills albuterol HFA (PROVENTIL HFA, VENTOLIN HFA) 90 mcg/actuation inhaler [Pharmacy Med Name: albuterol sulfate HFA 90 mcg/actuation aerosol inhaler] 8.5 g 0 Sig: Inhale 2 Puffs as instructed every 4 hours as needed. Date of last office visit in primary care: 09/19/2023 Date of next office visit in primary care: 10/05/2023 Last 2 Encounter Wt Readings: Date: Wt: 09/19/2023 100.2 kg (221 lb) 06/20/2023 98 kg (216 lb) Previous labs/tests for medication: Not applicable Please advise. Thank you. Renea Delgado. documented in this encounter [facility] 09-19-2023 Note HNO ID: [id number] Author: Lurdes Hankins APRN.CNP Service: ? Author Type: Nurse Practitioner Type: Progress Notes Filed: 09/19/2023 4:48 PM Note Text: CC: Patient presents with: Recheck: Follow up HPI Mariangel Robertson is a 52 year old female who presents today for follow up. Was last seen 3 months ago with uncontrolled anxiety and depression, started on abilify, and was to see psychiatry and follow up with me in 4 weeks. Depression and Anxiety: Feels it did for a while and has had a lot of extra stress so unsure if the abilify is still helping or if its the increase in strength. Recently gets increased anxiety when leaving the house. Only showering once a week. Never did schedule with psychiatry for med management. Sleep: difficulty staying asleep, difficulty falling asleep - even with the trazadone and hydroxyzine. Alcohol use: does not drink any alcohol Drug use: No Appetite: good Stresses: Major stressor: finances and family Suicidal Thoughts: No suicidal ideation, intent or plan Counseling: Sees a psychologist at [facility]. Last seen 3 weeks ago. Myofascial Pain and RLS: Wears a pain patch as ordered by Dr. Agarwal pain mgmt which will run out of soon. Unsure if she can continue to see Dr. Agarwal as she is unable to afford. Has been out of her lyrica the entire weekend. Asthma: Taking advair and montelukast. Still needing the albuterol 3 times a day. Will take when she is coughing and shortness of breath. Does have nighttime symptoms with coughing that she takes OTC robitussin for. Does smoke on average of 1 ppd. REVIEW OF SYSTEMS General: no fevers, no chills, no night sweats, no recurrent infections, no change in appetite, no change in energy, and no significant changes in weight Respiratory: no cough, no wheezing, no shortness of breath, no hemoptysis Cardiovascular: no chest pain, no chest pressure, no palpitations, and no swelling Neurologic: No headache, weakness, numbness, tingling, dizziness, memory loss, syncope. PAST MEDICAL HISTORY Diagnosis Date Anxiety Depressive disorder Dermoid cyst of right ovary 10/15/2015 probable- [facility] Essential hypertension Insomnia Migraines Umbilical hernia 10/15/2015 minimal PAST SURGICAL HISTORY Procedure Laterality Date CT ABDOMEN AND PELVIS W/CONT 10/15/15 [facility] HYSTERECTOMY HX still has ovaries TUBAL LIGATION HX ALLERGIES Stadol [Butorphanol Tartrate] MEDICATIONS albuterol HFA (PROVENTIL HFA, VENTOLIN HFA) 90 mcg/actuation inhaler Inhale 2 Puffs as instructed every 4 hours as needed. montelukast (SINGULAIR) 10 mg tablet Take 1 tablet by mouth daily at bedtime. ARIPiprazole (ABILIFY) 2 mg tablet Take 1 tablet by mouth once daily. fluticasone-salmeterol (ADVAIR DISKUS) 100-50 mcg/dose inhaler Inhale 1 Puff as instructed two times a day. Rinse mouth out after use with water. amLODIPine (NORVASC) 10 mg tablet Take 0.5 tablets by mouth once daily. busPIRone (BUSPAR) 15 mg tablet Take 1 tablet by mouth three times daily. potassium chloride (K-TAB) 10 mEq tablet Take 1 tablet by mouth daily with breakfast. pregabalin (LYRICA) 150 mg capsule Take 1 pill 2 times per day. atorvastatin (LIPITOR) 40 mg tablet Take 1 tablet by mouth daily at bedtime. For cholesterol. famotidine (PEPCID) 20 mg tablet Take 1 tablet by mouth twice daily. traZODone (DESYREL) 100 mg tablet Take 3 tablets by mouth daily at bedtime. lisinopril (ZESTRIL) 20 mg tablet Take 1 tablet by mouth once daily. citalopram (CELEXA) 40 mg tablet Take 1 tablet by mouth once daily. rOPINIRole (REQUIP) 0.25 mg tablet TAKE 1 TO 2 TABLETS BY MOUTH 30 MINUTES BEFORE BED. ergocalciferol 50,000 unit capsule (VITAMIN D2, DRISDOL) Take 1 capsule by mouth one time a week. hydrOXYzine HCl (ATARAX) 25 mg tablet Take 1 tablet by mouth three times daily as needed. MELATONIN ORAL Take by mouth. fluticasone (FLONASE) 50 mcg/actuation nasal spray Use 2 Sprays in each nostril once daily. (Patient taking differently: Use 2 Sprays in each nostril as needed.) FAMILY HISTORY Problem Relation Age of Onset Cancer Mother lung other (depression [Other]) Mother Diabetes Father Hypertension Father Cancer Father prostate Heart Father Hypertension Sister Depression Daughter other (epilpsy [Other]) Son Depression Son Attempted Suicide Social History Tobacco Use Smoking status: Every Day Packs/day: 0.50 Years: 6.00 Additional pack years: 0.00 Total pack years: 3.00 Types: Cigarettes Smokeless tobacco: Never Vaping Use Vaping Use: Never used Substance Use Topics Alcohol use: Yes Comment: Occasionally Drug use: No PHYSICAL EXAM BP 140/90 Pulse 68 Resp 16 Wt 100.2 kg (221 lb) SpO2 97% BMI 36.78 kg/m? General Appearance: well appearing, in no acute distress, alert Pysch: mood and affect broad and appropriate Skin: Skin color, texture, turgor normal for age; Eyes: conjunctiva pink and moist, n (more content not included)... [facility] 09-19-2023 History of Present illness Narrative CC: Patient presents with: Recheck: Follow up HPI Mariangel Robertson is a 52 year old female who presents today for follow up. Was last seen 3 months ago with uncontrolled anxiety and depression, started on abilify, and was to see psychiatry and follow up with me in 4 weeks. Depression and Anxiety: Feels it did for a while and has had a lot of extra stress so unsure if the abilify is still helping or if its the increase in strength. Recently gets increased anxiety when leaving the house. Only showering once a week. Never did schedule with psychiatry for med management. Sleep: difficulty staying asleep, difficulty falling asleep - even with the trazadone and hydroxyzine. Alcohol use: does not drink any alcohol Drug use: No Appetite: good Stresses: Major stressor: finances and family Suicidal Thoughts: No suicidal ideation, intent or plan Counseling: Sees a psychologist at [facility]. Last seen 3 weeks ago. Myofascial Pain and RLS: Wears a pain patch as ordered by Dr. Agarwal pain mgmt which will run out of soon. Unsure if she can continue to see Dr. Agarwal as she is unable to afford. Has been out of her lyrica the entire weekend. Asthma: Taking advair and montelukast. Still needing the albuterol 3 times a day. Will take when she is coughing and shortness of breath. Does have nighttime symptoms with coughing that she takes OTC robitussin for. Does smoke on average of 1 ppd. REVIEW OF SYSTEMS General: no fevers, no chills, no night sweats, no recurrent infections, no change in appetite, no change in energy, and no significant changes in weight Respiratory: no cough, no wheezing, no shortness of breath, no hemoptysis Cardiovascular: no chest pain, no chest pressure, no palpitations, and no swelling Neurologic: No headache, weakness, numbness, tingling, dizziness, memory loss, syncope. PAST MEDICAL HISTORY Diagnosis Date Anxiety Depressive disorder Dermoid cyst of right ovary 10/15/2015 probable- [facility] Essential hypertension Insomnia Migraines Umbilical hernia 10/15/2015 minimal PAST SURGICAL HISTORY Procedure Laterality Date CT ABDOMEN & PELVIS W/CONT 10/15/15 [facility] HYSTERECTOMY HX still has ovaries TUBAL LIGATION HX ALLERGIES Stadol [Butorphanol Tartrate] MEDICATIONS albuterol HFA (PROVENTIL HFA, VENTOLIN HFA) 90 mcg/actuation inhaler Inhale 2 Puffs as instructed every 4 hours as needed. montelukast (SINGULAIR) 10 mg tablet Take 1 tablet by mouth daily at bedtime. ARIPiprazole (ABILIFY) 2 mg tablet Take 1 tablet by mouth once daily. fluticasone-salmeterol (ADVAIR DISKUS) 100-50 mcg/dose inhaler Inhale 1 Puff as instructed two times a day. Rinse mouth out after use with water. amLODIPine (NORVASC) 10 mg tablet Take 0.5 tablets by mouth once daily. busPIRone (BUSPAR) 15 mg tablet Take 1 tablet by mouth three times daily. potassium chloride (K-TAB) 10 mEq tablet Take 1 tablet by mouth daily with breakfast. pregabalin (LYRICA) 150 mg capsule Take 1 pill 2 times per day. atorvastatin (LIPITOR) 40 mg tablet Take 1 tablet by mouth daily at bedtime. For cholesterol. famotidine (PEPCID) 20 mg tablet Take 1 tablet by mouth twice daily. traZODone (DESYREL) 100 mg tablet Take 3 tablets by mouth daily at bedtime. lisinopril (ZESTRIL) 20 mg tablet Take 1 tablet by mouth once daily. citalopram (CELEXA) 40 mg tablet Take 1 tablet by mouth once daily. rOPINIRole (REQUIP) 0.25 mg tablet TAKE 1 TO 2 TABLETS BY MOUTH 30 MINUTES BEFORE BED. ergocalciferol 50,000 unit capsule (VITAMIN D2, DRISDOL) Take 1 capsule by mouth one time a week. hydrOXYzine HCl (ATARAX) 25 mg tablet Take 1 tablet by mouth three times daily as needed. MELATONIN ORAL Take by mouth. fluticasone (FLONASE) 50 mcg/actuation nasal spray Use 2 Sprays in each nostril once daily. (Patient taking differently: Use 2 Sprays in each nostril as needed.) FAMILY HISTORY Problem Relation Age of Onset Cancer Mother lung other (depression [Other]) Mother Diabetes Father Hypertension Father Cancer Father prostate Heart Father Hypertension Sister Depression Daughter other (epilpsy [Other]) Son Depression Son Attempted Suicide Social History Tobacco Use Smoking status: Every Day Packs/day: 0.50 Years: 6.00 Additional pack years: 0.00 Total pack years: 3.00 Types: Cigarettes Smokeless tobacco: Never Vaping Use Vaping Use: Never used Substance Use Topics Alcohol use: Yes Comment: Occasionally Drug use: No PHYSICAL EXAM BP 140/90 Pulse 68 Resp 16 Wt 100.2 kg (221 lb) SpO2 97% BMI 36.78 kg/m General Appearance: well appearing, in no acute distress, alert Pysch: mood and affect broad and appropriate Skin: Skin color, texture, turgor normal for age; Eyes: conjunctiva pink and moist, no icterus, sclera white, non-injected Lungs: Lungs clear to auscultation. No wheezing, rhonchi, rales. Heart: RRR without murmur, gallop, or rubs. No ectopy Health maintenance reviewed with patient: Pap Testing Never done HPV Testing Never done Colorectal Cancer Screening Never done Pneumococcal Vaccine(2 - PCV) due on 01/22/2017 Shingrix Vaccine(1 of 2) Never done Hepatitis B Vaccine(2 of 3 - 19+ 3-dose series) due on 02/23/2021 Influenza Vaccine(1) due on 07/22/2023 Covid-19 Vaccine(3 - 2022- season) due on 07/22/2023 Mammogram Screening due on 12/16/2023 Annual PCP Team Chronic Disease Visit due on 06/20/2024 BP Controlled (<130/80) due on 06/20/2024 Diabetes Screening due on 06/03/2026 Lipid Screening due on 04/11/2028 DTaP,Tdap,Td Vaccine(2 - Td or Tdap) due on 06/11/2029 Hepatitis C Screening Discontinued HIV Screening Discontinued DATA REVIEWED: No new labs ASSESSMENT/PLAN: 1. Major depressive disorder, recurrent, in remission (HCC) - ICD9: 296.35, ICD10: F33.40 (primary diagnosis) - uncontrolled - increasing abilify. With all her uncontrolled pain, duloxetine should be tried versus celexa. Will start this process at follow up in 4 weeks or earlier - Reviewed concept of neurochemical imbalance [facility] depression/anxiety, treatment options and benefits of counseling in combination with medication. Also reviewed benefits of sleep hygeine, diet and exercise - Instructed patient to contact office or [id number] after-hours promptly should condition worsen or any new symptoms appear. - [facility] and after hours crisis line 2. Anxiety - ICD9: 300.00, ICD10: F41.9 As above 3. Moderate persistent asthma, unspecified whether complicated - ICD9: 493.90, ICD10: J45.40 - Moderate persistent asthma probable. Needs PFTs, will discuss at follow up as anxiety may be increasing shortness of breath as well. - smoking cessation encouraged. - Continue current medications - Avoidance of triggers recommended 5. Restless legs - ICD9: 333.94, ICD10: G25.81 - refilled as requested - ROPINIROLE 0.25 MG TABLET 6. Essential hypertension - ICD9: 401.9, ICD10: I10 - uncontrolled during visit but had been without lyrica for a few days. - return in 2-4 weeks for BP evaluation. - Continue current medications - Recommend home blood pressure monitoring, to bring results to next visit - Encouraged sodium restriction, DASH or Mediterranean diet - Recommend regular aerobic exercise 7. Gastroesophageal reflux disease without esophagitis - ICD9: 530.81, ICD10: K21.9 - not reviewed in visit today. Refill needed - FAMOTIDINE 20 MG TABLET Prescription instructions reviewed with patient as applicable. Potential red flag symptoms discussed with the patient. Reviewed appropriate action plan to take if red flag symptoms occur. Patient agreeable to treatment plan. Lurdes Hankins APRN.CNP documented in this encounter [facility] 08-29-2023 Miscellaneous Notes Patient returned call. Appt has been made as advised. Destini Davis RN Left a message for pt to call the office and ask to speak to a nurse. Emily Lara LPN Patient needs to reschedule missed appointments. She was started on advair and montelukast a few months ago, but seems like she is still needing her albuterol inhaler often. Thank you Lurdes Hankins APRN.TRUDY Patient has been identified by name and date of : No Patient phones for refill(s): Requested Prescriptions Pending Prescriptions Disp Refills albuterol HFA (PROVENTIL HFA, VENTOLIN HFA) 90 mcg/actuation inhaler [Pharmacy Med Name: albuterol sulfate HFA 90 mcg/actuation aerosol inhaler] 18 g 0 Sig: Inhale 2 Puffs as instructed every 4 hours as needed. Date of last office visit in primary care: 06/20/23 Last 2 Encounter Wt Readings: Date: Wt: 06/20/2023 98 kg (216 lb) 04/11/2023 97.5 kg (215 lb) Previous labs/tests for medication: Not applicable Please advise. Thank you. Renea Delgado documented in this encounter [facility] 08-19-2023 Miscellaneous Notes Opened in error Patient calling asking for rx refills, had to cancel appt for today since has diarrhea and sore throat. She ran out of rx last night, rescheduled appt for Wednesday 08/22. Pending rx to file. Please advise Patient has been identified by name and date of : Patient phones for refill(s): Requested Prescriptions Pending Prescriptions Disp Refills montelukast (SINGULAIR) 10 mg tablet 30 tablet 1 Sig: Take 1 tablet by mouth daily at bedtime. ARIPiprazole (ABILIFY) 2 mg tablet 30 tablet 1 Sig: Take 1 tablet by mouth once daily. fluticasone-salmeterol (ADVAIR DISKUS) 100-50 mcg/dose inhaler 1 Each 1 Sig: Inhale 1 Puff as instructed two times a day. Rinse mouth out after use with water. Date of last office visit in primary care: 06/20/2023, has appt 08/22/2023 Last 2 Encounter Wt Readings: Date: Wt: 06/20/2023 98 kg (216 lb) 04/11/2023 97.5 kg (215 lb) Previous labs/tests for medication: Not applicable Please advise. Thank you. Merry Kramer LPN documented in this encounter [facility] 08-01-2023 Miscellaneous Notes Patient has been identified by name and date of : Yes Patient phones for refill(s): Requested Prescriptions Pending Prescriptions Disp Refills amLODIPine (NORVASC) 10 mg tablet 45 tablet 3 Sig: Take 0.5 tablets by mouth once daily. Date of last office visit in primary care: 06/20/2023 4 week follow-up: 08/05/2023 Last 2 Encounter Wt Readings: Date: Wt: 06/20/2023 98 kg (216 lb) 04/11/2023 97.5 kg (215 lb) Previous labs/tests for medication: Blood Pressure: BUN (mg/dL) Date Value 06/03/2023 9 01/06/2022 6 Sodium (mmol/L) Date Value 06/03/2023 142 01/06/2022 141 Last 1 Encounter BP Readings: Date: BP: 06/20/2023 118/78 Please advise. Thank you. Amy Mcfarland LPN Patient has been identified by name and date of : Yes Last office visit in this department: 06/20/2023 RX INSTRUCTIONS: Patient aware RX will be sent to pharmacy. No need to notify patient. Patient phones requesting refills as follows: Requested Prescriptions Pending Prescriptions Disp Refills amLODIPine (NORVASC) 10 mg tablet 45 tablet 3 Sig: Take 0.5 tablets by mouth once daily. Please review and advise. Jackeline Valerio documented in this encounter [facility] 07-11-2023 Miscellaneous Notes Patient has been identified by name and date of : No Patient phones for refill(s): Requested Prescriptions Pending Prescriptions Disp Refills busPIRone (BUSPAR) 15 mg tablet 90 tablet 5 Sig: Take 1 tablet by mouth three times daily. Date of last office visit in primary care: 06/20/23 Last 2 Encounter Wt Readings: Date: Wt: 06/20/2023 98 kg (216 lb) 04/11/2023 97.5 kg (215 lb) Previous labs/tests for medication: Not applicable Please advise. Thank you. Renea Robles LPN Patient has been identified by name and date of : Yes Last office visit in this department: 06/20/2023 RX INSTRUCTIONS: Patient aware RX will be sent to pharmacy. No need to notify patient. Patient phones requesting refills as follows: Requested Prescriptions Pending Prescriptions Disp Refills busPIRone (BUSPAR) 15 mg tablet 90 tablet 5 Sig: Take 1 tablet by mouth three times daily. Please review and advise. Shannon Cotton documented in this encounter [facility] 06-27-2023 Note HNO ID: [id number] Author: Andressa Magaña LPCC Service: ? Author Type: Therapist Type: Progress Notes Filed: 06/27/2023 8:57 AM Note Text: Behavioral Health Social Work Progress Note Patient identified for [facility] from: PCP Reason for referral: [facility] Behavioral Health Resources: Psychiatry med management, Psychology - talk therapy [facility] encounter type: MyChart Message Attempts to Outreach: 3 attempts Referral made: Psychiatry - Internal, Psychology - Internal, Psychiatry - External, Psychology - External Psychiatry-Internal referral type: Medication Management Psychology-Internal referral type: Therapy Psychology-External referral type: Therapy Psychiatry-External referral type: Medication Management Reason for external referral: Patient choice, Wait times at [facility] too long Final Disposition: Resources given Patient Discharged?: Yes Patient reported that caregiver was able to meet their needs today?: N/A therapist sent patient MyChart follow up message offering assistance with linkage to behavioral health services. BREANA Boyle June 27, 2023 [facility] 06-27-2023 History of Present illness Narrative Behavioral Health Social Work Progress Note Patient identified for [facility] from: PCP Reason for referral: Resources Behavioral Health Resources: Psychiatry med management, Psychology - talk therapy [facility] encounter type: MyChart Message Attempts to Outreach: 3 attempts Referral made: Psychiatry - Internal, Psychology - Internal, Psychiatry - External, Psychology - External Psychiatry-Internal referral type: Medication Management Psychology-Internal referral type: Therapy Psychology-External referral type: Therapy Psychiatry-External referral type: Medication Management Reason for external referral: Patient choice, Wait times at [facility] too long Final Disposition: Resources given Patient Discharged?: Yes Patient reported that caregiver was able to meet their needs today?: N/A therapist sent patient [facility] follow up message offering assistance with linkage to behavioral health services. BREANA Boyle June 27, 2023 documented in this encounter [facility] 06-20-2023 Note HNO ID: [id number] Author: Rajni Paniagua RT(R) Service: Radiology Author Type: Technologist Type: Progress Notes Filed: 06/20/2023 11:14 AM Note Text: Radiology Service Progress Note PATIENT NAME: Mariangel Robertson DATE OF SERVICE: June 20, 2023 TIME: 11:07 AM PATIENT IDENTITY VERIFICATION COMPLETED USING TWO (2) IDENTIFIERS: Name and Date of confirmed by patient verbally. FALL SCREENING: Has the patient had 2 falls in the last year or 1 fall with injury or currently using an Ambulatory Assistive Device (Walker, Cane, Wheelchair, Crutches, etc.)? No PATIENT GENDER DATA: Female. status: : No status: NO. PATIENT RELEVANT IMPLANT DATA REVIEWED: Yes RADIOLOGY DEPARTMENT: General X-ray: Exam(s) Completed: Chest X-Ray PERIPHERAL IV DATA: Not applicable SIGNED BY: RT Amy(R) June 20, 2023 11:07 AM [facility] 06-20-2023 Miscellaneous Notes Behavioral Health Social Work Progress Note Patient identified for [facility] from: PCP Reason for referral: Resources Behavioral Health Resources: Psychology - talk therapy, Psychiatry med management [facility] encounter type: Telephone Encounter Attempts to Outreach: 1 attempt Patient Discharged?: No Patient reported that caregiver was able to meet their needs today?: N/A Phone call placed today that went to Mic[facility]. Left my contact information and brief nature of call. Initial outreach also completed via [facility] sending list of in network providers with insurance. BREANA Boyle June 20, 2023 documented in this encounter [facility] 06-20-2023 Note HNO ID: [id number] Author: Lurdes Hankins APRN.EXECUTIVE KITCHEN MANAGER Service: ? Author Type: Nurse Practitioner Type: Progress Notes Filed: 06/23/2023 8:03 AM Note Text: Con beh CC: Patient presents with: Recheck: 2 month follow up HPI Mariangel Robertson is a 52 year old female who presents today for follow up on kidney function and symptom resulting in previous ER visit. Kidney function improving after stopping pantoprazole and was switched to famotidine. Does still take 3 ibuprofen a day. Heartburn and reflux controlled with famotidine. Denies abdominal pain, difficulty swallowing or nausea. Recent ER visit for chest pain, swelling, and shortness of breath. Saw cardiology recently and had a normal stress test. Edema and chest pain resolved. Still with intermittent dyspnea on exertion which is also improving. History of asthma and is a smoker of 1ppd. Takes her albuterol inhaler at least 3 times a day when Short of breath which resolves her issue. Over the last week she has needed it every 4 hours. Denies fever chills or wheezing but does have an intermittent non productive cough. Is a chronic cigarette smoker and with stress in life has increased amount she is smoking. Was recently on steroid taper in April for chronic back pain but did not notice change in her breathing. Does use flonase every day for chronic sinus drainage. Depression and anxiety: Feels very uncontrolled at this time. Sleep: difficulty staying asleep even with the trazadone. Alcohol use: does not drink any alcohol Drug use: No Appetite: poor Stresses: Major stressor: Husbands and her own health Suicidal Thoughts: Thoughts of how life might be easier for others if is she gone, but not suicide or harming herself or even . Support: Comes from multiple sources including Counseling: No, not currently - has done outpatient treatment previously. Has been on Wellbutrin Effexor, and Zoloft in the past which either never helped or stopped working after a few years. REVIEW OF SYSTEMS General: no fevers, no chills, no night sweats, no recurrent infections, no change in appetite, no change in energy, and no significant changes in weight Respiratory: no wheezing, no hemoptysis Cardiovascular: no chest pain, no chest pressure, no palpitations, and no swelling Neurologic: No headache, weakness, numbness, tingling, dizziness, memory loss, syncope. CP PHQ9 06/20/2023 Little interest or pleasure 3 - Nearly every day Feeling down, depressed, hopeless 3 - Nearly every day Trouble falling or staying asleep, sleeping too much 3 - nearly every day Feeling tired, having little energy 3 - Nearly every day Poor appetite or overeating 3 - Nearly every day Feeling bad about yourself, failure or you have let yourself/family down 3 - Nearly every day Trouble concentrating on things 3 - Nearly every day Moving or speaking so slowly, or fidgety or restless 2 - More than half the days Thoughts that you would be better off , or of hurting yourself in some way 0 - Not at all How difficult have these problems made things Very difficult Interpretation of Total Score 20-27 Severe depression DACIA-7 ANXIETY SCALE 06/20/2023 FEELING NERVOUS,ANXIOUS,OR ON EDGE 3 Nearly every day NOT BEING ABLE TO STOP OR CONTROL WORRYING 3 Nearly every day WORRYING TOO MUCH ABOUT DIFFERENT THINGS 3 Nearly every day TROUBLE RELAXING 3 Nearly every day BEING SO RESTLESS THAT IT'S HARD TO SIT STILL 1 Several days BEING EASILY ANNOYED OR IRRITABLE 3 Nearly every day FEELING AFRAID IF SOMETHING AWFUL MIGHT HAPPEN 3 Nearly every day GAD7 SCORE 19 IF YOU CHECKED OFF ANY PROBLEMS Extremely difficult PAST MEDICAL HISTORY Diagnosis Date Anxiety Depressive disorder Dermoid cyst of right ovary 10/15/2015 probable- [facility] Essential hypertension Insomnia Migraines Umbilical hernia 10/15/2015 minimal PAST SURGICAL HISTORY Procedure Laterality Date CT ABDOMEN AND PELVIS W/CONT 10/15/15 [facility] HYSTERECTOMY HX still has ovaries TUBAL LIGATION HX ALLERGIES Stadol [Butorphanol Tartrate] MEDICATIONS albuterol HFA (PROAIR HFA) 90 mcg/actuation inhaler Inhale 2 Puffs as instructed every 4 hours as needed. pregabalin (LYRICA) 150 mg capsule Take 1 pill 2 times per day. atorvastatin (LIPITOR) 40 mg tablet Take 1 tablet by mouth daily at bedtime. For cholesterol. famotidine (PEPCID) 20 mg tablet Take 1 tablet by mouth twice daily. traZODone (DESYREL) 100 mg tablet Take 3 tablets by mouth daily at bedtime. lisinopril (ZESTRIL) 20 mg tablet Take 1 tablet by mouth once daily. citalopram (CELEXA) 40 mg tablet Take 1 tablet by mouth once daily. rOPINIRole (REQUIP) 0.25 mg tablet TAKE 1 TO 2 TABLETS BY MOUTH 30 MINUTES BEFORE BED. ergocalciferol 50,000 unit capsule (VITAMIN D2, DRISDOL) Take 1 capsule by mouth one time a week. tiZANidine (ZANAFLEX) 4 mg tablet Take 1 tablet by mouth daily at bedtime. hydrOXYzine HCl (ATARAX) 25 mg (more content not included)... [facility] 06-20-2023 Instructions Lurdes Hankins APRN.CNP - 06/20/2023 10:27 AM EDT Call in 3-5 days of no improvement in shortness of breath or decrease in usage of albuterol. documented in this encounter [facility] 06-20-2023 History of Present illness Narrative Con beh CC: Patient presents with: Recheck: 2 month follow up HPI Mariangel Robertson is a 52 year old female who presents today for follow up on kidney function and symptom resulting in previous ER visit. Kidney function improving after stopping pantoprazole and was switched to famotidine. Does still take 3 ibuprofen a day. Heartburn and reflux controlled with famotidine. Denies abdominal pain, difficulty swallowing or nausea. Recent ER visit for chest pain, swelling, and shortness of breath. Saw cardiology recently and had a normal stress test. Edema and chest pain resolved. Still with intermittent dyspnea on exertion which is also improving. History of asthma and is a smoker of 1ppd. Takes her albuterol inhaler at least 3 times a day when Short of breath which resolves her issue. Over the last week she has needed it every 4 hours. Denies fever chills or wheezing but does have an intermittent non productive cough. Is a chronic cigarette smoker and with stress in life has increased amount she is smoking. Was recently on steroid taper in April for chronic back pain but did not notice change in her breathing. Does use flonase every day for chronic sinus drainage. Depression and anxiety: Feels very uncontrolled at this time. Sleep: difficulty staying asleep even with the trazadone. Alcohol use: does not drink any alcohol Drug use: No Appetite: poor Stresses: Major stressor: Husbands and her own health Suicidal Thoughts: Thoughts of how life might be easier for others if is she gone, but not suicide or harming herself or even . Support: Comes from multiple sources including Counseling: No, not currently - has done outpatient treatment previously. Has been on Wellbutrin Effexor, and Zoloft in the past which either never helped or stopped working after a few years. REVIEW OF SYSTEMS General: no fevers, no chills, no night sweats, no recurrent infections, no change in appetite, no change in energy, and no significant changes in weight Respiratory: no wheezing, no hemoptysis Cardiovascular: no chest pain, no chest pressure, no palpitations, and no swelling Neurologic: No headache, weakness, numbness, tingling, dizziness, memory loss, syncope. CP PHQ9 06/20/2023 Little interest or pleasure 3 - Nearly every day Feeling down, depressed, hopeless 3 - Nearly every day Trouble falling or staying asleep, sleeping too much 3 - nearly every day Feeling tired, having little energy 3 - Nearly every day Poor appetite or overeating 3 - Nearly every day Feeling bad about yourself, failure or you have let yourself/family down 3 - Nearly every day Trouble concentrating on things 3 - Nearly every day Moving or speaking so slowly, or fidgety or restless 2 - More than half the days Thoughts that you would be better off , or of hurting yourself in some way 0 - Not at all How difficult have these problems made things Very difficult Interpretation of Total Score 20-27 Severe depression DACIA-7 ANXIETY SCALE 06/20/2023 FEELING NERVOUS,ANXIOUS,OR ON EDGE 3 Nearly every day NOT BEING ABLE TO STOP OR CONTROL WORRYING 3 Nearly every day WORRYING TOO MUCH ABOUT DIFFERENT THINGS 3 Nearly every day TROUBLE RELAXING 3 Nearly every day BEING SO RESTLESS THAT IT'S HARD TO SIT STILL 1 Several days BEING EASILY ANNOYED OR IRRITABLE 3 Nearly every day FEELING AFRAID IF SOMETHING AWFUL MIGHT HAPPEN 3 Nearly every day GAD7 SCORE 19 IF YOU CHECKED OFF ANY PROBLEMS Extremely difficult PAST MEDICAL HISTORY Diagnosis Date Anxiety Depressive disorder Dermoid cyst of right ovary 10/15/2015 probable- [facility] Essential hypertension Insomnia Migraines Umbilical hernia 10/15/2015 minimal PAST SURGICAL HISTORY Procedure Laterality Date CT ABDOMEN & PELVIS W/CONT 10/15/15 [facility] HYSTERECTOMY HX still has ovaries TUBAL LIGATION HX ALLERGIES Stadol [Butorphanol Tartrate] MEDICATIONS albuterol HFA (PROAIR HFA) 90 mcg/actuation inhaler Inhale 2 Puffs as instructed every 4 hours as needed. pregabalin (LYRICA) 150 mg capsule Take 1 pill 2 times per day. atorvastatin (LIPITOR) 40 mg tablet Take 1 tablet by mouth daily at bedtime. For cholesterol. famotidine (PEPCID) 20 mg tablet Take 1 tablet by mouth twice daily. traZODone (DESYREL) 100 mg tablet Take 3 tablets by mouth daily at bedtime. lisinopril (ZESTRIL) 20 mg tablet Take 1 tablet by mouth once daily. citalopram (CELEXA) 40 mg tablet Take 1 tablet by mouth once daily. rOPINIRole (REQUIP) 0.25 mg tablet TAKE 1 TO 2 TABLETS BY MOUTH 30 MINUTES BEFORE BED. ergocalciferol 50,000 unit capsule (VITAMIN D2, DRISDOL) Take 1 capsule by mouth one time a week. tiZANidine (ZANAFLEX) 4 mg tablet Take 1 tablet by mouth daily at bedtime. hydrOXYzine HCl (ATARAX) 25 mg tablet Take 1 tablet by mouth three times daily as needed. busPIRone (BUSPAR) 15 mg tablet Take 1 tablet by mouth three times daily. potassium chloride (K-TAB) 10 mEq tablet Take 1 tablet by mouth daily with breakfast. amLODIPine (NORVASC) 10 mg tablet Take 0.5 tablets by mouth once daily. MELATONIN ORAL Take by mouth. fluticasone (FLONASE) 50 mcg/actuation nasal spray Use 2 Sprays in each nostril once daily. (Patient taking differently: Use 2 Sprays in each nostril as needed.) FAMILY HISTORY Problem Relation Age of Onset Cancer Mother lung other (depression [Other]) Mother Diabetes Father Hypertension Father Cancer Father prostate Heart Father Hypertension Sister Depression Daughter other (epilpsy [Other]) Son Depression Son Attempted Suicide Social History Tobacco Use Smoking status: Every Day Packs/day: 0.50 Years: 6.00 Total pack years: 3.00 Types: Cigarettes Smokeless tobacco: Never Vaping Use Vaping Use: Never used Substance Use Topics Alcohol use: Yes Comment: Occasionally Drug use: No PHYSICAL EXAM BP 118/78 Pulse 80 Temp 36.7 C (98 F) (Temporal) Resp 16 Wt 98 kg (216 lb) SpO2 94% BMI 35.94 kg/m General Appearance: well appearing, in no acute distress, alert Pysch: mood and affect broad and appropriate Skin: Skin color, texture, turgor normal for age; Ears: external ears normal to inspection and palpation, canals clear Lungs: Lungs clear to auscultation. No wheezing, rhonchi, rales. Heart: RRR without murmur, gallop, or rubs. No ectopy Health maintenance reviewed with patient: HEPATITIS B(1 of 3 - 3-dose series) Never done BP CONTROLLED (<130/80) Never done PAP TESTING Never done HPV TESTING Never done COLORECTAL CANCER SCREENING Never done PNEUMOCOCCAL(2 - PCV) due on 01/22/2017 SHINGRIX VACCINE(1 of 2) Never done COVID-19 VACCINE(3 - Pfizer series) due on 05/01/2021 INFLUENZA(1) due on 07/22/2023 MAMMOGRAM due on 12/16/2023 ANNUAL PCP TEAM CHRONIC DISEASE VISIT due on 04/04/2024 DIABETES SCREEN due on 06/03/2026 LIPID SCREEN due on 04/11/2028 DTAP,TDAP,TD(2 - Td or Tdap) due on 06/11/2029 HEPATITIS C SCREENING Discontinued HIV SCREENING Discontinued DATA REVIEWED: No new labs ASSESSMENT/PLAN: 1. Dyspnea on exertion - ICD9: 786.09, ICD10: R06.09 (primary diagnosis) - patient not wanting steroid burst at this time. - will start on singulair, and advair. With worsening of symptoms will recheck chest xray. Will need to discuss PFTs and pulmonary consult at follow up appointment. - XR CHEST 2V FRONTAL/LAT 2. Tobacco abuse disorder - ICD9: 305.1, ICD10: Z72.0 - Cessation encouraged. - Physiologic and physical aspects of tobacco addiction as well as strategies for quitting were discussed. - Counseling was given focusing on the harmful effects of this addiction especially given the patient's medical condition(s) which will be worsened because of the chemicals in tobacco. 3. Major depressive disorder, recurrent, in remission (HCC) - ICD9: 296.35, ICD10: F33.40 - uncontrolled. - adding Abilify and needs to see psychiatry. - CONSULT TO PRIMARY [facility] ADULT - Reviewed concept of neurochemical imbalance wth depression/anxiety, treatment options and benefits of counseling in combination with medication. Also reviewed benefits of sleep hygeine, diet and exercise - Instructed patient to contact office or [id number] after-hours promptly should condition worsen or any new symptoms appear. - [facility] and after hours crisis line 4. Anxiety - ICD9: 300.00, ICD10: F41.9 As above - CONSULT TO [facility] 5. PTSD (post-traumatic stress disorder) - ICD9: 309.81, ICD10: F43.10 See 33 - CONSULT TO [facility] 6. Acute renal insufficiency - ICD9: 593.9, ICD10: N28.9 - improving, will continue with holding pantoprazole. Prescription instructions reviewed with patient as applicable. Potential red flag symptoms discussed with the patient. Reviewed appropriate action plan to take if red flag symptoms occur. Patient agreeable to treatment plan. Lurdes Hankins APRN.TRUDY documented in this encounter [facility] 06-17-2023 Miscellaneous Notes Per patient's My Chart message 06/17/23: I was just wondering I put in a request for a refill on my inhaler. Is that gonna be called in before end of day today? I m down to like 9!puffs. Thank you Patient phones requesting refills as follows: Requested Prescriptions Pending Prescriptions Disp Refills albuterol HFA (PROAIR HFA) 90 mcg/actuation inhaler 1 Each 0 Sig: Inhale 2 Puffs as instructed every 4 hours as needed. Amberly Fournier LPN documented in this encounter [facility] 06-15-2023 Miscellaneous Notes Form completed, ready to picker box operator in Medical Records. Forms filled out. Thank you Lurdes Hankins APRN.TRUDY Forms received, placed on Lurdes's desk. Lurdes is out of office through 06/16. We have not received the fax forms at this time, have ask patient to have them refax papers. Renea Robles LPN Rec'd? documented in this encounter [facility] 06-13-2023 Note HNO ID: [id number] Author: Heather Cohen RN Service: ? Author Type: Registered Nurse Type: Progress Notes Filed: 06/14/2023 7:59 AM Note Text: RADIOLOGY SERVICE PROGRESS NOTE SERVICE DATE: 06/13/2023 SERVICE TIME: 0845 PATIENT IDENTITY VERIFICATION COMPLETED USING TWO (2) METHODS: Patient confirmed name and Date of verbally. ALLERGIES AND MEDICATIONS REVIEWED BY: Heather Cohen RN PROCEDURE TYPE: NM STRESS: 0.4 mg of Lexiscan was administered IV at 0857 over 10 Seconds by Heather Cohen RN Reversal agent used:None LOT [id number] EXP 07/22/26 IV SITE: IV palced by nuclear tecnologist POST EXAM PIV STATUS: Discontinued by Oil Furnace Installer PATIENT DISCHARGED TO: Nuclear Medicine Department for post stress imaging A Diagnostic radioactive procedure has taken place, with no further precautions necessary other than routine body substance precautions. More information regarding radiation safety can be found using this link: [email or web address] [email or web address] SIGNATURE: Heather Cohen RN PATIENT NAME:Mariangel Robertson DATE: 06/13/23 TIME: 10:31 AM [facility] 06-13-2023 Note HNO ID: [id number] Author: Adelaida Sheridan RT(R) Service: Nuclear Medicine Author Type: Technologist Type: Progress Notes Filed: 06/13/2023 9:35 AM Note Text: RADIOLOGY SERVICE PROGRESS NOTE SERVICE DATE: 06/13/2023 SERVICE TIME: 07:35 AM PATIENT IDENTITY VERIFICATION COMPLETED USING TWO (2) STANDARD IDENTIFIERS: Name and Date of confirmed by patient verbally FALL SCREENING: Has the patient had 2 falls in the last year or 1 fall with injury or currently using an Ambulatory Assistive Device (Walker, Cane, Wheelchair, Crutches, etc.)? No PATIENT GENDER DATA: .female : No status: No ALLERGIES: Reviewed and unchanged MEDICATIONS REVIEWED: Yes PATIENT RELEVANT IMPLANT DATA REVIEWED: Not Applicable CREATININE: Creatinine Date Value Ref Range Status 06/03/2023 0.96 0.58 - 0.96 mg/dL Final 05/05/2023 0.95 0.58 - 0.96 mg/dL Final 04/11/2023 1.25 (H) 0.58 - 0.96 mg/dL Final Estimated Glomerular Filtration Rate Date Value Ref Range Status 06/03/2023 71 >=60 mL/min/1.73m? Final Comment: Estimated Glomerular Filtration Rate (eGFR) is calculated using the 2020 CKD-EPI creatinine equation. This equation utilizes serum creatinine, sex, and age as parameters. The creatinine assay has traceable calibration to isotope dilution-mass spectrometry. Refer to KDIGO guidelines for clinical interpretation. In patients with unstable renal function, e.g. those with acute kidney injury, the eGFR may not accurately reflect actual GFR. eGFR- Date Value Ref Range Status 01/06/2022 >60 Final P.O.C.T. RESULTS: N/A June 13, [address] PERFORMED: No IV SITE: Ambulatory: A peripheral IV was started in the Right antecubital site with a Angio cath: 22 gauge. POST EXAM PIV STATUS: Discontinued PROCEDURE TYPE: NV Stress: 14.8 mCi [id number] was administered IV for Rest Imaging at 07:46 by Adelaida Sheridan. 48.6 mCi [id number] was administered IV for Stress Imaging at 08:57 by Adelaida Sheridan. ADMINISTRATION TIME: PATIENT DISCHARGED TO: Ambulatory patient, left NV department area. A Diagnostic radioactive procedure has taken place, with no further precautions necessary other than routine body substance precautions. More information regarding radiation safety can be found using this link: [email or web address]%20Medi [email or web address] SIGNATURE: RT Lala(R) PATIENT NAME: Mariangel Robertson DATE: June 13, 2023 TIME: 9:34 AM PAGER/CONTACT #: [facility] 06-13-2023 Miscellaneous Notes Please call patient and notify her of results. Stress testing is without inducible ischemia. Thank you! documented in this encounter [facility] 06-13-2023 History of Present illness Narrative RADIOLOGY SERVICE PROGRESS NOTE SERVICE DATE: 06/13/2023 SERVICE TIME: 07:35 AM PATIENT IDENTITY VERIFICATION COMPLETED USING TWO (2) STANDARD IDENTIFIERS: Name and Date of confirmed by patient verbally FALL SCREENING: Has the patient had 2 falls in the last year or 1 fall with injury or currently using an Ambulatory Assistive Device (Walker, Cane, Wheelchair, Crutches, etc.)? No PATIENT GENDER DATA: .female : No status: No ALLERGIES: Reviewed and unchanged MEDICATIONS REVIEWED: Yes PATIENT RELEVANT IMPLANT DATA REVIEWED: Not Applicable CREATININE: Creatinine Date Value Ref Range Status 06/03/2023 0.96 0.58 - 0.96 mg/dL Final 05/05/2023 0.95 0.58 - 0.96 mg/dL Final 04/11/2023 1.25 (H) 0.58 - 0.96 mg/dL Final Estimated Glomerular Filtration Rate Date Value Ref Range Status 06/03/2023 71 >=60 mL/min/1.73m Final Comment: Estimated Glomerular Filtration Rate (eGFR) is calculated using the 2020 CKD-EPI creatinine equation. This equation utilizes serum creatinine, sex, and age as parameters. The creatinine assay has traceable calibration to isotope dilution-mass spectrometry. Refer to KDIGO guidelines for clinical interpretation. In patients with unstable renal function, e.g. those with acute kidney injury, the eGFR may not accurately reflect actual GFR. eGFR- Date Value Ref Range Status 01/06/2022 >60 Final P.O.C.T. RESULTS: N/A June 13, [address] PERFORMED: No IV SITE: Ambulatory: A peripheral IV was started in the Right antecubital site with a Angio cath: 22 gauge. POST EXAM PIV STATUS: Discontinued PROCEDURE TYPE: NM Stress: 14.8 mCi [id number]-[id number] was administered IV for Rest Imaging at 07:46 by Adelaida Sheridan. 48.6 mCi [id number] was administered IV for Stress Imaging at 08:57 by Adelaida Sheridan. ADMINISTRATION TIME: PATIENT DISCHARGED TO: Ambulatory patient, left NV department area. A Diagnostic radioactive procedure has taken place, with no further precautions necessary other than routine body substance precautions. More information regarding radiation safety can be found using this link: [email or web address] %[email or web address] SIGNATURE: RT Lala(R) PATIENT NAME: Mariangel Robertson DATE: June 13, 2023 TIME: 9:34 AM PAGER/CONTACT #: documented in this encounter [facility] 05-26-2023 Miscellaneous Notes Pt notified of lab orders. She states she is feeling somewhat better. She is scheduled for stress test 06/13. She will have lab work done and keep appt as planned. Emily Banks Blood work ordered. If symptoms worsen or persist she will need to be evaluated in the ER Stefanie Solis MD Mariangel called. She was evaluated by Dr. Solis in March for chest pain and was ordered a stress test, it is scheduled for June 13, 2023. For the last 3 weeks she has noticed that her legs and ankles are swelling, she is having increased shortness of breath and cannot lay flat and she is having abdominal pain that is somewhat relieved by taking Gas-X. She is asking what she should do. Patient was advised to be evaluated at the emergency room. She voiced understanding. I advised that I would forward a message to Dr. Solis, so he is aware. Karma Uribe RN documented in this encounter [facility] 05-12-2023 Miscellaneous Notes Patient has been identified by name and date of : Yes Patient phones for refill(s): Requested Prescriptions Pending Prescriptions Disp Refills albuterol HFA (PROAIR HFA) 90 mcg/actuation inhaler Sig: Inhale 2 Puffs as instructed every 4 hours as needed. Date of last office visit in primary care: 04/04/2023 Next appointment scheduled 06/20/2023 Please advise. Thank you. Jamaica Bah LPN documented in this encounter [facility] 04-11-2023 Note HNO ID: [id number] Author: Stefanie Solis MD Service: ? Author Type: Physician Type: Progress Notes Filed: 04/11/2023 9:26 AM Note Text: [facility] Cardiology ([facility]) [address] [id number] OUTPATIENT VISIT DATE 04/11/2023 PRIMARY CARE PHYSICIAN: Uche Bryan [address] [place] [address] CHIEF COMPLAINT: Chest pain HISTORY OF PRESENT ILLNESS: Ms. Robertson is a 52 year old woman with a history of hypertension, dyslipidemia, strong family history of premature coronary disease, and ongoing smoking who is referred for evaluation of chest pain. Patient describes occasional episodes of chest pain radiating to her left arm and down her back. Its not necessarily related to exertion. It can happen intermittently. She does have shortness of breath on exertion which been a chronic problem. She had lower extremity edema which seem to resolve when she decreased her amlodipine to 5 mg daily. She has no other symptoms concerning for congestive heart failure including PND or orthopnea. She has occasional episodes of heart racing which are nonexertional. They tend to be brief and self-limited and rare. PAST MEDICAL HISTORY Diagnosis Date Anxiety Depressive disorder Dermoid cyst of right ovary 10/15/2015 probable- [facility] Essential hypertension Insomnia Migraines Umbilical hernia 10/15/2015 minimal PAST SURGICAL HISTORY Procedure Laterality Date CT ABDOMEN AND PELVIS W/CONT 10/15/15 [facility] HYSTERECTOMY HX still has ovaries TUBAL LIGATION HX SOCIAL HISTORY Social History Tobacco Use Smoking status: Every Day Packs/day: 0.50 Years: 6.00 Pack years: 3.00 Types: Cigarettes Smokeless tobacco: Never Vaping Use Vaping Use: Never used Substance Use Topics Alcohol use: Yes Comment: Occasionally Drug use: No FAMILY HISTORY Problem Relation Age of Onset Cancer Mother lung other (depression [Other]) Mother Diabetes Father Hypertension Father Cancer Father prostate Heart Father Hypertension Sister Depression Daughter other (epilpsy [Other]) Son Depression Son Attempted Suicide ALLERGIES: ALLERGIES Allergen Reactions Stadol [Butorphanol* Intolerance tachycardia MEDICATIONS: famotidine (PEPCID) 20 mg tablet Take 1 tablet by mouth twice daily. traZODone (DESYREL) 100 mg tablet Take 3 tablets by mouth daily at bedtime. lisinopril (ZESTRIL) 20 mg tablet Take 1 tablet by mouth once daily. citalopram (CELEXA) 40 mg tablet Take 1 tablet by mouth once daily. rOPINIRole (REQUIP) 0.25 mg tablet TAKE 1 TO 2 TABLETS BY MOUTH 30 MINUTES BEFORE BED. ergocalciferol 50,000 unit capsule (VITAMIN D2, DRISDOL) Take 1 capsule by mouth one time a week. pregabalin (LYRICA) 150 mg capsule Take 1 capsule by mouth once daily. Prescribed by pain management tiZANidine (ZANAFLEX) 4 mg tablet Take 1 tablet by mouth daily at bedtime. hydrOXYzine HCl (ATARAX) 25 mg tablet Take 1 tablet by mouth three times daily as needed. atorvastatin (LIPITOR) 20 mg tablet Take 1 tablet by mouth daily at bedtime. For cholesterol. busPIRone (BUSPAR) 15 mg tablet Take 1 tablet by mouth three times daily. potassium chloride (K-TAB) 10 mEq tablet Take 1 tablet by mouth daily with breakfast. amLODIPine (NORVASC) 10 mg tablet Take 0.5 tablets by mouth once daily. MELATONIN ORAL Take by mouth. fluticasone (FLONASE) 50 mcg/actuation nasal spray Use 2 Sprays in each nostril once daily. (Patient taking differently: Use 2 Sprays in each nostril as needed.) albuterol HFA (PROAIR HFA) 90 mcg/actuation inhaler Inhale 2 Puffs as instructed every 4 hours as needed. REVIEW OF SYSTEMS: Review of Systems Constitutional: Negative for chills, fever, malaise/fatigue and weight loss. HENT: Negative for hearing loss and sore throat. Eyes: Negative for blurred vision and double vision. Respiratory: Negative. Cardiovascular: Negative. Genitourinary: Negative for dysuria, frequency, hematuria and urgency. Musculoskeletal: Negative. Skin: Negative. Neurological: Negative for dizziness, seizures, loss of consciousness, weakness and headaches. Endo/Heme/Allergies: Negative for environmental allergies. Does not bruise/bleed easily. Psychiatric/Behavioral: Negative for depression. PHYSICAL EXAMINATION: BP 110/80 Pulse 85 Wt 215 lb (97.5kg) SpO2 98% General: Pleasant woman sitting comfortable no apparent distress. She is alert and oriented x3 HEENT: Carotid upstrokes are brisk without bruits no JVD appreciated. Pulmonary: Lungs are clear no rales, wheezes, rhonchi Cardiovascular: Normal S1, S2 with regular rate and rhythm. No murmurs, rubs, or gallops Extremities: Warm, well-perfused, no lower extremity edema. 2+ distal pulses. CARDIOVASCULAR MEDICINE TESTING: ECG in the office 04/11/2023: Normal sinu (more content not included)... [facility] 04-04-2023 Note HNO ID: [id number] Author: Uche Bryan MD Service: ? Author Type: Physician Type: Progress Notes Filed: 04/04/2023 1:06 PM Note Text: Reason for Visit Patient presents with: F/U HTN 3 Month Mariangel Robertson is a 52 year old female who presents here today for Above Complaints.. Health Maintenance HEPATITIS B(1 of 3 - 3-dose series) PAP TESTING HPV TESTING COLORECTAL CANCER SCREENING PNEUMOCOCCAL(2 - PCV) SHINGRIX VACCINE(1 of 2) COVID-19 VACCINE(3 - Booster for Pfizer series) HPI Concerns with low gfr and raised creat and bun. She reports drinking 8 bottles of 16 ounces of water each. Asked her to reduce water to 64 ounces. As it appears she is taking double the amount She was taking around 4 tablets of 200 mgs of motrin every day units until recently for pain which she stopped since a week US of the kidney was done, it was completely normal. She is with pain management at this time for pain relief and is on tramadol 2/3 pills a day, along with lyrical and zanaflex.She is on protonix. Reports feeling tired all the time, when she wakes up in the morning she is tired , never feels rested, Does sleep for 7 to 8 hours a night but even then does not feel rested. Does not know if she snores. Does have restless legs Did has a sleep test 6 years ago or so says it was negative per patient report. Has insomnia and takes trazodone to help her sleep. She is obese with bmi of 35, along with hypertension which seems to be well controlled. A week ago she had labs, which were all normal including the hba1c which is 5.1 HTN: BP controlled today. Checks BP at home. Compliant with medications. Denies any chest pain, palpitations, SOB, swelling in the feet. Careful with diet to avoid salt, trying to eat more fruits and vegetables, exercises regularly She takes 300 mgs at night, other lujan she does not get any sleep, asked her to consider quitting smoking and Drinking less caffeine. Encouraged daily exercise. 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 No problem-specific Assessment AND Plan notes found for this encounter. PAST MEDICAL HISTORY Diagnosis Date Anxiety Depressive disorder Dermoid cyst of right ovary 10/15/2015 probable- [facility] Essential hypertension Insomnia Migraines Umbilical hernia 10/15/2015 minimal PAST SURGICAL HISTORY Procedure Laterality Date CT ABDOMEN AND PELVIS W/CONT 10/15/15 [facility] HYSTERECTOMY HX still has ovaries TUBAL LIGATION HX FAMILY HISTORY Problem Relation Age of Onset Cancer Mother lung other (depression [Other]) Mother Diabetes Father Hypertension Father Cancer Father prostate Heart Father Hypertension Sister Depression Daughter other (epilpsy [Other]) Son Depression Son Attempted Suicide Social History Tobacco Use Smoking status: Every Day Packs/day: 0.50 Years: 6.00 Pack years: 3.00 Types: Cigarettes Smokeless tobacco: Never Vaping Use Vaping Use: Never used Substance Use Topics Alcohol use: Yes Comment: Occasionally Drug use: No Past medical history, appointments, medications, allergies reviewed. Pertinent Lab/Diagnostic Studies are reviewed and discussed today Current Outpatient Medications: ergocalciferol 50,000 unit capsule (VITAMIN D2, DRISDOL) pregabalin (LYRICA) 150 mg capsule tiZANidine (ZANAFLEX) 4 mg tablet traZODone (DESYREL) 100 mg tablet hydrOXYzine HCl (ATARAX) 25 mg tablet atorvastatin (LIPITOR) 20 mg tablet busPIRone (BUSPAR) 15 mg tablet potassium chloride (K-TAB) 10 mEq tablet rOPINIRole (REQUIP) 0.25 mg tablet citalopram (CELEXA) 40 mg tablet amLODIPine (NORVASC) [address] (PROTONIX) 40 mg tablet lisinopril (ZESTRIL, PRINIVIL) 20 mg tablet MELATONIN ORAL fluticasone (FLONASE) 50 mcg/actuation nasal spray albuterol HFA (PROAIR HFA) 90 mcg/actuation inhaler Review of Systems CONSTITUTIONAL: No fevers, chills night sweats, unintended weight loss CARDIOVASCULAR: No chest pain, dyspnea, palpitations, orthopnea, PND, ankle edema. PULM: No dyspnea, unexplained cough. GI: No dysphagia/odynophagia, problematic reflux, constipation, diarrhea, changes in stool habits, hematochezia, melena. : No new urinary complaints, including dysuria, gross hematuria or pyuria. NEURO: No new balance problems, peripheral weakness/paresthesias or numbness of concern. Physical Exam BP 120/70 (BP Site: Left Arm, BP Position: Sitting, BP Cuff Size: Large Adult) Pulse 89 Temp 36.6 ?C (97.9 ?F) Resp 14 Ht 165.1 cm (5' 5 ) Wt 96.2 kg (212 lb) SpO2 99% BMI 35.28 kg/m? General appearance: Well appearing, alert, in no acute distress, well nourished. Skin: Skin color, texture, turgor normal, no suspicious rashes or lesions Head: Normocephalic, no masses, lesions, tenderness or abnormalities Eyes: Anicteric sclera. Pupils are equally round and reactive to light. Extraocu (more content not included)... [facility] 04-01-2023 Miscellaneous Notes PATIENT NOTIFIED OF SAME. Kidney ultrasound was normal. If patient is still experiencing severe cramps I recommend going to the ER, she may need IV hydration. Misty Older, [employer] OPERATIONS MANAGER.EXECUTIVE KITCHEN MANAGER Called patient to ask about muscle cramps. Patient reports that she continues to have cramps in bilateral legs. Patient states that her legs seemed to be cramped all the time. Patient states that it mainly has been her calves but other day it went down to feet and toes. Patient states that her legs are restless and cramping at night. Patient reports that she has a bruise on back of leg from a cramp that she had the other night. Patient is having cramps with movement. Patient now has cramps under breasts and in bilateral hips. She cannot even put on her shoes without having cramps. Patient does have ultrasound scheduled today for kidney's at 11:30. Please review and advise, Ani Mcknight RN Asked Triage Nurse to reach out to Patient. Amy Mcfarland LPN documented in this encounter [facility] 03-31-2023 Note HNO ID: [id number] Author: Kylie Kim RDMS Service: ? Author Type: Superintendent Stevedoring Type: Progress Notes Filed: 03/31/2023 11:41 AM Note Text: Radiology Service Progress Note PATIENT NAME: Mariangel Robertson DATE OF SERVICE: March 31, 2023 TIME: 11:40 AM PATIENT IDENTITY VERIFICATION COMPLETED USING TWO (2) IDENTIFIERS: Name and Date of confirmed by patient verbally. FALL SCREENING: Has the patient had 2 falls in the last year or 1 fall with injury or currently using an Ambulatory Assistive Device (Walker, Cane, Wheelchair, Crutches, etc.)? No PATIENT GENDER DATA: Female. status: : No status: NO. PATIENT RELEVANT IMPLANT DATA REVIEWED: Not Applicable RADIOLOGY DEPARTMENT: Ultrasound PERIPHERAL IV DATA: Not applicable SIGNED BY: Kylie Kim RDMS RVT March 31, 2023 11:40 AM [facility] 03-31-2023 History of Present illness Narrative Radiology Service Progress Note PATIENT NAME: Mariangel Robertson DATE OF SERVICE: March 31, 2023 TIME: 11:40 AM PATIENT IDENTITY VERIFICATION COMPLETED USING TWO (2) IDENTIFIERS: Name and Date of confirmed by patient verbally. FALL SCREENING: Has the patient had 2 falls in the last year or 1 fall with injury or currently using an Ambulatory Assistive Device (Walker, Cane, Wheelchair, Crutches, etc.)? No PATIENT GENDER DATA: Female. status: : No status: NO. PATIENT RELEVANT IMPLANT DATA REVIEWED: Not Applicable RADIOLOGY DEPARTMENT: Ultrasound PERIPHERAL IV DATA: Not applicable SIGNED BY: Kylie Kim RDMS RVT March 31, 2023 11:40 AM documented in this encounter [facility] 03-30-2023 Miscellaneous Notes Addressed in My Chart message Misty Hankins APRN.CNP Pt called in and was asking about abnormal results. She wanted to let provider know that she is still having muscle and body aches. She states earlier she had a muscle cramp under her breast that almost paralyzed her. Please call and advise. Patient calling and asking for Misty Hankins CNP to advise her regarding recent lab results. Thank you. documented in this encounter [facility] 03-29-2023 Note HNO ID: [id number] Author: Misty Hankins APRN.CNP Service: ? Author Type: Nurse Practitioner Type: Progress Notes Filed: 03/29/2023 11:31 AM Note Text: CC: Patient presents with: tired, weak and leg cramps HPI Mariangel Robertson is a 52 year old female who presents today for above. Patient reports for the past few days she has been experiencing severe leg cramps. Associated with malaise, fatigue, weakness and body aches. She was on potassium supplement for hypokalemia but had stopped taking about one month ago. No new medications. History of fibromyalgia and chronic pain. She is on Lyrica and Zanaflex prescribed by pain management. She denies recent illness. No sick contacts. REVIEW OF SYSTEMS GENERAL: Negative for significant weight loss, fever, chills, night sweats HEENT: Negative for frequent or significant headaches, sore throat, nasal congestion, rhinorrhea RESPIRATORY: Negative for cough, wheezing and shortness of breath CARDIOVASCULAR: Negative for chest pain, leg swelling, palpitations, and claudication GI: Negative for blood in stools or black stools, diarrhea, nausea, vomiting : Negative for dysuria, frequency, hesitancy, and urgency SKIN: Negative for lesions, rash, and itching. NEURO: negative for dizziness, lightheadedness, feeling faint, syncope PAST MEDICAL HISTORY Diagnosis Date Anxiety Depressive disorder Dermoid cyst of right ovary 10/15/2015 probable- [facility] Essential hypertension Insomnia Migraines Umbilical hernia 10/15/2015 minimal PAST SURGICAL HISTORY Procedure Laterality Date CT ABDOMEN AND PELVIS W/CONT 10/15/15 [facility] HYSTERECTOMY HX still has ovaries TUBAL LIGATION HX ALLERGIES Stadol [Butorphanol Tartrate] MEDICATIONS traZODone (DESYREL) 100 mg tablet Take 3 tablets by mouth daily at bedtime. hydrOXYzine HCl (ATARAX) 25 mg tablet Take 1 tablet by mouth three times daily as needed. pregabalin (LYRICA) 150 mg capsule Take 1 pill 2 times per day. diclofenac, EC, (VOLTAREN) 75 mg EC tablet TAKE 1 PILL BY MOUTH WITH FOOD UP TO EVERY 12 HOURS NEEDED FOR PAIN cyclobenzaprine (FLEXERIL) 10 mg tablet Take 1 tablet by mouth at bedtime as needed for muscle spasm. atorvastatin (LIPITOR) 20 mg tablet Take 1 tablet by mouth daily at bedtime. For cholesterol. busPIRone (BUSPAR) 15 mg tablet Take 1 tablet by mouth three times daily. cyanocobalamin 1,000 mcg/mL Inject 1 mL intramuscularly once every month. potassium chloride (K-TAB) 10 mEq tablet Take 1 tablet by mouth daily with breakfast. rOPINIRole (REQUIP) 0.25 mg tablet TAKE 1 TO 2 TABLETS BY MOUTH 30 MINUTES BEFORE BED. pregabalin (LYRICA) 75 mg capsule Take 1 capsule by mouth twice daily for 30 days. Take one pill at night for one week, then increase to one pill BID citalopram (CELEXA) 40 mg tablet Take 1 tablet by mouth once daily. amLODIPine (NORVASC) 10 mg tablet Take 0.5 tablets by mouth once daily. pantoprazole DR (PROTONIX) 40 mg tablet Take 1 tablet by mouth once daily. lisinopril (ZESTRIL, PRINIVIL) 20 mg tablet Take 1 tablet by mouth once daily. cholecalciferol, Vitamin D3, (VITAMIN D3) 1,250 mcg (50,000 unit) cap capsule Take 1 capsule by mouth one time a week. MELATONIN ORAL Take by mouth. Estradiol (YUVAFEM) 10 mcg vaginal tablet Use 1 tablet vaginally two times a week. Insert vaginally every day for two weeks then twice weekly after Syringe with Needle, Disp, 1 mL 27 x 1/2 1 Each once every month. fluticasone (FLONASE) 50 mcg/actuation nasal spray Use 2 Sprays in each nostril once daily. (Patient taking differently: Use 2 Sprays in each nostril as needed.) albuterol HFA (PROAIR HFA) 90 mcg/actuation inhaler Inhale 2 Puffs as instructed every 4 hours as needed. FAMILY HISTORY Problem Relation Age of Onset Cancer Mother lung other (depression [Other]) Mother Diabetes Father Hypertension Father Cancer Father prostate Heart Father Hypertension Sister Depression Daughter other (epilpsy [Other]) Son Depression Son Attempted Suicide Social History Tobacco Use Smoking status: Every Day Packs/day: 0.50 Years: 6.00 Pack years: 3.00 Types: Cigarettes Smokeless tobacco: Never Vaping Use Vaping Use: Never used Substance Use Topics Alcohol use: Yes Comment: Occasionally Drug use: No PHYSICAL EXAM BP 108/76 Pulse 84 Resp 16 Wt 94.8 kg (209 lb) BMI 34.78 kg/m? General Appearance: well appearing, in no acute distress, alert Pysch: mood and affect broad and appropriate Skin: Skin color, texture, turgor normal for age; Eyes: conjunctiva pink and moist, no icterus, sclera white, non-injected Neck: Thyroid normal size and symmetric without palpable nodules, Neck supple, No adenopathy Oropharynx: lips normal without lesions, tongue midline and normal, soft palate, uvula, and tonsils normal Lymph nodes: No supraclavicular lymphadenopathy Lungs: Lungs clear to auscultation. No wheezing, rhonchi, rales (more content not included)... [facility] 03-29-2023 History of Present illness Narrative CC: Patient presents with: tired, weak and leg cramps HPI Mariangel Robertson is a 52 year old female who presents today for above. Patient reports for the past few days she has been experiencing severe leg cramps. Associated with malaise, fatigue, weakness and body aches. She was on potassium supplement for hypokalemia but had stopped taking about one month ago. No new medications. History of fibromyalgia and chronic pain. She is on Lyrica and Zanaflex prescribed by pain management. She denies recent illness. No sick contacts. REVIEW OF SYSTEMS GENERAL: Negative for significant weight loss, fever, chills, night sweats HEENT: Negative for frequent or significant headaches, sore throat, nasal congestion, rhinorrhea RESPIRATORY: Negative for cough, wheezing and shortness of breath CARDIOVASCULAR: Negative for chest pain, leg swelling, palpitations, and claudication GI: Negative for blood in stools or black stools, diarrhea, nausea, vomiting : Negative for dysuria, frequency, hesitancy, and urgency SKIN: Negative for lesions, rash, and itching. NEURO: negative for dizziness, lightheadedness, feeling faint, syncope PAST MEDICAL HISTORY Diagnosis Date Anxiety Depressive disorder Dermoid cyst of right ovary 10/15/2015 probable- [facility] Essential hypertension Insomnia Migraines Umbilical hernia 10/15/2015 minimal PAST SURGICAL HISTORY Procedure Laterality Date CT ABDOMEN & PELVIS W/CONT 10/15/15 [facility] HYSTERECTOMY HX still has ovaries TUBAL LIGATION HX ALLERGIES Stadol [Butorphanol Tartrate] MEDICATIONS traZODone (DESYREL) 100 mg tablet Take 3 tablets by mouth daily at bedtime. hydrOXYzine HCl (ATARAX) 25 mg tablet Take 1 tablet by mouth three times daily as needed. pregabalin (LYRICA) 150 mg capsule Take 1 pill 2 times per day. diclofenac, EC, (VOLTAREN) 75 mg EC tablet TAKE 1 PILL BY MOUTH WITH FOOD UP TO EVERY 12 HOURS NEEDED FOR PAIN cyclobenzaprine (FLEXERIL) 10 mg tablet Take 1 tablet by mouth at bedtime as needed for muscle spasm. atorvastatin (LIPITOR) 20 mg tablet Take 1 tablet by mouth daily at bedtime. For cholesterol. busPIRone (BUSPAR) 15 mg tablet Take 1 tablet by mouth three times daily. cyanocobalamin 1,000 mcg/mL Inject 1 mL intramuscularly once every month. potassium chloride (K-TAB) 10 mEq tablet Take 1 tablet by mouth daily with breakfast. rOPINIRole (REQUIP) 0.25 mg tablet TAKE 1 TO 2 TABLETS BY MOUTH 30 MINUTES BEFORE BED. pregabalin (LYRICA) 75 mg capsule Take 1 capsule by mouth twice daily for 30 days. Take one pill at night for one week, then increase to one pill BID citalopram (CELEXA) 40 mg tablet Take 1 tablet by mouth once daily. amLODIPine (NORVASC) 10 mg tablet Take 0.5 tablets by mouth once daily. pantoprazole DR (PROTONIX) 40 mg tablet Take 1 tablet by mouth once daily. lisinopril (ZESTRIL, PRINIVIL) 20 mg tablet Take 1 tablet by mouth once daily. cholecalciferol, Vitamin D3, (VITAMIN D3) 1,250 mcg (50,000 unit) cap capsule Take 1 capsule by mouth one time a week. MELATONIN ORAL Take by mouth. Estradiol (YUVAFEM) 10 mcg vaginal tablet Use 1 tablet vaginally two times a week. Insert vaginally every day for two weeks then twice weekly after Syringe with Needle, Disp, 1 mL 27 x 1/2 1 Each once every month. fluticasone (FLONASE) 50 mcg/actuation nasal spray Use 2 Sprays in each nostril once daily. (Patient taking differently: Use 2 Sprays in each nostril as needed.) albuterol HFA (PROAIR HFA) 90 mcg/actuation inhaler Inhale 2 Puffs as instructed every 4 hours as needed. FAMILY HISTORY Problem Relation Age of Onset Cancer Mother lung other (depression [Other]) Mother Diabetes Father Hypertension Father Cancer Father prostate Heart Father Hypertension Sister Depression Daughter other (epilpsy [Other]) Son Depression Son Attempted Suicide Social History Tobacco Use Smoking status: Every Day Packs/day: 0.50 Years: 6.00 Pack years: 3.00 Types: Cigarettes Smokeless tobacco: Never Vaping Use Vaping Use: Never used Substance Use Topics Alcohol use: Yes Comment: Occasionally Drug use: No PHYSICAL EXAM BP 108/76 Pulse 84 Resp 16 Wt 94.8 kg (209 lb) BMI 34.78 kg/m General Appearance: well appearing, in no acute distress, alert Pysch: mood and affect broad and appropriate Skin: Skin color, texture, turgor normal for age; Eyes: conjunctiva pink and moist, no icterus, sclera white, non-injected Neck: Thyroid normal size and symmetric without palpable nodules, Neck supple, No adenopathy Oropharynx: lips normal without lesions, tongue midline and normal, soft palate, uvula, and tonsils normal Lymph nodes: No supraclavicular lymphadenopathy Lungs: Lungs clear to auscultation. No wheezing, rhonchi, rales. Heart: RRR without murmur, gallop, or rubs. No ectopy Extremities: No deformities, edema, skin discoloration, clubbing or cyanosis. Good capillary refill. , Pulses: 2+, No cords. No calf tenderness. DATA REVIEWED: Most recent labs ASSESSMENT/PLAN: 1. Fatigue, unspecified type - ICD9: 780.79, ICD10: R53.83 (primary diagnosis) Differentials include vitamin deficiency, viral illness, anemia Check labs: - CBC + DIFF - COMP METABOLIC PANEL If lab work-up negative will treat symptomatically as viral illness 2. Leg cramping - ICD9: 729.82, ICD10: R25.2 Suspect hypokalemia. Will also check CK level for possible statin induced myalgias/weakness 3. Myalgias - ICD9: 729.1, ICD10: M79.10 As above - CBC + DIFF - COMP METABOLIC PANEL - CK CREATINE KINASE 4. Vitamin D deficiency - ICD9: 268.9, ICD10: E55.9 - VITAMIN D 25 HYDROXY 5. Vitamin B12 deficiency - ICD9: 266.2, ICD10: E53.8 - VITAMIN B12 BLOOD Prescription instructions reviewed with patient as applicable. Potential red flag symptoms discussed with the patient. Reviewed appropriate action plan to take if red flag symptoms occur. Patient agreeable to treatment plan. Misty Hankins APRN.EXECUTIVE KITCHEN MANAGER documented in this encounter [facility] 03-22-2023 Note HNO ID: [id number] Author: Chris Webster PT Service: ? Author Type: Physical Therapist Type: Progress Notes Filed: 03/22/2023 12:06 PM Note Text: 03/22/2023 [facility] PHYSICAL THERAPY DISCONTINUANCE OF CARE Plan of Care Period: Start of Care Date: 11/09/22 Last Visit Date: 12/16/2022 Therapy Program: The following is a summary of the interventions provided for this episode of care; Therapeutic exercise and Manual therapy Assessment: The following is the goal status: Goals updated 12/16/2022 Goals for Episode of Care: created on 11/09/22 through Pt will be able to lift groceries onto the countertop without pain in 8 Weeks - Not met, will continue Sharkey in home exercise program. - Progressing, will continue Perform sitting without pain. - Not met, will continue Pt will be able to perform lumbar AROM without pain for ease of bending Down - Not met, will continue Based on the most recent progress report, patient was progressing slower than expected toward functional goals based on home exercise program compliance, pain levels, and documented subjective information on progress. Reason for Discontinuation of Care: Patient has not returned to therapy or scheduled additional follow-up appointments. Chris Webster, PT [facility] 03-16-2023 Note HNO ID: [id number] Author: Chacorta Crain APRN.TRUDY Service: ? Author Type: Nurse Practitioner Type: Progress Notes Filed: 03/16/2023 10:19 AM Note Text: Nontoxic-appearing female presents urgent care chief complaint left eye pain and irritation. Patient states last night she was putting in eyedrops when she accidentally used her nail glue. She states she immediately washed her eye out with water. States eye feels irritated and painful today. With patient presenting symptoms I recommend patient be seen up with ophthalmology. Will be scheduled today at [facility]. Appointment scheduled today at 1030. Patient verbalized understand agrees plan of care. Chacorta Crain APRN.CNP [facility] 03-16-2023 History of Present illness Narrative Nontoxic-appearing female presents urgent care chief complaint left eye pain and irritation. Patient states last night she was putting in eyedrops when she accidentally used her nail glue. She states she immediately washed her eye out with water. States eye feels irritated and painful today. With patient presenting symptoms I recommend patient be seen up with ophthalmology. Will be scheduled today at [facility]. Appointment scheduled today at 1030. Patient verbalized understand agrees plan of care. Chacorta Crain APRN.TRUDY documented in this encounter [facility] 03-08-2023 Note Patient Outreach (IN [facility]) MARIANGEL ROBERTSON ([id number]) 1970 F Date Time Provider Department 03/08/23 UCHE BRYAN During your visit today, we recorded the following information about you: Allergies As of Date: 03/08/2023 Noted Allergy Reaction STADOL (BUTORPHANOL TARTRATE) 09/08/2015 5 - Intolerance Comments: tachycardia Date Reviewed: 02/27/2023 Reviewed by: Debbie Montana APRN.CNP - Fully Assessed Visit Diagnosis:Obesity, Class I, BMI 30-34.9 [E66.9] Order(s):HGB A1C [AENGH3G] Order #: [id number] FUTURE Prescriptions as of 03/11/2023 - traZODone (DESYREL) 100 mg tablet Take 3 tablets by mouth daily at bedtime. - hydrOXYzine HCl (ATARAX) 25 mg tablet Take 1 tablet by mouth three times daily as needed. - pregabalin (LYRICA) 150 mg capsule Take 1 pill 2 times per day. - diclofenac, EC, (VOLTAREN) 75 mg EC tablet TAKE 1 PILL BY MOUTH WITH FOOD UP TO EVERY 12 HOURS NEEDED FOR PAIN - cyclobenzaprine (FLEXERIL) 10 mg tablet Take 1 tablet by mouth at bedtime as needed for muscle spasm. - atorvastatin (LIPITOR) 20 mg tablet Take 1 tablet by mouth daily at bedtime. For cholesterol. - busPIRone (BUSPAR) 15 mg tablet Take 1 tablet by mouth three times daily. - cyanocobalamin 1,000 mcg/mL Inject 1 mL intramuscularly once every month. - potassium chloride (K-TAB) 10 mEq tablet Take 1 tablet by mouth daily with breakfast. - rOPINIRole (REQUIP) 0.25 mg tablet TAKE 1 TO 2 TABLETS BY MOUTH 30 MINUTES BEFORE BED. - pregabalin (LYRICA) 75 mg capsule Take 1 capsule by mouth twice daily for 30 days. Take one pill at night for one week, then increase to one pill BID - citalopram (CELEXA) 40 mg tablet Take 1 tablet by mouth once daily. - amLODIPine (NORVASC) 10 mg tablet Take 0.5 tablets by mouth once daily. - pantoprazole DR (PROTONIX) 40 mg tablet Take 1 tablet by mouth once daily. - lisinopril (ZESTRIL, PRINIVIL) 20 mg tablet Take 1 tablet by mouth once daily. - cholecalciferol, Vitamin D3, (VITAMIN D3) 1,250 mcg (50,000 unit) cap capsule Take 1 capsule by mouth one time a week. - MELATONIN ORAL Take by mouth. - Estradiol (YUVAFEM) 10 mcg vaginal tablet Use 1 tablet vaginally two times a week. Insert vaginally every day for two weeks then twice weekly after - Syringe with Needle, Disp, 1 mL 27 x 1/2 1 Each once every month. - fluticasone (FLONASE) 50 mcg/actuation nasal spray Use 2 Sprays in each nostril once daily. - albuterol HFA (PROAIR HFA) 90 mcg/actuation inhaler Inhale 2 Puffs as instructed every 4 hours as needed. Problem List As Of Date 03/08/2023 Noted Resolved Myofascial pain [M79.18] 09/15/2015 Fibromyalgia [M79.7] 09/15/2015 Chronic pain associated with significant psycho*09/15/2015 Arthropathy of spinal facet joint [M47.819] 09/15/2015 Chronic migraine [IGM9378] 09/15/2015 Tobacco abuse disorder [Z72.0] 11/06/2015 Periodic headache syndrome, not intractable [G4*11/06/2015 Essential hypertension [I10] 11/06/2015 Gastroesophageal reflux disease without esophag*11/06/2015 Major depressive disorder, recurrent, in remiss*11/06/2015 Anxiety [F41.9] 11/06/2015 Irritable bowel syndrome with both constipation*07/19/2017 Alcohol abuse [F10.10] 06/11/2021 PTSD (post-traumatic stress disorder) [F43.10] 06/11/2021 Lumbar spondylosis [M47.816] 11/09/2022 Spinal stenosis, lumbar region with neurogenic *11/09/2022 Cervical spondylosis without myelopathy [M47.81*11/09/2022 Obesity, Class I, BMI 30-34.9 [E66.9] 2022 Encounter Status:Closed by [employer], PRODUSER on 03/11/23 [facility] 03-02-2023 Miscellaneous Notes Patient has been identified by name and date of : No Patient phones for refill(s): Requested Prescriptions Pending Prescriptions Disp Refills traZODone (DESYREL) 100 mg tablet 90 tablet 1 Sig: Take 3 tablets by mouth daily at bedtime. Date of last office visit in primary care: 12/20/22 Last 2 Encounter Wt Readings: Date: Wt: 03/01/2023 94.3 kg (208 lb) 12/20/2022 94.3 kg (208 lb) Previous labs/tests for medication: Not applicable Please advise. Thank you. Renea Robles LPN documented in this encounter [facility] 03-01-2023 Note HNO ID: [id number] Author: Debbie Montana APRN.EXECUTIVE KITCHEN MANAGER Service: ? Author Type: Nurse Practitioner Type: Progress Notes Filed: 03/01/2023 10:29 AM Note Text: The patient did not show up for this appointment. [facility] 03-01-2023 History of Present illness Narrative The patient did not show up for this appointment. documented in this encounter [facility] 02-25-2023 Note HNO ID: [id number] Author: RT Bruce(Hannah) Service: ? Author Type: Technologist Type: Progress Notes Filed: 02/25/2023 2:01 PM Note Text: Radiology Service Progress Note PATIENT NAME: Mariangel Robertson DATE OF SERVICE: February 25, 2023 TIME: 2:01 PM PATIENT IDENTITY VERIFICATION COMPLETED USING TWO (2) IDENTIFIERS: Name and Date of confirmed by patient verbally. FALL SCREENING: Has the patient had 2 falls in the last year or 1 fall with injury or currently using an Ambulatory Assistive Device (Walker, Cane, Wheelchair, Crutches, etc.)? No PATIENT GENDER DATA: Female. status: : No status: NO. PATIENT RELEVANT IMPLANT DATA REVIEWED: Yes RADIOLOGY DEPARTMENT: MR; Exam(s) Completed: Spine: Cervical spine and Lumbar spine PERIPHERAL IV DATA: Not applicable SIGNED BY: RT Bruce(Hannah) February 25, 2023 2:01 PM [facility] 02-25-2023 History of Present illness Narrative Radiology Service Progress Note PATIENT NAME: Mariangel Robertson DATE OF SERVICE: February 25, 2023 TIME: 2:01 PM PATIENT IDENTITY VERIFICATION COMPLETED USING TWO (2) IDENTIFIERS: Name and Date of confirmed by patient verbally. FALL SCREENING: Has the patient had 2 falls in the last year or 1 fall with injury or currently using an Ambulatory Assistive Device (Walker, Cane, Wheelchair, Crutches, etc.)? No PATIENT GENDER DATA: Female. status: : No status: NO. PATIENT RELEVANT IMPLANT DATA REVIEWED: Yes RADIOLOGY DEPARTMENT: MR; Exam(s) Completed: Spine: Cervical spine and Lumbar spine PERIPHERAL IV DATA: Not applicable SIGNED BY: RT Bruce(Hannah) February 25, 2023 2:01 PM documented in this encounter [facility] 02-23-2023 Miscellaneous Notes Called patient to either change or reschedule the 03/01 appointment with [facility]. It need to either be a VV or an in person visit. Left patient a detailed message with this information. documented in this encounter [facility] 02-22-2023 Miscellaneous Notes TESSA 12/20/22 Next OV 03/21/23 Patient calling to check the status of her request as she is totally out of her medication and she takes it for anxiety. Please advise and call her back today and let her know that it was sent to her pharmacy. Patient has been identified by name and date of : Yes Requested Prescriptions Pending Prescriptions Disp Refills hydrOXYzine HCl (ATARAX) 25 mg tablet 90 tablet 11 Sig: Take 1 tablet by mouth three times daily as needed. RX INSTRUCTIONS: Patient takes 90 pills per MONTH. She is requesting more refills. She needs this today, she is out tomorrow. Patient aware RX will be sent to pharmacy. No need to notify patient. Ne Dan Pss documented in this encounter [facility] 01-14-2023 Miscellaneous Notes Patient notified and paperwork faxed . Renea Robles LPN documented in this encounter [facility] 01-10-2023 Miscellaneous Notes This patient gave consent to this Medical Advice Message and is aware that it may result in a bill to their insurance, as well as the possibility of receiving a bill for a copay and/or deductible. They are an established patient, but are not seeking information exclusively about a problem treated during an in person or video visit in the last seven days. I did not recommend an in person or video visit within seven days of my reply. See the Suda message reply for my assessment and plan. I spent a total of 7 minutes reviewing the patient's prior medical records and current request for medical advice, prescribing medications or ordering tests (if applicable), replying to the patient, and documenting the encounter. Ginna Garduno III, MD, MBA documented in this encounter [facility] 01-05-2023 Miscellaneous Notes Addended by: GINNA GARDUNO on: 01/05/2023 09:43 AM Modules accepted: Orders This patient gave consent to this Medical Advice Message and is aware that it may result in a bill to their insurance, as well as the possibility of receiving a bill for a copay and/or deductible. They are an established patient, but are not seeking information exclusively about a problem treated during an in person or video visit in the last seven days. I did not recommend an in person or video visit within seven days of my reply. See the Suda message reply for my assessment and plan. I spent a total of 7 minutes reviewing the patient's prior medical records and current request for medical advice, prescribing medications or ordering tests (if applicable), replying to the patient, and documenting the encounter. Ginna Garduno III, MD, MBA documented in this encounter [facility] 01-04-2023 Note HNO ID: [id number] Author: Edda aDniel DO Service: ? Author Type: Physician Type: Procedures Filed: 01/04/2023 2:30 PM Note Text: Patient Name: Mariangel Robertson Date: January 04, 2023 Patient : 1970 Patient Age: [age] year old CC: Patient presents with: EMG: Left Upper Vitals: There were no vitals taken for this visit. The HANDP completed on 11/04/22 I have reviewed the history and physical and examined the patient and there are no changes unless noted below: No update and/or changes to [facility] history and physical. UNIVERSAL PROTOCOL / SAFETY CHECKLIST Procedure to be Performed: LUE EMG, referral from Leanne Tovar CNP Sign In: A Moment of CARE was completed. Personnel directly involved with the procedure wore the appropriate PPE (Personal Protective Equipment). Patient/Surrogate Stated/Verified: PATIENT VERIFIED(optional for EMERGENT procedures): Patient name, Date of , Relevant allergies and The intended procedure Time Out Communication: Consent documented and matches the intended procedure. Sign Out: SIGN OUT (optional for EMERGENT procedures): No specimen collected. Patient is aware of potential risks and benefits of this procedure. Patient wishes to proceed. Electrodiagnostic testing was performed today was significant for left carpal tunnel syndrome of mild severity without signs of active denervation. Full report and data will be scanned into the chart. Edda Daniel DO [facility] 01-04-2023 Procedure note Patient Name: Mariangel [place] Date: January 04, 2023 Patient : 1970 Patient Age: [age] year old CC: Patient presents with: EMG: Left Upper Vitals: There were no vitals taken for this visit. The H&P completed on 11/04/22 I have reviewed the history and physical and examined the patient and there are no changes unless noted below: No update and/or changes to [facility] history and physical. UNIVERSAL PROTOCOL / SAFETY CHECKLIST Procedure to be Performed: LUE EMG, referral from Leanne Tovar CNP Sign In: A Moment of CARE was completed. Personnel directly involved with the procedure wore the appropriate PPE (Personal Protective Equipment). Patient/Surrogate Stated/Verified: PATIENT VERIFIED(optional for EMERGENT procedures): Patient name, Date of , Relevant allergies and The intended procedure Time Out Communication: Consent documented and matches the intended procedure. Sign Out: SIGN OUT (optional for EMERGENT procedures): No specimen collected. Patient is aware of potential risks and benefits of this procedure. Patient wishes to proceed. Electrodiagnostic testing was performed today was significant for left carpal tunnel syndrome of mild severity without signs of active denervation. Full report and data will be scanned into the chart. Edda Daniel DO documented in this encounter [facility] 12-30-2022 Note HNO ID: [id number] Author: Jackeline Lagos MA Service: ? Author Type: Rotary Surface Grinder Type: Progress Notes Filed: 12/30/2022 9:40 AM Note Text: Review of Systems Constitutional: Negative for activity change, chills, fever and unexpected weight change. Gastrointestinal: Positive for constipation. Negative for bowel retention or incontinence Genitourinary: Negative for difficulty urinating. Negative for bladder retention or incontinence Musculoskeletal: Positive for arthralgias, back pain, gait problem, myalgias, neck pain and neck stiffness. Negative for joint swelling. Neurological: Positive for weakness, numbness and headaches. Psychiatric/Behavioral: Positive for dysphoric mood and sleep disturbance. Negative for suicidal ideas. The patient is nervous/anxious. [facility] 12-30-2022 Miscellaneous Notes Procedure(s) being scheduled: 1.Are you diabetic No 2. Are you on any blood thinners? No If yes, does it require a hold? No If yes, was approval letter sent? No 3. Are you taking any aspirin? No 4. Are you currently taking any antibiotics? No If yes, is it prophylactic or for treatment of an infection? 5. Do you have any allergies to latex? No 6. Do you have any allergies to seafood or shellfish? No 7. Do you have any allergies to x-ray dye? No 8. Did the physician instruct you to take any medication prior to your procedure? No 9. Does this procedure require a helper/driver? No If yes, has patient been notified that a helper/driver is needed and must be present at check in? 10. Were the pre-procedure instructions explained and provided to the patient? no 11. Do you have a pacemaker? No 12. Do you have an internal stimulator of any kind? No If yes, please bring the remote with you to your procedure visit. 13. Have you received the COVID-19 Vaccine? Yes. If yes, date(s) received: 02/13/21 (Patient should not receive a procedure including steroids 14 days prior to their first dose of the COVID vaccine. They should not receive any procedure containing steroids in the time frame between their 1st and 2nd doses of the COVID vaccine. They should not receive a procedure containing steroids 14 days after their 2nd dose of the COVID vaccine.) Nickie Huff documented in this encounter [facility] 12-30-2022 Note HNO ID: [id number] Author: Ginna Garduno MD Service: ? Author Type: Physician Type: Progress Notes Filed: 12/30/2022 9:40 AM Note Text: [facility] Today's Date: 12/30/2022 Last Visit: 11/04/2022 Name: Mariangel Robertson : 1970 Purpose: Follow-up Encounter Chief complaint: Neck and Low Back Pain Mariangel Robertson is an established patient, returning today for continued evaluation and management of the chief complaint noted above. Interval History: Overall pain and functional disability: unchanged New Complaints: having more cramping in her lower limbs She quit her job at [employer], which required her to walk about 12K steps per day. Pain Description: Timing: constant Character: Burning, Throbbing, Sharp, and Shooting Primary Location: Neck and Low Back Radiation: LEFT shoulder and arm to her elbow and wrist; LEFT buttocks to her posterior leg to her knee She has associated headaches daily Exacerbating factors: unable to pinpoint exacerbating factors/positions Relieving factors: medications and unable to pinpoint positions/factors that are mitigating Interferes with: physical activity, work, and lifting The patient reports 2 hours of uninterrupted sleep per night The patient denies difficulty with bowel or bladder control. Medications Prescribed: Started or modified: Lyrica 75mg BID Discontinued: none Maintained at current dosages: Flexeril 10mg TID (PCP) Motrin 800mg q4h, no relief Tolerating Medication: yes Medications helping improve ADL's and Self-care: no Procedures Performed: DATE PROCEDURE IMPROVEMENT none Therapies Attended: PT 3 visits have been attended Treatment dates: Between 11/09/2022 and 12/30/2022 Improvement in pain and function: none Studies Obtained: X-ray C-spine, (relevant findings reported below) EMG (not yet obtained) - scheduled for next week (delayed due to COVID) Recall: Initial HPI: (Obtained on 11/04/2022) referred by Sammi Chase, for neck and low back pain This has been present for the past >5-10 years. The onset of symptoms was gradual onset and was without associated trauma. States she had been a patient of Dr. Agarwal for about 2 years ([id number]). At that time she was on Tramadol and Tizanidine at that time. She also had cervcial and lumbar injections while there. States she was not happy with her care with Dr. Agarwal and opted to wean off of her medications. Was stable until about 1 month ago after having an acute flare up of her pain. She was seen in the ED and had XR and referred to our practice. She did go to a chiropractor, but her chiro was not in her insurance plan. She has since found a new provider, but finds this to be more painful. She has been treated with a course of steroids and flexeril with some relief. She is also using OTC ibuprofen. She had been on pregabalin in the distant past for FM, but lost her insurance and had to discontinue. Has been off of Lyrica for at least 8-9 years. Current Status: INTAKE PAIN ASSESSMENT 12/20/2022 12/23/2022 Are you having pain associated with your visit today? Yes, Provider notified Yes, Provider notified Pain Scales Verbal (Numeric Rating or Visual Analog Scale) - Pain Level 5 7 Pain Location Back-Lower Back-Lower Description Aching;Burning Aching;Burning;Dull;Radiating;Luis Enrique p;Sore;Spasm;Stiffness;Throbbing;T ingling Duration Amount of Time 7 4 Duration Units Years Months Frequency Intermittent Continuous Intervention/Comfort measure Medication Relaxation;Cold;Positioning Comments - I also have pain in my neck and down my left arm. The pain in my lower back never really goes away completely and its radiating down my legs and into my feet Current Pain Medications: Opioids: NSAIDS: OTC ibuprofen Anti-depressants: Celexa, Buspar, Trazodone, Atarax Anti-convulsants: Muscle relaxants: Flexeril Others: Analgesia: partially adequate Current Anti-Coagulant Use: No PAST Pain Medications (for the chief complaint(s)): Opioids: Tramadol NSAIDS: Motrin (Ibuprofen) Anti-convulsants: Lyrica (Pregabalin) Muscle Relaxants: Zanaflex (Tizanidine) Others: Biofreeze Allergies: ALLERGIES Allergen Reactions Stadol [Butorphanol* Intolerance tachycardia Data Reviewed: Reviewed personally on today's date Relevant Imaging: MRI Spine Report MRI CERVICAL SPINE WO CONTRAST Collected: 04/14/2016 10:44 AM (Final result) Narrative: * * *Final Report* * * DATE OF EXAM: Apr 14 2016 10:44AM SENA [id number] - MRI CERVICAL SPINE WO CONTRAST / PROCEDURE REASON: NECK PAIN ARM PAIN * * * * Physician Interpretation * * * * RESULT: Clinical history:Neck and arm pain Technique: Unenhanced MRI cervical spine Comparison: None Result: Counting reference: Craniocervical junction. The visualized intracranial contents and soft tissues are grossly unremarkable. Mild r (more content not included)... [facility] 12-30-2022 History of Present illness Narrative Review of Systems Constitutional: Negative for activity change, chills, fever and unexpected weight change. Gastrointestinal: Positive for constipation. Negative for bowel retention or incontinence Genitourinary: Negative for difficulty urinating. Negative for bladder retention or incontinence Musculoskeletal: Positive for arthralgias, back pain, gait problem, myalgias, neck pain and neck stiffness. Negative for joint swelling. Neurological: Positive for weakness, numbness and headaches. Psychiatric/Behavioral: Positive for dysphoric mood and sleep disturbance. Negative for suicidal ideas. The patient is nervous/anxious. [facility] Today's Date: 12/30/2022 Last Visit: 11/04/2022 Name: Mariangel Robertson : 1970 Purpose: Follow-up Encounter Chief complaint: Neck and Low Back Pain Mariangel Robertson is an established patient, returning today for continued evaluation and management of the chief complaint noted above. Interval History: Overall pain and functional disability: unchanged New Complaints: having more cramping in her lower limbs She quit her job at [employer], which required her to walk about 12K steps per day. Pain Description: Timing: constant Character: Burning, Throbbing, Sharp, and Shooting Primary Location: Neck and Low Back Radiation: LEFT shoulder and arm to her elbow and wrist; LEFT buttocks to her posterior leg to her knee She has associated headaches daily Exacerbating factors: unable to pinpoint exacerbating factors/positions Relieving factors: medications and unable to pinpoint positions/factors that are mitigating Interferes with: physical activity, work, and lifting The patient reports 2 hours of uninterrupted sleep per night The patient denies difficulty with bowel or bladder control. Medications Prescribed: Started or modified: Lyrica 75mg BID Discontinued: none Maintained at current dosages: Flexeril 10mg TID (PCP) Motrin 800mg q4h, no relief Tolerating Medication: yes Medications helping improve ADL's and Self-care: no Procedures Performed: DATE PROCEDURE IMPROVEMENT none Therapies Attended: PT 3 visits have been attended Treatment dates: Between 11/09/2022 and 12/30/2022 Improvement in pain and function: none Studies Obtained: X-ray C-spine, (relevant findings reported below) EMG (not yet obtained) - scheduled for next week (delayed due to COVID) Recall: Initial HPI: (Obtained on 11/04/2022) referred by Sammi Chase, for neck and low back pain This has been present for the past >5-10 years. The onset of symptoms was gradual onset and was without associated trauma. States she had been a patient of Dr. Agarwal for about 2 years ([phone]). At that time she was on Tramadol and Tizanidine at that time. She also had cervcial and lumbar injections while there. States she was not happy with her care with Dr. Agarwal and opted to wean off of her medications. Was stable until about 1 month ago after having an acute flare up of her pain. She was seen in the ED and had XR and referred to our practice. She did go to a chiropractor, but her chiro was not in her insurance plan. She has since found a new provider, but finds this to be more painful. She has been treated with a course of steroids and flexeril with some relief. She is also using OTC ibuprofen. She had been on pregabalin in the distant past for FM, but lost her insurance and had to discontinue. Has been off of Lyrica for at least 8-9 years. Current Status: INTAKE PAIN ASSESSMENT 12/20/2022 12/23/2022 Are you having pain associated with your visit today? Yes, Provider notified Yes, Provider notified Pain Scales Verbal (Numeric Rating or Visual Analog Scale) - Pain Level 5 7 Pain Location Back-Lower Back-Lower Description Aching;Burning Aching;Burning;Dull;Radiating;Luis Enrique p;Sore;Spasm;Stiffness;Throbbing;T ingling Duration Amount of Time 7 4 Duration Units Years Months Frequency Intermittent Continuous Intervention/Comfort measure Medication Relaxation;Cold;Positioning Comments - I also have pain in my neck and down my left arm. The pain in my lower back never really goes away completely and its radiating down my legs and into my feet Current Pain Medications: Opioids: NSAIDS: OTC ibuprofen Anti-depressants: Celexa, Buspar, Trazodone, Atarax Anti-convulsants: Muscle relaxants: Flexeril Others: Analgesia: partially adequate Current Anti-Coagulant Use: No PAST Pain Medications (for the chief complaint(s)): Opioids: Tramadol NSAIDS: Motrin (Ibuprofen) Anti-convulsants: Lyrica (Pregabalin) Muscle Relaxants: Zanaflex (Tizanidine) Others: Biofreeze Allergies: ALLERGIES Allergen Reactions Stadol [Butorphanol* Intolerance tachycardia Data Reviewed: Reviewed personally on today's date Relevant Imaging: MRI Spine Report MRI CERVICAL SPINE WO CONTRAST Collected: 04/14/2016 10:44 AM (Final result) Narrative: * * *Final Report* * * DATE OF EXAM: Apr 14 2016 10:44AM [facility] 0482 - MRI CERVICAL SPINE WO CONTRAST / PROCEDURE REASON: NECK PAIN ARM PAIN * * * * Physician Interpretation * * * * RESULT: Clinical history:Neck and arm pain Technique: Unenhanced MRI cervical spine Comparison: None Result: Counting reference: Craniocervical junction. The visualized intracranial contents and soft tissues are grossly unremarkable. Mild reversal of normal cervical lordosis. Preservation of vertebral body height. Trace mid to lower cervical degenerative disc disease. T3 vertebral body hemangioma. Marrow signal overall is unremarkable. Minimal mid to lower cervical facet arthrosis. At the C2/3 level, nothing significant. At the C3/4 level, nothing significant. At the C4/5 level, nothing significant. At the C5/6 level, nothing significant. At the C6/7 level, nothing significant. At the C7/T1 level, nothing significant. The spinal cord is of normal caliber, configuration, and signal intensity. Impression: Trace degenerative disease of the cervical spine without narrowing of the spinal canal or neural foramina. Doper Operator: PSCB Transcribe Date/Time: Apr 14 2016 10:42A Dictated by : NAIN OLIVER MD This examination was interpreted and the report reviewed and electronically signed by: NAIN OLIVER MD on Apr 14 2016 10:48AM EST X-ray C-spine 10/2022: MILD DYNAMIC INSTABILITY AT C4-5 IN THE FLEXED POSITION. THIS CORRECTS IN NEUTRAL AND EXTENDED POSITION.. MILD SPONDYLOSIS XR Lumbar Spine 10/01/22: FINDINGS: There are five [id number]-[id number] lumbar vertebrae. No acute fractures demonstrated. There is grade 1 L5 on S1 anterolisthesis. The disc spaces are well preserved. There is no significant osteophyte formation however facet arthrosis noted in the lower lumbar spine. There appears be kissing spine, seen on lateral view. Others: There are 2 tubal ligation surgical clips in the right pelvis. XR LEFT Hip 10/01/22: RESULT: No acute fracture or dislocation. Joint spaces are maintained. Recent labs: Creatinine Date Value Ref Range Status 12/16/2022 0.91 0.58 - 0.96 mg/dL Final Pain Procedures: DATE PROCEDURE IMPROVEMENT None to date at this practice Compliance: PDMP website checked and validated. All prescriptions have been APPROPRIATELY filled. No suspicious activity was identified. 12/30/2022 by Ginna Garduno MD Risk Assessment: DACIA-7: DACIA - 7 SCORES 11/04/2022 DACIA-7 Score 16 (0-4) minimal anxiety, (5-9) mild anxiety, (10-14) moderate anxiety, (15-21) severe anxiety PHQ-9: PHQ-9 10/17/2022 11/04/2022 12/15/2022 Score 21 15 18 (0-4) minimal depression, (5-9) mild depression, (10-14) moderate depression, (15-19) moderately severe depression, (20-27) severe depression Opioid Risk Tool: Family History of Substance Abuse: 0 - No Personal History of Substance Abuse: 0 - N Age between 16-45: 0 - No History of Pre-Adolescence Sexual Abuse: 0 - No Psychological Disease: Yes ADD/ADHD/OCD/Bipolar/Schizophrenia : No Depression: 1 - Yes Risk Total: 1 Total Score Risk Category: Low Risk 0-3 (0-3, low risk or no risk; 4-7, moderate risk, 8+, high risk) Current Medications, Past Medical History, Past Surgical History, Family History, Social History and Review of Systems: On today's date, noted above, I have confirmed and edited as necessary, the PFSH and ROS obtained by others. Physical Exam: 12/30/22 0838 Pulse: 97 Resp: 16 SpO2: 98% Constitutional:obese HEENT: Normal Cephalic, Atraumatic, Non-icteric sclera Eyes: Conjunctiva clear. No discharge from eyes Cardiovascular: Appears well perfused Lymphatic: No visible regional lymphadenopathy Skin: No visible rashes or ecchymosis Psychiatric: Full affect, Alert, Pleasant Neuro-Upper: Sensation: Grossly intact to light touch in both upper limbs (C5-T1) dermatomes Strength: Deltoid (C5): 5 left, 5 Right Biceps (C6): 5 left, 5 Right Triceps (C7): 5 left, 5 Right Wrist Extensors (C8): 5 left, 5 Right Abduct. Pollicis Brevis (T1): 5 left, 5 Right Muscle Tone: Normal and symmetric throughout, without clonus Musculoskeletal-Upper: Inspection: Symmetric without atrophy Palpation: Cervical Paraspinal Tenderness: Concordant Greater Occipital Nerves: bilateral tenderness in overlying tissue Paraspinal spasm: Moderate Range of Motion: Flexion/Extension: Decreased 25% With end range pain Lateral Bending: Decreased 50% With end range pain Lateral Rotation: Decreased 50% With end range pain Neuro-Lower: Neural Tension Signs: Negative slump in Bilateral lower limbs Sensation: intact to light touch in the L2-S2 Bilateral lower limb dermatomes Muscle Tone: Normal and symmetric throughout without clonus Strength: Iliopsoas (L2): 5 Left, 5 Right Quadriceps (L3) 5 Left, 5 Right Anterior Tibialis (L4): 5 Left, 5 Right Extensor Hallucis Longus (L5): 5 Left, 5 Right Gastrocnemius (S1): 5 Left, 5 Right Musculoskeletal-Lower: Inspection: Symmetric without atrophy Palpation: Lumbar Paraspinal Tenderness: Concordant on Bilateral side(s) Paraspinal Spasms: Mild PSIS Tenderness: None on Bilateral side(s) Greater Trochanter Tenderness: None on Bilateral side(s) Spine Range of Motion: Flexion: Decreased 50% With end range pain Extension: Decreased 50% With end range pain Combination extension and rotation pain: Concordant Hip Range of Motion: Right Hip: Internal Rotation: Normal; Pain at end range: None External Rotation: Normal; Pain at end range: None Left Hip: Internal Rotation: Normal; Pain at end range: None External Rotation: Normal; Pain at end range: None Sacroiliac Maneuvers: Deferred Diagnoses: (M48.062) Spinal stenosis, lumbar region with neurogenic claudication (primary encounter diagnosis) (M43.16) Spondylolisthesis of lumbar region (M47.812) Cervical spondylosis without myelopathy (M54.81) Bilateral occipital neuralgia (M79.18) Myofascial pain Impression & Plan: 52 year old female with significant past medical history for FM, HTN, headaches, depression, PTSD, anxiety, Hx of ETOH abuse, who presents with complaint(s) of neck and low back pain. Patient has been established with Dr. Agarwal experiencing increased neck and low back pain she has tried to see her chiropractor but this seems to make her pain worse. in the distant past and had undergone interventional treatments as well as medication therapy. Overall she was not pleased with her care there and opted to wean her self off her medications and has been managing her pain since on NSAIDS. Recent lumbar x-rays demonstrate minimal degenerative endplate changes, she has some early facet hypertrophy predominantly L4-S1 with a grade 1 bordering grade 2 spondylolisthesis at L5/S1. Hips are maintained bilaterally. She has started PT, was delayed due to COVID. Strong myofascial overlay, left upper limb radicular symptoms may be myofascial. Headaches due to occipital neuralgia from muscle tension due to her cervical condition. Mariangel Robertson would benefit from the following to decrease pain, improve function and/or work participation, and improve quality of life: -Interventional Procedure: bilateral greater and lesser occipital nerve blocks The risks, benefits, alternative treatment options and prognosis of the procedure were discussed and all of the patient's questions/concerns were addressed to the patient s satisfaction. Unless explicitly instructed otherwise, patient was advised that they will need a helper/driver for after the procedure and that if no helper/driver is available and on site at the time of the procedure, the procedure will be cancelled. For any anticoagulants, the patient was advised on whether to continue or hold for this procedure. The patient expressed understanding and gave verbal consent to proceed. Medications: Refill: Requested Prescriptions No prescriptions requested or ordered in this encounter Continue OTC Tylenol 1 gm PO TID prn pain Discontinue Motrin Diclofenac 75mg BID PRN - start, advised not to exceed this dose and not to take Ibuprofen with this Flexeril 10mg qHS - will assume management from PCP Lyrica - increase from 75mg BID to 150mg BID DACIA-7/PHQ-2, and ORT: 11/04/2022 Completed and reviewed, low risk Functional Synagogue: Physical Therapy (Land-based) Additional Studies: EMG/NCT LUE - scheduled, will order MRI after EMG results if abnormal, after PT if normal study Referrals: None Additional: Medication use(s) and side effects reviewed with patient today with verbalized understanding. Consider cervical and lumbar MRI after PT Consider Lyrica titration Patient is happy and agreeable with this plan. All questions were answered and patient verbalized understanding. Depending on response to the above plan, consider: Follow-up: 2 months for evaluation of response to treatment plan and optimization Attribution: In addition to reviewing the information noted above, some elements copied from my most recent clinical note(s), including the physical exam (completed in entirety today), and the impression and plan sections, have been updated where appropriate. All reflect current medical decision making from today's date. Ginna AGUIRREA [facility] documented in this encounter [facility] 12-30-2022 Miscellaneous Notes Addressed in Mychart in different encounter. What diagnosis does she needs this for ?, sciatica flare? What period of time does she want this to be for? Usually sciatica flare will not be a reason for more than 2/3 months And how often she wants to take off, I need it in terms of whether it needs to monthly or bi weekly and each time how long he needs to stay off work with respect hours. Need answers to this questions Regards, Uche Bryan MD Contacted patient and she states she has quit that job because it was too much walking and lifting. Please advise. Thank you. I am sorry if I missed something here The last I heard from her is that she was working 5 days a week and walking around at work Is that not true? Regards, Uche Bryan MD Patient calls to ask if provider would be willing to fill out FMLA paperwork for to be able to take her to medical appointments and physical therapy visits. Patient reports that he has to take off work for every appointment she has to assist her to and he is at the point he is going to lose his job. Please call [phone] with provider response. Marlen Green RN documented in this encounter [facility] 12-23-2022 Miscellaneous Notes Spoke with pt and information listed below given. Pt verbalizes understanding. Emily Lara LPN Phoned patient and left message to return call and ask for a nurse. ----- Message from Uche Bryan MD sent at 12/23/2022 2:46 PM EST ----- You may have already heard that your mammogram came normal documented in this encounter [facility] 12-21-2022 Note HNO ID: [id number] Author: HEIKE Bello) Service: ? Author Type: Technologist Type: Progress Notes Filed: 12/21/2022 10:15 AM Note Text: Radiology Service Progress Note PATIENT NAME: Mariangel Robertson DATE OF SERVICE: December 21, 2022 TIME: 9:46 AM PATIENT IDENTITY VERIFICATION COMPLETED USING TWO (2) IDENTIFIERS: Name and Date of confirmed by patient verbally. FALL SCREENING: Has the patient had 2 falls in the last year or 1 fall with injury or currently using an Ambulatory Assistive Device (Walker, Cane, Wheelchair, Crutches, etc.)? No PATIENT GENDER DATA: Female. status: : No status: NO. PATIENT RELEVANT IMPLANT DATA REVIEWED: Not Applicable RADIOLOGY DEPARTMENT: Mammography PERIPHERAL IV DATA: Not applicable SIGNED BY: NICKI BelloR) December 21, 2022 9:46 AM [facility] 12-21-2022 History of Present illness Narrative Radiology Service Progress Note PATIENT NAME: Mariangel Robertson DATE OF SERVICE: December 21, 2022 TIME: 9:46 AM PATIENT IDENTITY VERIFICATION COMPLETED USING TWO (2) IDENTIFIERS: Name and Date of confirmed by patient verbally. FALL SCREENING: Has the patient had 2 falls in the last year or 1 fall with injury or currently using an Ambulatory Assistive Device (Walker, Cane, Wheelchair, Crutches, etc.)? No PATIENT GENDER DATA: Female. status: : No status: NO. PATIENT RELEVANT IMPLANT DATA REVIEWED: Not Applicable RADIOLOGY DEPARTMENT: Mammography PERIPHERAL IV DATA: Not applicable SIGNED BY: HEIKE Bello) December 21, 2022 9:46 AM documented in this encounter [facility] 12-20-2022 Note HNO ID: [id number] Author: Uche Bryan MD Service: ? Author Type: Physician Type: Progress Notes Filed: 12/20/2022 5:45 PM Note Text: Reason for Visit Patient presents with: Follow Up: refills needed Mariangel Robertson is a 52 year old female who presents here today for Above Complaints.. Health Maintenance HEPATITIS B(1 of 3 - 3-dose series) PAP TESTING HPV TESTING COLORECTAL CANCER SCREENING PNEUMOCOCCAL(2 - PCV) SHINGRIX VACCINE(1 of 2) COVID-19 VACCINE(3 - Booster for Pfizer series) HPI Reviewed labs- vit d was low. Vit b12.= aksed her to restart the injections she is taking Has an abnormal mammogram last week She had one that was abnormal in the past followed by normals and now it is abnormal, so patient is a little concerned. 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 Patient is having sciatic flare recently for the past few weeks, sees Dr Garduno. from sep 30 till now, Oct 18. She has a lot of stress from son who is suicidal. is unhappy and threatening her to divorce. Patient got off all the pain medications and muscle relaxors etc. But now she would like to restart that. Insomnia: patient has trazodone and it works well on her, the trazodone does make her feel a little groggy but it is not as much as before. Anxiety and depression is well controlled with the buspar. Patient had bowel changes, a months ago. No problem-specific Assessment AND Plan notes found for this encounter. PAST MEDICAL HISTORY Diagnosis Date Anxiety Depressive disorder Dermoid cyst of right ovary 10/15/2015 probable- [facility] Essential hypertension Insomnia Migraines Umbilical hernia 10/15/2015 minimal PAST SURGICAL HISTORY Procedure Laterality Date CT ABDOMEN AND PELVIS W/CONT 10/15/15 [facility] HYSTERECTOMY HX still has ovaries TUBAL LIGATION HX FAMILY HISTORY Problem Relation Age of Onset Cancer Mother lung other (depression [Other]) Mother Diabetes Father Hypertension Father Cancer Father prostate Heart Father Hypertension Sister Depression Daughter other (epilpsy [Other]) Son Depression Son Attempted Suicide Social History Tobacco Use Smoking status: Every Day Packs/day: 1.00 Years: 6.00 Pack years: 6.00 Types: Cigarettes Smokeless tobacco: Never Vaping Use Vaping Use: Never used Substance Use Topics Alcohol use: Yes Comment: Occasionally Drug use: No Past medical history, appointments, medications, allergies reviewed. Pertinent Lab/Diagnostic Studies are reviewed and discussed today Current Outpatient Medications: traZODone (DESYREL) 100 mg tablet rOPINIRole (REQUIP) 0.25 mg tablet cyclobenzaprine (FLEXERIL) 10 mg tablet pregabalin (LYRICA) 75 mg capsule hydrOXYzine HCl (ATARAX) 25 mg tablet citalopram (CELEXA) 40 mg tablet amLODIPine (NORVASC) [address] (PROTONIX) 40 mg tablet lisinopril (ZESTRIL, PRINIVIL) 20 mg tablet busPIRone (BUSPAR) 15 mg tablet cholecalciferol, Vitamin D3, (VITAMIN D3) 1,250 mcg (50,000 unit) cap capsule atorvastatin (LIPITOR) 20 mg tablet MELATONIN ORAL Estradiol (YUVAFEM) 10 mcg vaginal tablet cyanocobalamin 1,000 mcg/mL Syringe with Needle, Disp, 1 mL 27 x 1/2 guaiFENesin (MUCINEX) 600 mg 12 hr tablet fluticasone (FLONASE) 50 mcg/actuation nasal spray albuterol HFA (PROAIR HFA) 90 mcg/actuation inhaler Review of Systems CONSTITUTIONAL: No fevers, chills night sweats, unintended weight loss CARDIOVASCULAR: No chest pain, dyspnea, palpitations, orthopnea, PND, ankle edema. PULM: No dyspnea, unexplained cough. GI: No dysphagia/odynophagia, problematic reflux, constipation, diarrhea, changes in stool habits, hematochezia, melena. : No new urinary complaints, including dysuria, gross hematuria or pyuria. NEURO: No new balance problems, peripheral weakness/paresthesias or numbness of concern. Physical Exam BP 128/78 (BP Site: Left Arm, BP Position: Sitting, BP Cuff Size: Large Adult) Pulse 94 Temp 37.2 ?C (98.9 ?F) Resp 14 Ht 165.1 cm (5' 5 ) Wt 94.3 kg (208 lb) SpO2 96% BMI 34.61 kg/m? General appearance: Well appearing, alert, in no acute distress, well nourished. Skin: Skin color, texture, turgor normal, no suspicious rashes or lesions Head: Normocephalic, no masses, lesions, tenderness or abnormalities Eyes: Anicteric sclera. Pupils are equally round and reactive to light. Extraocular movements are intact. Lungs: Lungs clear to auscultation. No wheezing, rhonchi, rales Heart: RRR without murmur, gallop, or rubs. Extremities: No deformities, edema, skin discoloration, clubbing or cyanosis. Good capillary refill. ASSESSMENT/PLAN: 1. Mixed hyperlipidemia - ICD9: 272.2, ICD10: E78.2 (primary diagnosis) - suboptimal control - Continue current medication. - ATORVASTATIN 20 MG TABLET 2. Anxiety - ICD9: 300.00, ICD10: F41.9 - BUSPIRONE 15 MG TABLET 3. Left si (more content not included)... [facility] 12-20-2022 History of Present illness Narrative Reason for Visit Patient presents with: Follow Up: refills needed Mariangel Robertson is a 52 year old female who presents here today for Above Complaints.. Health Maintenance HEPATITIS B(1 of 3 - 3-dose series) PAP TESTING HPV TESTING COLORECTAL CANCER SCREENING PNEUMOCOCCAL(2 - PCV) SHINGRIX VACCINE(1 of 2) COVID-19 VACCINE(3 - Booster for Pfizer series) HPI Reviewed labs- vit d was low. Vit b12.= aksed her to restart the injections she is taking Has an abnormal mammogram last week She had one that was abnormal in the past followed by normals and now it is abnormal, so patient is a little concerned. 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 Patient is having sciatic flare recently for the past few weeks, sees Dr Garduno. from sep 30 till now, Oct 18. She has a lot of stress from son who is suicidal. is unhappy and threatening her to divorce. Patient got off all the pain medications and muscle relaxors etc. But now she would like to restart that. Insomnia: patient has trazodone and it works well on her, the trazodone does make her feel a little groggy but it is not as much as before. Anxiety and depression is well controlled with the buspar. Patient had bowel changes, a months ago. No problem-specific Assessment & Plan notes found for this encounter. PAST MEDICAL HISTORY Diagnosis Date Anxiety Depressive disorder Dermoid cyst of right ovary 10/15/2015 probable- [facility] Essential hypertension Insomnia Migraines Umbilical hernia 10/15/2015 minimal PAST SURGICAL HISTORY Procedure Laterality Date CT ABDOMEN & PELVIS W/CONT 10/15/15 [facility] HYSTERECTOMY HX still has ovaries TUBAL LIGATION HX FAMILY HISTORY Problem Relation Age of Onset Cancer Mother lung other (depression [Other]) Mother Diabetes Father Hypertension Father Cancer Father prostate Heart Father Hypertension Sister Depression Daughter other (epilpsy [Other]) Son Depression Son Attempted Suicide Social History Tobacco Use Smoking status: Every Day Packs/day: 1.00 Years: 6.00 Pack years: 6.00 Types: Cigarettes Smokeless tobacco: Never Vaping Use Vaping Use: Never used Substance Use Topics Alcohol use: Yes Comment: Occasionally Drug use: No Past medical history, appointments, medications, allergies reviewed. Pertinent Lab/Diagnostic Studies are reviewed and discussed today Current Outpatient Medications: traZODone (DESYREL) 100 mg tablet rOPINIRole (REQUIP) 0.25 mg tablet cyclobenzaprine (FLEXERIL) 10 mg tablet pregabalin (LYRICA) 75 mg capsule hydrOXYzine HCl (ATARAX) 25 mg tablet citalopram (CELEXA) 40 mg tablet amLODIPine (NORVASC) [address] (PROTONIX) 40 mg tablet lisinopril (ZESTRIL, PRINIVIL) 20 mg tablet busPIRone (BUSPAR) 15 mg tablet cholecalciferol, Vitamin D3, (VITAMIN D3) 1,250 mcg (50,000 unit) cap capsule atorvastatin (LIPITOR) 20 mg tablet MELATONIN ORAL Estradiol (YUVAFEM) 10 mcg vaginal tablet cyanocobalamin 1,000 mcg/mL Syringe with Needle, Disp, 1 mL 27 x 1/2 guaiFENesin (MUCINEX) 600 mg 12 hr tablet fluticasone (FLONASE) 50 mcg/actuation nasal spray albuterol HFA (PROAIR HFA) 90 mcg/actuation inhaler Review of Systems CONSTITUTIONAL: No fevers, chills night sweats, unintended weight loss CARDIOVASCULAR: No chest pain, dyspnea, palpitations, orthopnea, PND, ankle edema. PULM: No dyspnea, unexplained cough. GI: No dysphagia/odynophagia, problematic reflux, constipation, diarrhea, changes in stool habits, hematochezia, melena. : No new urinary complaints, including dysuria, gross hematuria or pyuria. NEURO: No new balance problems, peripheral weakness/paresthesias or numbness of concern. Physical Exam BP 128/78 (BP Site: Left Arm, BP Position: Sitting, BP Cuff Size: Large Adult) Pulse 94 Temp 37.2 C (98.9 F) Resp 14 Ht 165.1 cm (5' 5 ) Wt 94.3 kg (208 lb) SpO2 96% BMI 34.61 kg/m General appearance: Well appearing, alert, in no acute distress, well nourished. Skin: Skin color, texture, turgor normal, no suspicious rashes or lesions Head: Normocephalic, no masses, lesions, tenderness or abnormalities Eyes: Anicteric sclera. Pupils are equally round and reactive to light. Extraocular movements are intact. Lungs: Lungs clear to auscultation. No wheezing, rhonchi, rales Heart: RRR without murmur, gallop, or rubs. Extremities: No deformities, edema, skin discoloration, clubbing or cyanosis. Good capillary refill. ASSESSMENT/PLAN: 1. Mixed hyperlipidemia - ICD9: 272.2, ICD10: E78.2 (primary diagnosis) - suboptimal control - Continue current medication. - ATORVASTATIN 20 MG TABLET 2. Anxiety - ICD9: 300.00, ICD10: F41.9 - BUSPIRONE 15 MG TABLET 3. Left sided sciatica - ICD9: 724.3, ICD10: M54.32 - CYCLOBENZAPRINE 10 MG TABLET 4. Abnormal mammogram - ICD9: 793.80, ICD10: R92.8 - BREAST LTD LT - [facility] 5. Essential hypertension - ICD9: 401.9, ICD10: I10 - good control - Recommended regular aerobic exercise. - Recommend home blood pressure monitoring, to bring results in on next visit - Goal of BP <130/80 6. Hypokalemia - ICD9: 276.8, ICD10: E87.6 7. Vitamin D deficiency - ICD9: 268.9, ICD10: E55.9 Uche Bryan MD documented in this encounter [facility] 12-17-2022 Miscellaneous Notes December 20, 2022 PID: [id number] Mariangel Robertson [address] [place] [id number] Dear Ms. Robertson, Your recent breast imaging exam on 12/16/2022 showed a possible finding that requires additional imaging studies for a complete evaluation. Most such findings are probably benign (not cancer). If you have a healthcare provider who ordered/prescribed your screening mammogram: Please call [phone] or [phone]: [phone] to schedule an appointment for your additional imaging (if you have not already done so). If you DO NOT have a healthcare provider (ie you did not have an order/prescription for your screening mammogram): Please call to schedule an appointment for your additional imaging (if you have not already done so). You must have an order/prescription from your physician when calling to schedule your appointment. If your order/prescription is not electronic, you must bring the hard copy with you on the day of your exam to avoid delays. [facility] imaging studies and [facility] [facility] as part of your permanent medical record, and are available for your continuing care. Thank you for allowing us to help in meeting your health care needs. Sincerely, Dr. Ponce Interpreting Radiologist [facility] (Additional imaging) documented in this encounter [facility] 12-16-2022 Note HNO ID: [id number] Author: Chris Webster PT Service: ? Author Type: Physical Therapist Type: Progress Notes Filed: 12/16/2022 10:45 AM Note Text: Episode Visit Count: 3 Therapist That Will Accept/Oversee The Plan Of Care: Chris Webster Start of Care Date: 11/09/22 Onset Date: 11/09/20 (neck. Back is 7 years.) Patient Identified by Name and Date of : Yes REHABILITATION AND SPORTS THERAPY PHYSICAL THERAPY PROGRESS REPORT PLAN OF CARE UPDATE: Assessment: Mariangel Robertson demonstrates difficulty with walking, bending, lifting, and working and improvements in level of independence with the HEP. She has not progressed far with her goals due to complications of COVID. Patient continues to present with impairments in independence in exercise, overall function, strength , and symptom management that interfere with lifting, bending, working . Current prognosis is Good due to: current objective clinical presentation . Pt may benefit from cervical and lumbar stability exercises. She will benefit from continued skilled therapy services to meet the updated goals for this plan of care as noted below. Goals updated 12/16/2022 Goals for Episode of Care: created on 11/09/22 through Pt will be able to lift groceries onto the countertop without pain in 8 Weeks - Not met, will continue Sharkey in home exercise program. - Progressing, will continue Perform sitting without pain. - Not met, will continue Pt will be able to perform lumbar AROM without pain for ease of bending Down - Not met, will continue Patient Goals: Decrease pain Planned Interventions, Frequency, and Duration: 2x/week, 4 weeks Total Number of Visits Planned: 8 Patient to be seen for Therapeutic exercise ([id number]), Neuromuscular re-education ([id number]), Manual therapy ([id number]), Self-long-term management ([id number]), Patient/Family/Caregiver Education PLAN FOR NEXT VISIT: Progress core and cervical strengthening program Classification Low Back Pain Subgroup Classification: Specific exercise subgroup: recommended visits 8. SUBJECTIVE: Patient Reason for Visit: Covid for about 16 days in november. Difficulty lifting. Sciatica acting up. The neck always hurts. Patient Goals: Decrease pain Functional Limitations: lifting, bending, working Prior Level of Function: Independent without limitations Intake Information: Prescription present Previous Treatment: None Pain: Pain Pain Level: 6 Pain Location: Back Description: Aching, Dull Pain Level 2: 5 Pain Location 2: Neck Post Treatment Pain Post Treatment Pain Level: No Change PROMIS Scales Higher is Better 10/17/2022 11/08/2022 12/12/2022 Phys Func - Score - 37 (moderate dysfunction) 37 (moderate dysfunction) Phys Func - Percentile - 10 % 10 % GH Physical - Score 29.6 (Poor) - - GH Physical - Percentile 2 % - - GH Mental - Score 28.4 (Poor) - - GH Mental - Percentile 2 % - - Self-Eff Symptom - Score - 35 (Low) 35 (Low) Self-Eff Symptom - Percentile - 7 % 7 % T-scores: mean of general population = 50. 5 points is clinically meaningfully difference Percentiles provide an indication of how the patient's score ranks in relation to the general population. Higher percentile rankings indicate better function/quality of life. 50th percentile is the average of the general population and indicates half of respondents had a worse score. T-scores: mean of general population = 50. 5 points is clinically meaningfully difference Percentiles provide an indication of how the patient's score ranks in relation to the general population. Higher percentile rankings indicate better function/quality of life. 50th percentile is the average of the general population and indicates half of respondents had a worse score. OBJECTIVE MEASURES WITH LEVEL OF FUNCTION: Posture / Alignment Posture: Fair Spine Observations R Cervical Spine Palpation Tenderness: Suboccipitals L Cervical Spine Palpation Tenderness: Suboccipitals L Lumbar Spine Palpation Tenderness: Paraspinals Lumbar Spine AROM Lumbar Flexion: Normal, Increased pain Lumbar Extension: Normal, Increased pain Lumbar R Side-Bend: Normal, Increased pain Lumbar L Side-Bend: Normal, Increased pain Lumbar R Rotation: Normal Lumbar L Rotation: Normal, Increased pain LE AROM Tested?: Yes Cervical Spine ROM Cervical ROM : Limitation AROM Cervical Flexion AROM: Normal (Pull) Cervical Extension AROM: Normal, Increased pain (laterally) Cervical Side-Bend Right AROM: Normal Cervical Side-Bend Left AROM: Normal Cervical Rotation Right AROM: Normal Cervical Rotation Left AROM: Normal UE AROM R UE AROM: WNL L UE AROM: WNL LE AROM R LE AROM: WFL L LE AROM: WFL UE and Cervical Strength L Shoulder Flexion: 4/5 L Shoulder External Rotation: 4+/5 LE Strength R Hip Extension: 3+/5 R Hip Flexion (L2): 4+/5 R Hip External Rotation: 4/5 L Hip Extension: 3+/5 L Hip Flexion (L2): 4/5 (increased (more content not included)... [facility] 12-16-2022 History of Present illness Narrative Episode Visit Count: 3 Therapist That Will Accept/Oversee The Plan Of Care: Chris Webster Start of Care Date: 11/09/22 Onset Date: 11/09/20 (neck. Back is 7 years.) Patient Identified by Name and Date of : Yes REHABILITATION AND SPORTS THERAPY PHYSICAL THERAPY PROGRESS REPORT PLAN OF CARE UPDATE: Assessment: Mariangel Robertson demonstrates difficulty with walking, bending, lifting, and working and improvements in level of independence with the HEP. She has not progressed far with her goals due to complications of COVID. Patient continues to present with impairments in independence in exercise, overall function, strength , and symptom management that interfere with lifting, bending, working . Current prognosis is Good due to: current objective clinical presentation . Pt may benefit from cervical and lumbar stability exercises. She will benefit from continued skilled therapy services to meet the updated goals for this plan of care as noted below. Goals updated 12/16/2022 Goals for Episode of Care: created on 11/09/22 through Pt will be able to lift groceries onto the countertop without pain in 8 Weeks - Not met, will continue Sharkey in home exercise program. - Progressing, will continue Perform sitting without pain. - Not met, will continue Pt will be able to perform lumbar AROM without pain for ease of bending Down - Not met, will continue Patient Goals: Decrease pain Planned Interventions, Frequency, and Duration: 2x/week, 4 weeks Total Number of Visits Planned: 8 Patient to be seen for Therapeutic exercise ([id number]), Neuromuscular re-education ([id number]), Manual therapy ([id number]), Self-long-term management ([id number]), Patient/Family/Caregiver Education PLAN FOR NEXT VISIT: Progress core and cervical strengthening program Classification Low Back Pain Subgroup Classification: Specific exercise subgroup: recommended visits 8. SUBJECTIVE: Patient Reason for Visit: Covid for about 16 days in november. Difficulty lifting. Sciatica acting up. The neck always hurts. Patient Goals: Decrease pain Functional Limitations: lifting, bending, working Prior Level of Function: Independent without limitations Intake Information: Prescription present Previous Treatment: None Pain: Pain Pain Level: 6 Pain Location: Back Description: Aching, Dull Pain Level 2: 5 Pain Location 2: Neck Post Treatment Pain Post Treatment Pain Level: No Change PROMIS Scales Higher is Better 10/17/2022 11/08/2022 12/12/2022 Phys Func - Score - 37 (moderate dysfunction) 37 (moderate dysfunction) Phys Func - Percentile - 10 % 10 % GH Physical - Score 29.6 (Poor) - - GH Physical - Percentile 2 % - - GH Mental - Score 28.4 (Poor) - - GH Mental - Percentile 2 % - - Self-Eff Symptom - Score - 35 (Low) 35 (Low) Self-Eff Symptom - Percentile - 7 % 7 % T-scores: mean of general population = 50. 5 points is clinically meaningfully difference Percentiles provide an indication of how the patient's score ranks in relation to the general population. Higher percentile rankings indicate better function/quality of life. 50th percentile is the average of the general population and indicates half of respondents had a worse score. T-scores: mean of general population = 50. 5 points is clinically meaningfully difference Percentiles provide an indication of how the patient's score ranks in relation to the general population. Higher percentile rankings indicate better function/quality of life. 50th percentile is the average of the general population and indicates half of respondents had a worse score. OBJECTIVE MEASURES WITH LEVEL OF FUNCTION: Posture / Alignment Posture: Fair Spine Observations R Cervical Spine Palpation Tenderness: Suboccipitals L Cervical Spine Palpation Tenderness: Suboccipitals L Lumbar Spine Palpation Tenderness: Paraspinals Lumbar Spine AROM Lumbar Flexion: Normal, Increased pain Lumbar Extension: Normal, Increased pain Lumbar R Side-Bend: Normal, Increased pain Lumbar L Side-Bend: Normal, Increased pain Lumbar R Rotation: Normal Lumbar L Rotation: Normal, Increased pain LE AROM Tested?: Yes Cervical Spine ROM Cervical ROM : Limitation AROM Cervical Flexion AROM: Normal (Pull) Cervical Extension AROM: Normal, Increased pain (laterally) Cervical Side-Bend Right AROM: Normal Cervical Side-Bend Left AROM: Normal Cervical Rotation Right AROM: Normal Cervical Rotation Left AROM: Normal UE AROM R UE AROM: WNL L UE AROM: WNL LE AROM R LE AROM: WFL L LE AROM: WFL UE and Cervical Strength L Shoulder Flexion: 4/5 L Shoulder External Rotation: 4+/5 LE Strength R Hip Extension: 3+/5 R Hip Flexion (L2): 4+/5 R Hip External Rotation: 4/5 L Hip Extension: 3+/5 L Hip Flexion (L2): 4/5 (increased back pain) L Hip External Rotation: 4/5 TREATMENT: Therapeutic Exercise: 1: All objective measures taken this session 2: Supine bridge 2 x 10 (VC's for proper form and squeezing the core and glutes before lifting the buttock was emphasized) 3: Supine DNF 10 reps x 3 sec holds Skilled Intervention: Patient was educated in proper exercise technique and purpose for exercises. Skilled judgment was provided in selection of appropriate interventions. Provided written instruction for home exercise program to facilitate proper performance and compliance. Correct performance of therapeutic exercises was facilitated with verbal and visual cuing. Billing Therapeutic Exercise Treatment Minutes: 54 Total Treatment Time Minutes (timed/untimed): 54 Chris Webster PT documented in this encounter [facility] 12-14-2022 Miscellaneous Notes Left a message for pt that her prescription was sent to the pharmacy. Emily Lara LPN Trazodone prescription refilled. Lindsey Jules APRN.[email or web address] Patient calling back to check the status of her request please advise and call her back. Patient would like to get this today. Patient has been identified by name and date of : No Patient phones for refill(s): Requested Prescriptions Pending Prescriptions Disp Refills traZODone (DESYREL) 100 mg tablet 90 tablet 1 Sig: Take 3 tablets by mouth daily at bedtime. Date of last office visit in primary care: 10/18/2022 Last 2 Encounter Wt Readings: Date: Wt: 2022 93.9 kg (207 lb) 10/18/2022 93.4 kg (206 lb) Previous labs/tests for medication: Not applicable Please advise. Thank you. Renea Robles LPN documented in this encounter [facility] 12-13-2022 Miscellaneous Notes The refill request for Trazadone has been addressed in another encounter. documented in this encounter [facility] 2022 History of Present illness Narrative This note was created using [employer]. Subjective Mariangel Robertson is a 52 year old female. HPI 52-year-old female with PMH of obesity, smoker, HTN, HLD presents for positive home COVID test. Patient states that her was sick with COVID last week. She started getting symptoms yesterday. She took a home COVID test today which came back positive. She has had sore throat, headache, cough and fevers. She reports some nausea. No vomiting or diarrhea. No abdominal pain. No chest pain or shortness of breath. She is requesting antiviral. Review of Systems Constitutional: Positive for chills and fever. HENT: Positive for congestion and sore throat. Negative for ear pain. Respiratory: Positive for cough. Negative for shortness of breath. Cardiovascular: Negative for chest pain. Gastrointestinal: Positive for nausea. Negative for diarrhea and vomiting. Neurological: Positive for headaches. Objective BP 122/70 Pulse 84 Temp 37.2 C (99 F) Resp 16 Wt 93.9 kg (207 lb) SpO2 96% BMI 34.45 kg/m Physical Exam Vitals and nursing note reviewed. Constitutional: General: She is not in acute distress. Appearance: Normal appearance. She is not toxic-appearing. HENT: Right Ear: Tympanic membrane and ear canal normal. Left Ear: Tympanic membrane and ear canal normal. Nose: Congestion present. Mouth/Throat: Mouth: Mucous membranes are moist. Pharynx: No oropharyngeal exudate or posterior oropharyngeal erythema. Eyes: Conjunctiva/sclera: Conjunctivae normal. Cardiovascular: Rate and Rhythm: Normal rate and regular rhythm. Pulmonary: Effort: Pulmonary effort is normal. Breath sounds: Normal breath sounds. Abdominal: General: Abdomen is flat. Palpations: Abdomen is soft. Tenderness: There is no abdominal tenderness. Neurological: Mental Status: She is alert. Assessment and Plan ASSESSMENT/PLAN: 1. COVID-19 - ICD9: 079.89, ICD10: U07.1 (primary diagnosis) - MOLNUPIRAVIR 200 MG CAPSULE (EUA) - Confirmatory COVID/Flu pending. -Patient meets criteria for antiviral. Symptoms started 2 ago. She is high risk as she is obese, has HTN, mental health disorder, and HLD. She is also a smoker. Risks versus benefits discussed with patient regarding medication. She would like treatment with antiviral. -Normal kidney function in May. -She does have drug interaction with atorvastatin and Paxlovid, therefore Molnupiravir prescribed. Diagnosis and treatment plan were discussed and questions were answered to the patient's satisfaction. Pt acknowledged understanding of concepts and follow up plan. Specific signs and symptoms that would indicate the need for higher level of care were discussed in detail warranting prompt ER evaluation. BALDO Steve Medical Decision Making: Problems: Moderate: Acute illness with systemic symptoms Data: Unique source(s) for external note(s) reviewed: 1 Unique test(s) ordered: 1 Risk: Moderate: Moderate risk from testing/treatment Medical Decision Making Level: 4 - Moderate Molnupiravir Eligibility and Patient Discussion [facility] Formulary Restriction Criteria: Adult outpatients 18 years and older with ALL of the following: [x] Patient has positive SARS-COV-2 viral test (PCR or antigen test) during current illness [x] Patient has symptoms for 5 days or less [x] Not requiring hospitalization at any time for management of COVID-19 [x] Not requiring supplemental oxygen or a change in baseline supplemental oxygen [x] Not utilized for pre-exposure or post-exposure prophylaxis for prevention of COVID-19 [x] Patient is not or lactating [x] Meeting at least one of the criteria for high risk of progression to severe COVID-19: [] Age over 65 years [] Cancer [] Chronic kidney disease [] Chronic liver disease [] Chronic lung diseases, including cystic fibrosis [] Dementia or other neurological conditions [] Diabetes (type 1 or type 2) [] Disabilities, including Down syndrome and neurodevelopmental disorders [x] Heart conditions [] HIV infection [] Immunocompromised state [x] Mental health conditions [] Medical related technological dependence (tracheostomy, gastrostomy, or positive pressure ventilation (not related to COVID) [x] Overweight and obesity (BMI greater or equal to 25 for adults) [] Physical inactivity [] Sickle cell disease or thalassemia [x] Smoking, current or former [] Solid organ or blood stem cell transplant [] Stroke or cerebrovascular disease [] Substance use disorders [] Tuberculosis [] People from racial and ethnic minority groups Criteria above are met: Yes Date of Positive Test:12/01/22 Date of Symptom Onset: 11/30/22 Patient received COVID vaccine: Yes / status reviewed: Females: [x] Patient is not currently and there is no possibility the patient could be (select one of the following): [x] test does not need to be confirmed in patients who have undergone permanent sterilization, are currently using an intrauterine system or contraceptive implant, or in whom is not possible. [] Patients not meeting conditions above: assess whether the patient is based on the first day of the last menstrual period in individuals who have regular menstrual cycles, is using reliable method of contraception correctly and consistently or have had a negative test [] A test is recommended if the individual has irregular menstrual cycles, is unsure of the first day of the last menstrual period or is not using effective contraception correctly and consistently [x] Patient is not currently . is not recommended during treatment and for four days after final dose of molnupiravir. [x] Females have been advised to use a reliable method of contraception correctly and consistently for the duration of treatment and for four days after the last dose of molnupiravir Males: [] Sexually active male with partner(s) of childbearing potential has been advised to use a reliable method of contraception correctly and consistently for intercourse for the duration of treatment and for three months after the last dose of molnupiravir I have discussed the use of the investigational therapeutic, molnupiravir, for the treatment of mild to moderate COVID-19 and its use under Emergency Use Authorization with the patient. The patient was informed that molnupiravir is not an FDA approved drug and that it is authorized for use under this Emergency Use Authorization. The patient was also informed of the significant known benefits and potential risks of molnupiravir, and the extent to which such potential risks and benefits are unknown. The patient was informed that there is mandatory reporting of all medication errors and serious adverse events potentially related to molnupiravir treatment within 7 calendar days from the onset of the event and that events up to 28 days after completion of therapy need to be reported. The discussion included alternatives to receiving molnupiravir, including clinical trials, and potential the risks and benefits of those alternatives. The patient was provided electronically with the Fact Sheet for Patients, Parents and Caregivers . The patient was also instructed that in addition to the treatment with molnupiravir, he/she should continue to self-isolate and use infection control measures (e.g., wear mask, isolate, social distance, avoid sharing personal items, clean and disinfect high touch surfaces, and frequent handwashing) according to CDC guidelines. The patient stated understanding and gave verbal consent to proceeding with molnupiravir treatment. BALDO Steve 2022 1:06 PM Molnupiravir Eligibility and Patient Discussion [facility] Formulary Restriction Criteria: Adult outpatients 18 years and older with ALL of the following: [x] Patient has positive SARS-COV-2 viral test (PCR or antigen test) during current illness [x] Patient has symptoms for 5 days or less [x] Not requiring hospitalization at any time for management of COVID-19 [x] Not requiring supplemental oxygen or a change in baseline supplemental oxygen [x] Not utilized for pre-exposure or post-exposure prophylaxis for prevention of COVID-19 [x] Patient is not or lactating [x] Meeting at least one of the criteria for high risk of progression to severe COVID-19: [] Age over 65 years [] Cancer [] Chronic kidney disease [] Chronic liver disease [] Chronic lung diseases, including cystic fibrosis [] Dementia or other neurological conditions [] Diabetes (type 1 or type 2) [] Disabilities, including Down syndrome and neurodevelopmental disorders [x] Heart conditions [] HIV infection [] Immunocompromised state [x] Mental health conditions [] Medical related technological dependence (tracheostomy, gastrostomy, or positive pressure ventilation (not related to COVID) [x] Overweight and obesity (BMI greater or equal to 25 for adults) [] Physical inactivity [] Sickle cell disease or thalassemia [x] Smoking, current or former [] Solid organ or blood stem cell transplant [] Stroke or cerebrovascular disease [] Substance use disorders [] Tuberculosis [] People from racial and ethnic minority groups Criteria above are met: Yes Date of Positive Test:12/01/22 Date of Symptom Onset: 11/30/22 Patient received COVID vaccine: Yes / status reviewed: Females: [x] Patient is not currently and there is no possibility the patient could be (select one of the following): [x] test does not need to be confirmed in patients who have undergone permanent sterilization, are currently using an intrauterine system or contraceptive implant, or in whom is not possible. [] Patients not meeting conditions above: assess whether the patient is based on the first day of the last menstrual period in individuals who have regular menstrual cycles, is using reliable method of contraception correctly and consistently or have had a negative test [] A test is recommended if the individual has irregular menstrual cycles, is unsure of the first day of the last menstrual period or is not using effective contraception correctly and consistently [x] Patient is not currently . is not recommended during treatment and for four days after final dose of molnupiravir. [x] Females have been advised to use a reliable method of contraception correctly and consistently for the duration of treatment and for four days after the last dose of molnupiravir Males: [] Sexually active male with partner(s) of childbearing potential has been advised to use a reliable method of contraception correctly and consistently for intercourse for the duration of treatment and for three months after the last dose of molnupiravir I have discussed the use of the investigational therapeutic, molnupiravir, for the treatment of mild to moderate COVID-19 and its use under Emergency Use Authorization with the patient. The patient was informed that molnupiravir is not an FDA approved drug and that it is authorized for use under this Emergency Use Authorization. The patient was also informed of the significant known benefits and potential risks of molnupiravir, and the extent to which such potential risks and benefits are unknown. The patient was informed that there is mandatory reporting of all medication errors and serious adverse events potentially related to molnupiravir treatment within 7 calendar days from the onset of the event and that events up to 28 days after completion of therapy need to be reported. The discussion included alternatives to receiving molnupiravir, including clinical trials, and potential the risks and benefits of those alternatives. The patient was provided electronically with the Fact Sheet for Patients, Parents and Caregivers . The patient was also instructed that in addition to the treatment with molnupiravir, he/she should continue to self-isolate and use infection control measures (e.g., wear mask, isolate, social distance, avoid sharing personal items, clean and disinfect high touch surfaces, and frequent handwashing) according to CDC guidelines. The patient stated understanding and gave verbal consent to proceeding with molnupiravir treatment. BALDO Steve 2022 1:06 PM documented in this encounter [facility] 2022 Instructions BALDO Steve - 2022 1:01 PM EST Fact Sheet for Patients And Caregivers Emergency Use Authorization (EUA) Of Molnupiravir For Coronavirus Disease 2019 (COVID-19) What is the most important information I should know about molnupiravir? Molnupiravir may cause serious side effects, including: Molnupiravir may cause harm to your unborn baby. It is not known if molnupiravir will harm your baby if you take molnupiravir during . Molnupiravir is not recommended for use in . Molnupiravir has not been studied in . Molnupiravir was studied in animals only. When molnupiravir was given to animals, molnupiravir caused harm to their unborn babies. You and your healthcare provider may decide that you should take molnupiravir during if there are no other COVID-19 treatment options authorized by the FDA that are accessible or clinically appropriate for you. If you and your healthcare provider decide that you should take molnupiravir during , you and your healthcare provider should discuss the known and potential benefits and the potential risks of taking molnupiravir during . For individuals who are able to become : You should use a reliable method of control (contraception) consistently and correctly during treatment with molnupiravir and for 4 days after the last dose of molnupiravir. Talk to your healthcare provider about reliable control methods. Before starting treatment with molnupiravir your healthcare provider may do a test to see if you are before starting treatment with molnupiravir. Tell your healthcare provider right away if you become or think you may be during treatment with molnupiravir. Surveillance Program: There is a surveillance program for individuals who take molnupiravir during . The purpose of this program is to collect information about the health of you and your baby. Talk to your healthcare provider about how to take part in this program. If you take molnupiravir during and you agree to participate in the surveillance program and allow your healthcare provider to share your information with [employer], then your healthcare provider will report your use of molnupiravir during to [facility] [place]. by calling or Pregnancyreporting[employer]. For individuals who are sexually active with partners who are able to become : It is not known if molnupiravir can affect sperm. While the risk is regarded as low, animal studies to fully assess the potential for molnupiravir to affect the babies of males treated with molnupiravir have not been completed. A reliable method of control (contraception) should be used consistently and correctly during treatment with molnupiravir and for at least 3 months after the last dose. The risk to sperm beyond 3 months is not known. Studies to understand the risk to sperm beyond 3 months are ongoing. Talk to your healthcare provider about reliable control methods. Talk to your healthcare provider if you have questions or concerns about how molnupiravir may affect sperm. You are being given this fact sheet because your healthcare provider believes it is necessary to provide you with molnupiravir for the treatment of adults with kbjv-uj-zdwxamql coronavirus disease 2019 (COVID-19) with positive results of direct SARS-CoV-2 viral testing, and who are at high risk for progressing to severe COVID-19 including hospitalization or , and for whom other COVID-19 treatment options authorized by the FDA are not accessible or clinically appropriate. The [place].S. Food and Drug Administration (FDA) has issued an Emergency Use Authorization (EUA) to make molnupiravir available during the COVID-19 pandemic (for more details about an EUA please see What is an Emergency Use Authorization? at the end of this document). Molnupiravir is not an FDA-approved medicine in the [place]. Read this Fact Sheet for information about molnupiravir. Talk to your healthcare provider about your options if you have any questions. It is your choice to take molnupiravir. What is COVID-19? COVID-19 is caused by a virus called a coronavirus. You can get COVID-19 through close contact with another person who has the virus. COVID-19 illnesses have ranged from very fvqu-pc-icsnmf, including illness resulting in . While information so far suggests that most COVID-19 illness is mild, serious illness can happen and may cause some of your other medical conditions to become worse. Older people and people of all ages with severe, long lasting (chronic) medical conditions like heart disease, lung disease and diabetes, for example seem to be at higher risk of being hospitalized for COVID-19. What is molnupiravir? Molnupiravir is an investigational medicine used to treat pjna-ld-yreqsnfn COVID-19 in adults: with positive results of direct SARS-CoV-2 viral testing, and who are at high risk for progressing to severe COVID-19 including hospitalization or , and for whom other COVID-19 treatment options authorized by the FDA are not accessible or clinically appropriate. The FDA has authorized the emergency use of molnupiravir for the treatment of mild-tomoderate COVID-19 in adults under an EUA. For more information on EUA, see the What is an Emergency Use Authorization (EUA)? section at the end of this Fact Sheet. Molnupiravir is not authorized: for use in people less than 18 years of age. for prevention of COVID-19. for people needing hospitalization for COVID-19. for use for longer than 5 consecutive days. What should I tell my healthcare provider before I take molnupiravir? Tell your healthcare provider if you: Have any allergies Are or plan to breastfeed Have any serious illnesses Are taking any medicines (prescription, atrj-oad-kbfqdrc, vitamins, or herbal products). How do I take molnupiravir? Take molnupiravir exactly as your healthcare provider tells you to take it. Take 4 capsules of molnupiravir every 12 hours (for example, at 8 am and at 8 pm) Take molnupiravir for 5 days. It is important that you complete the full 5 days of treatment with molnupiravir. Do not stop taking molnupiravir before you complete the full 5 days of treatment, even if you feel better. Take molnupiravir with or without food. You should stay in isolation for as long as your healthcare provider tells you to. Talk to your healthcare provider if you are not sure about how to properly isolate while you have COVID-19. Swallow molnupiravir capsules whole. Do not open, break, or crush the capsules. If you cannot swallow capsules whole, tell your healthcare provider. What to do if you miss a dose: If it has been less than 10 hours since the missed dose, take it as soon as you remember If it has been more than 10 hours since the missed dose, skip the missed dose and take your dose at the next scheduled time. Do not double the dose of molnupiravir to make up for a missed dose. What are the important possible side effects of molnupiravir? Possible side effects of molnupiravir are: See, What is the most important information I should know about molnupiravir? diarrhea nausea dizziness These are not all the possible side effects of molnupiravir. Not many people have taken molnupiravir. Serious and unexpected side effects may happen. This medicine is still being studied, so it is possible that all of the risks are not known at this time. What other treatment choices are there? Like molnupiravir, FDA may allow for the emergency use of other medicines to treat people with COVID-19. Go to https://www.fda.gov/emergency-prep albmnupt-rkk-ntwoaued/mcm-legalreg indyqxk-pye-ynkkoc-framework/emerg sgjb-dsw-heumoqrmettbp for more information. It is your choice to be treated or not to be treated with molnupiravir. Should you decide not to take it, it will not change your standard medical care. What if I am ? is not recommended during treatment with molnupiravir and for 4 days after the last dose of molnupiravir. If you are or plan to breastfeed, talk to your healthcare provider about your options and specific situation before taking molnupiravir. How do I report side effects with molnupiravir? Contact your healthcare provider if you have any side effects that bother you or do not go away. Report side effects to FDA MedWatch at www.fda.gov/medwatch or call 4-144-FNE-4145 ( ). How should I store molnupiravir? Store molnupiravir capsules at room temperature between 68 F to 77 F (20 C to 25 C). Keep molnupiravir and all medicines out of the reach of children and pets. How can I learn more about COVID-19? Ask your healthcare provider. Visit www.cdc.gov/COVID19 Contact your local or state public health department. Call [employer] at (toll free in the [place] Visit www.molnupiravir.[employer] What Is an Emergency Use Authorization (EUA)? The [place] FDA has made molnupiravir available under an emergency access mechanism called an Emergency Use Authorization (EUA) The EUA is supported by a [place] of Health and Human Service ([facility]) declaration that circumstances exist to justify emergency use of drugs and biological products during the COVID-19 pandemic. Molnupiravir for the treatment of ciyk-lf-idmhikng COVID-19 in adults with positive results of direct SARS-CoV-2 viral testing, who are at high risk for progression to severe COVID-19, including hospitalization or , and for whom alternative COVID-19 treatment options authorized by FDA are not accessible or clinically appropriate, has not undergone the same type of review as an FDA-approved product. In issuing an EUA under the COVID-19 public health emergency, the FDA has determined, among other things, that based on the total amount of scientific evidence available including data from adequate and well-controlled clinical trials, if available, it is reasonable to believe that the product may be effective for diagnosing, treating, or preventing COVID-19, or a serious or life-threatening disease or condition caused by COVID19; that the known and potential benefits of the product, when used to diagnose, treat, or prevent such disease or condition, outweigh the known and potential risks of such product; and that there are no adequate, approved, and available alternatives. All of these criteria must be met to allow for the product to be used in the treatment of patients during the COVID-19 pandemic. The EUA for molnupiravir is in effect for the duration of the COVID-19 declaration justifying emergency use of molnupiravir, unless terminated or revoked (after which molnupiravir may no longer be used under the EUA). For patent information: www.[employer]/research/patent Copyright 2020 [employer] [place], [place] and its affiliates. All rights reserved. [id number] Issued: 11/12/2021 documented in this encounter [facility] 11-24-2022 Miscellaneous Notes Last office visit: 10/18/22 Next appointment scheduled: 12/20/22 Patient phones requesting refills as follows: Requested Prescriptions Pending Prescriptions Disp Refills rOPINIRole (REQUIP) 0.25 mg tablet 56 tablet 3 Sig: TAKE 1 TO 2 TABLETS BY MOUTH 30 MINUTES BEFORE BED. cyclobenzaprine (FLEXERIL) 10 mg tablet 30 tablet 1 Sig: Take 1 tablet by mouth three times daily as needed for muscle spasm. Please review and advise. Amberly Fournier LPN documented in this encounter [facility] 11-20-2022 Miscellaneous Notes Pt states she is out of this medication. Patient has been identified by name and date of : Yes Last office visit in this department: 10/18/2022 RX INSTRUCTIONS: Patient aware RX will be sent to pharmacy. No need to notify patient. Patient phones requesting refills as follows: Requested Prescriptions Pending Prescriptions Disp Refills rOPINIRole (REQUIP) 0.25 mg tablet 56 tablet 3 Sig: TAKE 1 TO 2 TABLETS BY MOUTH 30 MINUTES BEFORE BED. Please review and advise. Andressa Arellano documented in this encounter [facility] 11-19-2022 History of Present illness Narrative Episode Visit Count: 2 Therapist That Will Accept/Oversee The Plan Of Care: Chris Webster Start of Care Date: 11/09/22 Onset Date: 11/09/20 (neck. Back is 7 years.) Patient Identified by Name and Date of : Yes REHABILITATION AND SPORTS THERAPY PHYSICAL THERAPY TREATMENT NOTE ASSESSMENT: Mariangel Robertson tolerated the session with no issues. She demonstrated difficulty with pain with palpation to the sub-occipitals that referred pain to the head causing familiar GARCIA's. The patient will continue to benefit from ongoing skilled physical therapy to progress toward set goals. PLAN FOR NEXT VISIT: Assess reaction to HEP. Possibly mobilize the upper thoracic spine SUBJECTIVE: Patient Reason for Visit: Noticed tingling in the R leg and foot which is new. Maybe when taking down the tatiana tree. Pain: Pain Pain Location: Back Pain Location 2: Shoulder - Left OBJECTIVE MEASURES WITH LEVEL OF FUNCTION: LE Flexibility Flexibility: (Sub-occipital flexibility severe restriction both sides) Spine Joint Mobility Spine Joint Mobility : Cervical/Thoracic Joint Mobility - C2: WNL Joint Mobility - C3: WNL Joint Mobility - C4: Hypermobile (familiar pain here) Joint Mobility - C5: WNL Joint Mobility - C6: WNL Joint Mobility - C7: WNL LE Strength R Hip Extension: 3+/5 L Hip Extension: 3+/5 TREATMENT: Therapeutic Exercise: 1: Standing shoulder scaption W of arm x 10 2: Seated S-O stretch 3 x 30 seconds 3: Supine bridge 2 x 10 reps Skilled Intervention: Patient was educated in proper exercise technique and purpose for exercises. Provided written instruction for home exercise program to facilitate proper performance and compliance. Correct performance of therapeutic exercises was facilitated with verbal and visual cuing. Billing Therapeutic Exercise Treatment Minutes: 40 Total Treatment Time Minutes (timed/untimed): 40 Chris Webster PT documented in this encounter [facility] 11-09-2022 History of Present illness Narrative Episode Visit Count: 1 Therapist That Will Accept/Oversee The Plan Of Care: Chris Webster Start of Care Date: 11/09/22 Onset Date: 11/09/20 (neck. Back is 7 years.) Patient Identified by Name and Date of : Yes REHABILITATION AND SPORTS THERAPY PHYSICAL THERAPY EVALUATION PLAN OF CARE: Assessment: Mariangel Robertson presents with chief complaint of Neck and Back pain that interferes with lifting . She presents with impairments in ADL's, independence in exercise, strength , and symptom management. PROMIS (Patient-Reported Outcomes Measurement Information System) scores were reviewed and physical function domain identified as a rehabilitation concern. Prognosis for therapy is Good due to: current objective clinical presentation . Pt demonstrates familiar pain with resisted shoulder flexion that travels down the L arm.Pt may demo an extension DOP in the low back. Positive SLR LLE. She will benefit from skilled therapy services to meet the goals established for this plan of care as noted below. Classification Low Back Pain Subgroup Classification: Specific exercise subgroup: recommended visits 8. Specific Exercies Subgroup Classification based on: directional preference;peripheralization Goals for Episode of Care: created on 11/09/22 through 01/04/23 Pt will be able to lift groceries onto the countertop without pain in 8 weeks Sharkey in home exercise program. Perform sitting without pain. Pt will be able to perform lumbar AROM without pain for ease of bending down Patient Goals: Decrease pain Planned Interventions, Frequency, and Duration: Current Frequency: 2x/week Duration: 4 weeks Total Number of Visits Planned: 8 Planned Treatment Interventions: Therapeutic exercise (38724);Neuromuscular re-education (19988);Manual therapy (90186);Self-long-term management (27212);Patient/Family/Caregiver Education PLAN FOR NEXT VISIT: Assess reaction to the HEP. Lumbar ext exercises. Assess hip strength. Patient demonstrates good understanding of plan of care and treatment. The above goals and plan of care were discussed and agreed upon by patient/family. SUBJECTIVE: Mariangel Robertson is a 51 year old female seen today for Neck and back pain. No trauma. Pain in the neck down to L elbow and wrist and LBP down L leg. Hard to lift bags up on the counter. Has N/T in the fingers or foot on the L. Patient Goals: Decrease pain Functional Limitations: lifting Prior Level of Function: Independent without limitations Relevant History Preferred Language: Dutch Intake Information: Prescription present Previous Treatment: None Red Flags Vertebral Fracture Red Flags: Female Vertebral Fracture Clinical Reasoning: No identified risk factors Abdominal Aortic Aneurysm Clinical Reasoning: No identified risk factors. Cancer Red Flags: Age >50 or <20 Cancer Clinical Reasoning: No identified risk factors. Infection Clinical Reasoning: No identified risk factors. Cauda Equina Syndrome Clinical Reasoning: No identified risk factors. Cervical Myelopathy: Age > 45 yo Cervical Myelopathy Diagnostic Rule: No identified risk factors. Red Flags - Cervical Cancer Red Flags: Age >50 or <20 Cancer Clinical Reasoning: No identified risk factors. Infection Clinical Reasoning: No identified risk factors. Cervical Myelopathy: Age > 45 yo Cervical Myelopathy Diagnostic Rule: No identified risk factors. Pain: Pain Pain Location: Back (Not rated) Additional Pain Information : Location 2 Pain Level 2: (Not rated) Pain Location 2: Shoulder - Left PROMIS Scales Higher is Better 07/15/2022 10/17/2022 11/08/2022 Phys Func - Score - - 37 (moderate dysfunction) Phys Func - Percentile - - 10 % GH Physical - Score 32.4 (Poor) 29.6 (Poor) - GH Physical - Percentile 4 % 2 % - GH Mental - Score 28.4 (Poor) 28.4 (Poor) - GH Mental - Percentile 2 % 2 % - Self-Eff Symptom - Score - - 35 (Low) Self-Eff Symptom - Percentile - - 7 % T-scores: mean of general population = 50. 5 points is clinically meaningfully difference Percentiles provide an indication of how the patient's score ranks in relation to the general population. Higher percentile rankings indicate better function/quality of life. 50th percentile is the average of the general population and indicates half of respondents had a worse score. T-scores: mean of general population = 50. 5 points is clinically meaningfully difference Percentiles provide an indication of how the patient's score ranks in relation to the general population. Higher percentile rankings indicate better function/quality of life. 50th percentile is the average of the general population and indicates half of respondents had a worse score. OBJECTIVE MEASURES WITH LEVEL OF FUNCTION: Posture / Alignment Posture: Fair Lumbar Spine AROM Lumbar Flexion: Normal Cervical Spine ROM Cervical ROM : Limitation AROM Cervical Flexion AROM: Normal (stretching in back of neck) Cervical Extension AROM: Normal;Increased pain Cervical Rotation Right AROM: Normal Cervical Rotation Left AROM: Normal UE AROM R UE AROM: WNL L UE AROM: WNL L Shoulder Flex: (Pain with lowering the L arm) UE and Cervical Strength Strength Tested: Shoulder All L Shoulder Flexion: 4/5 (painful) L Shoulder External Rotation: 4+/5 Special Tests - Cervical Cervical Special Tests: Quadrant;Spurling Quadrant: Left Negative Spurling: Left Negative Education: Education Learning Preferences: Demonstration;Explanation;Performa nce;Printed Materials Barriers: None Learning/educational needs: Home exercise program;Safety Education Provided: Yes, see treatment interventions for education provided Education Provided To: Patient Education Mode/Type: Demonstration;Explanation/Discussi on;Literature/Printed Materials;Performance Response to Education/Teach Back: States/Identifies;Return Demonstration TREATMENT: PT Treatment Interventions: Therapeutic Exercise Evaluation Therapeutic Exercise: 1: Discussed therapy goals, exam findings, purpose of the HEP. Discussed disc mechanics and anatomy of the spine and shoulder. 2: Standing shoulder scaption 2# 2 x 4 reps (too much for pt and explained to pt to use 1# at home) 3: CLAUDIO x 4 min Skilled Intervention: Patient was educated in proper exercise technique and purpose for exercises. Skilled judgment was provided in selection of appropriate interventions. Provided written instruction for home exercise program to facilitate proper performance and compliance. Correct performance of therapeutic exercises was facilitated with verbal and visual cuing. Billing * Evaluation Low Complexity: 1 Unit Therapeutic Exercise Treatment Minutes: 24 Total Treatment Time Minutes (timed/untimed): 48 Chris Webster PT documented in this encounter [facility] 11-04-2022 Note HNO ID: [id number] Author: Leanne Tovar APRN.EXECUTIVE KITCHEN MANAGER Service: ? Author Type: Nurse Practitioner Type: Progress Notes Filed: 11/04/2022 12:06 PM Note Text: [facility] [place] [facility] Today's Date: 11/04/2022 Last Visit: N/A Name: Mariangel Robertson : 1970 Purpose: New Patient Consultation Chief complaint: Neck and Low Back Pain Interval History: N/A Initial HPI: (Obtained on 11/04/2022) Mariangel Robertson is a 51 year old year-old female; who presents having been referred by Sammi Chase, for evaluation and management of the above-mentioned chief complaint. This has been present for the past >5-10 years. The onset of symptoms was gradual onset and was without associated trauma. States she had been a patient of Dr. Agarwal for about 2 years ([id number]). At that time she was on Tramadol and Tizanidine at that time. She also had cervcial and lumbar injections while there. States she was not happy with her care with Dr. Agarwal and opted to wean off of her medications. Was stable until about 1 month ago after having an acute flare up of her pain. She was seen in the ED and had XR and referred to our practice. She did go to a chiropractor, but her chiro was not in her insurance plan. She has since found a new provider, but finds this to be more painful. She has been treated with a course of steroids and flexeril with some relief. She is also using OTC ibuprofen. She had been on pregabalin in the distant past for FM, but lost her insurance and had to discontinue. Has been off of Lyrica for at least 8-9 years. Treatments to date include the following: Medications (See below), Injections (See below), Modalities (eg. Heat, Ice), and Chiropractic Full Treatment . Pain Description: Timing: constant Character: Burning, Throbbing, Sharp, and Shooting Primary Location: Neck and Low Back Radiation: LEFT shoulder and arm to her elbow, LEFT buttocks to her posterior leg to her knee Exacerbating factors: unable to pinpoint exacerbating factors/positions Relieving factors: medications and unable to pinpoint positions/factors that are mitigating Interferes with: physical activity, work, and lifting The patient reports 2 hours of uninterrupted sleep per night Complains of LEFT arm and LEFT leg The patient denies difficulty with bowel or bladder control. Current Status: INTAKE PAIN ASSESSMENT 10/18/2022 11/04/2022 Are you having pain associated with your visit today? Yes, Provider notified Yes, Provider notified Pain Scales Verbal (Numeric Rating or Visual Analog Scale) Verbal (Numeric Rating or Visual Analog Scale) Pain Level 8 - Pain Location Back-Lower Back-Lower Description Sharp;Shooting;Radiating;Tingling; Burning Dull;Burning;Stiffness;Tightness;T hrobbing;Stabbing;Aching;Radiating ;Sharp; Shooting Duration Amount of Time 2 - Duration Units Weeks Years Frequency Continuous Continuous Intervention/Comfort measure Medication Reposition;Relaxation;Positioning Comments - - Current Pain Medications: Opioids: NSAIDS: OTC ibuprofen Anti-depressants: Celexa, Buspar, Trazodone, atarax Anti-convulsants: Muscle relaxants: Flexeril Others: Analgesia: partially adequate Current Anti-Coagulant Use: No PAST Pain Medications (for the chief complaint(s)): Opioids: Tramadol NSAIDS: Motrin (Ibuprofen) Anti-convulsants: Lyrica (Pregabalin) Muscle Relaxants: Zanaflex (Tizanidine) Others: Biofreeze Allergies: ALLERGIES Allergen Reactions Stadol [Butorphanol* Intolerance tachycardia Data Reviewed: Reviewed personally on today's date 11/04/2022 Relevant Imaging: MRI Spine Report MRI CERVICAL SPINE WO CONTRAST Collected: 04/14/2016 10:44 AM (Final result) Narrative: * * *Final Report* * * DATE OF EXAM: Apr 14 2016 10:44AM [facility] 0482 - MRI CERVICAL SPINE WO CONTRAST / PROCEDURE REASON: NECK PAIN ARM PAIN * * * * Physician Interpretation * * * * RESULT: Clinical history:Neck and arm pain Technique: Unenhanced MRI cervical spine Comparison: None Result: Counting reference: Craniocervical junction. The visualized intracranial contents and soft tissues are grossly unremarkable. Mild reversal of normal cervical lordosis. Preservation of vertebral body height. Trace mid to lower cervical degenerative disc disease. T3 vertebral body hemangioma. Marrow signal overall is unremarkable. Minimal mid to lower cervical facet arthrosis. At the C2/3 level, nothing significant. At the C3/4 level, nothing significant. At the C4/5 level, nothing significant. At the C5/6 level, nothing significant. At the C6/7 level, nothing significant. At the C7/T1 level, nothing significant. The spinal cord is of normal caliber, configuration, and signal intensity. Impression: Trace degenerative disease of the cervical spine without narrowing of the spinal canal or neural foramina. Doper Operator: (more content not included)... [facility] 11-04-2022 Note HNO ID: [id number] Author: Jackeline Lagos MA Service: ? Author Type: Rotary Surface Grinder Type: Progress Notes Filed: 11/04/2022 12:06 PM Note Text: Review of Systems Constitutional: Negative for activity change, chills, fever and unexpected weight change. Gastrointestinal: Negative for bowel retention or incontinence Genitourinary: Negative for difficulty urinating. Negative for bladder retention or incontinence Musculoskeletal: Positive for arthralgias, back pain, gait problem, myalgias, neck pain and neck stiffness. Negative for joint swelling. Neurological: Positive for weakness, numbness and headaches. Psychiatric/Behavioral: Positive for dysphoric mood and sleep disturbance. Negative for suicidal ideas. The patient is nervous/anxious. [facility] 11-04-2022 History of Present illness Narrative [facility] Today's Date: 11/04/2022 Last Visit: N/A Name: Mariangel Robertson : 1970 Purpose: New Patient Consultation Chief complaint: Neck and Low Back Pain Interval History: N/A Initial HPI: (Obtained on 11/04/2022) Mariangel Robertson is a 51 year old year-old female; who presents having been referred by Sammi Chase, for evaluation and management of the above-mentioned chief complaint. This has been present for the past >5-10 years. The onset of symptoms was gradual onset and was without associated trauma. States she had been a patient of Dr. Agarwal for about 2 years ([phone]). At that time she was on Tramadol and Tizanidine at that time. She also had cervcial and lumbar injections while there. States she was not happy with her care with Dr. Agarwal and opted to wean off of her medications. Was stable until about 1 month ago after having an acute flare up of her pain. She was seen in the ED and had XR and referred to our practice. She did go to a chiropractor, but her chiro was not in her insurance plan. She has since found a new provider, but finds this to be more painful. She has been treated with a course of steroids and flexeril with some relief. She is also using OTC ibuprofen. She had been on pregabalin in the distant past for FM, but lost her insurance and had to discontinue. Has been off of Lyrica for at least 8-9 years. Treatments to date include the following: Medications (See below), Injections (See below), Modalities (eg. Heat, Ice), and Chiropractic Full Treatment . Pain Description: Timing: constant Character: Burning, Throbbing, Sharp, and Shooting Primary Location: Neck and Low Back Radiation: LEFT shoulder and arm to her elbow, LEFT buttocks to her posterior leg to her knee Exacerbating factors: unable to pinpoint exacerbating factors/positions Relieving factors: medications and unable to pinpoint positions/factors that are mitigating Interferes with: physical activity, work, and lifting The patient reports 2 hours of uninterrupted sleep per night Complains of LEFT arm and LEFT leg The patient denies difficulty with bowel or bladder control. Current Status: INTAKE PAIN ASSESSMENT 10/18/2022 11/04/2022 Are you having pain associated with your visit today? Yes, Provider notified Yes, Provider notified Pain Scales Verbal (Numeric Rating or Visual Analog Scale) Verbal (Numeric Rating or Visual Analog Scale) Pain Level 8 - Pain Location Back-Lower Back-Lower Description Sharp;Shooting;Radiating;Tingling; Burning Dull;Burning;Stiffness;Tightness;T hrobbing;Stabbing;Aching;Radiating ;Sharp;Shooting Duration Amount of Time 2 - Duration Units Weeks Years Frequency Continuous Continuous Intervention/Comfort measure Medication Reposition;Relaxation;Positioning Comments - - Current Pain Medications: Opioids: NSAIDS: OTC ibuprofen Anti-depressants: Celexa, Buspar, Trazodone, atarax Anti-convulsants: Muscle relaxants: Flexeril Others: Analgesia: partially adequate Current Anti-Coagulant Use: No PAST Pain Medications (for the chief complaint(s)): Opioids: Tramadol NSAIDS: Motrin (Ibuprofen) Anti-convulsants: Lyrica (Pregabalin) Muscle Relaxants: Zanaflex (Tizanidine) Others: Biofreeze Allergies: ALLERGIES Allergen Reactions Stadol [Butorphanol* Intolerance tachycardia Data Reviewed: Reviewed personally on today's date 11/04/2022 Relevant Imaging: MRI Spine Report MRI CERVICAL SPINE WO CONTRAST Collected: 04/14/2016 10:44 AM (Final result) Narrative: * * *Final Report* * * DATE OF EXAM: Apr 14 2016 10:44AM [facility] 0482 - MRI CERVICAL SPINE WO CONTRAST / PROCEDURE REASON: NECK PAIN ARM PAIN * * * * Physician Interpretation * * * * RESULT: Clinical history:Neck and arm pain Technique: Unenhanced MRI cervical spine Comparison: None Result: Counting reference: Craniocervical junction. The visualized intracranial contents and soft tissues are grossly unremarkable. Mild reversal of normal cervical lordosis. Preservation of vertebral body height. Trace mid to lower cervical degenerative disc disease. T3 vertebral body hemangioma. Marrow signal overall is unremarkable. Minimal mid to lower cervical facet arthrosis. At the C2/3 level, nothing significant. At the C3/4 level, nothing significant. At the C4/5 level, nothing significant. At the C5/6 level, nothing significant. At the C6/7 level, nothing significant. At the C7/T1 level, nothing significant. The spinal cord is of normal caliber, configuration, and signal intensity. Impression: Trace degenerative disease of the cervical spine without narrowing of the spinal canal or neural foramina. Doper Operator: FERNIE Transcribe Date/Time: Apr 14 2016 10:42A Dictated by : NAIN OLIVER MD This examination was interpreted and the report reviewed and electronically signed by: NAIN OLIVER MD on Apr 14 2016 10:48AM EST XR Lumbar Spine 10/01/22: FINDINGS: There are five hya-[id number]-mrhnreo lumbar vertebrae. No acute fractures demonstrated. There is grade 1 L5 on S1 anterolisthesis. The disc spaces are well preserved. There is no significant osteophyte formation however facet arthrosis noted in the lower lumbar spine. There appears be kissing spine, seen on lateral view. Others: There are 2 tubal ligation surgical clips in the right pelvis. XR LEFT Hip 10/01/22: RESULT: No acute fracture or dislocation. Joint spaces are maintained. Recent labs: Creatinine Date Value Ref Range Status 05/22/2022 0.89 0.58 - 0.96 mg/dL Final CMP: Glucose 98 05/22/2022 BUN 9 05/22/2022 Creatinine 0.89 05/22/2022 Sodium 140 05/22/2022 Potassium 3.4 05/22/2022 Chloride 99 05/22/2022 CO2 26 05/22/2022 Protein, Total 7.3 05/22/2022 Albumin 4.3 05/22/2022 Calcium 9.6 05/22/2022 Alkaline Phosphatase 93 05/22/2022 Bilirubin, Total 0.5 05/22/2022 AST 22 05/22/2022 ALT 10 05/22/2022 Pain Procedures: DATE PROCEDURE IMPROVEMENT None to date at this practice Compliance: PDMP website checked and validated. All prescriptions have been APPROPRIATELY filled. No suspicious activity was identified. 11/04/2022 by Lenane Tovar APRN.EXECUTIVE KITCHEN MANAGER Risk Assessment: DACIA-7: DACIA - 7 SCORES 11/04/2022 DACIA-7 Score 16 (0-4) minimal anxiety, (5-9) mild anxiety, (10-14) moderate anxiety, (15-21) severe anxiety PHQ-9: PHQ-9 07/15/2022 10/17/2022 11/04/2022 Score 17 21 15 (0-4) minimal depression, (5-9) mild depression, (10-14) moderate depression, (15-19) moderately severe depression, (20-27) severe depression Opioid Risk Tool: Family History of Substance Abuse: 0 - No Personal History of Substance Abuse: 0 - N Age between 16-45: 0 - No History of Pre-Adolescence Sexual Abuse: 0 - No Psychological Disease: Yes ADD/ADHD/OCD/Bipolar/Schizophrenia : No Depression: 1 - Yes Risk Total: 1 Total Score Risk Category: Low Risk 0-3 (0-3, low risk or no risk; 4-7, moderate risk, 8+, high risk) Current Medications, Past Medical History, Past Surgical History, Family History, Social History and Review of Systems: On today's date, 11/04/2022, noted above, I have confirmed and edited as necessary, the PFSH and ROS obtained by others. Physical Exam: 11/04/22 0855 Pulse: 87 Resp: 18 SpO2: 97% Constitutional:obese HEENT: Normal Cephalic, Atraumatic, Non-icteric sclera Eyes: Conjunctiva clear. No discharge from eyes Cardiovascular: Appears well perfused Lymphatic: No visible regional lymphadenopathy Skin: No visible rashes or ecchymosis Psychiatric: Full affect, Alert, Pleasant CERVICAL MUSCULOSKELETAL/NEURO EXAM: Inspection: - Symmetric without atrophy Posture: Normal intact spinal curves Gait: Normal Strength: LEFT RIGHT Deltoid (C5) 5 5 Biceps (C6) 5 5 Triceps (C7) 5 5 Wrist Extensors (C8) 5 5 Abduct. Pollis Brevis (T1) 5 5 Muscle Tone: - Normal and symmetric Sensation: - Grossly intact to light touch in the C5-T1 Bilateral upper limb dermatomes. Reflexes: LEFT RIGHT Bicep (C5) Normal 2+ Normal 2+ Brachioradialis (C6) Normal 2+ Normal 2+ Triceps (C7) Normal 2+ Normal 2+ Chambers absent absent} LUMBAR MUSCULOSKELETAL/NEURO EXAM Inspection: - Symmetric without atrophy Palpation: - Lumbar Paraspinal Tenderness: None in the Bilateral lumbar paraspinals - Paraspinal Spasms: None - Facet Loading: Right-negative; Left-negative - Greater Trochanter: None tenderness Bilateral Strength: LEFT RIGHT Iliopsoas (L2) 5 5 Quadriceps (L3) 5 5 Anterior Tibialis (L4): 5 5 Exten Hallucis Longus (L5) 5 5 Gastrocnemius (S1): 5 5 Muscle Tone: - Normal and symmetric Neural Tension Signs: -Straight Leg Exam Negative Bilateral lower limb(s) -Contralateral Straight Leg Raise Negative Bilateral lower limb(s) Sensation: - intact to light touch in the L2-S2 Bilateral lower limb dermatomes Reflexes: LEFT RIGHT Patellar (L4) Normal 2+ Normal 2+ Achilles (S1) Normal 2+ Normal 2+ Clonus Negative Negative Sacroiliac Maneuvers: - SIJ tenderness: Negative Bilateral Diagnoses: (M47.816) Lumbar spondylosis (primary encounter diagnosis) (M48.062) Spinal stenosis, lumbar region with neurogenic claudication (M47.812) Cervical spondylosis without myelopathy (R20.9) Disturbance of skin sensation (M79.7) Fibromyalgia Impression & Plan: 51 year old female with significant past medical history for FM, HTN, headaches, depression, PTSD, anxiety, Hx of ETOH abuse, who presents with complaint(s) of neck and low back pain. Patient has been established with Dr. Agarwal experiencing increased neck and low back pain she has tried to see her chiropractor but this seems to make her pain worse. in the distant past and had undergone interventional treatments as well as medication therapy. Overall she was not pleased with her care there and opted to wean her self off her medications and has been managing her pain since on Reports she has progressively been getting worse. She has had a few sessions with her chiropractor and reports this makes her pain worse. Recent lumbar x-rays demonstrate minimal degenerative endplate changes, she has some early facet hypertrophy predominantly L4-S1 with a grade 1 bordering grade 2 spondylolisthesis at L5/S1. Hips are maintained bilaterally. Mariangel Robertson would benefit from the following to decrease pain, improve function and/or work participation, and improve quality of life: Medications: Refill: Requested Prescriptions Signed Prescriptions Disp Refills pregabalin (LYRICA) 75 mg capsule 90 capsule 2 Sig: Take 1 capsule by mouth twice daily for 30 days. Take one pill at night for one week, then increase to one pill BID Continue OTC Tylenol 1 gm PO TID prn pain DACIA-7/PHQ-2, and ORT: 11/04/2022 Completed and reviewed, low risk Functional Synagogue: Physical Therapy (Land-based) Additional Studies: XR Cervical Spine, EMG/NCT LUE Referrals: None Additional: Medication use(s) and side effects reviewed with patient today with verbalized understanding. Consider cervical and lumbar MRI after PT Consider Lyrica titration Patient is happy and agreeable with this plan. All questions were answered and patient verbalized understanding. Depending on response to the above plan, consider: Follow-up: 6-8 weeks for evaluation of response to treatment plan and optimization Attribution: In addition to reviewing the information noted above, some elements copied from my most recent clinical note(s), including the physical exam (completed in entirety today), and the impression and plan sections, have been updated where appropriate. All reflect current medical decision making from today's date. Leanne Tovar APRN.EXECUTIVE KITCHEN MANAGER Pain Management [facility] Review of Systems Constitutional: Negative for activity change, chills, fever and unexpected weight change. Gastrointestinal: Negative for bowel retention or incontinence Genitourinary: Negative for difficulty urinating. Negative for bladder retention or incontinence Musculoskeletal: Positive for arthralgias, back pain, gait problem, myalgias, neck pain and neck stiffness. Negative for joint swelling. Neurological: Positive for weakness, numbness and headaches. Psychiatric/Behavioral: Positive for dysphoric mood and sleep disturbance. Negative for suicidal ideas. The patient is nervous/anxious. documented in this encounter [facility] 10-29-2022 Miscellaneous Notes Patient has been identified by name and date of : Yes Last office visit in this department: Visit date not found RX INSTRUCTIONS: Patient aware RX will be sent to pharmacy. No need to notify patient. Patient phones requesting refills as follows: Patient is requesting a same refill as she will be out today Requested Prescriptions Pending Prescriptions Disp Refills hydrOXYzine HCl (ATARAX) 25 mg tablet 90 tablet 3 Sig: Take 1 tablet by mouth three times daily as needed. Please review and advise. Destini Valerio documented in this encounter [facility] 10-21-2022 Miscellaneous Notes Pt made aware of this in [employer] message. Noemi Lainez Ma I did sent rx for 300 mgs of trazodone Pt asking to be called when medication has been called to pharmacy. Jackeline Flor LPN Spoke with pt and she has been getting this from you and no one else. She states she has been taking 4 per day and this is not working and asked to have this increased to 6 per day. Pt states that you had agreed to this. She would be willing to take (3) 100 mg tablets at bedtime. Please advise pt. Emily Lara LPN In my list trazodone is only at 50 mgs. Were you getting this from another provider in the past? Regards, Uche Bryan MD Patient calling to ask PCP about Trazodone script sent in today. She states @ OV today she asked for increase in dose from 200 mg @ bedtime to 300 mg. Script was sent for Trazodone 50 mg. Please review and advise. Shahida Dahl RN documented in this encounter [facility] 10-21-2022 Miscellaneous Notes Pt made aware of this in [employer] message. Noemi Lainez Ma documented in this encounter [facility] 10-20-2022 Miscellaneous Notes Spoke with pt and this is being addressed in a phone encounter. Emily Lara LPN documented in this encounter [facility] 10-18-2022 History of Present illness Narrative Reason for Visit Patient presents with: F/U HTN 3 Month Mariangel Robertson is a 51 year old female who presents here today for Above Complaints.. Health Maintenance HEPATITIS B(1 of 3 - 3-dose series) BP CONTROLLED (<130/80) PAP TESTING HPV TESTING COLORECTAL CANCER SCREENING PNEUMOCOCCAL(2 - PCV) SHINGRIX VACCINE(1 of 2) COVID-19 VACCINE(3 - Booster for Pfizer series) MAMMOGRAM HPI Patient is having sciatic flare recently, from sep 30 till now, Oct 18. She has a lot of stress from son who is suicidal. is unhappy and threatening her to divorce. Patient got off all the pain medications and muscle relaxors etc. She also knows the left side of the leg is shorter than the right, she as advised to go for treatments. Her insurance does not cover 3 times a week.it probably helps her to go back in. Patient was in a leg brace at the age of 13. Has appointment with the spine doctor Shaan. Due to above stress and her known chronic pain issues,and the leg she has not been able to work. We discussed chronic pain and to learn to cope but will give her off till nov 04 when she sees the pain doctor. Ran out of muscle relaxors and insomnia medications. No problem-specific Assessment & Plan notes found for this encounter. PAST MEDICAL HISTORY Diagnosis Date Anxiety Depressive disorder Dermoid cyst of right ovary 10/15/2015 probable- [facility] Essential hypertension Insomnia Migraines Umbilical hernia 10/15/2015 minimal PAST SURGICAL HISTORY Procedure Laterality Date CT ABDOMEN & PELVIS W/CONT 10/15/15 [facility] HYSTERECTOMY HX still has ovaries TUBAL LIGATION HX FAMILY HISTORY Problem Relation Age of Onset Cancer Mother lung other (depression [Other]) Mother Diabetes Father Hypertension Father Cancer Father prostate Heart Father Hypertension Sister Depression Daughter other (epilpsy [Other]) Son Depression Son Attempted Suicide Social History Tobacco Use Smoking status: Every Day Packs/day: 1.00 Years: 6.00 Pack years: 6.00 Types: Cigarettes Smokeless tobacco: Never Vaping Use Vaping Use: Never used Substance Use Topics Alcohol use: Yes Comment: Occasionally Drug use: No Past medical history, appointments, medications, allergies reviewed. Pertinent Lab/Diagnostic Studies are reviewed and discussed today Current Outpatient Medications: cyclobenzaprine (FLEXERIL) 10 mg tablet citalopram (CELEXA) 40 mg tablet traZODone (DESYREL) 50 mg tablet amLODIPine (NORVASC) [address] (PROTONIX) 40 mg tablet lisinopril (ZESTRIL, PRINIVIL) 20 mg tablet rOPINIRole (REQUIP) 0.25 mg tablet busPIRone (BUSPAR) 15 mg tablet hydrOXYzine HCl (ATARAX) 25 mg tablet cholecalciferol, Vitamin D3, (VITAMIN D3) 1,250 mcg (50,000 unit) cap capsule atorvastatin (LIPITOR) 20 mg tablet MELATONIN ORAL Estradiol (YUVAFEM) 10 mcg vaginal tablet cyanocobalamin 1,000 mcg/mL Syringe with Needle, Disp, 1 mL 27 x 1/2 guaiFENesin (MUCINEX) 600 mg 12 hr tablet fluticasone (FLONASE) 50 mcg/actuation nasal spray albuterol HFA (PROAIR HFA) 90 mcg/actuation inhaler Review of Systems CONSTITUTIONAL: No fevers, chills night sweats, unintended weight loss CARDIOVASCULAR: No chest pain, dyspnea, palpitations, orthopnea, PND, ankle edema. PULM: No dyspnea, unexplained cough. GI: No dysphagia/odynophagia, problematic reflux, constipation, diarrhea, changes in stool habits, hematochezia, melena. : No new urinary complaints, including dysuria, gross hematuria or pyuria. NEURO: No new balance problems, peripheral weakness/paresthesias or numbness of concern. Physical Exam BP 146/82 (BP Site: Left Arm, BP Position: Sitting, BP Cuff Size: Large Adult) Pulse 83 Temp 37.3 C (99.1 F) Resp 12 Ht 165.1 cm (5' 5 ) Wt 93.4 kg (206 lb) SpO2 98% BMI 34.28 kg/m General appearance: Well appearing, alert, in no acute distress, well nourished. Skin: Skin color, texture, turgor normal, no suspicious rashes or lesions Head: Normocephalic, no masses, lesions, tenderness or abnormalities Eyes: Anicteric sclera. Pupils are equally round and reactive to light. Extraocular movements are intact. Lungs: Lungs clear to auscultation. No wheezing, rhonchi, rales Heart: RRR without murmur, gallop, or rubs. Extremities: No deformities, edema, skin discoloration, clubbing or cyanosis. Good capillary refill. ASSESSMENT/PLAN: 1. Essential hypertension - ICD9: 401.9, ICD10: I10 (primary diagnosis) - good control - Recommended regular aerobic exercise. - Recommend home blood pressure monitoring, to bring results in on next visit - Goal of BP <130/80 2. Left sided sciatica - ICD9: 724.3, ICD10: M54.32 Mechanical low back pain - CYCLOBENZAPRINE 10 MG TABLET 3. Tobacco abuse disorder - ICD9: 305.1, ICD10: Z72.0 - Cessation encouraged. - Physiologic and physical aspects of tobacco addiction as well as strategies for quitting were discussed. - Counseling was given focusing on the harmful effects of this addiction especially given the patient's medical condition(s) which will be worsened because of the chemicals in tobacco. 4. Insomnia, unspecified type - ICD9: 780.52, ICD10: G47.00 - TRAZODONE 50 MG TABLET Uche Bryan MD documented in this encounter [facility] 10-01-2022 Instructions Korin Molina APRN.EXECUTIVE KITCHEN MANAGER - 10/01/2022 2:32 PM EST ASSESSMENT/PLAN: 1. Left sided sciatica - ICD9: 724.3, ICD10: M54.32 Sciatica - Ice for localized tenderness - Prednisone taper- see orders - Muscle relaxant- see orders - Xrays- see orders - XR LUMBAR GENERAL 3V AP/LAT/L5-S1 - XR HIP GENERAL 3V PELV/AP/LAT LEFT - PREDNISONE 10 MG TABLET - CYCLOBENZAPRINE 10 MG TABLET - Follow-up with your PCP in 3-5 days if symptoms have not improved or sooner if symptoms worsen - Discussed red flags and need for immediate medical evaluation if any occur. - Discussed supportive care treatment with fluids, rest and analgesia. - Discussed expected course of illness Korin Molina APRN.TRUDY SCIATICA: Your exam shows you have sciatica, a condition most often seen in patients with disc disease of the lower back. Sciatica causes pain to radiate from the lower back or buttock area down the leg. It results from pressure on nerve roots coming out of the spine when a disc deteriorates and pushes to one side. Often there is a history of back problems. In most cases sciatica improves greatly with conservative treatment. Most patients with it are completely better after 2-4 weeks of bed rest and other supportive care. Bed rest reduces the disc pressure greatly; sitting is the worst position since the pressure on the disc is over 5 times greater than it is while lying down. You should avoid bending, lifting, and all other activities which make the problem worse. After the pain improves, you may continue with normal activity, taking brief periods for bed rest throughout the day until you are back to normal. Aspirin, ibuprofen, or other anti-inflammatory drugs are often used to help control pain. Muscle relaxants may help by relieving spasm and providing mild sedation. Cold or heat therapy and massage may also give significant relief. Spinal manipulation is not recommended because it can increase the degree of disc protrusion. Surgery is reserved for patients that do not improve with conservative treatment, or who have signs of severe nerve root pressure. You should see your doctor for follow up care as recommended. A program for back injury rehabilitation with stretching and strengthening exercises is an important part of management. Please call your doctor, a back specialist, or the emergency room right away if you notice increased pain, weakness, or numbness in your legs, or if you have any difficulty with bladder or bowel control. documented in this encounter [facility] 10-01-2022 History of Present illness Narrative Images from the original note were not included. Subjective Trauma Pertinent negatives include no chills or fever. Mariangel Robertson is a 51 year old female who presents with lower back, left hip and thigh pain x 1 day. Patient states that pain began yesterday evening and has been constant, worse when bearing weight. Patient rates pain 10/10. Patient states that the pain is worst in her left hip and thigh and radiates to her lower back. Patient states that pain does not radiate down leg. Motrin, ice and heat tried at home without relief. Patient denies fever. Denies any trauma to area or new activities/exercise. Patient does report being active at work- a lot of lifting, bending, twisting, turning. No erythema, warmth, swelling or bruising to area. Review of Systems Constitutional: Negative for chills and fever. Musculoskeletal: Positive for back pain and joint pain. Neurological: Negative for tingling and sensory change. BP 126/80 Pulse 70 Temp 36.3 C (97.4 F) Resp 21 Wt 92.7 kg (204 lb 6.4 oz) SpO2 99% BMI 34.01 kg/m PAST MEDICAL HISTORY Diagnosis Date Anxiety Depressive disorder Dermoid cyst of right ovary 10/15/2015 probable- [facility] Essential hypertension Insomnia Migraines Umbilical hernia 10/15/2015 minimal PAST SURGICAL HISTORY Procedure Laterality Date CT ABDOMEN & PELVIS W/CONT 10/15/15 [facility] HYSTERECTOMY HX still has ovaries TUBAL LIGATION HX ALLERGIES Stadol [Butorphanol Tartrate] MEDICATIONS citalopram (CELEXA) 40 mg tablet Take 1 tablet by mouth once daily. traZODone (DESYREL) 50 mg tablet Take 3-4 tablets by mouth daily at bedtime. amLODIPine (NORVASC) 10 mg tablet Take 0.5 tablets by mouth once daily. pantoprazole DR (PROTONIX) 40 mg tablet Take 1 tablet by mouth once daily. lisinopril (ZESTRIL, PRINIVIL) 20 mg tablet Take 1 tablet by mouth once daily. rOPINIRole (REQUIP) 0.25 mg tablet TAKE 1 TO 2 TABLETS BY MOUTH 30 MINUTES BEFORE BED. busPIRone (BUSPAR) 15 mg tablet Take 1 tablet by mouth three times daily. hydrOXYzine HCl (ATARAX) 25 mg tablet Take 1 tablet by mouth three times daily as needed. cholecalciferol, Vitamin D3, (VITAMIN D3) 1,250 mcg (50,000 unit) cap capsule Take 1 capsule by mouth one time a week. atorvastatin (LIPITOR) 20 mg tablet Take 1 tablet by mouth daily at bedtime. For cholesterol. MELATONIN ORAL Take by mouth. Estradiol (YUVAFEM) 10 mcg vaginal tablet Use 1 tablet vaginally two times a week. Insert vaginally every day for two weeks then twice weekly after cyanocobalamin 1,000 mcg/mL Inject 1 mL intramuscularly once every month. guaiFENesin (MUCINEX) 600 mg 12 hr tablet Take 2 tablets by mouth twice daily. (Patient taking differently: Take 1,200 mg by mouth as needed.) fluticasone (FLONASE) 50 mcg/actuation nasal spray Use 2 Sprays in each nostril once daily. (Patient taking differently: Use 2 Sprays in each nostril as needed.) albuterol HFA (PROAIR HFA) 90 mcg/actuation inhaler Inhale 2 Puffs as instructed every 4 hours as needed. Syringe with Needle, Disp, 1 mL 27 x 1/2 1 Each once every month. (Patient not taking: Reported on 10/01/2022) FAMILY HISTORY Problem Relation Age of Onset Cancer Mother lung other (depression [Other]) Mother Diabetes Father Hypertension Father Cancer Father prostate Heart Father Hypertension Sister Depression Daughter other (epilpsy [Other]) Son Depression Son Attempted Suicide Social History Tobacco Use Smoking status: Every Day Packs/day: 1.00 Years: 6.00 Pack years: 6.00 Types: Cigarettes Smokeless tobacco: Never Vaping Use Vaping Use: Never used Substance Use Topics Alcohol use: Yes Comment: Occasionally Drug use: No Objective Physical Exam Vitals and nursing note reviewed. Constitutional: Appearance: Normal appearance. Musculoskeletal: General: No swelling. Lumbar back: Tenderness present. Back: Right hip: Normal. No bony tenderness. Left hip: Tenderness present. No bony tenderness. Right upper leg: Normal. Left upper leg: Tenderness present. No swelling, edema or bony tenderness. Legs: Skin: General: Skin is warm and dry. Findings: No bruising or erythema. Neurological: Mental Status: She is alert. ASSESSMENT/PLAN: 1. Left sided sciatica - ICD9: 724.3, ICD10: M54.32 Sciatica - Ice for localized tenderness - Prednisone taper- see orders - Muscle relaxant- see orders - Xrays- see orders - XR LUMBAR GENERAL 3V AP/LAT/L5-S1 Radiologist FINDINGS: There are five [id number] lumbar vertebrae. No acute fractures demonstrated. There is grade 1 L5 on S1 anterolisthesis. The disc spaces are well preserved. There is no significant osteophyte formation however facet arthrosis noted in the lower lumbar spine. There appears be kissing spine, seen on lateral view. Others: There are 2 tubal ligation surgical clips in the right pelvis. IMPRESSION: Lumbar spine degenerative changes as described above. Doper Operator: FERNIE Transcribe Date/Time: Oct 01 2022 2:22P Dictated by : JEANNINE BIRD MD - XR HIP GENERAL 3V PELV/AP/LAT LEFT Radiologist RESULT: No acute fracture or dislocation. Joint spaces are maintained. IMPRESSION: No acute fracture or hip dislocation Doper Operator: FERNIE Transcribe Date/Time: Oct 01 2022 2:23P Dictated by : ISRA MIXON MD - PREDNISONE 10 MG TABLET - CYCLOBENZAPRINE 10 MG TABLET - Follow-up with your PCP in 3-5 days if symptoms have not improved or sooner if symptoms worsen - Discussed red flags and need for immediate medical evaluation if any occur. - Discussed supportive care treatment with fluids, rest and analgesia. - Discussed expected course of illness Korin Molina APRN.EXECUTIVE KITCHEN MANAGER documented in this encounter [facility] 08-24-2022 History of Present illness Narrative Subjective Sinus Problem Associated symptoms include congestion, coughing and headaches. Pertinent negatives include no chills or fever. Mariangel Robertson is a 51 year old female who presents with head ache, cough, sinus pressure, ear pain for the past 2 days. She has been taking Daquil for this at home. 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 She denies fever today. Review of Systems Constitutional: Negative for chills and fever. HENT: Positive for congestion and ear pain. Respiratory: Positive for cough. Cardiovascular: Negative. Neurological: Positive for headaches. BP 118/80 Pulse (!) 58 Temp 36.7 C (98 F) (Tympanic) Resp 16 Wt 91.5 kg (201 lb 12.8 oz) SpO2 97% BMI 33.58 kg/m PAST MEDICAL HISTORY Diagnosis Date Anxiety Depressive disorder Dermoid cyst of right ovary 10/15/2015 probable- [facility] Essential hypertension Insomnia Migraines Umbilical hernia 10/15/2015 minimal PAST SURGICAL HISTORY Procedure Laterality Date CT ABDOMEN & PELVIS W/CONT 10/15/15 [facility] HYSTERECTOMY HX still has ovaries TUBAL LIGATION HX ALLERGIES Stadol [Butorphanol Tartrate] MEDICATIONS citalopram (CELEXA) 40 mg tablet Take 1 tablet by mouth once daily. traZODone (DESYREL) 50 mg tablet Take 3-4 tablets by mouth daily at bedtime. amLODIPine (NORVASC) 10 mg tablet Take 0.5 tablets by mouth once daily. pantoprazole DR (PROTONIX) 40 mg tablet Take 1 tablet by mouth once daily. lisinopril (ZESTRIL, PRINIVIL) 20 mg tablet Take 1 tablet by mouth once daily. rOPINIRole (REQUIP) 0.25 mg tablet TAKE 1 TO 2 TABLETS BY MOUTH 30 MINUTES BEFORE BED. busPIRone (BUSPAR) 15 mg tablet Take 1 tablet by mouth three times daily. hydrOXYzine HCl (ATARAX) 25 mg tablet Take 1 tablet by mouth three times daily as needed. cholecalciferol, Vitamin D3, (VITAMIN D3) 1,250 mcg (50,000 unit) cap capsule Take 1 capsule by mouth one time a week. atorvastatin (LIPITOR) 20 mg tablet Take 1 tablet by mouth daily at bedtime. For cholesterol. MELATONIN ORAL Take by mouth. Estradiol (YUVAFEM) 10 mcg vaginal tablet Use 1 tablet vaginally two times a week. Insert vaginally every day for two weeks then twice weekly after cyanocobalamin 1,000 mcg/mL Inject 1 mL intramuscularly once every month. Syringe with Needle, Disp, 1 mL 27 x 1/2 1 Each once every month. guaiFENesin (MUCINEX) 600 mg 12 hr tablet Take 2 tablets by mouth twice daily. (Patient taking differently: Take 1,200 mg by mouth as needed.) fluticasone (FLONASE) 50 mcg/actuation nasal spray Use 2 Sprays in each nostril once daily. (Patient taking differently: Use 2 Sprays in each nostril as needed.) albuterol HFA (PROAIR HFA) 90 mcg/actuation inhaler Inhale 2 Puffs as instructed every 4 hours as needed. benzonatate (TESSALON PERLE) 100 mg capsule Take 1 capsule by mouth three times daily as needed for up to 10 days. FAMILY HISTORY Problem Relation Age of Onset Cancer Mother lung other (depression [Other]) Mother Diabetes Father Hypertension Father Cancer Father prostate Heart Father Hypertension Sister Depression Daughter other (epilpsy [Other]) Son Depression Son Attempted Suicide Social History Tobacco Use Smoking status: Every Day Packs/day: 1.00 Years: 6.00 Pack years: 6.00 Types: Cigarettes Smokeless tobacco: Never Vaping Use Vaping Use: Never used Substance Use Topics Alcohol use: Yes Comment: Occasionally Drug use: No Objective Physical Exam Vitals and nursing note reviewed. Constitutional: Appearance: She is obese. HENT: Right Ear: Tympanic membrane, ear canal and external ear normal. Left Ear: Tympanic membrane, ear canal and external ear normal. Nose: Congestion present. Mouth/Throat: Mouth: Mucous membranes are moist. Pharynx: Oropharynx is clear. Uvula midline. No oropharyngeal exudate or posterior oropharyngeal erythema. Cardiovascular: Rate and Rhythm: Normal rate and regular rhythm. Heart sounds: Normal heart sounds. Pulmonary: Effort: Pulmonary effort is normal. No respiratory distress. Breath sounds: Normal breath sounds. No wheezing or rales. Musculoskeletal: Cervical back: Neck supple. Lymphadenopathy: Cervical: No cervical adenopathy. Skin: General: Skin is warm and dry. Findings: No erythema or rash. Neurological: Mental Status: She is alert. ASSESSMENT/PLAN: 1. Suspected COVID-19 virus infection - ICD9: V01.79, ICD10: Z20.822 - COVID WITH FLUA+B, ROUTINE - BENZONATATE 100 MG CAPSULE - Follow-up with your PCP in 3-5 days if symptoms have not improved or sooner if symptoms worsen - Discussed red flags and need for immediate medical evaluation if any occur. - Discussed supportive care treatment with fluids, rest and analgesia. - Discussed expected course of illness Korin Molina APRN.CNP documented in this encounter [facility] 08-24-2022 Instructions Korin Molina APRN.CNP - 08/24/2022 1:07 PM EDT ASSESSMENT/PLAN: 1. Suspected COVID-19 virus infection - ICD9: V01.79, ICD10: Z20.822 - COVID WITH FLUA+B, ROUTINE - BENZONATATE 100 MG CAPSULE - Follow-up with your PCP in 3-5 days if symptoms have not improved or sooner if symptoms worsen - Discussed red flags and need for immediate medical evaluation if any occur. - Discussed supportive care treatment with fluids, rest and analgesia. - Discussed expected course of illness Korin Molina APRN.EXECUTIVE KITCHEN MANAGER Beginning Home Isolation Isolation is used to separate people infected with SARS-CoV-2, the virus that causes COVID-19, from people who are not infected. People who are in isolation should stay home until it s safe for them to be around others. In the home, anyone sick or infected should separate themselves from others by staying in a specific sick room or area and using a separate bathroom (if available). Isolation or Quarantine: What's the difference? Quarantine keeps someone who might have been exposed to the virus away from others. Isolation keeps someone who is infected with the virus away from others, even in their home. Who needs to isolate People who have COVID-19 People who have symptoms of COVID-19 and are able to recover at home People who have no symptoms (are asymptomatic) but have tested positive for infection with SARS-CoV-2 Steps to take Stay home except to get medical care Monitor your symptoms. Stay in a separate room from other household members, if possible Use a separate bathroom, if possible Avoid contact with other members of the household and pets Don t share personal household items, like cups, towels, and utensils Wear a mask when around other people, if you are able to When to seek emergency medical attention Look for emergency warning signs* for COVID-19. If someone is showing any of these signs, seek emergency medical care immediately: Trouble breathing Persistent pain or pressure in the chest New confusion Inability to wake or stay awake Bluish lips or face *This list is not all possible symptoms. Please call your medical provider for any other symptoms that are severe or concerning to you. Call 911 or call ahead to your local emergency facility: Notify the striping machine operator that you are seeking care for someone who has or may have COVID-19. Ending Home Isolation - When you can be around others after you had or likely had COVID-19 When you can be around others after you had or likely had COVID-19 If You Test Positive for COVID-19 (Isolation) Everyone, regardless of vaccination status: Stay home for 5 days. Note: Day 0 is your first day of symptoms or the date of collection of a positive viral test if no symptoms. Day 1 is the first full day after symptoms developed or test specimen was collected. If you have no symptoms or your symptoms are resolving after 5 days, you can leave your house. Continue to wear a mask around others for 5 additional days. If you have a fever, continue to stay home until your fever resolves, even if it is longer than 5 days. If You Were Exposed to Someone with COVID-19 (Quarantine) If you: 1. Have been boosted OR 2. Completed the primary series of Pfizer or Moderna vaccine within the last 6 months OR 3. Completed the primary series of J&J vaccine within the last 2 months THEN: 1. Wear a mask around others for 10 days. 2. Test on day 5, if possible. If you develop symptoms get a test and stay home. If You Were Exposed to Someone with COVID-19 (Quarantine) If you: 1. Completed the primary series of Pfizer or Moderna vaccine over 6 months ago and are not boosted OR 2. Completed the primary series of J&J over 2 months ago and are not boosted OR 3. Are unvaccinated THEN: 1. Stay home for 5 days. After that continue to wear a mask around others for 5 additional days. 2. If you can't quarantine you must wear a mask for 10 days. 3. Test on day 5 if possible. If you develop symptoms get a test and stay home. How to Manage Common Symptoms Associated with COVID for Adults Fever- Fever is a temperature over 100.4 F and can occur when the body is fighting an infection. To help treat a fever: Drink plenty of fluids and stay well hydrated. Eat small amounts of easy to digest food. Rest. Your body needs rest to recover, but getting up and moving around the house frequently is a good idea. You should try to continue doing your normal daily activities (bathing, toileting, grooming, cooking), though you will probably feel tired, and need to rest often. Avoid any heavy activity or exercise, as this will increase your body temperature. Dress in light clothing and stay covered in a light sheet. Keep the room temperature cool. Take a slightly warm (not cold or cool) bath, or apply damp washcloths to the forehead and wrists. Cough- Cough is a common symptom associated with COVID and can be bothersome. To help treat a cough: Stay well hydrated. Try warm water or tea with lemon and/or honey to help soothe the cough. Use a humidifier to add moisture to the air. Try a product with menthol, like a cough drop or a rub for your chest such as Vicks, which can help reduce cough. Try cough drops. Avoid smoking and other strong odors or perfumes. Try breathing exercises to keep your lungs open and clear. Take a big deep breath through your nose and hold for 5 seconds before slowly releasing. Repeat frequently, while you are awake. Congestion- Runny nose or nasal congestion can occur with COVID. Treatment can help relieve symptoms: Try OTC nasal saline spray, or nasal saline rinse to relieve mucus congestion. Nasal strips can help keep nasal passages open, to increase airflow. Elevating your head with an extra pillow in bed can help reduce congestion. Using a humidifier can increase moisture in the air, and make breathing easier. Sore Throat- Another common symptom with COVID, can be managed at home by: Stay well hydrated. Gargle with salt water - mix teaspoon salt with 1 cup of warm water and gargle. This helps to loosen mucus in the back of the throat and may reduce discomfort. Try ice chips, popsicles or lozenges to soothe the throat. Nausea/Vomiting/Diarrhea- These are common symptoms, and staying hydrated is most important. If you are nauseous or vomiting, start with small sips of water every 10-15 minutes and increase as tolerated. You can try sucking an ice cube too. If tolerating, you can try pedialyte or Gatorade, or flat sprite or blanche-betsey. Start slowly and increase as you are able to. Instead of meals, try smaller, more frequent snacks. Try eating bland foods like crackers, toast, rice, and applesauce. Avoid spicy, greasy or fried foods and dairy containing foods. Even if you aren't feeling hungry due to lack of smell or taste, it is important to try to take in some food when you are able. After drinking and eating, rest in an upright position for up to two hours as needed to help decrease nauseous feelings. Try closing your eyes, avoid moving and watching TV. Avoid strong odors that can make you feel more nauseated. When to seek emergency medical attention Look for emergency warning signs for COVID-19. If having any of these symptoms, seek emergency medical care immediately: Trouble breathing Persistent pain or pressure in the chest New confusion Inability to wake or stay awake Bluish lips or face *This list is not all possible symptoms. Please call your medical provider for any other symptoms that are severe or concerning to you. I had COVID-19 or I tested positive for COVID-19 and I have a weakened immune system If you have a weakened immune system (immunocompromised) due to a health condition or medication, you might need to stay home and isolate longer than 10 days. Talk to your healthcare provider for more information. Your doctor may work with an infectious disease expert at your local health department to determine when you can be around others. documented in this encounter [facility] 08-03-2022 Miscellaneous Notes Patient calls to report severe head pain not relieved by Excedrin Migraine. Patient is requesting migraine medication now to get rid of the pain. No order for migraine medication on file. Instructed patient to go to ED for severe pain. Patient verbalizes understanding and will go. Patient to call back to schedule follow up to discuss migraine medication once seen at ED for acute pain. Care advice reviewed. Patient verbalizes understanding. Reason for Disposition [1] SEVERE headache AND [2] sudden-onset (i.e., reaching maximum intensity within seconds to 1 hour) Answer Assessment - Initial Assessment Questions 1. LOCATION: Left side of head pain. Patient took Excedrin Migraine with no relief 2. ONSET: This morning is the worse but on and off for past several weeks 3. PATTERN: Intermittent 4. SEVERITY: - SEVERE (8-10): excruciating pain, unable to do any normal activities 5. RECURRENT SYMPTOM: Yes over 7 years ago had similar pain but not as bad 6. CAUSE: Patient not certain but believes it is a migraine but worse than she had previously. 7. MIGRAINE: Yes, Similar 8. HEAD INJURY: no 9. OTHER SYMPTOMS: No fever, stiff neck, eye pain, sore throat, or cold symptoms. 10. : No Protocols used: [id number] Mariangel is calling today with complaint of a migraine. She is asking for a migraine medication, because the OTC is not helping. She used to get the frequently and was treated with a Well pack . She has also taken Imitrex and other migraine specific meds. Her pharmacy is [facility] in [place]. Phone is [phone] documented in this encounter [facility] 08-02-2022 Miscellaneous Notes MARIANGEL BENITESFarheen Alexandra: [id number] - [place] - Rx #: [id number] help? Call us at Outcome Approvedon July 31 PA Case: [id number], Status: Approved, Coverage Starts on: 07/31/2022 12:00:00 AM, Coverage Ends on: 07/31/2023 12:00:00 AM. Drug traZODone HCl 50MG tablets Form Novel PA Form (2016 NCPDP) Original Claim Info MARIANGEL ROBERTSON Alexandra: [id number] - PA - Rx #: [id number] help? Call us at Status Sent to [facility] traZODone HCl 50MG tablets Form Misohoni Electronic PA Form (2016 NCPDP) Original Claim Info 76 MAXIMUM DAILY DOSE OF [id number]: For RxLocal Coupon Velasquez of: $49.72 submit to BIN: [id number] PCN: MICHAEL Group: COUPON --Service provided at no cost and no switch fee to the pharmacy-- documented in this encounter [facility] 07-16-2022 Miscellaneous Notes Patient called back to clarify that she takes this 3 times a day. She said the nurse told her there was a 90 supply sent in January with refills. It was only prescribed for a 30 day supply. Said she is out of medication and needs the refill before the weekend for her anxiety. Pt reports she called her pharmacy and she doesn't have any refills there. Please call Pt when order has been sent. Patient has been identified by name and date of : Yes Patient phones for refill(s): Requested Prescriptions Pending Prescriptions Disp Refills busPIRone (BUSPAR) 15 mg tablet 90 tablet 5 Sig: Take 1 tablet by mouth three times daily. Date of last office visit in primary care: 07/16/22 Future visit: 10/18/22 Last 2 Encounter Wt Readings: Date: Wt: 07/16/2022 89.8 kg (198 lb) 06/11/2022 92.4 kg (203 lb 12.8 oz) Previous labs/tests for medication: Blood Pressure: BUN (mg/dL) Date Value 05/22/2022 9 01/06/2022 6 Sodium (mmol/L) Date Value 05/22/2022 140 01/06/2022 141 Last 1 Encounter BP Readings: Date: BP: 07/16/2022 104/60 Liver Function: ALT (U/L) Date Value 05/22/2022 10 01/06/2022 13 AST (U/L) Date Value 05/22/2022 22 01/06/2022 17 Please advise. Thank you. Lizzie Anderson RN documented in this encounter [facility] 07-16-2022 History of Present illness Narrative Reason for Visit Patient presents with: Follow Up: wants MRI left shoulder, left elbow, weight loss, fatigue Mariangel Robertson is a 51 year old female who presents here today for Above Complaints.. Health Maintenance HEPATITIS B(1 of 3 - 3-dose series) BP CONTROLLED (<130/80) PAP TESTING HPV TESTING COLORECTAL CANCER SCREENING PNEUMOCOCCAL(2 - PCV) SHINGRIX VACCINE(1 of 2) COVID-19 VACCINE(3 - Booster for Pfizer series) MAMMOGRAM HPI Chest pain :Patient had a stress test , it was a treadmill she could not get up to expected levels, only 81 percent of predicted. Till that time she did fairly well, Would like her to see the board handler. The test was done at [facility]. Life has been really hard for her the past few weeks, had a procedure, he tore his achilles. She is working 5 days around 40 hours a week, but that was becoming too much for her. 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 Patient notes she is not used to work as late. 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 She is stressed more than before. Some financial issues, low libido, has been crying a lot she is seeing some one at [facility] will continue She needs all her her medications. HPL: Reviewed test results with patient , takes medications regularly , does not report side effects. Conscious to avoid red meats, full fat dairy and its by products. Exercising 3 to 5 times a week. HTN: Compliant with medications. Denies any chest pain, palpitations, or edema. No SOB. Doesn't check BP at home generally. Careful with diet to avoid salt, trying to eat more fruits and vegetables, exercises regularly. She has been smoking a little. Loosing weight ,she miller not have an appetite. Patient has been having some issues with the arms and elbow, for the past few months. She has pain in the neck and elbow, pain is worse with activity. She thinks it is tendinitis. No problem-specific Assessment & Plan notes found for this encounter. PAST MEDICAL HISTORY Diagnosis Date Anxiety Depressive disorder Dermoid cyst of right ovary 10/15/2015 probable- [facility] Essential hypertension Insomnia Migraines Umbilical hernia 10/15/2015 minimal PAST SURGICAL HISTORY Procedure Laterality Date CT ABDOMEN & PELVIS W/CONT 10/15/15 [facility] HYSTERECTOMY HX still has ovaries TUBAL LIGATION HX FAMILY HISTORY Problem Relation Age of Onset Cancer Mother lung other (depression [Other]) Mother Diabetes Father Hypertension Father Cancer Father prostate Heart Father Hypertension Sister Depression Daughter other (epilpsy [Other]) Son Depression Son Attempted Suicide Social History Tobacco Use Smoking status: Every Day Packs/day: 1.00 Years: 6.00 Pack years: 6.00 Types: Cigarettes Smokeless tobacco: Never Vaping Use Vaping Use: Never used Substance Use Topics Alcohol use: Yes Comment: Occasionally Drug use: No Past medical history, appointments, medications, allergies reviewed. Pertinent Lab/Diagnostic Studies are reviewed and discussed today Current Outpatient Medications: rOPINIRole (REQUIP) 0.25 mg tablet traZODone (DESYREL) 50 mg tablet hydrOXYzine HCl (ATARAX) 25 mg tablet citalopram (CELEXA) 40 mg tablet busPIRone (BUSPAR) 15 mg tablet cholecalciferol, Vitamin D3, (VITAMIN D3) 1,250 mcg (50,000 unit) cap capsule atorvastatin (LIPITOR) 20 mg tablet amLODIPine (NORVASC) [address] (PROTONIX) 40 mg tablet lisinopril (ZESTRIL, PRINIVIL) 20 mg tablet MELATONIN ORAL Estradiol (YUVAFEM) 10 mcg vaginal tablet cyanocobalamin 1,000 mcg/mL Syringe with Needle, Disp, 1 mL 27 x 1/2 guaiFENesin (MUCINEX) 600 mg 12 hr tablet fluticasone (FLONASE) 50 mcg/actuation nasal spray albuterol HFA (PROAIR HFA) 90 mcg/actuation inhaler Current Facility-Administered Medications: perflutren lipid microspheres 1.3 mL in NaCl (PF) 0.9% 10 mL injection (DEFINITY) sodium chloride 0.9 % (flush) 10 mL (BD POSIFLUSH) Review of Systems CONSTITUTIONAL: No fevers, chills night sweats, unintended weight loss CARDIOVASCULAR: No chest pain, dyspnea, palpitations, orthopnea, PND, ankle edema. PULM: No dyspnea, unexplained cough. GI: No dysphagia/odynophagia, problematic reflux, constipation, diarrhea, changes in stool habits, hematochezia, melena. : No new urinary complaints, including dysuria, gross hematuria or pyuria. NEURO: No new balance problems, peripheral weakness/paresthesias or numbness of concern. Physical Exam BP 104/60 (BP Site: Left Arm, BP Position: Sitting, BP Cuff Size: Large Adult) Pulse 68 Temp 36.8 C (98.2 F) Resp 12 Ht 165.1 cm (5' 5 ) Wt 89.8 kg (198 lb) SpO2 97% BMI 32.95 kg/m General appearance: Well appearing, alert, in no acute distress, well nourished. Skin: Skin color, texture, turgor normal, no suspicious rashes or lesions Head: Normocephalic, no masses, lesions, tenderness or abnormalities Eyes: Anicteric sclera. Pupils are equally round and reactive to light. Extraocular movements are intact. Lungs: Lungs clear to auscultation. No wheezing, rhonchi, rales Heart: RRR without murmur, gallop, or rubs. Extremities: No deformities, edema, skin discoloration, clubbing or cyanosis. Good capillary refill. ASSESSMENT/PLAN: 1. Chest pain, unspecified type - ICD9: 786.50, ICD10: R07.9 (primary diagnosis) - CONSULT TO CARDIOLOGY 2. Insomnia, unspecified type - ICD9: 780.52, ICD10: G47.00 Refill - TRAZODONE 50 MG TABLET 3. Essential hypertension - ICD9: 401.9, ICD10: I10 - AMLODIPINE 10 MG TABLET - LISINOPRIL 20 MG TABLET 4. Gastroesophageal reflux disease without esophagitis - ICD9: 530.81, ICD10: K21.9 - PANTOPRAZOLE 40 MG TABLET,DELAYED RELEASE 5. Encounter for gynecological examination without abnormal finding - ICD9: V72.31, ICD10: Z01.419 - CONSULT TO GYNECOLOGY 6. Left elbow pain - ICD9: 719.42, ICD10: M25.522 - CONSULT TO ORTHOPAEDICS 7. Adenomatous polyp of colon, unspecified part of colon - ICD9: 211.3, ICD10: D12.6 - CONSULT TO GASTROENTEROLOGY 8. Anxiety - ICD9: 300.00, ICD10: F41.9 - CITALOPRAM 40 MG TABLET Uche Bryan MD documented in this encounter [facility] 06-11-2022 History of Present illness Narrative CC: Patient presents with: Cough: Pt reported SOB, denied chest pain, nasal congestion x3 days Fatigue: diarrhea HPI: Mariangel Robertson is a 51 year old female who presents to the office with complaint of head congestion, cough, nonproductive and sore throat for a few days. Symptoms are worsening Associated symptoms includes fatigue. Denies fever, nausea, vomiting and diarrhea. Treatments tried include nothing so far. with no relief of symptoms. Sick contacts: unknown. History of asthma, frequent episodes of bronchitis, chronic bronchitis, bronchiectasis or COPD: No Smoker: No Seasonal/environmental allergies: No The ROS is otherwise negative. The patient's pmh, medications, allergies, and past visits are reviewed. PHYSICAL EXAM: BP 140/82 Pulse 61 Temp 36.6 C (97.8 F) Resp 16 Wt 92.4 kg (203 lb 12.8 oz) SpO2 97% BMI 33.91 kg/m General appearance: alert, cooperative, pleasant, in no acute distress Head: Normocephalic Eyes: EOM's intact, conjunctiva pink and moist, no icterus, sclera white, non-injected Ears: Right ear: External ear/canal- Normal, TM - clear with good landmarks. Left ear: External ear/canal- Normal, TM - clear with good landmarks Oropharynx:moist without lesions, No erythema, exudates or tonsillar hypertrophy.} Heart: Negative. RRR without obvious murmur, gallop, or rubs. No ectopy. Lungs: clear to auscultation, without rales or wheeze, good air exchange PAST MEDICAL HISTORY Diagnosis Date Anxiety Depressive disorder Dermoid cyst of right ovary 10/15/2015 probable- [facility] Essential hypertension Insomnia Migraines Umbilical hernia 10/15/2015 minimal PAST SURGICAL HISTORY Procedure Laterality Date CT ABDOMEN & PELVIS W/CONT 10/15/15 [facility] HYSTERECTOMY HX still has ovaries TUBAL LIGATION HX ALLERGIES Stadol [Butorphanol Tartrate] MEDICATIONS citalopram (CELEXA) 40 mg tablet Take 1 tablet by mouth once daily. busPIRone (BUSPAR) 15 mg tablet Take 1 tablet by mouth three times daily. cholecalciferol, Vitamin D3, (VITAMIN D3) 1,250 mcg (50,000 unit) cap capsule Take 1 capsule by mouth one time a week. atorvastatin (LIPITOR) 20 mg tablet Take 1 tablet by mouth daily at bedtime. For cholesterol. amLODIPine (NORVASC) 10 mg tablet Take 0.5 tablets by mouth once daily. rOPINIRole (REQUIP) 0.25 mg tablet TAKE 1 TO 2 TABLETS BY MOUTH 30 MINUTES BEFORE BED. hydrOXYzine HCl (ATARAX) 25 mg tablet Take 1 tablet by mouth three times daily as needed. traZODone (DESYREL) 50 mg tablet Take 3-4 tablets by mouth daily at bedtime. pantoprazole DR (PROTONIX) 40 mg tablet Take 1 tablet by mouth once daily. lisinopril (ZESTRIL, PRINIVIL) 20 mg tablet Take 1 tablet by mouth once daily. MELATONIN ORAL Take by mouth. Estradiol (YUVAFEM) 10 mcg vaginal tablet Use 1 tablet vaginally two times a week. Insert vaginally every day for two weeks then twice weekly after cyanocobalamin 1,000 mcg/mL Inject 1 mL intramuscularly once every month. Syringe with Needle, Disp, 1 mL 27 x 1/2 1 Each once every month. guaiFENesin (MUCINEX) 600 mg 12 hr tablet Take 2 tablets by mouth twice daily. fluticasone (FLONASE) 50 mcg/actuation nasal spray Use 2 Sprays in each nostril once daily. albuterol HFA (PROAIR HFA) 90 mcg/actuation inhaler Inhale 2 Puffs as instructed every 4 hours as needed. FAMILY HISTORY Problem Relation Age of Onset Cancer Mother lung other (depression [Other]) Mother Diabetes Father Hypertension Father Cancer Father prostate Heart Father Hypertension Sister Depression Daughter other (epilpsy [Other]) Son Depression Son Attempted Suicide Social History Tobacco Use Smoking status: Current Every Day Smoker Packs/day: 1.00 Years: 6.00 Pack years: 6.00 Types: Cigarettes Smokeless tobacco: Never Used Vaping Use Vaping Use: Never used Substance Use Topics Alcohol use: Yes Comment: Occasionally Drug use: No ASSESSMENT/PLAN: 1. Exposure to COVID-19 virus - ICD9: V01.79, ICD10: Z20.822 - COVID WITH FLUA+B, ROUTINE Educated about supportive therapy and OTC medication. Prescription instructions reviewed with patient as applicable. Potential red flag symptoms discussed with the patient. Reviewed appropriate action plan to take if red flag symptoms occur. Patient agreeable to treatment plan. Katlin Og APRN.TRUDY documented in this encounter [facility] 05-19-2022 Miscellaneous Notes Detailed message left advising of message. Orders have been placed. Thank you Lurdes Hankins APRN.TRUDY Patient reports she scheduled an appt with pcp on 05-26 and would like to do labwork prior to appt. Pended the requested lab orders. Patient scheduled appt with lab for Sat 7-2. Patient aware she needs to fast. Please phone patient to let her know orders are in lab. documented in this encounter [facility] Exposure to COVID-19 virus- Primary [facility] Diagnosis Encounter for screening mammogram for breast cancer [facility] Diagnosis Chest pain, unspecified type- Primary Insomnia, unspecified type Essential hypertension Unspecified essential hypertension Gastroesophageal reflux disease without esophagitis Esophageal reflux Encounter for gynecological examination without abnormal finding Routine gynecological examination Left elbow pain Pain in joint, upper arm Adenomatous polyp of colon, unspecified part of colon Anxiety Anxiety state, unspecified [facility] Diagnosis Anxiety Anxiety state, unspecified [facility] Diagnosis Anxiety Anxiety state, unspecified [facility] Diagnosis Suspected COVID-19 virus infection- [facility] Diagnosis Left elbow pain- Primary Pain in joint, upper arm [facility] Diagnosis Left sided sciatica- Primary Sciatica [facility] Diagnosis Arthropathy of spinal facet joint- Primary Spondylosis of unspecified site without mention of myelopathy Acute low back pain, unspecified back pain laterality, unspecified whether sciatica present [facility] Diagnosis Essential hypertension- Primary Unspecified essential hypertension Left sided sciatica Sciatica Tobacco abuse disorder Tobacco use disorder Insomnia, unspecified type [facility] Diagnosis Anxiety Anxiety state, unspecified Major depressive disorder, recurrent, in remission ([facility]) Major depressive disorder, recurrent episode, in partial or unspecified remission [facility] Diagnosis Lumbar spondylosis- Primary Lumbosacral spondylosis without myelopathy Spinal stenosis, lumbar region with neurogenic claudication Cervical spondylosis without myelopathy Disturbance of skin sensation Fibromyalgia Mylagia and myositis, unspecified [facility] Diagnosis Lumbar spondylosis Lumbosacral spondylosis without myelopathy Spinal stenosis, lumbar region with neurogenic claudication Cervical spondylosis without myelopathy [facility] Diagnosis Lumbar spondylosis- Primary Lumbosacral spondylosis without myelopathy Spinal stenosis, lumbar region with neurogenic claudication Cervical spondylosis without myelopathy [facility] Diagnosis Left sided sciatica Sciatica [facility] Diagnosis COVID-19- Primary [facility] Diagnosis Mixed hyperlipidemia- Primary Vitamin D deficiency Unspecified vitamin D deficiency Vitamin B12 deficiency Other B-complex deficiencies [facility] Diagnosis Lumbar spondylosis- Primary Lumbosacral spondylosis without myelopathy Spinal stenosis, lumbar region with neurogenic claudication Cervical spondylosis without myelopathy [facility] Diagnosis Mixed hyperlipidemia- Primary Anxiety Anxiety state, unspecified Left sided sciatica Sciatica Abnormal mammogram Abnormal mammogram, unspecified Essential hypertension Unspecified essential hypertension Hypokalemia Hypopotassemia Vitamin D deficiency Unspecified vitamin D deficiency Vitamin B12 deficiency Other B-complex deficiencies [facility] Diagnosis Abnormal mammogram Abnormal mammogram, unspecified [facility] Diagnosis Spinal stenosis, lumbar region with neurogenic claudication- Primary Spondylolisthesis of lumbar region Acquired spondylolisthesis Cervical spondylosis without myelopathy Bilateral occipital neuralgia Other syndromes affecting cervical region Myofascial pain Mylagia and myositis, unspecified Left sided sciatica Sciatica [facility] Diagnosis Disturbance of skin sensation- Primary [facility] Diagnosis Carpal tunnel syndrome, unspecified laterality- Primary Cervical spondylosis without myelopathy Cervical radiculopathy Brachial neuritis or radiculitis nos Spinal stenosis of cervical region Spinal stenosis in cervical region [facility] Diagnosis Spondylolisthesis of lumbar region- Primary Acquired spondylolisthesis Spinal stenosis of lumbar region, unspecified whether neurogenic claudication present Lumbar radiculopathy Thoracic or lumbosacral neuritis or radiculitis, unspecified [facility] Diagnosis Anxiety Anxiety state, unspecified Major depressive disorder, recurrent, in remission (HCC) Major depressive disorder, recurrent episode, in partial or unspecified remission [facility] Diagnosis NO SHOW- Primary [facility] Diagnosis Obesity, Class I, BMI 30-34.9 Obesity, unspecified [facility] Diagnosis Procedure not carried out- Primary Procedure not carried out for other reasons [facility] Diagnosis Fatigue, unspecified type- Primary Leg cramping Cramp of limb Myalgias Vitamin D deficiency Unspecified vitamin D deficiency Vitamin B12 deficiency Other B-complex deficiencies [facility] Diagnosis Sinobronchitis Unspecified sinusitis (chronic) [facility] Diagnosis Other chest pain- Primary Essential hypertension Unspecified essential hypertension Lower extremity edema Edema [facility] Diagnosis Sinobronchitis Unspecified sinusitis (chronic) [facility] Diagnosis Dyspnea on exertion- Primary Other dyspnea and respiratory abnormality Tobacco abuse disorder Tobacco use disorder Major depressive disorder, recurrent, in remission (HCC) Major depressive disorder, recurrent episode, in partial or unspecified remission Anxiety Anxiety state, unspecified PTSD (post-traumatic stress disorder) Posttraumatic stress disorder Acute renal insufficiency Unspecified disorder of kidney and ureter [facility] Diagnosis Anxiety Anxiety state, unspecified [facility] Diagnosis Essential hypertension Unspecified essential hypertension [facility] Diagnosis Sinobronchitis Unspecified sinusitis (chronic) [facility] Diagnosis Major depressive disorder, recurrent, in remission (HCC)- Primary Major depressive disorder, recurrent episode, in partial or unspecified remission Anxiety Anxiety state, unspecified Moderate persistent asthma, unspecified whether complicated Restless legs Restless legs syndrome (RLS) Essential hypertension Unspecified essential hypertension Gastroesophageal reflux disease without esophagitis Esophageal reflux documented in this encounter [facility] note* Diagnosis Acute renal insufficiency Unspecified disorder of kidney and ureter documented in this encounter [facility] note* Diagnosis Encounter for screening mammogram for breast cancer documented in this encounter [facility] note* Diagnosis Other chest pain documented in this encounter [facility] note* Diagnosis Cervical radiculopathy Brachial neuritis or radiculitis nos Spinal stenosis of cervical region Spinal stenosis in cervical region Lumbar radiculopathy Thoracic or lumbosacral neuritis or radiculitis, unspecified Spinal stenosis of lumbar region, unspecified whether neurogenic claudication present documented in this encounter [facility] note* Diagnosis Sinobronchitis Unspecified sinusitis (chronic) documented in this encounter [facility] note* Diagnosis Episode of recurrent major depressive disorder, unspecified depression episode severity (HCC)- Primary Anxiety Anxiety state, unspecified Facial edema Edema Other fatigue Leg cramping Cramp of limb Moderate persistent asthma, unspecified whether complicated Myalgias Essential hypertension Unspecified essential hypertension Familial hypercholesterolemia Pure hypercholesterolemia Vitamin B12 deficiency Other B-complex deficiencies Vitamin D deficiency Unspecified vitamin D deficiency History of iron deficiency Personal history of diseases of blood and blood-forming organs Facial rash Rash and other nonspecific skin eruption Elevated glucose Other abnormal glucose Cold intolerance Other general symptoms documented in this encounter [facility] for referral (narrative)* Diagnostic Procedure Only (Routine) - Pending Review Specialty Diagnoses / Procedures Referred By Khris odom Referred To Contact [facility] Diagnoses Encounter for screening mammogram for breast cancer Procedures MAME SCREENING SCREENING MAMMOGRAPHY BI 2-VIEW BREAST INC CAD Uche Bryan MD [address] [place] [address] [facility] [address] [place] [address] Referral ID Status Reason Start Date Expiration Date Visits Requested Visits Authorized [id number] Pending Review Auto-Generat ed Referral 06/30/2022 07/30/2023 1 1 [facility] for referral (narrative)* Diagnostic Procedure Only (Routine) - Pending Review Specialty Diagnoses / Procedures Referred By Contac t Referred To Contact XR IMAGING Diagnoses Left elbow pain Procedures XR ELBOW GENERAL 2V AP/LAT LEFT RADEX ELBOW 2 VIEWS Luther Gong MD [address] [place] [address] Xr Imaging Referral ID Status Reason Start Date Expiration Date Visits Requested Visits Authorized [id number] Pending Review Auto-Generat ed Referral 08/26/2022 09/25/2023 1 1 [facility] for referral (narrative)* Diagnostic Procedure Only (Urgent) - Closed Specialty Diagnoses / Procedures Referred By Contac t Referred To Contact XR IMAGING Diagnoses Left sided sciatica Procedures XR HIP GENERAL 3V PELV/AP/LAT LEFT RADEX HIP UNILATERAL WITH PELVIS 2-3 VIEWS Korin Molina APRN.EXECUTIVE KITCHEN MANAGER [address] [place] [address] Xr Imaging Referral ID Status Reason Start Date Expiration Date V isits Requested Visits Authorized [id number] Closed Auto-Generate d Referral 10/01/2022 10/31/2023 1 1 * Diagnostic Procedure Only (Urgent) - Closed Specialty Diagnoses / Procedures Referred By Contac t Referred To Contact XR IMAGING Diagnoses Left sided sciatica Procedures XR LUMBAR GENERAL 3V AP/LAT/L5-S1 RADEX SPINE LUMBOSACRAL 2/3 VIEWS Korin Molina APRN.EXECUTIVE KITCHEN MANAGER [address] [place] [address] Xr Imaging Referral ID Status Reason Start Date Expiration Date V isits Requested Visits Authorized [id number] Closed Auto-Generate d Referral 10/01/2022 10/31/2023 1 1 [facility] for referral (narrative)* Diagnostic Procedure Only (Routine) - Pending Review Specialty Diagnoses / Procedures Referred By Contac t Referred To Contact XR IMAGING Diagnoses Cervical spondylosis without myelopathy Procedures XR CERV OTHER 6V AP/LAT/FLX/EXT/OBL RADEX SPINE CERVICAL 6 OR MORE VIEWS Leanne Tovar, [employer] OPERATIONS MANAGER.EXECUTIVE KITCHEN MANAGER [address] [place] [address] Xr Imaging Referral ID Status Reason Start Date Expiration Date Visits Requested Visits Authorized [id number] Pending Review Auto-Generat ed Referral 2 12/04/2023 1 1 Electronically signed by Leanne Tovar ETHANOL OPERATIONS MANAGER.EXECUTIVE KITCHEN MANAGER at 11/04/2022 9:36 AM EST * - Pending Review Specialty Diagnoses / Procedures Referred By Contac t Referred To Contact Physical Therapy Diagnoses Lumbar spondylosis Spinal stenosis, lumbar region with neurogenic claudication Cervical spondylosis without myelopathy Procedures CONSULT TO PHYSICAL THERAPY Leanne Tovar ETHANOL OPERATIONS MANAGER.EXECUTIVE KITCHEN MANAGER [address] [place] [address] Referral ID Status Reason Start Date Expiration Date V isits Requested Visits Authorized [id number] Pending Review 11/04/2022 02/02/2023 1 1 [facility] Diagnostic Procedure Only (Routine) - Authorized Specialty Diagnoses / Procedures Referred By Contac t Referred To Contact [facility] Diagnoses Abnormal mammogram Procedures MAME DIAGNOSTIC BILAT DIAGNOSTIC MAMMOGRAPHY COMPUTER-AIDED DETCJ BI Uche Bryan MD [address] [place] [address] [facility] [address] [place] [address] Referral ID Status Reason Start Date Expiration Date Visits Requested Visits Authorized [id number] Authorized Auto-Generat ed Referral 12/20/2022 01/19/2024 1 1 * Diagnostic Procedure Only (Routine) - Authorized Specialty Diagnoses / Procedures Referred By Contac t Referred To Contact [facility] IM[facility]ING Diagnoses Abnormal mammogram Procedures US BREAST LTD LT US BREAST UNI REAL TIME WITH IMAGE LIMITED Uche Bryan MD [address] [place] [address] [facility] [address] [place] [address] Referral ID Status Reason Start Date Expiration Date Visits Requested Visits Authorized [id number] Authorized Auto-Generat ed Referral 12/20/2022 01/19/2024 1 1 [facility] for referral (narrative)* Diagnostic Procedure Only (Routine) - Closed Specialty Diagnoses / Procedures Referred By Khris odom Referred To Contact [facility] IM[facility]ING Diagnoses Abnormal mammogram Procedures US BREAST LTD LT US BREAST UNI REAL TIME WITH IMAGE LIMITED Uche Bryan MD [address] [place] [address] [facility] [address] [place] [phone] Referral ID Status Reason Start Date Expiration Date V isits Requested Visits Authorized [id number] Closed Auto-Generate d Referral 12/20/2022 01/19/2024 1 1 [facility] for referral (narrative)* Diagnostic Procedure Only (Urgent) - Closed Specialty Diagnoses / Procedures Referred By Khris t Referred To Contact US IMAGING Diagnoses Acute renal insufficiency Procedures US KIDNEY/BLADDER US RETROPERITONEAL REAL TIME W/IMAGE COMPLETE Misty Hankins APRN.CNP [address] [place] [address] Us Imaging [id number] Referral ID Status Reason Start Date Expiration Date V isits Requested Visits Authorized [id number] Closed Auto-Generate d Referral 03/30/2023 04/28/2024 1 1 [facility] for referral (narrative)* Diagnostic Procedure Only (Routine) - Closed Specialty Diagnoses / Procedures Referred By Khris odom Referred To Contact [facility] Diagnoses Encounter for screening mammogram for breast cancer Procedures MAME SCREENING SCREENING MAMMOGRAPHY BI 2-VIEW BREAST INC CAD Uche Bryan MD [address] [place] [address] [facility] [address] [place] [address] Referral ID Status Reason Start Date Expiration Date V isits Requested Visits Authorized [id number] Closed Auto-Generate d Referral 06/30/2022 07/30/2023 1 1 [facility] for referral (narrative)* Diagnostic Procedure Only (Routine) - Closed Specialty Diagnoses / Procedures Referred By Contact Referred To Contact MOLECULAR & FUNCTIONAL IMAGING Diagnoses Other chest pain Procedures NM CARDIAC PERF STRESS/PHARM MYOCARDIAL SPECT MULTIPLE STUDIES Stefanie Solis MD [address] [place] [address] [facility] [address] [place] [address] Referral ID Status Reason Start Date Expiration Date Visits Re quested Visits Authorized [id number] Closed 05/17/2023 11/13/2023 3 3 [facility] for referral (narrative)* Diagnostic Procedure Only (Routine) - Closed Specialty Diagnoses / Procedures Referred By Contac t Referred To Contact MR IMAGING Diagnoses Lumbar radiculopathy Spinal stenosis of lumbar region, unspecified whether neurogenic claudication present Procedures MRI LUMBAR SPINE WO IVCON MRI SPINAL CANAL LUMBAR W/O CONTRAST MATERIAL Ginna Garduno MD [address] [place] [place] [address] [place] [id number] Referral ID Status Reason Start Date Expiration Date V isits Requested Visits Authorized [id number] Closed Auto-Generate d Referral 01/11/2023 07/10/2023 1 1 * Diagnostic Procedure Only (Routine) - Closed Specialty Diagnoses / Procedures Referred By Contac t Referred To Contact MR IMAGING Diagnoses Cervical radiculopathy Spinal stenosis of cervical region Procedures MRI CERVICAL SPINE WO IVCON MRI SPINAL CANAL CERVICAL W/O CONTRAST MATRL Ginna Garduno MD [address] [place] [address] [place] [id number] Referral ID Status Reason Start Date Expiration Date V isits Requested Visits Authorized [id number] Closed Auto-Generate d Referral 01/11/2023 07/10/2023 1 1 [facility] for visit Narrative* Diagnostic Procedure Only (Routine) - Closed Specialty Diagnoses / Procedures Referred By Contac t Referred To Contact [facility] Diagnoses Abnormal mammogram Procedures MAME DIAGNOSTIC BILAT DIAGNOSTIC MAMMOGRAPHY COMPUTER-AIDED DETCJ BI Uche Bryan MD [address] [place] [address] [facility] Imaging [address] [place] [phone] Referral ID Status Reason Start Date Expiration Date V isits Requested Visits Authorized [id number] Closed Auto-Generate d Referral 12/20/2022 01/19/2024 1 1 [facility] for visit Narrative* Diagnostic Procedure Only (Routine) - Closed Specialty Diagnoses / Procedures Referred By Khris odom Referred To Contact [facility] Diagnoses Encounter for screening mammogram for breast cancer Procedures MAME SCREENING SCREENING MAMMOGRAPHY BI 2-VIEW BREAST INC CAD Uche Bryan MD [address] [place] [address] [facility] [address] [place] [phone] Referral ID Status Reason Start Date Expiration Date V isits Requested Visits Authorized [id number] Closed Auto-Generate d Referral 06/30/2022 07/30/2023 1 1 [facility] for visit Narrative* Diagnostic Procedure Only (Routine) - Closed Specialty Diagnoses / Procedures Referred By Contact Referred To Contact MOLECULAR & FUNCTIONAL IMAGING Diagnoses Other chest pain Procedures NM CARDIAC PERF STRESS/PHARM MYOCARDIAL SPECT MULTIPLE STUDIES Stefanie Solis MD [address] [place] [address] [facility] [address] [place] [address] Referral ID Status Reason Start Date Expiration Date Visits Re quested Visits Authorized [id number] Closed 05/17/2023 11/13/2023 3 3 [facility] Diagnostic Procedure Only (Routine) - Closed Specialty Diagnoses / Procedures Referred By Contac t Referred To Contact MR IMAGING Diagnoses Cervical radiculopathy Spinal stenosis of cervical region Procedures MRI CERVICAL SPINE WO IVCON MRI SPINAL CANAL CERVICAL W/O CONTRAST Ginna Klien MD [address] [place] [address] [place] [id number] Referral ID Status Reason Start Date Expiration Date V isits Requested Visits Authorized [id number] Closed Auto-Generate d Referral 01/11/2023 07/10/2023 1 1 [facility] Health Concerns Infection Onset Date Last Indicated Resolved Time COVID-19 Rule-Out 06/11/2022 06/11/2022 Infection Onset Date Last Indicated Resolved Time COVID-19 Rule-Out 08/24/2022 08/24/2022 Infection Onset Date Last Indicated Resolved Time COVID-19 Rule-Out 2022 2022 Infection Onset Date Last Indicated Resolved Time COVID-19 Confirmed 2022 2022 8:51 PM EST Reason for Referral Specialty Diagnoses / Procedures Referred By Contac t Referred To Contact Gynecology Diagnoses Encounter for gynecological examination without abnormal finding Procedures CONSULT TO GYNECOLOGY OFFICE/OUTPATIENT [facility] 60-74 MINUTES Uche Bryan MD [facility] [place] [address] Referral ID Status Reason Start Date Expiration Date Visits Requested Visits Authorized [id number] Authorized PCP Requested Referral Auto-Generate d Referral 07/16/2022 07/16/2023 1 1 Specialty Diagnoses / Procedures Referred By Contac t Referred To Contact Orthopedics Diagnoses Left elbow pain Procedures CONSULT TO ORTHOPAEDICS OFFICE/OUTPATIENT [facility] 60-74 MINUTES Uche Bryan MD [address] [place] [address] Referral ID Status Reason Start Date Expiration Date Visits Requested Visits Authorized [id number] Authorized PCP Requested Referral 07/16/2022 07/16/2023 1 1 Specialty Diagnoses / Procedures Referred By Contac t Referred To Contact Gastroenterology Diagnoses Adenomatous polyp of colon, unspecified part of colon Procedures CONSULT TO GASTROENTEROLOGY OFFICE/OUTPATIENT [facility] 60-74 MINUTES Uche Bryan MD [address] [place] [address] Referral ID Status Reason Start Date Expiration Date Visits Requested Visits Authorized [id number] Authorized PCP Requested Referral 07/16/2022 07/16/2023 1 1 Specialty Diagnoses / Procedures Referred By Contac t Referred To Contact Cardiology Diagnoses Chest pain, unspecified type Procedures CONSULT TO CARDIOLOGY OFFICE/OUTPATIENT [facility] 60-74 MINUTES Uche Bryan MD [address] [place] [address] Referral ID Status Reason Start Date Expiration Date Visits Requested Visits Authorized [id number] Authorized PCP Requested Referral 07/16/2022 07/16/2023 1 1 Specialty Diagnoses / Procedures Referred By Contac t Referred To Contact [facility] Diagnoses Arthropathy of spinal facet joint Acute low back pain, unspecified back pain laterality, unspecified whether sciatica present Procedures CONSULT TO PHYSICAL THERAPY PHYSICAL THERAPY EVALUATION HIGH COMPLEX 45 MINS Older, ALIX Chatman.EXECUTIVE KITCHEN MANAGER [address] [place] [address] [facility] [address] [address] Referral ID Status Reason Start Date Expiration Date Visits Requested Visits Authorized [id number] Pending Review Auto-Generat ed Referral 2 10/06/2023 1 1 Specialty Diagnoses / Procedures Referred By Contac t Referred To Contact [facility] Diagnoses Lumbar spondylosis Spinal stenosis, lumbar region with neurogenic claudication Cervical spondylosis without myelopathy Procedures PT REHAB FOLLOW UP ORDER THERAPEUTIC EXERCISES RE, EA 15 MIN. Chris Webster, PT [facility] [place] [address] [place] [address] Referral ID Status Reason Start Date Expiration Date Visits Requested Visits Authorized [id number] Pending Review PCP Requested Referral Auto-Generate d Referral 2 02/07/2023 1 1 Specialty Diagnoses / Procedures Referred By Contac t Referred To Contact [facility] Diagnoses Lumbar spondylosis Spinal stenosis, lumbar region with neurogenic claudication Cervical spondylosis without myelopathy Procedures PT REHAB FOLLOW UP ORDER THERAPEUTIC EXERCISES RE, EA 15 MIN. Chris Webster, PT [address] [place] [address] [facility] [place] [address] [place] [address] Referral ID Status Reason Start Date Expiration Date Visits Requested Visits Authorized [id number] Pending Review PCP Requested Referral Auto-Generate d Referral 12/16/2022 03/16/2023 1 1 Specialty Diagnoses / Procedures Referred By Contac t Referred To Contact MR IMAGING Diagnoses Cervical radiculopathy Spinal stenosis of cervical region Procedures MRI CERVICAL SPINE WO IVCON MRI SPINAL CANAL CERVICAL W/O CONTRAST MATRL Ginna Garduno MD [address] [place] [address] Mr Imaging Referral ID Status Reason Start Date Expiration Date Visits Requested Visits Authorized [id number] Pending Review Auto-Generat ed Referral 01/05/2023 02/04/2024 1 1 Specialty Diagnoses / Procedures Referred By Contac t Referred To Contact MR IMAGING Diagnoses Lumbar radiculopathy Spinal stenosis of lumbar region, unspecified whether neurogenic claudication present Procedures MRI LUMBAR SPINE WO IVCON MRI SPINAL CANAL LUMBAR W/O CONTRAST MATERIAL Ginna Garduno MD [address] [place] [address] Mr Imaging Referral ID Status Reason Start Date Expiration Date Visits Requested Visits Authorized [id number] Pending Review Auto-Generat ed Referral 01/10/2023 02/09/2024 1 1 Specialty Diagnoses / Procedures Referred By Contac t Referred To Contact Lurdes Hankins APRN.EXECUTIVE KITCHEN MANAGER [address] [place] [address] Referral ID Status Reason Start Date Expiration Date Visits Re quested Visits Authorized [id number] Closed 1 1 Summary Purpose Family History No Family History Records FoundNo Family History Records Found Advance Directives No Advanced Directives Records FoundNo Advanced Directives Records Found Additional Source Comments Source Comments (unrecognize d section and content) In the event this informatio n is protected by the Federal Confidentiality of Alcohol and Drug Abuse Patient Records regulations: The Federal rules restrict any use of the information to criminally investigate or prosecute any alcohol or drug abuse patient.[facility] the event this information is protected by the Federal Confidentiality of Alcohol and Drug Abuse Patient Records regulations: The Federal rules restrict any use of the information to criminally investigate or prosecute any alcohol or drug abuse patient.[facility] Center[facility] the event this information is protected by the Federal Confidentiality of Alcohol and Drug Abuse Patient Records regulations: The Federal rules restrict any use of the information to criminally investigate or prosecute any alcohol or drug abuse patient.[facility] CenterIn the event this information is protected by the Federal Confidentiality of Alcohol and Drug Abuse Patient Records regulations: The Federal rules restrict any use of the information to criminally investigate or prosecute any alcohol or drug abuse patient.[facility] CenterIn the event this information is protected by the Federal Confidentiality of Alcohol and Drug Abuse Patient Records regulations: The Federal rules restrict any use of the information to criminally investigate or prosecute any alcohol or drug abuse patient.[facility] CenterIn the event this information is protected by the Federal Confidentiality of Alcohol and Drug Abuse Patient Records regulations: The Federal rules restrict any use of the information to criminally investigate or prosecute any alcohol or drug abuse patient.[facility] CenterIn the event this information is protected by the Federal Confidentiality of Alcohol and Drug Abuse Patient Records regulations: The Federal rules restrict any use of the information to criminally investigate or prosecute any alcohol or drug abuse patient.[facility] CenterIn the event this information is protected by the Federal Confidentiality of Alcohol and Drug Abuse Patient Records regulations: The Federal rules restrict any use of the information to criminally investigate or prosecute any alcohol or drug abuse patient.[facility] CenterIn the event this information is protected by the Federal Confidentiality of Alcohol and Drug Abuse Patient Records regulations: The Federal rules restrict any use of the information to criminally investigate or prosecute any alcohol or drug abuse patient.[facility] CenterIn the event this information is protected by the Federal Confidentiality of Alcohol and Drug Abuse Patient Records regulations: The Federal rules restrict any use of the information to criminally investigate or prosecute any alcohol or drug abuse patient.[facility] CenterIn the event this information is protected by the Federal Confidentiality of Alcohol and Drug Abuse Patient Records regulations: The Federal rules restrict any use of the information to criminally investigate or prosecute any alcohol or drug abuse patient.[facility] CenterIn the event this information is protected by the Federal Confidentiality of Alcohol and Drug Abuse Patient Records regulations: The Federal rules restrict any use of the information to criminally investigate or prosecute any alcohol or drug abuse patient.[facility] CenterIn the event this information is protected by the Federal Confidentiality of Alcohol and Drug Abuse Patient Records regulations: The Federal rules restrict any use of the information to criminally investigate or prosecute any alcohol or drug abuse patient.[facility] CenterIn the event this information is protected by the Federal Confidentiality of Alcohol and Drug Abuse Patient Records regulations: The Federal rules restrict any use of the information to criminally investigate or prosecute any alcohol or drug abuse patient.[facility] CenterIn the event this information is protected by the Federal Confidentiality of Alcohol and Drug Abuse Patient Records regulations: The Federal rules restrict any use of the information to criminally investigate or prosecute any alcohol or drug abuse patient.[facility] CenterIn the event this information is protected by the Federal Confidentiality of Alcohol and Drug Abuse Patient Records regulations: The Federal rules restrict any use of the information to criminally investigate or prosecute any alcohol or drug abuse patient.[facility] CenterIn the event this information is protected by the Federal Confidentiality of Alcohol and Drug Abuse Patient Records regulations: The Federal rules restrict any use of the information to criminally investigate or prosecute any alcohol or drug abuse patient.[facility] CenterIn the event this information is protected by the Federal Confidentiality of Alcohol and Drug Abuse Patient Records regulations: The Federal rules restrict any use of the information to criminally investigate or prosecute any alcohol or drug abuse patient.[facility] CenterIn the event this information is protected by the Federal Confidentiality of Alcohol and Drug Abuse Patient Records regulations: The Federal rules restrict any use of the information to criminally investigate or prosecute any alcohol or drug abuse patient.[facility] CenterIn the event this information is protected by the Federal Confidentiality of Alcohol and Drug Abuse Patient Records regulations: The Federal rules restrict any use of the information to criminally investigate or prosecute any alcohol or drug abuse patient.[facility] CenterIn the event this information is protected by the Federal Confidentiality of Alcohol and Drug Abuse Patient Records regulations: The Federal rules restrict any use of the information to criminally investigate or prosecute any alcohol or drug abuse patient.[facility] CenterIn the event this information is protected by the Federal Confidentiality of Alcohol and Drug Abuse Patient Records regulations: The Federal rules restrict any use of the information to criminally investigate or prosecute any alcohol or drug abuse patient.[facility] CenterIn the event this information is protected by the Federal Confidentiality of Alcohol and Drug Abuse Patient Records regulations: The Federal rules restrict any use of the information to criminally investigate or prosecute any alcohol or drug abuse patient.[facility] CenterIn the event this information is protected by the Federal Confidentiality of Alcohol and Drug Abuse Patient Records regulations: The Federal rules restrict any use of the information to criminally investigate or prosecute any alcohol or drug abuse patient.[facility] CenterIn the event this information is protected by the Federal Confidentiality of Alcohol and Drug Abuse Patient Records regulations: The Federal rules restrict any use of the information to criminally investigate or prosecute any alcohol or drug abuse patient.[facility] CenterIn the event this information is protected by the Federal Confidentiality of Alcohol and Drug Abuse Patient Records regulations: The Federal rules restrict any use of the information to criminally investigate or prosecute any alcohol or drug abuse patient.[facility] CenterIn the event this information is protected by the Federal Confidentiality of Alcohol and Drug Abuse Patient Records regulations: The Federal rules restrict any use of the information to criminally investigate or prosecute any alcohol or drug abuse patient.[facility] CenterIn the event this information is protected by the Federal Confidentiality of Alcohol and Drug Abuse Patient Records regulations: The Federal rules restrict any use of the information to criminally investigate or prosecute any alcohol or drug abuse patient.[facility] CenterIn the event this information is protected by the Federal Confidentiality of Alcohol and Drug Abuse Patient Records regulations: The Federal rules restrict any use of the information to criminally investigate or prosecute any alcohol or drug abuse patient.[facility] CenterIn the event this information is protected by the Federal Confidentiality of Alcohol and Drug Abuse Patient Records regulations: The Federal rules restrict any use of the information to criminally investigate or prosecute any alcohol or drug abuse patient.[facility] CenterIn the event this information is protected by the Federal Confidentiality of Alcohol and Drug Abuse Patient Records regulations: The Federal rules restrict any use of the information to criminally investigate or prosecute any alcohol or drug abuse patient.[facility] CenterIn the event this information is protected by the Federal Confidentiality of Alcohol and Drug Abuse Patient Records regulations: The Federal rules restrict any use of the information to criminally investigate or prosecute any alcohol or drug abuse patient.[facility] CenterIn the event this information is protected by the Federal Confidentiality of Alcohol and Drug Abuse Patient Records regulations: The Federal rules restrict any use of the information to criminally investigate or prosecute any alcohol or drug abuse patient.[facility] CenterIn the event this information is protected by the Federal Confidentiality of Alcohol and Drug Abuse Patient Records regulations: The Federal rules restrict any use of the information to criminally investigate or prosecute any alcohol or drug abuse patient.[facility] CenterIn the event this information is protected by the Federal Confidentiality of Alcohol and Drug Abuse Patient Records regulations: The Federal rules restrict any use of the information to criminally investigate or prosecute any alcohol or drug abuse patient.[facility] CenterIn the event this information is protected by the Federal Confidentiality of Alcohol and Drug Abuse Patient Records regulations: The Federal rules restrict any use of the information to criminally investigate or prosecute any alcohol or drug abuse patient.[facility] CenterIn the event this information is protected by the Federal Confidentiality of Alcohol and Drug Abuse Patient Records regulations: The Federal rules restrict any use of the information to criminally investigate or prosecute any alcohol or drug abuse patient.[facility] CenterIn the event this information is protected by the Federal Confidentiality of Alcohol and Drug Abuse Patient Records regulations: The Federal rules restrict any use of the information to criminally investigate or prosecute any alcohol or drug abuse patient.[facility] CenterIn the event this information is protected by the Federal Confidentiality of Alcohol and Drug Abuse Patient Records regulations: The Federal rules restrict any use of the information to criminally investigate or prosecute any alcohol or drug abuse patient.[facility] CenterIn the event this information is protected by the Federal Confidentiality of Alcohol and Drug Abuse Patient Records regulations: The Federal rules restrict any use of the information to criminally investigate or prosecute any alcohol or drug abuse patient.[facility] CenterIn the event this information is protected by the Federal Confidentiality of Alcohol and Drug Abuse Patient Records regulations: The Federal rules restrict any use of the information to criminally investigate or prosecute any alcohol or drug abuse patient.[facility] CenterIn the event this information is protected by the Federal Confidentiality of Alcohol and Drug Abuse Patient Records regulations: The Federal rules restrict any use of the information to criminally investigate or prosecute any alcohol or drug abuse patient.[facility] CenterIn the event this information is protected by the Federal Confidentiality of Alcohol and Drug Abuse Patient Records regulations: The Federal rules restrict any use of the information to criminally investigate or prosecute any alcohol or drug abuse patient.[facility] CenterIn the event this information is protected by the Federal Confidentiality of Alcohol and Drug Abuse Patient Records regulations: The Federal rules restrict any use of the information to criminally investigate or prosecute any alcohol or drug abuse patient.[facility] CenterIn the event this information is protected by the Federal Confidentiality of Alcohol and Drug Abuse Patient Records regulations: The Federal rules restrict any use of the information to criminally investigate or prosecute any alcohol or drug abuse patient.[facility] CenterIn the event this information is protected by the Federal Confidentiality of Alcohol and Drug Abuse Patient Records regulations: The Federal rules restrict any use of the information to criminally investigate or prosecute any alcohol or drug abuse patient.[facility] CenterIn the event this information is protected by the Federal Confidentiality of Alcohol and Drug Abuse Patient Records regulations: The Federal rules restrict any use of the information to criminally investigate or prosecute any alcohol or drug abuse patient.[facility] CenterIn the event this information is protected by the Federal Confidentiality of Alcohol and Drug Abuse Patient Records regulations: The Federal rules restrict any use of the information to criminally investigate or prosecute any alcohol or drug abuse patient.[facility] CenterIn the event this information is protected by the Federal Confidentiality of Alcohol and Drug Abuse Patient Records regulations: The Federal rules restrict any use of the information to criminally investigate or prosecute any alcohol or drug abuse patient.[facility] CenterIn the event this information is protected by the Federal Confidentiality of Alcohol and Drug Abuse Patient Records regulations: The Federal rules restrict any use of the information to criminally investigate or prosecute any alcohol or drug abuse patient.[facility] CenterIn the event this information is protected by the Federal Confidentiality of Alcohol and Drug Abuse Patient Records regulations: The Federal rules restrict any use of the information to criminally investigate or prosecute any alcohol or drug abuse patient.[facility] CenterIn the event this information is protected by the Federal Confidentiality of Alcohol and Drug Abuse Patient Records regulations: The Federal rules restrict any use of the information to criminally investigate or prosecute any alcohol or drug abuse patient.[facility] CenterIn the event this information is protected by the Federal Confidentiality of Alcohol and Drug Abuse Patient Records regulations: The Federal rules restrict any use of the information to criminally investigate or prosecute any alcohol or drug abuse patient.[facility] CenterIn the event this information is protected by the Federal Confidentiality of Alcohol and Drug Abuse Patient Records regulations: The Federal rules restrict any use of the information to criminally investigate or prosecute any alcohol or drug abuse patient.[facility] CenterIn the event this information is protected by the Federal Confidentiality of Alcohol and Drug Abuse Patient Records regulations: The Federal rules restrict any use of the information to criminally investigate or prosecute any alcohol or drug abuse patient.[facility] CenterIn the event this information is protected by the Federal Confidentiality of Alcohol and Drug Abuse Patient Records regulations: The Federal rules restrict any use of the information to criminally investigate or prosecute any alcohol or drug abuse patient.[facility] CenterIn the event this information is protected by the Federal Confidentiality of Alcohol and Drug Abuse Patient Records regulations: The Federal rules restrict any use of the information to criminally investigate or prosecute any alcohol or drug abuse patient.[facility] CenterIn the event this information is protected by the Federal Confidentiality of Alcohol and Drug Abuse Patient Records regulations: The Federal rules restrict any use of the information to criminally investigate or prosecute any alcohol or drug abuse patient.[facility] CenterIn the event this information is protected by the Federal Confidentiality of Alcohol and Drug Abuse Patient Records regulations: The Federal rules restrict any use of the information to criminally investigate or prosecute any alcohol or drug abuse patient.[facility] CenterIn the event this information is protected by the Federal Confidentiality of Alcohol and Drug Abuse Patient Records regulations: The Federal rules restrict any use of the information to criminally investigate or prosecute any alcohol or drug abuse patient.[facility] CenterIn the event this information is protected by the Federal Confidentiality of Alcohol and Drug Abuse Patient Records regulations: The Federal rules restrict any use of the information to criminally investigate or prosecute any alcohol or drug abuse patient.[facility] CenterIn the event this information is protected by the Federal Confidentiality of Alcohol and Drug Abuse Patient Records regulations: The Federal rules restrict any use of the information to criminally investigate or prosecute any alcohol or drug abuse patient.[facility] CenterIn the event this information is protected by the Federal Confidentiality of Alcohol and Drug Abuse Patient Records regulations: The Federal rules restrict any use of the information to criminally investigate or prosecute any alcohol or drug abuse patient.[facility] CenterIn the event this information is protected by the Federal Confidentiality of Alcohol and Drug Abuse Patient Records regulations: The Federal rules restrict any use of the information to criminally investigate or prosecute any alcohol or drug abuse patient.[facility] CenterIn the event this information is protected by the Federal Confidentiality of Alcohol and Drug Abuse Patient Records regulations: The Federal rules restrict any use of the information to criminally investigate or prosecute any alcohol or drug abuse patient.[facility] CenterIn the event this information is protected by the Federal Confidentiality of Alcohol and Drug Abuse Patient Records regulations: The Federal rules restrict any use of the information to criminally investigate or prosecute any alcohol or drug abuse patient.[facility] CenterIn the event this information is protected by the Federal Confidentiality of Alcohol and Drug Abuse Patient Records regulations: The Federal rules restrict any use of the information to criminally investigate or prosecute any alcohol or drug abuse patient.[facility] CenterIn the event this information is protected by the Federal Confidentiality of Alcohol and Drug Abuse Patient Records regulations: The Federal rules restrict any use of the information to criminally investigate or prosecute any alcohol or drug abuse patient.[facility] CenterIn the event this information is protected by the Federal Confidentiality of Alcohol and Drug Abuse Patient Records regulations: The Federal rules restrict any use of the information to criminally investigate or prosecute any alcohol or drug abuse patient.[facility] CenterIn the event this information is protected by the Federal Confidentiality of Alcohol and Drug Abuse Patient Records regulations: The Federal rules restrict any use of the information to criminally investigate or prosecute any alcohol or drug abuse patient.[facility] Reason for Visit (unrecogniz ed section and content) Specialty Diagnoses / Procedures Referred By Contac t Referred To Contact Physical Therapy Diagnoses Lumbar spondylosis Spinal stenosis, lumbar region with neurogenic claudication Cervical spondylosis without myelopathy Procedures CONSULT TO PHYSICAL THERAPY Leanne Tovar, ETHANOL OPERATIONS MANAGER.EXECUTIVE KITCHEN MANAGER [address] [place] [address] [address] [employer] [address] Referral ID Status Reason Start Date Expiration Date V isits Requested Visits Authorized [id number] Authorized 11/09/2022 11/20/2023 50 50 Reason Comments Lab order request Reason Comments Cough Pt reported SOB, den ied chest pain, nasal congestion x3 days Fatigue diarrhea Reason Comments Follow Up wants MRI left shoul [place], left elbow, weight loss, fatigue Reason Onset Date Comments Refill Request 07/16/2022 Reason Comments Insurance Authorization Reason Onset Date Comments Migraine 08/03/2022 Nurse Triage Call 08/03/2022 Reason Comments Sinus Problem Sinus pressure and H A x 2 days Reason Comments Trauma Left leg and hip sta rted hurting last night Reason Comments F/U HTN 3 Month Reason Comments Medication Problem Reason Onset Date Comments Refill Request 10/29/2022 Reason Comments New Patient Low Back Pain Neck Pain Arm Pain Reason Comments PT Eval Reason Comments Physical Therapy Specialty Diagnoses / Procedures Referred By Contac t Referred To Contact Physical Therapy Diagnoses Lumbar spondylosis Spinal stenosis, lumbar region with neurogenic claudication Cervical spondylosis without myelopathy Procedures CONSULT TO PHYSICAL THERAPY Leanne Tovar, ALIX.EXECUTIVE KITCHEN MANAGER [address] [place] [address] [address] [place] [address] Reason Onset Date Comments Refill Request 11/20/2022 Reason Comments Refill Request Reason Comments Headache cough, fever, conges tion, sore throat x 2 days Reason Onset Date Comments Refill Request 12/13/2022 Reason Comments Follow Up refills needed Reason Comments Results Reason Comments Patient Question Reason Comments Follow Up Neck Pain Posterior Back Pain Lower Rx Refills Lyrica 75 mg BID Reason Comments Injections Reason Comments EMG Left Upper Specialty Diagnoses / Procedures Referred By Contac t Referred To Contact Physical Medicine and Rehab / PAIN MANAGEMENT Diagnoses Unspecified disturbances of skin sensation EMG/NCT LUE - Leanne Tovar, ALIX.EXECUTIVE KITCHEN MANAGER Procedures NEEDLE EMG EA EXTREMTY W/PARASPINL AREA COMPLETE NERVE CONDUCTION STUDIES 11-12 STUDIES EMG SINGLE Leanne Tovar, ETHANOL OPERATIONS MANAGER.EXECUTIVE KITCHEN MANAGER [address] [place] [address] Edda Daniel DO [address] [place] [address] Referral ID Status Reason Start Date Expiration Date Visits Re quested Visits Authorized [id number] Closed 12/07/2022 01/30/2023 1 1 Reason Comments Forms FMLA Reason Onset Date Comments Refill Request 02/21/2023 SEE RX NOTE Reason Comments Appointment 03/01/2023 change or reschedule Reason Onset Date Comments Follow Up EMG LUE No Show 03/01/2023 No show Reason Onset Date Comments Refill Request 03/02/2023 Reason Comments Eye Problem Left eye irritation- put nail glue in eye instead of eye drops- happened last night Reason Comments tired, weak and leg cramps Reason Onset Date Comments Refill Request 05/12/2023 Reason Comments Patient Update Pt sent to ER Reason Onset Date Comments Refill Request 06/15/2023 Reason Comments bh consult Reason Comments Recheck 2 month follow up Reason Onset Date Comments Refill Request 07/11/2023 Reason Onset Date Comments Refill Request 08/01/2023 Reason Onset Date Comments Refill Request 08/19/2023 Reason Comments Recheck Follow up Reason Comments Radiology NM Specialty Diagnoses / Procedures Referred By Contact Referred To Contact MOLECULAR & FUNCTIONAL IMAGING Diagnoses Other chest pain Procedures NM CARDIAC PERF STRESS/PHARM MYOCARDIAL SPECT MULTIPLE STUDIES Stefanie Solis MD [address] [place] [id number] [facility] [address] [id number] Referral ID Status Reason Start Date Expiration Date Visits Re quested Visits Authorized [id number] Closed 05/17/2023 11/13/2023 3 3 Reason Comments Radiology US Specialty Diagnoses / Procedures Referred By Khris t Referred To Contact US IMAGING Diagnoses Acute renal insufficiency Procedures US KIDNEY/BLADDER US RETROPERITONEAL REAL TIME W/IMAGE COMPLETE Older, Misty, ETHANOL OPERATIONS MANAGER.EXECUTIVE KITCHEN MANAGER [address] [place] [address] [place] [id number] Referral ID Status Reason Start Date Expiration Date V isits Requested Visits Authorized [id number] Closed Auto-Generate d Referral 03/30/2023 04/28/2024 1 1 Reason Comments Recheck Follow up Care Teams (unrecognized sec tion and content) Forest Resource Specialist Relationship Specialty Start Date End Date Uche Bryan MD [address] [place] [address] PCP - General Internal Medicine 10/17/15 Forest Resource Specialist Relationship Specialty Start Date End Date Uche Bryan MD [address] [place] [address] PCP - General Internal Medicine 10/17/15 Forest Resource Specialist Relationship Specialty Start Date End Date Uche Bryan MD [address] [place] [address] PCP - General Internal Medicine 10/17/15 Forest Resource Specialist Relationship Specialty Start Date End Date Uche Bryan MD [address] [place] [address] PCP - General Internal Medicine 10/17/15 Forest Resource Specialist Relationship Specialty Start Date End Date Uche Bryan MD [facility] [place] [address] PCP - General Internal Medicine 10/17/15 Forest Resource Specialist Relationship Specialty Start Date End Date Uche Bryan MD [facility] [place] [address] PCP - General Internal Medicine 10/17/15 Forest Resource Specialist Relationship Specialty Start Date End Date Uche Bryan MD [address] [place] [address] PCP - General Internal Medicine 10/17/15 Forest Resource Specialist Relationship Specialty Start Date End Date Uche Bryan MD [address] [place] [address] PCP - General Internal Medicine 10/17/15 Forest Resource Specialist Relationship Specialty Start Date End Date Uche Bryan MD [address] [place] [address] PCP - General Internal Medicine 10/17/15 Forest Resource Specialist Relationship Specialty Start Date End Date Uche Bryan MD [address] [place] [address] PCP - General Internal Medicine 10/17/15 Forest Resource Specialist Relationship Specialty Start Date End Date Uche Bryan MD [address] [place] [address] PCP - General Internal Medicine 10/17/15 Forest Resource Specialist Relationship Specialty Start Date End Date Uche Bryan MD [address] [place] [address] PCP - General Internal Medicine 10/17/15 Forest Resource Specialist Relationship Specialty Start Date End Date Uche Bryan MD [address] [place] [address] PCP - General Internal Medicine 10/17/15 Forest Resource Specialist Relationship Specialty Start Date End Date Uche Bryan MD [address] [place] [address] PCP - General Internal Medicine 10/17/15 Forest Resource Specialist Relationship Specialty Start Date End Date Uche Bryan MD [address] [place] [address] PCP - General Internal Medicine 10/17/15 Forest Resource Specialist Relationship Specialty Start Date End Date Uche Bryan MD [address] [place] [address] PCP - General Internal Medicine 10/17/15 Forest Resource Specialist Relationship Specialty Start Date End Date Uche Bryan MD [address] [place] [address] PCP - General Internal Medicine 10/17/15 Forest Resource Specialist Relationship Specialty Start Date End Date Uche Bryan MD [address] [place] [address] PCP - General Internal Medicine 10/17/15 Forest Resource Specialist Relationship Specialty Start Date End Date Uche Bryan MD [address] [place] [address] PCP - General Internal Medicine 10/17/15 Forest Resource Specialist Relationship Specialty Start Date End Date Uche Bryan MD [address] [place] [address] PCP - General Internal Medicine 10/17/15 Forest Resource Specialist Relationship Specialty Start Date End Date Uche Bryan MD [address] [place] [address] PCP - General Internal Medicine 10/17/15 Forest Resource Specialist Relationship Specialty Start Date End Date Uche Bryan MD [address] [place] [address] PCP - General Internal Medicine 10/17/15 Forest Resource Specialist Relationship Specialty Start Date End Date Uche Bryan MD [address] [place] [address] PCP - General Internal Medicine 10/17/15 Forest Resource Specialist Relationship Specialty Start Date End Date Uche Bryan MD [address] [place] [address] PCP - General Internal Medicine 10/17/15 Forest Resource Specialist Relationship Specialty Start Date End Date Uche Bryan MD [address] [place] [address] PCP - General Internal Medicine 10/17/15 Forest Resource Specialist Relationship Specialty Start Date End Date Uche Bryan MD [address] [place] [address] PCP - General Internal Medicine 10/17/15 Forest Resource Specialist Relationship Specialty Start Date End Date Uche Bryan MD [address] [place] [address] PCP - General Internal Medicine 10/17/15 Forest Resource Specialist Relationship Specialty Start Date End Date Uche Bryan MD [address] [place] [address] PCP - General Internal Medicine 10/17/15 Forest Resource Specialist Relationship Specialty Start Date End Date Uche Bryan MD [address] [place] [address] PCP - General Internal Medicine 10/17/15 Forest Resource Specialist Relationship Specialty Start Date End Date Uche Bryan MD [address] [place] [address] PCP - General Internal Medicine 10/17/15 Forest Resource Specialist Relationship Specialty Start Date End Date Uche Bryan MD [address] [place] [address] PCP - General Internal Medicine 10/17/15 Forest Resource Specialist Relationship Specialty Start Date End Date Uche Bryan MD [address] [place] [address] PCP - General Internal Medicine 10/17/15 Forest Resource Specialist Relationship Specialty Start Date End Date Uche Bryan MD [address] [place] [address] PCP - General Internal Medicine 10/17/15 Forest Resource Specialist Relationship Specialty Start Date End Date Uche Bryan MD [address] [place] [address] PCP - General Internal Medicine 10/17/15 Forest Resource Specialist Relationship Specialty Start Date End Date Uche Bryan MD [address] [place] [address] PCP - General Internal Medicine 10/17/15 Forest Resource Specialist Relationship Specialty Start Date End Date Uche Bryan MD [address] [place] [address] PCP - General Internal Medicine 10/17/15 Forest Resource Specialist Relationship Specialty Start Date End Date Uche Bryan MD [address] [place] [address] PCP - General Internal Medicine 10/17/15 Forest Resource Specialist Relationship Specialty Start Date End Date Uche Bryan MD [address] [place] [address] PCP - General Internal Medicine 10/17/15 Forest Resource Specialist Relationship Specialty Start Date End Date Uche Bryan MD [address] [place] [address] PCP - General Internal Medicine 10/17/15 Forest Resource Specialist Relationship Specialty Start Date End Date Uche Bryan MD [address] [place] [address] PCP - General Internal Medicine 10/17/15 Forest Resource Specialist Relationship Specialty Start Date End Date Uche Bryan MD [address] [place] [address] PCP - General Internal Medicine 10/17/15 Forest Resource Specialist Relationship Specialty Start Date End Date Uche Bryan MD [address] [place] [address] PCP - General Internal Medicine 10/17/15 INFORMATION SOURCE (unrecogn ized section and content) DATE CREATED AUTHOR AUTHOR'S DESMONDIZ ATION 12/04/2023 [facility] FOR RECORDS PERTAINING TO PATIENTS WHO ARE OR HAVE BEEN ENROLLED IN A CHEMICAL DEPENDENCY/SUBSTANCEABUSE PROGRAM, SOME INFORMATION MAY BE OMITTED. This clinical summary was aggregated from multiple sources. Caution should be exercised in using it in the provision of clinical care. This summary normalizes information from multiple sources, and as a consequence, information in this document may materially change the coding, format and clinical context of patient data. In addition, data may be omitted in some cases. CLINICAL DECISIONS SHOULD BE BASED ON THE PRIMARY CLINICAL RECORDS. [employer] provides no warranty or guarantee of the accuracy or completeness of information in this document.
[2023-12-12 07:15] LABS: CREATININE FINGERSTICK 1.8 mg/dL (0.55-1.02)
== END | disposition home or self-care (01) ==
LOC: CT 06:45
PROVIDERS: PCP Internal Medicine; Referring Provider Orthopaedic Surgery; Visit Provider Orthopaedic Surgery
DX: M43.10 Spondylolisthesis, site unspecified (principal); M43.17 Spondylolisthesis, lumbosacral region
CPT/HCPCS: 72132; Q9967

== ENCOUNTER 2024-02-21 10:00 | Day surgery (SDC) | payer OTHER, SELFPAY ==
--- NOTE | 2024-02-21 09:51 | EKG12_ITS ---
Test Reason : PRE OP Blood Pressure : / mmHG Vent. Rate : 063 BPM Atrial Rate : 063 BPM P-R Int : 162 ms QRS Dur : 074 ms QT Int : 422 ms P-R-T Axes : 083 050 071 degrees QTc Int : 431 ms Normal sinus rhythm Normal ECG Confirmed by Darshan Darnell ([id number]), editor producer CATIE SAINI ([id number]) on 02/22/2024 6:33:53 AM Referred By: IVET LAMAS Confirmed By:Darshan Darnell
[2024-02-21 11:15] LABS: Absolute Neutrophil Count 5.1 X10^3/uL (2.0-7.7); Basophil# 0.04 X10^3/uL; Basophil% 0.5 % (0-1); Hematocrit 38.2 % (37-47); Hemoglobin 12.6 g/dL (12.0-15.0); Lymphocyte % 26.1 % (19-41); Mean Corpuscular Hgb 27.8 pg (27.0-32.0); Mean Corpuscular Volume 84.3 fL (81-99); Mean Platelet Vol. 10.2 fl (6.2-12.0); Monocyte# 0.33 X10^3/uL; Monocyte% 4.1 % (0-10); NRBC Flagged by Analyzer 0 % (0-5); Neutrophil # 5.14 X10^3/uL (2.7-7.7); Neutrophil % 63.7 % (47-70); Platelet Count 264 K/mm3 (150-450); RBC Distribution Width CV 12.6 % (11.6-14.6); RBC Distribution Width SD 38.5 fl (35.1-43.9); Red Blood Count 4.53 M/mm3 (4.2-5.4); White Blood Count 8.1 K/mm3 (4.4-11.0)
[2024-02-21 11:37] LABS: Anion Gap 7 (5-15); BUN 8 mg/dL (7-18); BUN/Creat Ratio 7.8 RATIO (10-20); Calcium,Total 9.5 mg/dL (8.5-10.1); Chloride 107 mmol/L (98-107); Creatinine, Serum 1.02 mg/dL (0.55-1.02); EST Glomerular Filtration Rate 60 mL/min (>60); Est Glom Filt Rate - Afr Amer 73 mL/min (>60); Glucose 87 mg/dL (74-106); Potassium 3.7 mmol/L (3.5-5.1); Sodium Level 141 mmol/L (136-145)
[2024-02-21 12:29] LABS: HIV - WCH Non-Reactive (Nonreactive); Hepatitis B Surface Antibody Reactive; Hepatitis C Antibody Non-Reactive (Nonreactive)
[2024-02-22 05:07] LABS: Hepatitis A AB, Total Negative (Negative)
== END 2024-02-29 15:15 | disposition home or self-care (01) ==
LOC: SDC 01-23 15:55
PROVIDERS: PCP Internal Medicine; Visit Provider Orthopaedic Surgery
DX: Z01.818 Encounter for other preprocedural examination (principal); Z01.810 Encounter for preprocedural cardiovascular examination
CPT/HCPCS: 36415; 80048; 83735; 85025; 86703; 86706; 86708; 86803; 87081; 93005